=== PATIENT | male | born 1950 | race Two or more races ===

== ENCOUNTER 2016-10-06 12:25 | Emergency (ER) | payer MEDICARE, OTHER ==
[2016-10-06 13:12] VITALS: BP 130/72; PULSE 73; RESP 20; TEMP 98.6
[2016-10-06] MEDS ORDERED: KETOROLAC 60 MG/2 ML VIAL IM STA (13:46)
[2016-10-06] MEDS ORDERED: ORPHENADRINE 30 MG/ML 2 ML VIAL IM STA (13:46)
[2016-10-06] MEDS ORDERED: methylPREDNISolone SOD SUCCI 125 MG/2 ML VIAL IM ONE (13:47)
--- NOTE | 2016-10-06 14:00 | ED ---
Back Pain HPI - General Chief Complaint: Back Pain/Injury Stated Complaint: Back Pain Time Seen by Provider: 10/06/16 13:38 Source: patient, RN notes reviewed Limitations: no limitations - History of Present Illness Initial Comments: Patient is a 65-year-old male chief complaint of chronic lower back pain. Patient reports that he has been suffering from back pain for many years. He reports that he is scheduled to see a specialist Dr. Stout in 2 weeks. He reports he is supposed to have surgery but now is seeing a second opinion. Patient reports that he usually takes Antlers fives and 2 pills every 5 hours however does not help with his pain. Patient reports that the pain will shoot down the right leg. Patient reports that this is also chronic. He denies any saddle anesthesias or incontinence. He does report he has an occasional foot drop but denies any today. - Related Data Home Medications Medication Instructions Recorded Confirmed Aspirin 81 mg PO DAILY 03/11/14 05/25/16 Glimepiride [Amaryl] 4 mg PO BID 03/11/14 05/25/16 Tamsulosin [Flomax] 0.4 mg PO DAILY 03/11/14 05/25/16 Levocetirizine Dihydrochloride 5 mg PO DAILY 04/14/15 05/25/16 [Xyzal] sitaGLIPtin PHOS/metFORMIN HCL 1 tab PO BID 04/14/15 05/25/16 [Janumet 50-1,000 mg Tablet] Losartan [Cozaar] 50 mg PO DAILY 06/10/15 05/25/16 Omeprazole 20 mg PO BID 06/10/15 05/25/16 Cholecalciferol [Vitamin D3] 1,000 unit PO DAILY 10/22/15 05/25/16 Cyanocobalamin [Vitamin B-12 1,000 mg IM Q28D 10/22/15 05/25/16 Injection] HYDROcodone/APAP 5-325MG [Antlers 1 tab PO Q4HR PRN 10/22/15 05/25/16 5-325] Canagliflozin [Invokana] 300 mg PO DAILY 03/29/16 05/25/16 Megestrol Acetate 40 mg PO DAILY 03/29/16 05/25/16 levETIRAcetam [Keppra] 500 mg PO BID 03/29/16 05/25/16 Previous Rx's Medication Instructions Recorded tiZANidine [Zanaflex] 4 mg PO Q8HR PRN #0 10/24/15 Ibuprofen [Motrin] 600 mg PO Q6HR PRN #20 tab 11/07/15 Atenolol 25 mg PO DAILY #90 tablet 03/31/16 Atorvastatin [Lipitor] 40 mg PO HS #30 tablet 03/31/16 Nitroglycerin Sl Tabs [Nitrostat] 0.4 mg SUBLINGUAL Q5M PRN #25 tab 03/31/16 Prasugrel [Effient] 10 mg PO DAILY #1 tablet 03/31/16 Cyclobenzaprine [Flexeril] 10 mg PO TID #20 tab 05/25/16 Naproxen 500 mg PO Q12HR 14 Days 05/25/16 Orphenadrine [Norflex] 100 mg PO Q12H #20 tablet.er 10/06/16 Allergies Allergy/AdvReac Type Severity Reaction Status Date / Time No Known Allergies Allergy Verified 10/06/16 13:12 Review of Systems ROS Statement: Those systems with pertinent positive or pertinent negative responses have been documented in the HPI. ROS Other: All systems not noted in ROS Statement are negative. Past Medical History Past Medical History: Coronary Artery Disease (CAD), Chest Pain / Angina, Diabetes Mellitus, GERD/Reflux, Hyperlipidemia, Hypertension, Myocardial Infarction (NC) Additional Past Medical History / Comment(s): PROSTATE CANCER RADIATION/SEED IMPLANTS, STATES HE HAD HX OF RADIATION WHICH BURNED HIS COLON. , STATED "HAD BLOOD IN STOOL". Last Myocardial Infarction Date:: 1999 History of Any Multi-Drug Resistant Organisms: None Reported Past Surgical History: Heart Catheterization With Stent Additional Past Surgical History / Comment(s): HEART CATH WITH STENT 2003, COLONOSCOPY. Past Anesthesia/Blood Transfusion Reactions: No Reported Reaction Date of Last Stent Placement:: 2003 Past Psychological History: No Psychological Hx Reported Smoking Status: Former smoker Past Alcohol Use History: Occasional Additional Past Alcohol Use History / Comment(s): SMOKED FOR 8 YRS APPROX 1 PACK PER WEEK.QUIT 1984 Past Drug Use History: None Reported - Past Family History Mother Family Medical History: Cancer Brother(s) Family Medical History: Coronary Artery Disease (CAD), Diabetes Mellitus, Myocardial Infarction (NC) Father Family Medical History: Myocardial Infarction (NC) Additional Family Medical History / Comment(s): Father of NC at 99 years old General Exam - General Exam Comments Initial Comments: 65-year-old male. No acute distress. Limitations: no limitations General appearance: alert, in no apparent distress Head exam: Present: atraumatic, normocephalic, normal inspection Eye exam: Present: normal appearance, PERRL, EOMI. Absent: scleral icterus, conjunctival injection, periorbital swelling ENT exam: Present: normal exam, mucous membranes moist Neck exam: Present: normal inspection. Absent: tenderness, meningismus, lymphadenopathy Respiratory exam: Present: normal lung sounds bilaterally. Absent: respiratory distress, wheezes, rales, rhonchi, stridor Cardiovascular Exam: Present: regular rate, normal rhythm, normal heart sounds. Absent: systolic murmur, diastolic murmur, rubs, gallop, clicks GI/Abdominal exam: Present: soft, normal bowel sounds. Absent: distended, tenderness, guarding, rebound, rigid Extremities exam: Present: normal inspection, full ROM, normal capillary refill. Absent: tenderness, pedal edema, joint swelling, calf tenderness Back exam: Present: normal inspection, full ROM, tenderness (Patient reports lumbar spinal tenderness radiating down his right leg.), paraspinal tenderness ( Right paraspinal lumar tenderness) Neurological exam: Present: alert, oriented X3, CN II-XII intact, other (No evidence of foot drop.) Psychiatric exam: Present: normal affect, normal mood Skin exam: Present: warm, dry, intact, normal color. Absent: rash Course Vital Signs 10/06/16 13:10 Temperature 98.6 F Pulse Rate 73 Respiratory 20 Rate Blood Pressure 130/72 O2 Sat by Pulse 98 Oximetry Medical Decision Making - Medical Decision Making Patient is 65-year-old male with chronic lower back pain. Patient wants to forego any imaging studies at this time. He denies any trauma. The pain will occasionally radiate down his right leg. Patient warts that is not managed with his at home pain medication. Patient only given IM Norflex and Toradol. Patient will be discharged with a prescription for Norflex. I did discuss the need to take his at home pain medication. At this time not able to violate his pain contract. Patient also advised to follow-up with his neurologist and orthopod as is possible. Return parameters were discussed. Disposition Clinical Impression: Strain of lumbar region, Sciatica Disposition: HOME SELF-CARE Condition: Good Instructions: Acute Low Back Pain (ED) Additional Instructions: Patient advised to rest, apply heat and ice lower back. Take at home pain medication and new prescription muscle relaxers. Prescriptions: Orphenadrine [Norflex] 100 mg PO Q12H #20 tablet.er Referrals: Shannon Honeycutt MD [Primary Care Provider] - 1-2 days Time of Disposition: 16:24
== END 2016-10-06 14:26 | disposition home or self-care (01) ==
LOC: EC 12:25
DX: S39.012A Strain of muscle, fascia and tendon of lower back, initial encounter (principal); M54.30 Sciatica, unspecified side; E11.9 Type 2 diabetes mellitus without complications; Z79.84 Long term (current) use of oral hypoglycemic drugs; K21.9 Gastro-esophageal reflux disease without esophagitis; I10 Essential (primary) hypertension; Z85.46 Personal history of malignant neoplasm of prostate; Z87.891 Personal history of nicotine dependence; Z79.899 Other long term (current) drug therapy; X58.XXXA Exposure to other specified factors, initial encounter
CPT/HCPCS: 99283; 96372 ×2; J2360; J1885

== ENCOUNTER → 2016-10-11 | Outpatient (CLI) | payer MEDICARE, OTHER ==
[2016-10-11 16:36] LABS: Blood Urea Nitrogen 15 mg/dL (9-20); Non-African American GFR(MDRD) >60 (>60 ml/min/1.73 sqM)
--- NOTE | 2016-10-11 17:00 | BD ---
EXAMINATION TYPE: MG DEXA axial skeleton. DATE OF EXAM: 10/11/2016 3:43 PM COMPARISON: NONE CLINICAL HISTORY: 65-year-old male prostate CA Height: 5'4 Weight: 208 FRAX RISK QUESTIONS: Alcohol (3 or more units per day): no Family History (Parent hip fracture): no Glucocorticoids (More than 3mos): no (Ex: prednisone, prednisolone, methylprednisolone, dexamethasone, and hydrocortisone). History of Fracture in Adulthood: no Secondary Osteoporosis: 1. Type 1 Diabetes: no 2. Hyperthyroidism: no 3. Menopause before 45: NA 4. Malnutrition: no 5. Chronic liver disease: no Rheumatoid Arthritis: no Current Tobacco Use: no RISK FACTORS HISTORY OF: History of Wrist Fracture: rt When: 2016 Other Fractures since Age 48: When: 2016 Active: MEDICATIONS: Additional Medications: blood pressure, cholesterol , treatment for prostate cancer Additional History: prostate CA EXAM MEASUREMENTS: Bone mineral densitometry was performed using the [employer] System. Bone mineral density as measured about the Lumbar spine is: ----- L1-L4(G/cm2): 0.982 T Score Values are as follows: ----- L2: -1.4 ----- L3: -1.9 ----- L4: -1.1 ----- L1-L4: -1.6 Bone mineral density about the R hip (g/cm2): 1.084 Bone mineral density about the L hip (g/cm2): 0.989 T Score values are as follows: -----R Neck: 0.3 -----L Neck: -0.3 -----R Intertrochanter: -0.7 -----L Intertrochanter: -0.4 IMPRESSION: Osteopenia as indicated by T score values in the lumbar spine. There is slightly increased risk of fracture and the patient may be considered for treatment. NOTE: T-SCORE=SD OF THE YOUNG ADULT MEAN.
--- NOTE | 2016-10-11 21:13 | CT ---
EXAMINATION TYPE: CT abdomen pelvis w con DATE OF EXAM: 10/11/2016 5:52 PM COMPARISON: CT abdomen and pelvis April 02, 2015 HISTORY: F/U after prostate CA. CT DLP: 1679 mGycm, Automated Exposure Control for Dose Reduction was Utilized. CONTRAST: CT scan of the abdomen and pelvis is performed with oral and with IV Contrast, patient injected with 100 mL of Omnipaque 300. FINDINGS: LUNG BASES: Dense coronary artery calcification and/or stent in the RCA distribution is present. LIVER/GB: Small dependent density in gallbladder on axial image 22 is felt to reflect small gallstone s. PANCREAS: No significant abnormality is seen. SPLEEN: No significant abnormality is seen. ADRENALS: No significant abnormality is seen. KIDNEYS: No significant abnormality is seen. BOWEL: Oral contrast does not reach colonic level. There is no suspicious small or large bowel dilata tion. PROSTATE/SEMINAL VESICLES: Numerous brachytherapy seeds are redemonstrated in prostate gland. LYMPH NODES: No greater than 1cm abdominal or pelvic lymph nodes are appreciated. OSSEOUS STRUCTURES: Multilevel spurring in the thoracolumbar spine is present. Grade 1 anterolisthesi s L4 on L5 is seen. Small sclerotic focus left proximal femur on coronal image 63 is nonspecific but stable and presumed benign. OTHER: No significant additional abnormality is seen. IMPRESSION: No worrisome new mass or adenopathy is seen to suggest neoplastic recurrence.
== END | disposition home or self-care (01) ==
LOC: RADBDWWP 15:08
PROVIDERS: ATTEND Internal Medicine Hematology & Oncology
DX: C61 Malignant neoplasm of prostate (principal); M85.88 Other specified disorders of bone density and structure, other site
CPT/HCPCS: 82565; 84520; 77080; 74177; 36415; Q9967

== ENCOUNTER → 2016-11-12 | Outpatient (CLI) | payer MEDICARE, OTHER ==
[2016-11-12 13:00] LABS: Basophils % (A) 1 %; CH 30.1; CHCM 32.9; Eosinophils # (A) 0.2 k/uL (0-0.7); Eosinophils % (A) 2 %; HCT 42.1 % (39.0-53.0); HDW 2.29; HGB 13.9 gm/dL (13.0-17.5); Luc # (Auto) 0.22; Luc % (Auto) 3; Lymphocytes # (A) 1.6 k/uL (1.0-4.8); Lymphocytes % (A) 25 %; MCH 30.3 pg (25.0-35.0); MCV 91.8 fL (80.0-100.0); Mean Platelet Volume 7.2; Monocytes # (A) 0.5 k/uL (0-1.0); Monocytes % (A) 7 %; Neutrophils # (A) 4.2 k/uL (1.3-7.7); Neutrophils % (A) 62 %; RBC 4.58 m/uL (4.30-5.90); RDW 12.9 % (11.5-15.5); WBC 6.7 k/uL (3.8-10.6); WBC (Perox) 5.97
[2016-11-12 14:24] LABS: Prothrombin Time 10.4 sec (9.0-12.0)
[2016-11-12 14:40] LABS: Appearance,Urine Clear (Clear); Bacteria,Urine Rare /hpf; Bilirubin,Urine Negative (Negative); Glucose,Urine (UA) 4+ (Negative); Ketones,Urine Negative (Negative); Leukocyte Esterase,Urine Large (Negative); Mucus,Urine Rare /hpf; Nitrite,Urine Negative (Negative); Particle Count 2578; Protein,Urine Negative (Negative); RBC,Urine 10 /hpf (0-5); Specific Gravity,Urine 1.028 (1.001-1.035); Squamous Epithelial Cell,Urine 3 /hpf (0-4); UA Billing (MACRO vs. MICRO) MICRO; Urobilinogen,Urine <2.0 mg/dL (<2.0); WBC,Urine 10 /hpf (0-5)
[2016-11-12 14:44] LABS: Partial Thromboplastin Time 20.3 sec (22.0-30.0)
== END | disposition home or self-care (01) ==
LOC: LABPAT 12:32
PROVIDERS: ATTEND Orthopaedic Surgery Orthopaedic Surgery of the Spine
DX: Z01.810 Encounter for preprocedural cardiovascular examination (principal); Z01.818 Encounter for other preprocedural examination; M48.06 Spinal stenosis, lumbar region
CPT/HCPCS: 80053; 80177; 81001; 83036; 85025; 85610; 85730; 86850; 86900; 86901

== ENCOUNTER 2016-11-24 07:43 | Inpatient (IN) | payer MEDICARE, OTHER ==
[~2016-11-24 07:43] MED LIST: BACITRACIN 50,000 UNIT, POLYMYXIN B 500,000 UNIT in SODIUM CHLORIDE 0.9% IRRIGATIO 1,00... IRRIGATION ONE; DEXAMETHASONE SOD PHOSPHATE 10 MG/ML 1 ML VIAL IV ONE; MIDAZOLAM 2 MG/2 ML VIAL IV PRN; ONDANSETRON 4 MG/2 ML VIAL IVP ONE; ceFAZolin 2 GM in SODIUM CHLORIDE 0.9% 100 ML IVPB ONE
[2016-11-24 08:30] LABS: Glucose,Whole Blood 164 mg/dL (75-99)
[2016-11-24] MEDS: LACTATED RINGERS 1,000 ML IV SCH (08:31)
[2016-11-24] MEDS ORDERED: LIDOCAINE 1% 20 ML VIAL (10MG/ML) FOR IV START INTRADERMA ONE (08:31)
[2016-11-24] MEDS ORDERED: SUCCINYLCHOLINE CHLORIDE 100 MG/5 ML SYR IV ONE (09:52)
[2016-11-24] MEDS ORDERED: PROPOFOL 10 MG/ML 20 ML VIAL IV ONE (09:52)
[2016-11-24] MEDS ORDERED: fentaNYL (PF) 50 MCG/ML 2 ML AMP ONE (09:52)
[2016-11-24] MEDS ORDERED: LIDOCAINE 1% INJ 10MG/ML (20 ML MDV) ONE (09:52)
[2016-11-24] MEDS ORDERED: ePHEDrine 50 MG/ML 1 ML AMP ONE (09:52)
[2016-11-24] MEDS ORDERED: ROCURONIUM BROMIDE 10 MG/ML 10 ML VIAL IV ONE (09:52)
[2016-11-24] MEDS ORDERED: PHENYLEPHRINE-0.9% NACL SYG 1 MG/10 ML SYRINGE ONE (09:52)
[2016-11-24] MEDS ORDERED: MIDAZOLAM 2 MG/2 ML VIAL ONE (09:52)
[2016-11-24] MEDS ORDERED: LIDOCAINE 0.5% (PF) 5 MG/ML (50 ML SDV) SQ ONE (10:41)
[2016-11-24] MEDS ORDERED: THROMBIN (BOVINE) 5,000 UNIT VIAL TOPICAL ONE (10:42)
[2016-11-24] MEDS ORDERED: GELATIN SPONGE,ABSORB (SMALL) 1 EACH SPONGE TOPICAL ONE (10:42)
[2016-11-24] MEDS ORDERED: BUPIVACAINE (PF) 0.25% 30 ML VIAL SQ ONE (10:43)
[2016-11-24] MEDS ORDERED: LACTATED RINGERS 1,000 ML IV ONE ×2 (10:47→13:01)
[2016-11-24] MEDS: BUPIVACAINE LIPOSOME/PF 1.3% 20 ML, BUPIVACAIN-EPI 0.5%-1:200,000 25 ML, SODIUM CHLORID... MISCELLANE ONE ×6 (11:55→12:59)
[2016-11-24] MEDS ORDERED: HYDROmorphone 1 MG/ML 1 ML SYRINGE IVP PRN (13:15)
[2016-11-24] MEDS ORDERED: BENZOCAINE/MENTHOL LOZENG 1 EACH LOZENGE MUCOUS MEM PRN (13:15)
[2016-11-24] MEDS ORDERED: ONDANSETRON 4 MG/2 ML VIAL IVP PRN (13:15)
[2016-11-24] MEDS ORDERED: HYDROcodone/APAP 5-325MG 1 EACH TAB PO PRN (13:15)
[2016-11-24] MEDS ORDERED: NITROGLYCERIN SL TABS 0.4 MG TAB SUBLINGUAL PRN (13:18)
--- NOTE | 2016-11-24 13:25 | FL ---
Fluoroscopy HISTORY: Lumbar decompression 2.1 minutes fluoroscopy time supplied to the referring clinician. 5 intraoperative C-arm images docu ment the procedure. See dictated report from orthopedic surgery.
--- NOTE | 2016-11-24 13:25 | XR ---
Limited lumbar spine HISTORY: Decompression 2.1 minutes fluoroscopy time supplied to the referring clinician. 5 intraoperative C-arm images docum ent the procedure
--- NOTE | 2016-11-24 13:28 | P.OP ---
Date of Procedure: 11/24/16 Preoperative Diagnosis: Severe spinal stenosis L4 5, spondylolisthesis grade 2 L4 5, facet arthrosis L4 5, neurogenic claudication Postoperative Diagnosis: Same Procedure(s) Performed: Implants: Anesthesia: GETA Pathology: none sent Condition: stable Disposition: PACU Indications for Procedure: Operative Findings: Description of Procedure: DESCRIPTION OF PROCEDURE(S): BRIEF OPERATIVE NOTE Preoperative Diagnosis: Severe spinal stenosis L4 5, spondylolisthesis L4 5, facet arthrosis L4 5, neurogenic claudication Postoperative Diagnosis: Same Procedure: Minimally invasive Laminectomy and decompression with wide bilateral foraminotomies L4 5 Minimally invasive Posterior lateral decompression and fusion with facet fusion L4 5 Minimally invasive Transforaminal lumbar interbody fusion for a 360 fusion L4 5 Discectomy for decompression L4 5 Placement of interbody graft L4 5 Bone marrow aspiration through the pedicle to be used for supplementing the bone graft Local autogenous bone grafting Use of Cell Saver Use of bone graft extenders Surgeon: Dr. Stout Hot End Operator: Sheldon Bradley is present throughout the entire the case persistence during positioning, dissection, exposure, visualization, and all crucial elements of the case as well as closure. Anesthesia: General anesthesia per Dr. Caballero Estimated blood loss: Approximately 200 mL Complications: None apparent Components implanted: K2M minimally invasive [place] pedicle screw system with 4 screws measuring 6.5 x 45 mm, 2 rods and 4 Screws with one 11 mm [place] interbody cage, one large cancellus ostial amp bone sponge with 10 mL of 2 and cancellus bone chips to supplement the local autogenous bone graft and bone marrow aspirate Disposition: To recovery room in good stable condition. OPERATIVE INDICATIONS The patient has had long-standing issues in their lower back and lower extremities. His found have severe stenosis at L4 5 with a grade 2 dynamic spondylolisthesis. These findings correlated very well with his back and lower extremity symptoms which have become significantly worsened for him and was causing him severe debility. The patient has been through conservative treatment. He is not having any prolonged benefit despite aggressive conservative treatment. We discussed various treatment options including surgery, and the patient wishes to proceed with surgery We discussed the risk, patient's alternatives and benefits of surgery including but not limited to, risk of bleeding risk of infection, risk of need for further surgery, risk of decreased, loss of motion, muscle function, malunion nonunion, hardware failure , nerve damage, paralysis, heart attack, blindness and . OPERATIVE SUMMARY After discussing all the risks, patient alternatives and benefits at length, the patient elected to proceed with surgical intervention, signed informed consent, and presented for their procedure. The patient was seen and examined in the preoperative holding area and the surgical site was marked. The patient was given antibiotics and brought to the operating room. The patient was sedated and intubated by anesthesia in standard fashion. The patient was positioned on to the operating room table in a prone position on the appropriate frame which was well-padded and well molded. We were careful to pad any bony prominences and pressure points. We were careful to maintain the patient's cervical spine and good neutral alignment and position throughout. The patient was prepped and draped in a normal standard fashion. An appropriate timeout and keystone protocol performed. We were able to proceed with the surgery. The local wound area was infiltrated with local anesthetic. I was able utilize C-arm guidance to establish appropriate position over the pedicles bilaterally at the appropriate levels at L4 5. With the appropriate levels confirmed was able to make small stab incisions over the appropriate pedicle sites bilaterally at L4 5. Utilizing C-arm in his house able to establish a Jamshidi needle over the lateral aspect of the pedicle and advanced the trocar into the pedicle being careful not to breech superiorly inferiorly medially or laterally. Position was confirmed regularly with AP and lateral images on C-arm. At L4 on the right was just able to get a bone marrow aspirate with approximately 20 mL of bone marrow aspirate to used for the bone graft. I was able to establish the trocar into the pedicle appropriately into the posterior aspect of the vertebral body bilaterally at the appropriate levels at L4 and L5 bilaterally. This was done at each of the pedicle positions and each of the vertebrae. I was able place the guidewire into the trocar and into the vertebral body appropriately under C-arm guidance. Dissection was taken down over the wire to the appropriate starting position for the screw placed. The appropriate length screw was chosen, threaded over the guidewire and screwed appropriately into the pedicle and vertebral body under C-arm guidance in excellent alignment and position with good bony purchase. This is done at each of the screw sites at the appropriate levels at L4 and L5 bilaterally. With the screws intact I extended the incision to connect the screw hole sites on the most symptomatic side on the right. I dissected down to establish access over the pars and lamina to the base of the spinous process. I was able to expose the facet joint. The capsule the facet was taken down and showed some facet arthrosis at the joint. I was able to use a combination of curettes and [place] rongeurs and a high-speed drill to take down the facet joint and do a facetectomy. Partial laminectomy was also performed. I was able get excellent foraminal decompression and central decompression with undermining across midline to perform a laminectomy centrally and contralaterally. This allowed me to get excellent bilateral foraminal decompression and I was able get good central decompression as well as. The ligamentum flavum was taken down to further decompress centrally and at bilateral neural foramen. I was able to expose the disc space and visualize the traversing nerve root. No was made of some disc protrusion at the level causing further compression of the nerve root. I was able to establish a annulotomy at the appropriate level of L4 5 on the right protecting soft tissue and neural structures. Note was made of some disc desiccation at the disc. I performed a complete discectomy with accommodation of curettes and rasps and scrapers. I was able get good endplate preparation at the disc space. I sized for the appropriate size interbody spacer protecting the soft tissue and neural structures. The wound was copiously irrigated and suctioned dry. There is no evidence of any dural tear or leak. I was able to pack the disc space with local autogenous bone graft as well as a small amount of ostial amp cancellus sponge which was also placed into the interbody cage itself. Protecting the soft tissue structures and neural structures I was able place the interbody cage in good alignment and good position with good fit and fill at the interbody space. His issues was confirmed with C-arm guidance. On the contralateral side I also performed laminectomy and foraminotomy to get further decompression at the bilateral neural foramen and centrally. Good hemostasis maintained. There is no evidence of any dural tear or leak. The wound was irrigated and suctioned dry. With the hardware intact, intraoperative C-arm imaging was again taken which showed good alignment and position of the hardware at the appropriate levels at L4 5. We were then able to measure, contour and place the rods and appropriate hardware bilaterally. I was able to place capcrews, tighten them down, and shear them off appropriately. The sheared portion was counted and accounted for. With this intact I was able to place the local autogenous bone graft with additional bone graft enhancer as necessary into the posterior lateral gutters over the decorticated transverse processes and the facet joint on the right. The remainder of the cancellus bone graft and bone graft was placed over the facet joint on the contralateral side after taking down the facet joint capsule. With the bone graft intact, a stable construct, and good decompression at the appropriate levels, we were able to proceed with closure. Good hemostasis was maintained. There is no evidence of dural tear or leak. The fascia was closed for a watertight closure. he subcuticular tissue was closed with absorbable suture. The wound was cleaned and dried and dressed with the appropriate dressing. The drapes were broken down. The patient was gently rolled back onto their hospital bed being careful to maintain their cervical spine and good neutral alignment and position. They were woken up by anesthesia, extubated, and brought to the recovery room in good stable condition. The patient will be admitted to the hospital for appropriate postoperative care , medical management and monitoring. We will continue to follow them closely about the postoperative course.
[2016-11-24] MEDS: HYDROmorphone 1 MG/ML 1 ML SYRINGE IVP PRN ×6 (13:37→21:10)
[2016-11-24 13:55] LABS: Glucose,Whole Blood 162 mg/dL (75-99)
[2016-11-24] MEDS: SODIUM CHLORIDE 0.9% 1,000 ML IV SCH (17:08)
[2016-11-24] MEDS ORDERED: CYANOCOBALAMIN 1,000 MCG/ML 1 ML VIAL IM SCH (17:30)
[2016-11-24 17:34] VITALS: BMI 36.8
[2016-11-24] MEDS: ceFAZolin 2 GM in SODIUM CHLORIDE 0.9% 100 ML IVPB SCH (18:18)
[2016-11-24] MEDS: PANTOPRAZOLE 40 MG TABLET PO SCH (18:22)
[2016-11-24] MEDS: CYCLOBENZAPRINE 10 MG TAB PO SCH ×2 (18:22→20:34)
[2016-11-24] MEDS: HYDROcodone/APAP 7.5-325MG 1 EACH TAB PO PRN (20:03)
[2016-11-24] MEDS: GLIMEPIRIDE 4 MG TAB PO SCH (20:32)
[2016-11-24] MEDS: LINAGLIPTIN 5 MG TABLET PO SCH (20:32)
[2016-11-24] MEDS: ATORVASTATIN 40 MG TAB PO SCH (20:32)
[2016-11-24] MEDS: levETIRAcetam 500 MG TAB PO SCH (20:33)
[2016-11-24] MEDS: metFORMIN 500 MG TAB PO SCH (20:33)
[2016-11-24] MEDS: NITROFURANTOIN MONOHYD/M-CRYST 100 MG CAP PO SCH (20:33)
[2016-11-25] MEDS: HYDROmorphone 1 MG/ML 1 ML SYRINGE IVP PRN ×5 (00:48→20:35)
[2016-11-25] MEDS: ceFAZolin 2 GM in SODIUM CHLORIDE 0.9% 100 ML IVPB SCH (01:40)
[2016-11-25] MEDS: HYDROcodone/APAP 7.5-325MG 1 EACH TAB PO PRN ×2 (01:41→07:28)
[2016-11-25] MEDS: DIAZEPAM 5 MG TAB PO PRN ×2 (01:41→08:51)
[2016-11-25] MEDS: SODIUM CHLORIDE 0.9% 1,000 ML IV SCH ×2 (06:27→15:55)
[2016-11-25] MEDS: LACTATED RINGERS 1,000 ML IV SCH (07:16)
[2016-11-25] MEDS: metFORMIN 500 MG TAB PO SCH ×2 (07:28→20:36)
[2016-11-25] MEDS: NITROFURANTOIN MONOHYD/M-CRYST 100 MG CAP PO SCH ×2 (07:28→20:36)
[2016-11-25] MEDS: TAMSULOSIN 0.4 MG CAP.ER.24H PO SCH (07:29)
[2016-11-25] MEDS: LORATADINE 10 MG TAB PO SCH (07:29)
[2016-11-25] MEDS: ASPIRIN 81 MG CHEW PO SCH (07:29)
[2016-11-25] MEDS: ATENOLOL 25 MG TAB PO SCH (07:30)
[2016-11-25] MEDS: CYCLOBENZAPRINE 10 MG TAB PO SCH ×3 (07:30→21:36)
[2016-11-25] MEDS: PANTOPRAZOLE 40 MG TABLET PO SCH ×2 (07:30→17:15)
[2016-11-25] MEDS: MEGESTROL 40 MG TAB PO SCH (07:30)
[2016-11-25] MEDS: GLIMEPIRIDE 4 MG TAB PO SCH ×2 (07:30→20:37)
[2016-11-25] MEDS: levETIRAcetam 500 MG TAB PO SCH ×2 (07:30→20:37)
[2016-11-25] MEDS: LINAGLIPTIN 5 MG TABLET PO SCH ×2 (07:30→20:38)
[2016-11-25] MEDS: LOSARTAN 50 MG TAB PO SCH (07:30)
[2016-11-25] MEDS ORDERED: NON-FORMULARY DRUG (Canagliflozin [Invokana] 300 MG) PO SCH (09:00)
[2016-11-25 09:06] LABS: Basophils % (A) 0 %; CH 29.7; CHCM 31.8; Eosinophils % (A) 1 %; HCT 39.5 % (39.0-53.0); HDW 2.06; HGB 12.6 gm/dL (13.0-17.5); Luc # (Auto) 0.12; Luc % (Auto) 2; Lymphocytes # (A) 0.8 k/uL (1.0-4.8); Lymphocytes % (A) 10 %; MCH 29.9 pg (25.0-35.0); MCHC 31.9 g/dL (31.0-37.0); MCV 93.5 fL (80.0-100.0); Mean Platelet Volume 6.8; Monocytes # (A) 0.4 k/uL (0-1.0); Monocytes % (A) 6 %; Neutrophils # (A) 6.3 k/uL (1.3-7.7); Neutrophils % (A) 82 %; RBC 4.22 m/uL (4.30-5.90); WBC 7.7 k/uL (3.8-10.6)
--- NOTE | 2016-11-25 09:09 | P.PN ---
Progress Note - Text Postoperative day #1 Patient is seen and examined today at bedside. The patient has some pain around the surgical site as expected. Pain is being controlled with medication. He is sitting up in the chair and has had his Whaley removed about an hour ago. He has not yet voided on his own. He feels his legs are doing well but his back is having some pain as expected Physical Exam Afebrile with stable vital signs Abdomen is soft nontender. Chest has good excursion deep and space expiration The incision site is clean dry and intact. No erythema there is no purulence. Dressings are clean and dry. There is no active drainage. There is no evidence of dehiscence Extremities have not had neurologic change from prior to surgery. He has sustained dorsal flexion plantar flexion and EHL intact bilaterally Calves and thighs were soft nontender without evidence of DVT. Assessment/Plan Postoperative day #1 status post decompression and fusion with minimally invasive approach at L4 5 for his severe spinal stenosis and spondylolisthesis Patient is progressing as expected from the surgery. He feels his legs are doing well in his back pain is being controlled with medication. We'll see how he does with his voiding now that his Whaley was discontinued. We will continue to increase the patient's mobilization with therapy. We will continue pain control with oral or IV medications. We'll continue to follow patient closely. Hopefully he will be okay for discharge in the next 1- 2 days.
[2016-11-25 09:14] LABS: Anion Gap 13 mmol/L; Blood Urea Nitrogen 10 mg/dL (9-20); Calcium 8.8 mg/dL (8.4-10.2); Carbon Dioxide 19 mmol/L (22-30); Chloride 103 mmol/L (98-107); Glucose 173 mg/dL (74-99); Non-African American GFR(MDRD) >60 (>60 ml/min/1.73 sqM); Potassium 4.6 mmol/L (3.5-5.1); Sodium 135 mmol/L (137-145)
[2016-11-25] MEDS ORDERED: CHOLECALCIFEROL 1,000 UNIT TAB PO SCH (12:00)
[2016-11-25] MEDS: HYDROcodone/APAP 5-325MG 1 EACH TAB PO PRN (12:00)
--- NOTE | 2016-11-25 14:25 | P.CONS ---
History of Present Illness - Reason for Consult Consult date: 11/25/16 Medical management Requesting physician: Madeleine Stout - Chief Complaint Chronic low back pain - History of Present Illness This is a 66-year-old gentleman with a very complex past medical history noted below significant for chronic low back pain that was evaluated by spine surgery and was admitted to the hospital for elective L4/L5 laminectomy. He is postoperative day #1. Detailed operative report available in the electronic chart. Patient is doing fairly well today. He does not have any specific concerns or complaints. I was asked to see him for medical management. Review of Systems Review of system: 14 points review of systems were obtained and were negative except to what were mentioned in the HPI. Past Medical History Past Medical History: Coronary Artery Disease (CAD), Chest Pain / Angina, Diabetes Mellitus, GERD/Reflux, Hyperlipidemia, Hypertension, Myocardial Infarction ([place]) Additional Past Medical History / Comment(s): PROSTATE CANCER RADIATION/SEED IMPLANTS, STATES HE HAD HX OF RADIATION WHICH BURNED HIS COLON. , STATED "HAD BLOOD IN STOOL". Last Myocardial Infarction Date:: 1999 History of Any Multi-Drug Resistant Organisms: None Reported Past Surgical History: Heart Catheterization With Stent Additional Past Surgical History / Comment(s): HEART CATH WITH STENT 2003, COLONOSCOPY. Past Anesthesia/Blood Transfusion Reactions: No Reported Reaction Date of Last Stent Placement:: 2003 Past Psychological History: No Psychological Hx Reported Smoking Status: Former smoker Past Alcohol Use History: Occasional Additional Past Alcohol Use History / Comment(s): SMOKED FOR 8 YRS APPROX 1 PACK PER WEEK.QUIT 1984 Past Drug Use History: None Reported - Past Family History Mother Family Medical History: Cancer Brother(s) Family Medical History: Coronary Artery Disease (CAD), Diabetes Mellitus, Myocardial Infarction ([place]) Father Family Medical History: Myocardial Infarction ([place]) Additional Family Medical History / Comment(s): Father of [place] at 99 years old Medications and Allergies Home Medications Medication Instructions Recorded Confirmed Type Aspirin 81 mg PO DAILY 03/11/14 11/24/16 History Glimepiride [Amaryl] 4 mg PO BID 03/11/14 11/24/16 History Tamsulosin [Flomax] 0.4 mg PO DAILY 03/11/14 11/24/16 History Levocetirizine Dihydrochloride 5 mg PO DAILY 04/14/15 11/24/16 History [Xyzal] sitaGLIPtin PHOS/metFORMIN HCL 1 tab PO BID 04/14/15 11/24/16 History [Janumet 50-1,000 mg Tablet] Losartan [Cozaar] 50 mg PO QAM 06/10/15 11/24/16 History Omeprazole 20 mg PO BID 06/10/15 11/24/16 History Cholecalciferol [Vitamin D3] 1,000 unit PO DAILY 10/22/15 11/24/16 History Cyanocobalamin [Vitamin B-12 1,000 mg IM Q28D 10/22/15 11/24/16 History Injection] Canagliflozin [Invokana] 300 mg PO DAILY 03/29/16 11/24/16 History Megestrol Acetate 40 mg PO QAM 03/29/16 11/24/16 History levETIRAcetam [Keppra] 500 mg PO QAM 03/29/16 11/24/16 History Atenolol 25 mg PO QAM 11/18/16 11/24/16 History Clopidogrel [Plavix] 75 mg PO DAILY 11/18/16 11/24/16 History HYDROcodone/APAP 7.5-325MG [[place] 1 tab PO Q6H PRN 11/18/16 11/24/16 History 7.5-325] Nitrofurantoin Monohyd/M-Cryst 100 mg PO Q12HR 11/18/16 11/24/16 History [Macrobid] levETIRAcetam [Keppra] 1,000 mg PO HS 11/18/16 11/24/16 History Allergies Allergy/AdvReac Type Severity Reaction Status Date / Time No Known Allergies Allergy Verified 11/18/16 11:06 Physical Exam Vitals: Vital Signs Temp Pulse Pulse Pulse Resp BP Pulse Ox 11/25/16 08:13 99.3 F 92 16 129/66 91 L 11/25/16 08:00 82 16 11/24/16 22:46 98.1 F 82 16 150/72 91 L 11/24/16 18:25 80 144/75 95 11/24/16 17:55 78 139/74 93 L 11/24/16 17:25 77 142/76 94 L 11/24/16 17:10 80 143/72 91 L 11/24/16 16:55 78 153/79 93 L 11/24/16 16:40 98.2 F 74 18 147/70 97 11/24/16 16:25 76 16 152/76 96 11/24/16 16:00 72 18 138/83 97 11/24/16 15:30 73 18 129/76 96 11/24/16 15:15 77 16 137/72 94 L 11/24/16 15:00 74 16 129/69 94 L 11/24/16 14:45 75 16 129/67 95 11/24/16 14:30 79 16 137/70 96 Intake and Output 11/24/16 11/25/16 11/25/16 22:59 06:59 14:59 Intake Total 590 600 Output Total 300 Balance 590 600 -300 Intake: Intake, IV Titration 600 Amount Sodium Chloride 0.9% 1, 600 000 ml @ 75 mls/hr IV . [id number] [facility] Rx#:[id number] Oral 590 Output: Urine 300 Other: Voiding Method Indwelling Catheter Weight 94.347 kg 94.347 kg Patient Weight 11/26/16 06:59 Weight 94.347 kg General: The patient is awake and alert, in no distress Eye: there is normal conjunctiva bilaterally. Neck: The neck is supple, there is no JVD. Cardiovascular: Normal S1-S2, no S3-S4, no murmurs. Respiratory: Lungs clear to auscultation bilaterally Gastrointestinal: Abdomen is soft, nontender Musculoskeletal: There is no pedal edema. Neurological:. Speech is normal. Skin: Skin is warm and dry Results CBC & Chem 7: 11/25/16 08:25 11/25/16 08:25 Labs: Abnormal Lab Results - Last 24 Hours (Table) 11/25/16 11/25/16 Range/Units 08:25 08:25 RBC 4.22 L (4.30-5.90) m/uL Hgb 12.6 L (13.0-17.5) gm/dL Lymphocytes # 0.8 L (1.0-4.8) k/uL Sodium 135 L (137-145) mmol/L Carbon Dioxide 19 L (22-30) mmol/L Glucose 173 H (74-99) mg/dL Assessment and Plan Plan: 1. Postoperative day #1 status post L4-L5 laminectomy: Continue postoperative care. No complications reported. 2. Essential hypertension: Blood pressure well-controlled 3. Mixed hyperlipidemia 4. History of prostate cancer with previous radiation therapy 5. Underlying seizure disorder 6. Coronary artery disease with previous stent placement in 2003 Today, I reviewed her medication list and lab work results. Continue current regimen. Thank you very much for the consultation. I will continue to follow up on the patient closely.
[2016-11-25 20:12] LABS: Glucose,Whole Blood 184 mg/dL (75-99)
[2016-11-25] MEDS: ATORVASTATIN 40 MG TAB PO SCH (20:37)
[2016-11-26] MEDS: HYDROmorphone 1 MG/ML 1 ML SYRINGE IVP PRN (02:22)
[2016-11-26] MEDS: HYDROcodone/APAP 5-325MG 1 EACH TAB PO PRN (03:43)
[2016-11-26 07:15] LABS: Glucose,Whole Blood 129 mg/dL (75-99)
[2016-11-26 08:05] VITALS: BP 127/71; RESP 18; TEMP 97.3
[2016-11-26] MEDS: LINAGLIPTIN 5 MG TABLET PO SCH (08:19)
[2016-11-26] MEDS: ATENOLOL 25 MG TAB PO SCH (08:19)
[2016-11-26] MEDS: CYCLOBENZAPRINE 10 MG TAB PO SCH (08:19)
[2016-11-26] MEDS: GLIMEPIRIDE 4 MG TAB PO SCH (08:19)
[2016-11-26] MEDS: ASPIRIN 81 MG CHEW PO SCH (08:19)
[2016-11-26] MEDS: levETIRAcetam 500 MG TAB PO SCH (08:19)
[2016-11-26] MEDS: PANTOPRAZOLE 40 MG TABLET PO SCH (08:19)
[2016-11-26] MEDS: LORATADINE 10 MG TAB PO SCH (08:21)
[2016-11-26] MEDS: MEGESTROL 40 MG TAB PO SCH (08:21)
[2016-11-26] MEDS: metFORMIN 500 MG TAB PO SCH (08:21)
[2016-11-26] MEDS: LOSARTAN 50 MG TAB PO SCH (08:21)
[2016-11-26] MEDS: TAMSULOSIN 0.4 MG CAP.ER.24H PO SCH (08:22)
[2016-11-26] MEDS: NITROFURANTOIN MONOHYD/M-CRYST 100 MG CAP PO SCH (08:22)
[2016-11-26] MEDS ORDERED: CLOPIDOGREL 75 MG TAB PO SCH (09:00)
--- NOTE | 2016-11-26 09:02 | P.DS ---
Providers Date of admission: 11/24/16 13:19 Expected date of discharge: 11/26/16 Attending physician: Madeleine Stout Consults: 11/24/16 13:15 Consult Physician Routine Consulting Provider: Edd Maciel Consult Reason/Comments: Medical management Do you want consulting provider notified?: Already Contacted Primary care physician: Shannon Honeycutt - Discharge Diagnosis(es) (1) Arthrodesis status Current Visit: Yes Status: Acute (2) Lumbar stenosis Current Visit: Yes Status: Acute (3) Spondylolisthesis, lumbar region Current Visit: Yes Status: Acute (4) Lumbar facet arthropathy Current Visit: Yes Status: Acute (5) Neurogenic claudication Current Visit: Yes Status: Acute Hospital Course: This is a pleasant 66-year-old male who presented with L4-5 severe spinal canal stenosis, spondylolisthesis, facet arthrosis, and neurogenic claudication who failed outpatient conservative therapy. He was admitted for a minimally invasive posterior lateral decompression and fusion at L4-5 with transforaminal lumbar interbody fusion. The patient tolerated the procedure well and did well postoperatively. He has had significant improvement of his right lower extremity radiculopathy. He has some back pain at the surgical site states his pain is been well-controlled. He feels he is ready for discharge home and is looking for discharge. Condition on day of discharge stable. Patient was cleared preoperatively for surgery by Dr. Honeycutt and Dr. Richardson. Patient currently denies any nausea, vomiting, fever, or chills. Patient is eating and voiding freely without difficulty. Patient may shower Tegaderm dressing intact. Patient may remove Tegaderm dressing in 3 days and shower without a dressing at that time. Patient should keep Steri-Strips intact and allow them to fall off naturally. Patient should refrain from driving until at least after their first follow-up appointment in the office. Patient should avoid excessive bending, lifting, and twisting; no lifting greater than 10 pounds. Patient will be given a prescription for [place] 7.5 mg/325mg 1 tablet every 6 hours as needed for pain and Flexeril 10 mg/325 mg. Physical Exam on day of discharge: Patient is awake, alert, and oriented 3 Vital signs stable Good chest excursion with deep inspiration and expiration Abdomen soft nontender No signs or symptoms of DVT; no calf pain Extensor hallucis longus, plantarflexion, and dorsiflexion positive sustained bilateral lower extremities Incision is clean, dry, and intact; no erythema, purulence, or signs of infection Tegaderm dressing and non-stick Telfa intact Procedures: Minimally invasive posterior lateral decompression and fusion with transforaminal lumbar interbody fusion L4-5 Patient Condition at Discharge: Stable Plan - Discharge Summary New Discharge Prescriptions: Cyclobenzaprine [Flexeril] 10 mg PO TID PRN #90 tab PRN Reason: Muscle Spasm HYDROcodone/APAP 7.5-325MG [[place] 7.5-325] 1 each PO Q6HR PRN #90 tab PRN Reason: Pain Discharge Medication List Aspirin 81 mg PO DAILY 03/11/14 [History] Glimepiride [Amaryl] 4 mg PO BID 03/11/14 [History] Tamsulosin [Flomax] 0.4 mg PO DAILY 03/11/14 [History] Levocetirizine Dihydrochloride [Xyzal] 5 mg PO DAILY 04/14/15 [History] sitaGLIPtin PHOS/metFORMIN HCL [Janumet 50-1,000 mg Tablet] 1 tab PO BID [History] Losartan [Cozaar] 50 mg PO QAM 06/10/15 [History] Omeprazole 20 mg PO BID 06/10/15 [History] Cholecalciferol [Vitamin D3] 1,000 unit PO DAILY 10/22/15 [History] Cyanocobalamin [Vitamin B-12 Injection] 1,000 mg IM Q28D 10/22/15 [History] tiZANidine [Zanaflex] 4 mg PO Q8HR PRN #0 10/24/15 [Rx] Ibuprofen [Motrin] 600 mg PO Q6HR PRN #20 tab 11/07/15 [Rx] Canagliflozin [Invokana] 300 mg PO DAILY 03/29/16 [History] Megestrol Acetate 40 mg PO QAM 03/29/16 [History] levETIRAcetam [Keppra] 500 mg PO QAM 03/29/16 [History] Atorvastatin [Lipitor] 40 mg PO HS #30 tablet 03/31/16 [Rx] Nitroglycerin Sl Tabs [Nitrostat] 0.4 mg SUBLINGUAL Q5M PRN #25 tab 03/31/16 [Rx ] Cyclobenzaprine [Flexeril] 10 mg PO TID #20 tab 05/25/16 [Rx] Naproxen 500 mg PO Q12HR 14 Days 05/25/16 [Rx] Orphenadrine [Norflex] 100 mg PO Q12H #20 tablet.er 10/06/16 [Rx] Atenolol 25 mg PO QAM 11/18/16 [History] Clopidogrel [Plavix] 75 mg PO DAILY 11/18/16 [History] HYDROcodone/APAP 7.5-325MG [[place] 7.5-325] 1 tab PO Q6H PRN 11/18/16 [History] Nitrofurantoin Monohyd/M-Cryst [Macrobid] 100 mg PO Q12HR 11/18/16 [History] levETIRAcetam [Keppra] 1,000 mg PO HS 11/18/16 [History] Cyclobenzaprine [Flexeril] 10 mg PO TID PRN #90 tab 11/26/16 [Rx] HYDROcodone/APAP 7.5-325MG [[place] 7.5-325] 1 each PO Q6HR PRN #90 tab 11/26/16 [ Rx] Follow up Appointment(s)/Referral(s): Sheldon Sanchez, OLE[place]ARIO [PHYSICIAN AN/SQQ 89(V)15 SONAR SYSTEM JOURNEYMAN] - 2 Weeks (Patient may follow-up with Sheldon Sanchez PA-C or Dr. Khai Stout at [facility] in 2-3 weeks following discharge. ) Activity/Diet/Wound Care/Special Instructions: 1. Patient may shower Tegaderm dressing intact. 2. Patient may remove Tegaderm dressing in 3 days and shower without a dressing at that time. 3. Patient should keep Steri-Strips intact and allow them to fall off naturally. 4. Patient should refrain from driving until at least after their first follow- up appointment in the office. 5. Patient should avoid excessive bending, twisting, and lifting; no lifting greater than 10 pounds 6. Do not soak in tub Discharge Disposition: HOME SELF-CARE
[2016-11-26 09:15] VITALS: PULSE 82
== END 2016-11-26 10:15 | disposition home or self-care (01) | DRG 460 ==
LOC: OR 07:43 → EDSTATUS 09:45 → 5MS5E 13:19
PROVIDERS: ADMIT Orthopaedic Surgery Orthopaedic Surgery of the Spine; ATTEND Orthopaedic Surgery Orthopaedic Surgery of the Spine
PROC: 0SG00AJ Fusion of Lumbar Vertebral Joint with Interbody Fusion Device, Posterior Approach, Anterior Column, Open Approach (ICD-10-PCS; principal; 2016-11-24 11:55)
PROC: 07DS3ZZ Extraction of Vertebral Bone Marrow, Percutaneous Approach (ICD-10-PCS; principal; 2016-11-24 11:55)
PROC: 0ST20ZZ Resection of Lumbar Vertebral Disc, Open Approach (ICD-10-PCS; principal; 2016-11-24 11:55)
PROC: 0SG0071 Fusion of Lumbar Vertebral Joint with Autologous Tissue Substitute, Posterior Approach, Posterior Column, Open Approach (ICD-10-PCS; principal; 2016-11-24 11:55)
DX: M43.16 Spondylolisthesis, lumbar region (principal); I10 Essential (primary) hypertension; E11.9 Type 2 diabetes mellitus without complications; M48.06 Spinal stenosis, lumbar region; E78.5 Hyperlipidemia, unspecified; G89.29 Other chronic pain; I25.10 Atherosclerotic heart disease of native coronary artery without angina pectoris; M51.16 Intervertebral disc disorders with radiculopathy, lumbar region; I25.2 Old myocardial infarction; K21.9 Gastro-esophageal reflux disease without esophagitis; M46.96 Unspecified inflammatory spondylopathy, lumbar region; Z79.02 Long term (current) use of antithrombotics/antiplatelets; Z79.82 Long term (current) use of aspirin; Z79.899 Other long term (current) drug therapy; Z82.49 Family history of ischemic heart disease and other diseases of the circulatory system; Z85.46 Personal history of malignant neoplasm of prostate; Z87.891 Personal history of nicotine dependence; Z92.3 Personal history of irradiation
CPT/HCPCS: 72100; 80048; 85025; 86850; 86900; 86901

== ENCOUNTER 2016-11-28 02:56 | Inpatient (IN) | payer MEDICARE, OTHER ==
[2016-11-28 03:45] LABS: Basophils % (A) 0 %; CH 29.9; CHCM 32.7; Eosinophils # (A) 0.1 k/uL (0-0.7); Eosinophils % (A) 1 %; HCT 34.8 % (39.0-53.0); HDW 2.29; HGB 11.4 gm/dL (13.0-17.5); Luc # (Auto) 0.21; Luc % (Auto) 4; Lymphocytes # (A) 0.4 k/uL (1.0-4.8); Lymphocytes % (A) 8 %; MCH 30.2 pg (25.0-35.0); MCHC 32.9 g/dL (31.0-37.0); MCV 91.7 fL (80.0-100.0); Mean Platelet Volume 7.1; Monocytes # (A) 0.6 k/uL (0-1.0); Monocytes % (A) 11 %; Neutrophils # (A) 3.8 k/uL (1.3-7.7); Neutrophils % (A) 75 %; RBC 3.79 m/uL (4.30-5.90); RDW 12.9 % (11.5-15.5); WBC (Perox) 5.23
[2016-11-28 03:53] LABS: INR 1.1 (<1.1); Partial Thromboplastin Time 22.5 sec (22.0-30.0); Prothrombin Time 10.8 sec (9.0-12.0)
[2016-11-28 03:54] LABS: ALT 23 U/L (21-72); AST 16 U/L (17-59); Alkaline Phosphatase 57 U/L (38-126); Anion Gap 15 mmol/L; Blood Urea Nitrogen 23 mg/dL (9-20); Calcium 9.7 mg/dL (8.4-10.2); Carbon Dioxide 13 mmol/L (22-30); Chloride 108 mmol/L (98-107); Glucose 229 mg/dL (74-99); Non-African American GFR(MDRD) >60 (>60 ml/min/1.73 sqM); Potassium 4.6 mmol/L (3.5-5.1); Sodium 136 mmol/L (137-145); Total Bilirubin 0.4 mg/dL (0.2-1.3); Total Protein 6.7 g/dL (6.3-8.2)
[2016-11-28] MEDS ORDERED: SODIUM CHLORIDE 0.9% 1,000 ML IV ONE ×2 (03:57→06:00)
[2016-11-28 04:12] LABS: Appearance,Urine Cloudy (Clear); Bilirubin,Urine Negative (Negative); Glucose,Urine (UA) 4+ (Negative); Ketones,Urine 2+ (Negative); Leukocyte Esterase,Urine Trace (Negative); Mucus,Urine Rare /hpf; Nitrite,Urine Negative (Negative); PH, Urine 5.5 (5.0-8.0); Particle Count 2871; Protein,Urine Trace (Negative); RBC,Urine 69 /hpf (0-5); Specific Gravity,Urine 1.022 (1.001-1.035); Squamous Epithelial Cell,Urine 2 /hpf (0-4); UA Billing (MACRO vs. MICRO) MICRO; Urobilinogen,Urine <2.0 mg/dL (<2.0); WBC,Urine 12 /hpf (0-5)
--- NOTE | 2016-11-28 04:17 | ED ---
General Adult HPI - General Chief complaint: Fever Stated complaint: Weakness Time Seen by Provider: 11/28/16 03:34 Source: patient, family, EMS Mode of arrival: EMS Limitations: no limitations - History of Present Illness Initial comments: This patient is a 66-year-old man who comes by EMS to be evaluated for generalized weakness, inability to walk, and possible shortness of breath. The patient had a laminectomy performed here on Tuesday by Dr. Stout. He went home on Tuesday, and then per family he has not been walking since. He has been sleeping most of the time today they could not get him out of the chair even with a walker. He appeared to be breathing like he was tired. Per the patient he is not having any pain nor dyspnea. He states that if he gets up he has a little bit of pain at the surgical site, but when he is resting on the bed there is no pain. The patient denied having fevers at home though per the EMS report she had one during transport. The patient does report that he feels cold right now. Patient denies other symptoms of infection, he is not having cough, he does not feel dyspneic, he denies change in urination. He denies abdominal pain, nausea or vomiting, diarrhea. Onset/Timin -: days(s) Location: left, right, lower extremity Improves with: none Worsens with: none Associated Symptoms: confusion, shortness of breath - Related Data Home Medications Medication Instructions Recorded Confirmed Aspirin 81 mg PO DAILY 03/11/14 11/28/16 Glimepiride [Amaryl] 4 mg PO BID 03/11/14 11/28/16 Tamsulosin [Flomax] 0.4 mg PO DAILY 03/11/14 11/28/16 Levocetirizine Dihydrochloride 5 mg PO DAILY 04/14/15 11/28/16 [Xyzal] sitaGLIPtin PHOS/metFORMIN HCL 1 tab PO BID 04/14/15 11/28/16 [Janumet 50-1,000 mg Tablet] Losartan [Cozaar] 50 mg PO QAM 06/10/15 11/28/16 Omeprazole 20 mg PO BID 06/10/15 11/28/16 Cholecalciferol [Vitamin D3] 1,000 unit PO DAILY 10/22/15 11/28/16 Cyanocobalamin [Vitamin B-12 1,000 mcg IM Q28D 10/22/15 11/28/16 Injection] Canagliflozin [Invokana] 300 mg PO DAILY 03/29/16 11/28/16 Megestrol Acetate 40 mg PO QAM 03/29/16 11/28/16 levETIRAcetam [Keppra] 500 mg PO QAM 03/29/16 11/28/16 Atenolol 25 mg PO QAM 11/18/16 11/28/16 Clopidogrel [Plavix] 75 mg PO DAILY 11/18/16 11/28/16 HYDROcodone/APAP 7.5-325MG [[place] 1 tab PO Q6H PRN 11/18/16 11/28/16 7.5-325] levETIRAcetam [Keppra] 1,000 mg PO HS 11/18/16 11/28/16 Previous Rx's Medication Instructions Recorded Atorvastatin [Lipitor] 40 mg PO HS #30 tablet 03/31/16 Nitroglycerin Sl Tabs [Nitrostat] 0.4 mg SUBLINGUAL Q5M PRN #25 tab 03/31/16 Levofloxacin [Levaquin] 250 mg PO DAILY #5 tab 11/30/16 Allergies Allergy/AdvReac Type Severity Reaction Status Date / Time No Known Allergies Allergy Verified 11/28/16 07:35 Review of Systems ROS Statement: Those systems with pertinent positive or pertinent negative responses have been documented in the HPI. ROS Other: All systems not noted in ROS Statement are negative. Constitutional: Reports: as per HPI, fever, chills ENT: Denies: throat pain Respiratory: Reports: as per HPI. Denies: cough, dyspnea, wheezes Cardiovascular: Denies: chest pain, palpitations, orthopnea, edema, syncope Endocrine: Reports: fatigue Gastrointestinal: Reports: constipation. Denies: abdominal pain, nausea, vomiting, diarrhea Genitourinary: Denies: dysuria, hematuria Musculoskeletal: Reports: as per HPI. Denies: back pain Skin: Denies: rash Neurological: Reports: as per HPI, weakness (Generalized). Denies: headache, numbness, paresthesias Past Medical History Past Medical History: Coronary Artery Disease (CAD), Chest Pain / Angina, Diabetes Mellitus, GERD/Reflux, Hyperlipidemia, Hypertension, Myocardial Infarction ([place]) Additional Past Medical History / Comment(s): PROSTATE CANCER RADIATION/SEED IMPLANTS, STATES HE HAD HX OF RADIATION WHICH BURNED HIS COLON. , STATED "HAD BLOOD IN STOOL". Last Myocardial Infarction Date:: 1999 History of Any Multi-Drug Resistant Organisms: None Reported Past Surgical History: Heart Catheterization With Stent Additional Past Surgical History / Comment(s): HEART CATH WITH STENT 2003, COLONOSCOPY. Past Anesthesia/Blood Transfusion Reactions: No Reported Reaction Date of Last Stent Placement:: 2003 Past Psychological History: No Psychological Hx Reported Smoking Status: Former smoker Past Alcohol Use History: Occasional Additional Past Alcohol Use History / Comment(s): SMOKED FOR 8 YRS APPROX 1 PACK PER WEEK.QUIT 1984 Past Drug Use History: None Reported - Past Family History Mother Family Medical History: Cancer Brother(s) Family Medical History: Coronary Artery Disease (CAD), Diabetes Mellitus, Myocardial Infarction ([place]) Father Family Medical History: Myocardial Infarction ([place]) Additional Family Medical History / Comment(s): Father of [place] at 99 years old General Exam Limitations: no limitations General appearance: alert, other (Patient does appear to be mildly dehydrated.) Head exam: Present: atraumatic, normocephalic Eye exam: Present: normal appearance. Absent: scleral icterus, conjunctival injection ENT exam: Present: mucous membranes dry Neck exam: Present: normal inspection, full ROM. Absent: tenderness Respiratory exam: Present: normal lung sounds bilaterally. Absent: respiratory distress, wheezes, rales, rhonchi, stridor Cardiovascular Exam: Present: normal rhythm, tachycardia (Rate 104 bpm), normal heart sounds. Absent: systolic murmur, diastolic murmur, rubs, gallop GI/Abdominal exam: Present: soft, hypoactive bowel sounds. Absent: distended, tenderness, guarding, rebound, mass Extremities exam: Present: normal inspection, normal capillary refill. Absent: pedal edema, calf tenderness Back exam: Present: normal inspection, other (Patient's surgical site is covered with Steri-Strips but there is no erythema, warmth, or discharge.). Absent: CVA tenderness (R), CVA tenderness (L) Neurological exam: Present: alert, oriented X3, CN II-XII intact. Absent: motor sensory deficit Skin exam: Present: warm, dry, intact, normal color. 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 The patient does appear to be significantly dehydrated. There is also urinary tract infection and patient appears to meet sepsis criteria. - Lab Data Result diagrams: 11/30/16 07:58 11/30/16 07:58 Lab Results 11/28/16 11/28/16 11/28/16 Range/Units 03:10 03:10 03:10 WBC 5.0 (3.8-10.6) k/uL RBC 3.79 L (4.30-5.90) m/uL Hgb 11.4 L (13.0-17.5) gm/dL Hct 34.8 L (39.0-53.0) % MCV 91.7 (80.0-100.0) fL MCH 30.2 (25.0-35.0) pg MCHC 32.9 (31.0-37.0) g/dL RDW 12.9 (11.5-15.5) % Plt Count 247 (150-450) k/uL Neutrophils % 75 % Lymphocytes % 8 % Monocytes % 11 % Eosinophils % 1 % Basophils % 0 % Neutrophils # 3.8 (1.3-7.7) k/uL Lymphocytes # 0.4 L (1.0-4.8) k/uL Monocytes # 0.6 (0-1.0) k/uL Eosinophils # 0.1 (0-0.7) k/uL Basophils # 0.0 (0-0.2) k/uL PT (9.0-12.0) sec INR (<1.1) APTT (22.0-30.0) sec Sodium 136 L (137-145) mmol/L Potassium 4.6 (3.5-5.1) mmol/L Chloride 108 H (98-107) mmol/L Carbon Dioxide 13 L (22-30) mmol/L Anion Gap 15 mmol/L BUN 23 H (9-20) mg/dL Creatinine 0.90 (0.66-1.25) mg/dL Est GFR (MDRD) Af Amer >60 (>60 ml/min/1.73 sqM) Est GFR (MDRD) Non-Af >60 (>60 ml/min/1.73 sqM) Glucose 229 H (74-99) mg/dL POC Glucose (mg/dL) (75-99) mg/dL POC Glu Oil Well Pumper ID Plasma Lactic Acid Adam 2.3 H* (0.7-2.0) mmol/L Calcium 9.7 (8.4-10.2) mg/dL Total Bilirubin 0.4 (0.2-1.3) mg/dL AST 16 L (17-59) U/L ALT 23 (21-72) U/L Alkaline Phosphatase 57 (38-126) U/L Total Protein 6.7 (6.3-8.2) g/dL Albumin 3.3 L (3.5-5.0) g/dL Urine Color Urine Appearance (Clear) Urine pH (5.0-8.0) Ur Specific [place] (1.001-1.035) Urine Protein (Negative) Urine Glucose (UA) (Negative) Urine Ketones (Negative) Urine Blood (Negative) Urine Nitrite (Negative) Urine Bilirubin (Negative) Urine Urobilinogen (<2.0) mg/dL Ur Leukocyte Esterase (Negative) Urine RBC (0-5) /hpf Urine WBC (0-5) /hpf Ur Squamous Epith Cells (0-4) /hpf Urine Mucus (None) /hpf Urine Yeast (Budding) (None) /hpf Acetone, Qual (Negative) 11/28/16 11/28/16 11/28/16 Range/Units 03:10 03:10 03:54 WBC (3.8-10.6) k/uL RBC (4.30-5.90) m/uL Hgb (13.0-17.5) gm/dL Hct (39.0-53.0) % MCV (80.0-100.0) fL MCH (25.0-35.0) pg MCHC (31.0-37.0) g/dL RDW (11.5-15.5) % Plt Count (150-450) k/uL Neutrophils % % Lymphocytes % % Monocytes % % Eosinophils % % Basophils % % Neutrophils # (1.3-7.7) k/uL Lymphocytes # (1.0-4.8) k/uL Monocytes # (0-1.0) k/uL Eosinophils # (0-0.7) k/uL Basophils # (0-0.2) k/uL PT 10.8 (9.0-12.0) sec INR 1.1 (<1.1) APTT 22.5 (22.0-30.0) sec Sodium (137-145) mmol/L Potassium (3.5-5.1) mmol/L Chloride (98-107) mmol/L Carbon Dioxide (22-30) mmol/L Anion Gap mmol/L BUN (9-20) mg/dL Creatinine (0.66-1.25) mg/dL Est GFR (MDRD) Af Amer (>60 ml/min/1.73 sqM) Est GFR (MDRD) Non-Af (>60 ml/min/1.73 sqM) Glucose (74-99) mg/dL POC Glucose (mg/dL) (75-99) mg/dL POC Glu Oil Well Pumper ID Plasma Lactic Acid Adam (0.7-2.0) mmol/L Calcium (8.4-10.2) mg/dL Total Bilirubin (0.2-1.3) mg/dL AST (17-59) U/L ALT (21-72) U/L Alkaline Phosphatase (38-126) U/L Total Protein (6.3-8.2) g/dL Albumin (3.5-5.0) g/dL Urine Color Yellow Urine Appearance Cloudy (Clear) Urine pH 5.5 (5.0-8.0) Ur Specific [place] 1.022 (1.001-1.035) Urine Protein Trace H (Negative) Urine Glucose (UA) 4+ H (Negative) Urine Ketones 2+ H (Negative) Urine Blood Negative (Negative) Urine Nitrite Negative (Negative) Urine Bilirubin Negative (Negative) Urine Urobilinogen <2.0 (<2.0) mg/dL Ur Leukocyte Esterase Trace H (Negative) Urine RBC 69 H (0-5) /hpf Urine WBC 12 H (0-5) /hpf Ur Squamous Epith Cells 2 (0-4) /hpf Urine Mucus Rare H (None) /hpf Urine Yeast (Budding) Many H (None) /hpf Acetone, Qual Negative (Negative) 11/28/16 Range/Units 06:26 WBC (3.8-10.6) k/uL RBC (4.30-5.90) m/uL Hgb (13.0-17.5) gm/dL Hct (39.0-53.0) % MCV (80.0-100.0) fL MCH (25.0-35.0) pg MCHC (31.0-37.0) g/dL RDW (11.5-15.5) % Plt Count (150-450) k/uL Neutrophils % % Lymphocytes % % Monocytes % % Eosinophils % % Basophils % % Neutrophils # (1.3-7.7) k/uL Lymphocytes # (1.0-4.8) k/uL Monocytes # (0-1.0) k/uL Eosinophils # (0-0.7) k/uL Basophils # (0-0.2) k/uL PT (9.0-12.0) sec INR (<1.1) APTT (22.0-30.0) sec Sodium (137-145) mmol/L Potassium (3.5-5.1) mmol/L Chloride (98-107) mmol/L Carbon Dioxide (22-30) mmol/L Anion Gap mmol/L BUN (9-20) mg/dL Creatinine (0.66-1.25) mg/dL Est GFR (MDRD) Af Amer (>60 ml/min/1.73 sqM) Est GFR (MDRD) Non-Af (>60 ml/min/1.73 sqM) Glucose (74-99) mg/dL POC Glucose (mg/dL) 195 H (75-99) mg/dL POC Glu Oil Well Pumper ID Jass [place] Plasma Lactic Acid Adam (0.7-2.0) mmol/L Calcium (8.4-10.2) mg/dL Total Bilirubin (0.2-1.3) mg/dL AST (17-59) U/L ALT (21-72) U/L Alkaline Phosphatase (38-126) U/L Total Protein (6.3-8.2) g/dL Albumin (3.5-5.0) g/dL Urine Color Urine Appearance (Clear) Urine pH (5.0-8.0) Ur Specific [place] (1.001-1.035) Urine Protein (Negative) Urine Glucose (UA) (Negative) Urine Ketones (Negative) Urine Blood (Negative) Urine Nitrite (Negative) Urine Bilirubin (Negative) Urine Urobilinogen (<2.0) mg/dL Ur Leukocyte Esterase (Negative) Urine RBC (0-5) /hpf Urine WBC (0-5) /hpf Ur Squamous Epith Cells (0-4) /hpf Urine Mucus (None) /hpf Urine Yeast (Budding) (None) /hpf Acetone, Qual (Negative) Critical Care Time Critical Care Time: Yes (35 minutes) Disposition Clinical Impression: Urinary tract infection, Sepsis, Hyperglycemia, Anemia Disposition: ADMITTED IP TO THIS [facility] Condition: Good
--- NOTE | 2016-11-28 04:28 | XR ---
EXAM: XR Chest, 1 View CLINICAL HISTORY: Reason: Pain TECHNIQUE: Frontal view of the chest. COMPARISON: 07/08/16 FINDINGS: Lungs: Low lung volumes limit evaluation. No dense consolidation or effusion. Prominent central vasculature Pleural space: Unremarkable. No pneumothorax. Heart: Cardiomediastinal silhouette stable and accentuated by low lung volume. Mediastinum: See above. Bones/joints: Unremarkable. IMPRESSION: 1. Low lung volumes limit evaluation and accentuated lung markings. 2. No dense consolidation or effusion.
[2016-11-28] MEDS ORDERED: LEVOFLOXACIN 750MG-D5W PMX 750 MG in DEXTROSE/WATER 1 150ML.BAG IVPB STA (04:49)
[2016-11-28] MEDS ORDERED: INSULIN REGULAR 100 UNIT/ML VIAL SQ STA (06:00)
[2016-11-28 06:29] LABS: Glucose,Whole Blood 195 mg/dL (75-99)
[2016-11-28] MEDS ORDERED: CYCLOBENZAPRINE 10 MG TAB PO PRN (07:17)
[2016-11-28] MEDS ORDERED: NITROGLYCERIN SL TABS 0.4 MG TAB SUBLINGUAL PRN (07:17)
[2016-11-28] MEDS ORDERED: tiZANidine 4 MG TAB PO PRN (07:17)
[2016-11-28] MEDS ORDERED: CYCLOBENZAPRINE 10 MG TAB PO SCH (07:30)
[2016-11-28] MEDS ORDERED: LINAGLIPTIN 5 MG TABLET PO SCH (08:00)
[2016-11-28] MEDS ORDERED: metFORMIN 500 MG TAB PO SCH (08:00)
[2016-11-28] MEDS ORDERED: GLIMEPIRIDE 4 MG TAB PO SCH (09:00)
[2016-11-28] MEDS: ASPIRIN 81 MG CHEW PO SCH (09:13)
[2016-11-28] MEDS: TAMSULOSIN 0.4 MG CAP.ER.24H PO SCH (09:13)
[2016-11-28] MEDS: LORATADINE 10 MG TAB PO SCH (09:14)
[2016-11-28] MEDS: levETIRAcetam 500 MG TAB PO SCH ×2 (09:14→21:10)
[2016-11-28] MEDS: LOSARTAN 50 MG TAB PO SCH (09:14)
[2016-11-28] MEDS: ATENOLOL 25 MG TAB PO SCH (09:15)
[2016-11-28] MEDS: MEGESTROL 40 MG TAB PO SCH (09:15)
[2016-11-28] MEDS: PANTOPRAZOLE 40 MG TABLET PO SCH ×2 (09:15→17:43)
[2016-11-28] MEDS: CLOPIDOGREL 75 MG TAB PO SCH (09:16)
[2016-11-28] MEDS: FAMOTIDINE 20 MG/2 ML VIAL IV SCH ×2 (09:17→21:10)
[2016-11-28] MEDS: CHOLECALCIFEROL 1,000 UNIT TAB PO SCH (09:17)
[2016-11-28 10:51] VITALS: BMI 36.8
--- NOTE | 2016-11-28 11:07 | P.CNOR ---
History of Present Illness - [facility] Consult date: 11/28/16 Consult reason: other (s/p lumbar fusion L4/5 POD#4) History of present illness: Patient is a pleasant 66-year-old gentleman who is well known to our service. He underwent decompression and fusion with a minimally invasive approach on Tuesday, November 24 and he is now postoperative day #4. He had had severe stenosis at L4 5 with spondylolisthesis at that level and after failing conservative treatment he elected to proceed with decompression and fusion which was performed with a minimally invasive approach on Tuesday as per his operative note. Postoperatively he had an uneventful course and was able to be discharged on postoperative day #2. He was able to improve his mobilization. He was tolerating a diet and was afebrile. His wound had looked clear and he was not having any bowel or bladder issues. His pain had been controlled with oral medications. Since he has been home apparently he has not been eating well. He has not been taking any regular pain medications but did have one pain pill yesterday. He says that his back has been painful for him and has been unable to mobilize. He denies any fevers or chills. Apparently he did have a temperature of 101 yesterday per the EMS report. He has not had any nausea area and he denies any vomiting. He has loss of appetite. He says his abdomen does feel somewhat sore and distended. He is passing gas but he has not had a bowel movement. He denies chest pain or shortness of breath. Review of Systems He admits to some abdominal soreness. He is passing gas but has not had a bowel movement. He has not had any significant appetite. He has been very lethargic at home. He has only had one pain medication at home. He has been quite sleepy. Denies any fevers chills or night sweats. Denies any chest pain or shortness breath. Past Medical History Past Medical History: Coronary Artery Disease (CAD), Chest Pain / Angina, Diabetes Mellitus, GERD/Reflux, Hyperlipidemia, Hypertension, Myocardial Infarction ([place]) Additional Past Medical History / Comment(s): PROSTATE CANCER RADIATION/SEED IMPLANTS, STATES HE HAD HX OF RADIATION WHICH BURNED HIS COLON. , STATED "HAD BLOOD IN STOOL". Last Myocardial Infarction Date:: 1999 History of Any Multi-Drug Resistant Organisms: None Reported Past Surgical History: Heart Catheterization With Stent Additional Past Surgical History / Comment(s): HEART CATH WITH STENT 2003, COLONOSCOPY. Past Anesthesia/Blood Transfusion Reactions: No Reported Reaction Date of Last Stent Placement:: 2003 Past Psychological History: No Psychological Hx Reported Smoking Status: Former smoker Past Alcohol Use History: Occasional Additional Past Alcohol Use History / Comment(s): SMOKED FOR 8 YRS APPROX 1 PACK PER WEEK.QUIT 1984 Past Drug Use History: None Reported - Past Family History Mother Family Medical History: Cancer Brother(s) Family Medical History: Coronary Artery Disease (CAD), Diabetes Mellitus, Myocardial Infarction ([place]) Father Family Medical History: Myocardial Infarction ([place]) Additional Family Medical History / Comment(s): Father of [place] at 99 years old Medications and Allergies Home Medications Medication Instructions Recorded Confirmed Type Aspirin 81 mg PO DAILY 03/11/14 11/28/16 History Glimepiride [Amaryl] 4 mg PO BID 03/11/14 11/28/16 History Tamsulosin [Flomax] 0.4 mg PO DAILY 03/11/14 11/28/16 History Levocetirizine Dihydrochloride 5 mg PO DAILY 04/14/15 11/28/16 History [Xyzal] sitaGLIPtin PHOS/metFORMIN HCL 1 tab PO BID 04/14/15 11/28/16 History [Janumet 50-1,000 mg Tablet] Losartan [Cozaar] 50 mg PO QAM 06/10/15 11/28/16 History Omeprazole 20 mg PO BID 06/10/15 11/28/16 History Cholecalciferol [Vitamin D3] 1,000 unit PO DAILY 10/22/15 11/28/16 History Cyanocobalamin [Vitamin B-12 1,000 mcg IM Q28D 10/22/15 11/28/16 History Injection] Canagliflozin [Invokana] 300 mg PO DAILY 03/29/16 11/28/16 History Megestrol Acetate 40 mg PO QAM 03/29/16 11/28/16 History levETIRAcetam [Keppra] 500 mg PO QAM 03/29/16 11/28/16 History Atenolol 25 mg PO QAM 11/18/16 11/28/16 History Clopidogrel [Plavix] 75 mg PO DAILY 11/18/16 11/28/16 History HYDROcodone/APAP 7.5-325MG [[place] 1 tab PO Q6H PRN 11/18/16 11/28/16 History 7.5-325] Nitrofurantoin Monohyd/M-Cryst 100 mg PO Q12HR 11/18/16 11/28/16 History [Macrobid] levETIRAcetam [Keppra] 1,000 mg PO HS 11/18/16 11/28/16 History Allergies Allergy/AdvReac Type Severity Reaction Status Date / Time No Known Allergies Allergy Verified 11/28/16 07:35 Physical Examination Osteopathic Statement: *. No significant issues noted on an osteopathic structural exam other than those noted in the History and Physical/Consult. - C Spine: dermatomal strength & reflexes bilateral Shoulder strength: flexion: 3/5 (At his abdomen he has distention he has diffuse soreness over his abdomen. He has no point tenderness. He has no rebound rigidity or guarding.) - L Spine: dermatomal strength & reflexes bilateral Strength: hip flexion: 5/5 (On exam of his back the incision sites at L4 5 are clean dry and intact. There is no erythema there is no drainage. There is no significant swelling. There is no purulence. At his lower extremities he has sustained dorsiflexion plantarflexion and EHL intact. He has some globalized weakness due to fatigue and some breakaway strength due to pain but he is able to fire his lower extremities appropriately. He has sustained dorsal plantar flexion and EHL. His thighs and calf soft and nontender without any significant swelling.) Results - Labs Labs: Abnormal Lab Results - Last 24 Hours (Table) 11/28/16 11/28/16 11/28/16 Range/Units 03:10 03:10 03:10 RBC 3.79 L (4.30-5.90) m/uL Hgb 11.4 L (13.0-17.5) gm/dL Hct 34.8 L (39.0-53.0) % Lymphocytes # 0.4 L (1.0-4.8) k/uL Sodium 136 L (137-145) mmol/L Chloride 108 H (98-107) mmol/L Carbon Dioxide 13 L (22-30) mmol/L BUN 23 H (9-20) mg/dL Glucose 229 H (74-99) mg/dL POC Glucose (mg/dL) (75-99) mg/dL Plasma Lactic Acid Adam 2.3 H* (0.7-2.0) mmol/L AST 16 L (17-59) U/L Albumin 3.3 L (3.5-5.0) g/dL Urine Protein (Negative) Urine Glucose (UA) (Negative) Urine Ketones (Negative) Ur Leukocyte Esterase (Negative) Urine RBC (0-5) /hpf Urine WBC (0-5) /hpf Urine Mucus (None) /hpf Urine Yeast (Budding) (None) /hpf 11/28/16 11/28/16 Range/Units 03:54 06:26 RBC (4.30-5.90) m/uL Hgb (13.0-17.5) gm/dL Hct (39.0-53.0) % Lymphocytes # (1.0-4.8) k/uL Sodium (137-145) mmol/L Chloride (98-107) mmol/L Carbon Dioxide (22-30) mmol/L BUN (9-20) mg/dL Glucose (74-99) mg/dL POC Glucose (mg/dL) 195 H (75-99) mg/dL Plasma Lactic Acid Adam (0.7-2.0) mmol/L AST (17-59) U/L Albumin (3.5-5.0) g/dL Urine Protein Trace H (Negative) Urine Glucose (UA) 4+ H (Negative) Urine Ketones 2+ H (Negative) Ur Leukocyte Esterase Trace H (Negative) Urine RBC 69 H (0-5) /hpf Urine WBC 12 H (0-5) /hpf Urine Mucus Rare H (None) /hpf Urine Yeast (Budding) Many H (None) /hpf H & H 11/28/16 Range/Units 03:10 Hgb 11.4 L (13.0-17.5) gm/dL Hct 34.8 L (39.0-53.0) % Coagulation 11/28/16 Range/Units 03:10 INR 1.1 (<1.1) Result Diagrams: 11/28/16 03:10 11/28/16 03:10 Assessment and Plan Plan: Assessment Postoperative day #4 status post lumbar decompression and fusion L4 5 with a minimally invasive approach for his severe spinal stenosis L4 5 and spondylolisthesis Possible urinary tract infection Abdominal distention with elevated lactic acid Increased lethargy Plan The patient initially was making good progress postoperatively but since being at home the past 2 days he has had some decrease in his activity and increased lethargic. He does have abdominal distention with increased lactic acid area and I think that further workup for his abdomen is necessary and we have ordered a abdominal x-ray series that he may need a computed tomography scan as well based on those results. Medicine evaluation is pending. His lumbar spine wound appears to be intact and clean and dry. There is no evidence of active infection. We have ordered repeat follow-up x-rays of his lumbar spine to further evaluate the surgical site itself. His urinalysis is somewhat marginal and he did have a temperature today. His white count is normal but his lactic acid is elevated. He can continue his antibiotics but will require further workup to determine further etiology. Time with Patient: Greater than 30
--- NOTE | 2016-11-28 11:53 | XR ---
Lumbar spine HISTORY: Abdominal pain and distention, follow-up status post fusion 3 views of the lumbar spine. Patient is status post lumbar fusion at L4-5. Intervertebral spacing material is present. Bone minera lization is reduced. Lumbar vertebral bodies show preserved height. There is improvement in the [facility]. Multilevel spondylosis is present. Loss of disc height L5-S1. IMPRESSION: Osteopenia. Orthopedic follow-up.
--- NOTE | 2016-11-28 11:54 | XR ---
2 view abdomen HISTORY: Abdominal pain and distention 2 views of the abdomen on 3 images. Correlation to prior abdomen film 16 January 2013 Air-filled distended loops of large bowel are noted. Prostate seeds are in place. Patient is status p ost posterior fusion at the lower lumbar spine. No pneumoperitoneum. IMPRESSION: Findings could represent an ileus, difficult to exclude bowel obstruction, correlate.
--- NOTE | 2016-11-28 11:59 | CT ---
EXAMINATION TYPE: CT abdomen pelvis wo con DATE OF EXAM: 11/28/2016 COMPARISON: Prior CT abdomen pelvis 11 October 2016 and abdomen film same date HISTORY: Abdominal distention and pain CT DLP: 1326.5 mGycm Automated exposure control for dose reduction was used. TECHNIQUE: Helical acquisition of images from the lung bases through the pelvis. FINDINGS: Lack of intravenous contrast could compromise sensitivity. LUNG BASES: Minimal basilar atelectatic changes are present, no pleural or pericardial effusion. AORTA: No significant abnormality is appreciated. LIVER/GB: The liver is unremarkable. Dependent calculi are suspected within the gallbladder. PANCREAS: No significant abnormality is seen. SPLEEN: No significant abnormality is seen. ADRENALS: No significant abnormality is seen. KIDNEYS: No significant abnormality is seen. REPRODUCTIVE ORGANS: Prostate seeds are present. URINARY BLADDER: No significant abnormality is seen. BOWEL: Large bowel shows luminal fluid and is largely air-filled additionally. No evident obstructio n. Fluid-filled loops of small bowel also present. FREE AIR: No Free Air is visible. ASCITES: None visible. PELVIC ADENOPATHY: None visualized. RETROPERITONEAL ADENOPATHY: No Retroperitoneal Adenopathy visible. OSSEOUS STRUCTURES: Posterior fusion present at L4-5. IMPRESSION: CORRELATE FOR POSSIBLE ENTERITIS, ILEUS. CHOLELITHIASIS. NONCONTRAST EXAM. ADDITIONAL FINDINGS ABOVE.
[2016-11-28 12:36] LABS: Glucose,Whole Blood 143 mg/dL (75-99)
--- NOTE | 2016-11-28 13:02 | P.GSCN ---
History of Present Illness Consult date: 11/28/16 Reason for Consult: Abdominal pain History of present illness: This is a 66-year-old male who was admitted to the hospital with complaints of abdominal pain. Patient underwent back surgery last week. Patient has complaints of abdominal pain distention and bloating. CAT scan was performed which shows signs of a colonic ileus. Review of Systems - Constitutional Reports as per HPI Past Medical History Past Medical History: Coronary Artery Disease (CAD), Chest Pain / Angina, Diabetes Mellitus, GERD/Reflux, Hyperlipidemia, Hypertension, Myocardial Infarction ([place]) Additional Past Medical History / Comment(s): PROSTATE CANCER RADIATION/SEED IMPLANTS, STATES HE HAD HX OF RADIATION WHICH BURNED HIS COLON. , STATED "HAD BLOOD IN STOOL". Last Myocardial Infarction Date:: 1999 History of Any Multi-Drug Resistant Organisms: None Reported Past Surgical History: Heart Catheterization With Stent Additional Past Surgical History / Comment(s): HEART CATH WITH STENT 2003, COLONOSCOPY. Past Anesthesia/Blood Transfusion Reactions: No Reported Reaction Date of Last Stent Placement:: 2003 Past Psychological History: No Psychological Hx Reported Smoking Status: Former smoker Past Alcohol Use History: Occasional Additional Past Alcohol Use History / Comment(s): SMOKED FOR 8 YRS APPROX 1 PACK PER WEEK.QUIT 1984 Past Drug Use History: None Reported - Past Family History Mother Family Medical History: Cancer Brother(s) Family Medical History: Coronary Artery Disease (CAD), Diabetes Mellitus, Myocardial Infarction ([place]) Father Family Medical History: Myocardial Infarction ([place]) Additional Family Medical History / Comment(s): Father of [place] at 99 years old Medications and Allergies Home Medications Medication Instructions Recorded Confirmed Type Aspirin 81 mg PO DAILY 03/11/14 11/28/16 History Glimepiride [Amaryl] 4 mg PO BID 03/11/14 11/28/16 History Tamsulosin [Flomax] 0.4 mg PO DAILY 03/11/14 11/28/16 History Levocetirizine Dihydrochloride 5 mg PO DAILY 04/14/15 11/28/16 History [Xyzal] sitaGLIPtin PHOS/metFORMIN HCL 1 tab PO BID 04/14/15 11/28/16 History [Janumet 50-1,000 mg Tablet] Losartan [Cozaar] 50 mg PO QAM 06/10/15 11/28/16 History Omeprazole 20 mg PO BID 06/10/15 11/28/16 History Cholecalciferol [Vitamin D3] 1,000 unit PO DAILY 10/22/15 11/28/16 History Cyanocobalamin [Vitamin B-12 1,000 mcg IM Q28D 10/22/15 11/28/16 History Injection] Canagliflozin [Invokana] 300 mg PO DAILY 03/29/16 11/28/16 History Megestrol Acetate 40 mg PO QAM 03/29/16 11/28/16 History levETIRAcetam [Keppra] 500 mg PO QAM 03/29/16 11/28/16 History Atenolol 25 mg PO QAM 11/18/16 11/28/16 History Clopidogrel [Plavix] 75 mg PO DAILY 11/18/16 11/28/16 History HYDROcodone/APAP 7.5-325MG [[place] 1 tab PO Q6H PRN 11/18/16 11/28/16 History 7.5-325] Nitrofurantoin Monohyd/M-Cryst 100 mg PO Q12HR 11/18/16 11/28/16 History [Macrobid] levETIRAcetam [Keppra] 1,000 mg PO HS 11/18/16 11/28/16 History Allergies Allergy/AdvReac Type Severity Reaction Status Date / Time No Known Allergies Allergy Verified 11/28/16 07:35 Surgical - Exam Vital Signs Temp Pulse Resp BP Pulse Ox 97.1 F L 104 H 16 117/63 96 11/28/16 03:11 11/28/16 03:11 11/28/16 03:11 11/28/16 03:11 11/28/16 03:11 - General well developed, no distress - Eyes PERRL - ENT normal pinna, normal nares - Neck no masses - Respiratory normal expansion - Cardiovascular Rhythm: regular - Abdomen Mild lower quadrant tenderness. There is no rebound or guarding. Abdomen: soft Results - Labs 11/28/16 03:10 11/28/16 03:10 Abnormal Lab Results - Last 24 Hours (Table) 11/28/16 11/28/16 11/28/16 Range/Units 03:10 03:10 03:10 RBC 3.79 L (4.30-5.90) m/uL Hgb 11.4 L (13.0-17.5) gm/dL Hct 34.8 L (39.0-53.0) % Lymphocytes # 0.4 L (1.0-4.8) k/uL Sodium 136 L (137-145) mmol/L Chloride 108 H (98-107) mmol/L Carbon Dioxide 13 L (22-30) mmol/L BUN 23 H (9-20) mg/dL Glucose 229 H (74-99) mg/dL POC Glucose (mg/dL) (75-99) mg/dL Plasma Lactic Acid Adam 2.3 H* (0.7-2.0) mmol/L AST 16 L (17-59) U/L Albumin 3.3 L (3.5-5.0) g/dL Urine Protein (Negative) Urine Glucose (UA) (Negative) Urine Ketones (Negative) Ur Leukocyte Esterase (Negative) Urine RBC (0-5) /hpf Urine WBC (0-5) /hpf Urine Mucus (None) /hpf Urine Yeast (Budding) (None) /hpf 11/28/16 11/28/16 11/28/16 Range/Units 03:54 06:26 12:25 RBC (4.30-5.90) m/uL Hgb (13.0-17.5) gm/dL Hct (39.0-53.0) % Lymphocytes # (1.0-4.8) k/uL Sodium (137-145) mmol/L Chloride (98-107) mmol/L Carbon Dioxide (22-30) mmol/L BUN (9-20) mg/dL Glucose (74-99) mg/dL POC Glucose (mg/dL) 195 H 143 H (75-99) mg/dL Plasma Lactic Acid Adam (0.7-2.0) mmol/L AST (17-59) U/L Albumin (3.5-5.0) g/dL Urine Protein Trace H (Negative) Urine Glucose (UA) 4+ H (Negative) Urine Ketones 2+ H (Negative) Ur Leukocyte Esterase Trace H (Negative) Urine RBC 69 H (0-5) /hpf Urine WBC 12 H (0-5) /hpf Urine Mucus Rare H (None) /hpf Urine Yeast (Budding) Many H (None) /hpf Diabetes panel 11/28/16 Range/Units 03:10 Sodium 136 L (137-145) mmol/L Potassium 4.6 (3.5-5.1) mmol/L Chloride 108 H (98-107) mmol/L Carbon Dioxide 13 L (22-30) mmol/L BUN 23 H (9-20) mg/dL Creatinine 0.90 (0.66-1.25) mg/dL Glucose 229 H (74-99) mg/dL Calcium 9.7 (8.4-10.2) mg/dL AST 16 L (17-59) U/L ALT 23 (21-72) U/L Alkaline Phosphatase 57 (38-126) U/L Total Protein 6.7 (6.3-8.2) g/dL Albumin 3.3 L (3.5-5.0) g/dL Calcium panel 11/28/16 Range/Units 03:10 Calcium 9.7 (8.4-10.2) mg/dL Albumin 3.3 L (3.5-5.0) g/dL Pituitary panel 11/28/16 Range/Units 03:10 Sodium 136 L (137-145) mmol/L Potassium 4.6 (3.5-5.1) mmol/L Chloride 108 H (98-107) mmol/L Carbon Dioxide 13 L (22-30) mmol/L BUN 23 H (9-20) mg/dL Creatinine 0.90 (0.66-1.25) mg/dL Glucose 229 H (74-99) mg/dL Calcium 9.7 (8.4-10.2) mg/dL Adrenal panel 11/28/16 Range/Units 03:10 Sodium 136 L (137-145) mmol/L Potassium 4.6 (3.5-5.1) mmol/L Chloride 108 H (98-107) mmol/L Carbon Dioxide 13 L (22-30) mmol/L BUN 23 H (9-20) mg/dL Creatinine 0.90 (0.66-1.25) mg/dL Glucose 229 H (74-99) mg/dL Calcium 9.7 (8.4-10.2) mg/dL Total Bilirubin 0.4 (0.2-1.3) mg/dL AST 16 L (17-59) U/L ALT 23 (21-72) U/L Alkaline Phosphatase 57 (38-126) U/L Total Protein 6.7 (6.3-8.2) g/dL Albumin 3.3 L (3.5-5.0) g/dL Assessment and Plan Plan: Abdominal pain distention secondary to ileus. Patient also has evidence of cholelithiasis. There is no evidence of cholecystitis at this time. The patient will remain nothing by mouth until his bowel function improves.
--- NOTE | 2016-11-28 14:14 | P.HPIM ---
History of Present Illness H&P Date: 11/28/16 Chief Complaint: Altered mental status This is a 66-year-old gentleman who was discharged from the hospital 2 days ago after having a lumbar spine decompression. Patient went home and was noted by his family to be more sleepy throughout the day. He was not eating or drinking almost at all. He will concern about him and brought him back to the emergency room. Patient today is lethargic but easily arousable. He is a very poor historian. He is complaining of abdominal pain and discomfort. He said that he did not have a bowel movement in a few days. He reports very poor by mouth intake. His abdomen is generalized and he rated as 7 out of 10 in severity. He underwent computed tomography scan in the emergency room that was suspicious for a possible small bowel obstruction. He is currently nothing by mouth. He was seen and evaluated by surgery. His urine was positive for underlying infection versus mostly hematuria. He is currently on IV Levaquin. Family at bedside. Review of Systems Review of system: 14 points review of systems were obtained and were negative except to what were mentioned in the HPI. Past Medical History Past Medical History: Coronary Artery Disease (CAD), Chest Pain / Angina, Diabetes Mellitus, GERD/Reflux, Hyperlipidemia, Hypertension, Myocardial Infarction (DC) Additional Past Medical History / Comment(s): PROSTATE CANCER RADIATION/SEED IMPLANTS, STATES HE HAD HX OF RADIATION WHICH BURNED HIS COLON. , STATED "HAD BLOOD IN STOOL". Last Myocardial Infarction Date:: 1999 History of Any Multi-Drug Resistant Organisms: None Reported Past Surgical History: Heart Catheterization With Stent Additional Past Surgical History / Comment(s): HEART CATH WITH STENT 2003, COLONOSCOPY. Past Anesthesia/Blood Transfusion Reactions: No Reported Reaction Date of Last Stent Placement:: 2003 Past Psychological History: No Psychological Hx Reported Smoking Status: Former smoker Past Alcohol Use History: Occasional Additional Past Alcohol Use History / Comment(s): SMOKED FOR 8 YRS APPROX 1 PACK PER WEEK.QUIT 1984 Past Drug Use History: None Reported - Past Family History Mother Family Medical History: Cancer Brother(s) Family Medical History: Coronary Artery Disease (CAD), Diabetes Mellitus, Myocardial Infarction (DC) Father Family Medical History: Myocardial Infarction (DC) Additional Family Medical History / Comment(s): Father of DC at 99 years old Medications and Allergies Home Medications Medication Instructions Recorded Confirmed Type Aspirin 81 mg PO DAILY 03/11/14 11/28/16 History Glimepiride [Amaryl] 4 mg PO BID 03/11/14 11/28/16 History Tamsulosin [Flomax] 0.4 mg PO DAILY 03/11/14 11/28/16 History Levocetirizine Dihydrochloride 5 mg PO DAILY 04/14/15 11/28/16 History [Xyzal] sitaGLIPtin PHOS/metFORMIN HCL 1 tab PO BID 04/14/15 11/28/16 History [Janumet 50-1,000 mg Tablet] Losartan [Cozaar] 50 mg PO QAM 06/10/15 11/28/16 History Omeprazole 20 mg PO BID 06/10/15 11/28/16 History Cholecalciferol [Vitamin D3] 1,000 unit PO DAILY 10/22/15 11/28/16 History Cyanocobalamin [Vitamin B-12 1,000 mcg IM Q28D 10/22/15 11/28/16 History Injection] Canagliflozin [Invokana] 300 mg PO DAILY 03/29/16 11/28/16 History Megestrol Acetate 40 mg PO QAM 03/29/16 11/28/16 History levETIRAcetam [Keppra] 500 mg PO QAM 03/29/16 11/28/16 History Atenolol 25 mg PO QAM 11/18/16 11/28/16 History Clopidogrel [Plavix] 75 mg PO DAILY 11/18/16 11/28/16 History HYDROcodone/APAP 7.5-325MG [Donalds 1 tab PO Q6H PRN 11/18/16 11/28/16 History 7.5-325] Nitrofurantoin Monohyd/M-Cryst 100 mg PO Q12HR 11/18/16 11/28/16 History [Macrobid] levETIRAcetam [Keppra] 1,000 mg PO HS 11/18/16 11/28/16 History Allergies Allergy/AdvReac Type Severity Reaction Status Date / Time No Known Allergies Allergy Verified 11/28/16 07:35 Physical Exam Vitals: Vital Signs Temp Pulse Pulse Resp BP BP Pulse Ox 11/28/16 08:00 98.2 F 102 H 16 155/72 97 11/28/16 07:52 98.9 F 105 H 18 135/69 97 11/28/16 06:41 98.9 F 105 H 18 135/69 97 11/28/16 05:35 98.9 F 95 22 128/62 11/28/16 03:11 97.1 F L 104 H 16 117/63 96 Intake and Output 11/27/16 11/28/16 11/28/16 22:59 06:59 14:59 Intake Total 3100 Balance 3100 Intake: Amount of Fluid Infused ( 2100 ml) Intake, IV Titration 1000 Amount Sodium Chloride 0.9% 1, 1000 000 ml @ 999 mls/hr IV . Q1H1M ONE Rx#:[id number] Other: Weight 94.347 kg 94.347 kg Patient Weight 11/29/16 06:59 Weight 94.347 kg General: The patient is awake and alert, in no distress Eye: there is normal conjunctiva bilaterally. Neck: The neck is supple, there is no JVD. Cardiovascular: Normal S1-S2, no S3-S4, no murmurs. Respiratory: Lungs clear to auscultation bilaterally Gastrointestinal: Abdomen is soft, but slightly tender to palpation Musculoskeletal: There is no pedal edema. Neurological:. Speech is normal. Skin: Skin is warm and dry Results CBC & Chem 7: 11/28/16 03:10 11/28/16 03:10 Labs: Abnormal Lab Results - Last 24 Hours (Table) 11/28/16 11/28/16 11/28/16 Range/Units 03:10 03:10 03:10 RBC 3.79 L (4.30-5.90) m/uL Hgb 11.4 L (13.0-17.5) gm/dL Hct 34.8 L (39.0-53.0) % Lymphocytes # 0.4 L (1.0-4.8) k/uL Sodium 136 L (137-145) mmol/L Chloride 108 H (98-107) mmol/L Carbon Dioxide 13 L (22-30) mmol/L BUN 23 H (9-20) mg/dL Glucose 229 H (74-99) mg/dL POC Glucose (mg/dL) (75-99) mg/dL Plasma Lactic Acid Adam 2.3 H* (0.7-2.0) mmol/L AST 16 L (17-59) U/L Albumin 3.3 L (3.5-5.0) g/dL Urine Protein (Negative) Urine Glucose (UA) (Negative) Urine Ketones (Negative) Ur Leukocyte Esterase (Negative) Urine RBC (0-5) /hpf Urine WBC (0-5) /hpf Urine Mucus (None) /hpf Urine Yeast (Budding) (None) /hpf 11/28/16 11/28/16 11/28/16 Range/Units 03:54 06:26 12:25 RBC (4.30-5.90) m/uL Hgb (13.0-17.5) gm/dL Hct (39.0-53.0) % Lymphocytes # (1.0-4.8) k/uL Sodium (137-145) mmol/L Chloride (98-107) mmol/L Carbon Dioxide (22-30) mmol/L BUN (9-20) mg/dL Glucose (74-99) mg/dL POC Glucose (mg/dL) 195 H 143 H (75-99) mg/dL Plasma Lactic Acid Adam (0.7-2.0) mmol/L AST (17-59) U/L Albumin (3.5-5.0) g/dL Urine Protein Trace H (Negative) Urine Glucose (UA) 4+ H (Negative) Urine Ketones 2+ H (Negative) Ur Leukocyte Esterase Trace H (Negative) Urine RBC 69 H (0-5) /hpf Urine WBC 12 H (0-5) /hpf Urine Mucus Rare H (None) /hpf Urine Yeast (Budding) Many H (None) /hpf Thrombosis Risk Factor Assmnt - Choose All That Apply Any of the Below Risk Factors Present?: Yes Each Factor Represents 1 point: Obesity (BMI >25) Other Risk Factors: Yes Each Risk Factor Represents 2 Points: Age 61-74 years Thrombosis Risk Factor Assessment Total Risk Factor Score: 3 Thrombosis Risk Factor Assessment Level: Moderate Risk Assessment and Plan Plan: 1. Suspected small bowel obstruction/ileus: Currently nothing by mouth. General surgery following. We will continue IV fluid hydration. Repeat abdominal x-ray in the morning. 2. Underlying urinary tract infection, awaiting urine culture. Currently on IV Levaquin. I will consult infectious disease. 3. Recent lumbar spine decompression: Seen and evaluated by spine surgery. Surgical incision site appeared healing well with no evidence of infection. Continue pain control. 4. Type 2 diabetes mellitus: Hold oral agents. Continue sliding scale insulin. 5. Essential hypertension: Blood pressure well controlled 6. DVT prophylaxis with subcu heparin
[2016-11-28] MEDS: HYDROcodone/APAP 7.5-325MG 1 EACH TAB PO PRN (14:42)
[2016-11-28 17:17] LABS: Glucose,Whole Blood 114 mg/dL (75-99)
[2016-11-28] MEDS: METOCLOPRAMIDE 5 MG/ML 2 ML VIAL IVP SCH ×2 (17:43→23:18)
[2016-11-28 20:57] LABS: Glucose,Whole Blood 91 mg/dL (75-99)
[2016-11-28] MEDS: HEPARIN SODIUM,PORCINE 5,000 UNIT/ML 1 ML VIAL SQ SCH (21:10)
[2016-11-28] MEDS: ATORVASTATIN 40 MG TAB PO SCH (21:10)
[2016-11-29] MEDS: LEVOFLOXACIN 750MG-D5W PMX 750 MG in DEXTROSE/WATER 1 150ML.BAG IVPB SCH (05:26)
[2016-11-29] MEDS: METOCLOPRAMIDE 5 MG/ML 2 ML VIAL IVP SCH ×4 (05:26→23:06)
[2016-11-29 07:30] LABS: Glucose,Whole Blood 112 mg/dL (75-99)
[2016-11-29 07:39] LABS: Basophils % (A) 1 %; CH 29.2; CHCM 31.5; Eosinophils # (A) 0.1 k/uL (0-0.7); Eosinophils % (A) 2 %; HDW 2.25; HGB 11.3 gm/dL (13.0-17.5); Luc # (Auto) 0.18; Luc % (Auto) 4; Lymphocytes # (A) 0.6 k/uL (1.0-4.8); Lymphocytes % (A) 12 %; MCH 29.2 pg (25.0-35.0); MCHC 31.3 g/dL (31.0-37.0); MCV 93.3 fL (80.0-100.0); Mean Platelet Volume 7.4; Monocytes # (A) 0.5 k/uL (0-1.0); Monocytes % (A) 9 %; Neutrophils # (A) 3.7 k/uL (1.3-7.7); Neutrophils % (A) 73 %; RBC 3.86 m/uL (4.30-5.90); RDW 13.2 % (11.5-15.5); WBC (Perox) 5.28
[2016-11-29 07:44] LABS: Anion Gap 13 mmol/L; Blood Urea Nitrogen 14 mg/dL (9-20); Calcium 8.9 mg/dL (8.4-10.2); Carbon Dioxide 13 mmol/L (22-30); Chloride 110 mmol/L (98-107); Glucose 118 mg/dL (74-99); Non-African American GFR(MDRD) >60 (>60 ml/min/1.73 sqM); Potassium 3.6 mmol/L (3.5-5.1); Sodium 136 mmol/L (137-145)
[2016-11-29] MEDS: HEPARIN SODIUM,PORCINE 5,000 UNIT/ML 1 ML VIAL SQ SCH ×2 (08:25→20:50)
[2016-11-29] MEDS: PANTOPRAZOLE 40 MG TABLET PO SCH ×2 (08:25→17:14)
[2016-11-29] MEDS: CLOPIDOGREL 75 MG TAB PO SCH (08:25)
[2016-11-29] MEDS: FAMOTIDINE 20 MG/2 ML VIAL IV SCH (08:25)
[2016-11-29] MEDS: TAMSULOSIN 0.4 MG CAP.ER.24H PO SCH (08:25)
[2016-11-29] MEDS: CHOLECALCIFEROL 1,000 UNIT TAB PO SCH (08:26)
[2016-11-29] MEDS: levETIRAcetam 500 MG TAB PO SCH ×2 (08:26→20:50)
[2016-11-29] MEDS: LORATADINE 10 MG TAB PO SCH ×2 (08:26→09:32)
[2016-11-29] MEDS: ATENOLOL 25 MG TAB PO SCH (08:26)
[2016-11-29] MEDS: LOSARTAN 50 MG TAB PO SCH (08:26)
[2016-11-29] MEDS: MEGESTROL 40 MG TAB PO SCH (08:27)
[2016-11-29] MEDS: ASPIRIN 81 MG CHEW PO SCH (08:29)
[2016-11-29] MEDS: HYDROcodone/APAP 7.5-325MG 1 EACH TAB PO PRN (08:44)
--- NOTE | 2016-11-29 11:02 | P.PN ---
Progress Note - Text The patient feels better today. He has had a large amount of flatus and a bowel movement. On exam his vital signs are stable. His abdomen is soft. Resolving ileus. Patient will start on full liquid diet.
[2016-11-29] MEDS: NON-FORMULARY DRUG (Canagliflozin [Invokana] 300 MG) PO SCH (11:26)
[2016-11-29 12:04] LABS: Glucose,Whole Blood 105 mg/dL (75-99)
--- NOTE | 2016-11-29 12:24 | P.PN ---
Subjective Principal diagnosis: Increased lethargy, abdominal distention, status post lumbar fusion Orthopedic Spine Patient is a pleasant 66-year-old male who is seen and examined at the bedside following minimally invasive L4-5 posterior lateral decompression and fusion with transforaminal lumbar interbody fusion performed last 11/22/2016. Patient was readmitted yesterday after presenting to the emergency department with increased lethargy, some abdominal distention with elevated lactic acid, and generalized weakness. X-rays of the abdomen and CT the abdomen and pelvis were taken yesterday which did show evidence of possible ileus, cholelithiasis, and/or enteritis. Dr. Terrazas in general surgery was consulted for the patient. He made him nothing by mouth status. Patient has continued to pass gas without a bowel movement. Since being seen exam yesterday, patient has had significant improvement of his symptoms. Today he is awake, alert, and oriented 3 and sitting in a bed side chair comfortably with multiple family members present. Patient states he was seen and examined by Dr. Terrazas this morning. He is planning to be put on a liquid diet to see if he continues to improve. Patient and his family both stated they would like to discontinue his narcotic pain medication. They feel this medication has made him overly lethargic. Patient feels stronger today as compared to yesterday. He is not currently complaining of significant back pain. He states he is able to sit in a chair without difficulty. He was having significant difficulty with moving of the lumbar spine yesterday but states that has improved. Overall, he is quite happy with his progress as compared to yesterday. Currently does not complain of nausea, vomiting, fever, or chills. Patient states pain has been adequately controlled. Patient is eating and voiding freely without difficulty. Objective - Vital Signs Vital signs: Vital Signs Temp 98.9 F 11/29/16 07:00 Pulse 107 H 11/29/16 07:00 Resp 16 11/29/16 07:00 BP 127/69 11/29/16 07:00 Pulse Ox 96 11/29/16 08:16 Intake & Output 11/28/16 11/29/16 11/29/16 18:59 06:59 18:59 Intake Total 3100 100 Balance 3100 100 Weight 94.347 kg Intake: Amount of Fluid Infused ( 2100 ml) Intake, IV Titration 1000 Amount Sodium Chloride 0.9% 1, 1000 000 ml @ 999 mls/hr IV . Q1H1M ONE Rx#:[id number] Oral 100 Other: Voiding Method Urinal # Voids 1 1 - Exam Physical Exam Lumbar Fusion: Status post surgical day number 7 Patient is awake, alert, and oriented 3; patient is able to communicate today very clearly without significant difficulty Vital signs stable Good chest excursion with deep inspiration and expiration Abdomen soft nontender; no significant pain with palpation of the abdomen Dorsiflexion, plantarflexion, and extensor hallucis longus positive sustained bilaterally No signs or symptoms of DVT; no calf pain Incisions at the lumbar spine remain clean, dry, and intact; no erythema, purulence, or signs of infection Neurovascularly intact bilaterally lower extremities - Labs CBC & Chem 7: 11/29/16 07:14 11/29/16 07:14 Labs: Abnormal Lab Results - Last 24 Hours (Table) 11/28/16 11/28/16 11/29/16 Range/Units 12:25 17:11 07:14 RBC 3.86 L (4.30-5.90) m/uL Hgb 11.3 L (13.0-17.5) gm/dL Hct 36.0 L (39.0-53.0) % Lymphocytes # 0.6 L (1.0-4.8) k/uL Sodium (137-145) mmol/L Chloride (98-107) mmol/L Carbon Dioxide (22-30) mmol/L Creatinine (0.66-1.25) mg/dL Glucose (74-99) mg/dL POC Glucose (mg/dL) 143 H 114 H (75-99) mg/dL 11/29/16 11/29/16 11/29/16 Range/Units 07:14 07:20 11:54 RBC (4.30-5.90) m/uL Hgb (13.0-17.5) gm/dL Hct (39.0-53.0) % Lymphocytes # (1.0-4.8) k/uL Sodium 136 L (137-145) mmol/L Chloride 110 H (98-107) mmol/L Carbon Dioxide 13 L (22-30) mmol/L Creatinine 0.61 L (0.66-1.25) mg/dL Glucose 118 H (74-99) mg/dL POC Glucose (mg/dL) 112 H 105 H (75-99) mg/dL Microbiology - Last 24 Hours (Table) 11/28/16 03:10 Blood Culture - Preliminary Blood No Growth after 24 hours 11/28/16 03:54 Urine Culture - Preliminary Urine,Voided Assessment and Plan (1) Ileus, postoperative Status: Acute (2) Cholelithiasis Status: Acute (3) Lethargic Status: Acute (4) Generalized weakness Status: Acute (5) Urinary tract infection Status: Acute (6) Arthrodesis status Status: Acute Plan: Pertinent studies: CT the abdomen and pelvis: Correlate for possible ileus, cholelithiasis, and/or enteritis X-ray abdomen: Findings could represent an ileus but difficult to exclude bowel obstruction Assessment: Colonic ileus Cholelithiasis Posterior lateral decompression and fusion L4-5 Transforaminal lumbar interbody fusion L4-5 Lethargic Generalized weakness Possible urinary tract infection Plan: 1. Ambulate as tolerated 2. Continue pain control; will plan to discontinue Benson and start the patient on Tylenol as needed for pain relief 3. Dr. Terrazas in general surgery will continue to follow patient for further evaluation of his abdomen 4. Medical management can continue to manage patient for patient's other medical issues 5. We will continue to follow the patient closely; patient will be cleared for discharge from orthopedic spine standpoint once cleared by general surgery and medicine 6. Patient can follow-up with Sheldon Sanchez PA-C or Dr. Khai Stout at [facility] in 2-3 weeks following discharge Time with Patient: Less than 30
[2016-11-29] MEDS ORDERED: ACETAMINOPHEN TAB 325 MG TAB PO PRN (12:44)
--- NOTE | 2016-11-29 13:30 | CONS ---
DATE OF CONSULTATION: 11/28/2016 REASON FOR CONSULTATION: Possible urinary tract infection. HISTORY OF PRESENT ILLNESS: Patient is a 66-year-old male who recently did have a spinal decompression surgery done by Dr. Liu at this hospital on Tuesday. Patient went home. However, now I see the patient remains to be sleepy, lethargic, and is not doing anything. With concern for mental status, the patient was brought to the ER last evening for further evaluation. There is no clear history of any fever. The patient denies any headache. No nausea or vomiting has been noticed and has been complaining of some lower abdominal pain and did have constipation with no bowel movement for the last 5 days. No significant urinary symptoms. The patient's abdominal pain is mostly dull, aching, 5 to 6 out of 10 and no radiation. Patient has been evaluated by the ER physician. The patient did have abdomen and pelvis CT which did show evidence of enteritis, but no abnormality at the lung bases, cholelithiasis. Patient has very minimal positive UA with no significant urinary symptoms. The patient has been admitted to the hospital being evaluated by General Surgery as well as Orthopedic Surgery with no concern for any infection of lumbosacral spine area. The patient was started on Narcan. I was asked to see the patient for further recommendation regarding his antibiotic therapy. Patient denies significant chest pain, shortness of breath or cough or any worsening pain in through the lumbosacral spine area. REVIEW OF SYSTEMS: CONSTITUTIONAL: Positive for weakness and a fever. EYES: No complaint. ENT: No complaint. RESPIRATORY: No complaint. CARDIOVASCULAR: No complaint. GENITOURINARY: As per HPI. GASTROINTESTINAL: As per HPI. MUSCULOSKELETAL: No complaint. INTEGUMENTARY: No complaint. PSYCHOLOGICAL: No complaint. ENDOCRINAL: No complaint. NEUROLOGIC: As per HPI. PAST MEDICAL HISTORY: Coronary artery disease, diabetes mellitus, gastroesophageal reflux disease, hypertension, hyperlipidemia, AR, prostate cancer. PAST SURGICAL HISTORY: PTCA with stent placement, colonoscopy, and spinal decompression last week. SOCIAL HISTORY: Remote history of smoking; quit back in 1984, and lives with and no history of any drinking or drug use. FAMILY HISTORY: Mother with history of cancer and coronary artery disease. Father with history of AR, who of old age. ALLERGIES: No known drug allergies. Medications currently include the patient is on [place], aspirin, Tenormin, Lipitor, vitamin D3, Plavix, Pepcid, heparin, Keppra, levofloxacin, Claritin, Cozaar, Megace, Reglan, Nitrostat, Protonix and Flomax. On examination, blood pressure is 132/75 with a pulse of 99, temperature of 98.1. He is 95% on room air. General description is an elderly male lying in bed in no distress, no tachypnea or accessory muscle of respiration use. HEENT EXAMINATION: No pallor or scleral icterus. Oral mucous membrane dry. NECK: Trachea central. There is no thyromegaly. LUNGS: Unlabored breathing. Clear to auscultation anteriorly. No wheeze or crackle. HEART: S1, S2. Regular rate and rhythm. ABDOMEN: Soft, slightly distended, but no significant guarding, rigidity or tenderness was noted. EXTREMITIES: No edema of feet. SKIN: No rash or mass palpable. Examination of the lumbosacral spine area site of incision looks clean with no evidence of any cellulitis. NEUROLOGICAL: The patient is sleepy, lethargic but easily arousable and knows that he is in the hospital. Mood and affect is normal. LABS: Hemoglobin 11.4, white count 5.0, lactic acid on admission was 2.3 down to 1.2 with a BUN of 23, creatinine 0.90. Urine not significantly positive with trace leukocyte esterase, 12 WBC and many budding yeast. DIAGNOSTIC IMPRESSION AND PLAN: Patient admitted to hospital with mental status changes, being sleepy all the time, weakness, lethargy, in patient who did have slight lactic acidosis that could be more likely metabolic, more likely dehydration. Clinically suspicious for underlying infection remains to be very low with no elevated white count and no fever and mildly positive urinalysis, but no significant urinary symptoms. The patient did have significant constipation, but no significant tenderness was noticed with the CT finding of enteritis would not correspond with his symptomatology of constipation. PLAN: 1. Patient needs to be aggressively hydrated. 2. Treat underlying constipation per Surgery as well as the primary team; may benefit from an enema. 3. May continue short course of Levaquin while waiting for the culture to finalize and condition to stabilize. 4. Will follow up on clinical condition and cultures to further adjust the medication if needed. Thank you for this consultation. Will follow this patient along with you.
--- NOTE | 2016-11-29 14:23 | P.PN ---
Subjective Patient is significantly better today. He is more awake. He is having good appetite. Family at bedside. Objective - Vital Signs Vital signs: Vital Signs Temp 98.9 F 11/29/16 07:00 Pulse 107 H 11/29/16 07:00 Resp 16 11/29/16 07:00 BP 127/69 11/29/16 07:00 Pulse Ox 96 11/29/16 08:16 Intake & Output 11/28/16 11/29/16 11/29/16 18:59 06:59 18:59 Intake Total 3100 100 Balance 3100 100 Weight 94.347 kg Intake: Amount of Fluid Infused ( 2100 ml) Intake, IV Titration 1000 Amount Sodium Chloride 0.9% 1, 1000 000 ml @ 999 mls/hr IV . Q1H1M ONE Rx#:[id number] Oral 100 Other: Voiding Method Urinal # Voids 1 1 - Exam General: The patient is awake and alert, in no distress Eye: there is normal conjunctiva bilaterally. Neck: The neck is supple, there is no JVD. Cardiovascular: Normal S1-S2, no S3-S4, no murmurs. Respiratory: Lungs clear to auscultation bilaterally Gastrointestinal: Abdomen is soft, nontender Musculoskeletal: There is no pedal edema. Neurological:. Speech is normal. Skin: Skin is warm and dry - Labs CBC & Chem 7: 11/29/16 07:14 11/29/16 07:14 Labs: Abnormal Lab Results - Last 24 Hours (Table) 11/28/16 11/29/16 11/29/16 Range/Units 17:11 07:14 07:14 RBC 3.86 L (4.30-5.90) m/uL Hgb 11.3 L (13.0-17.5) gm/dL Hct 36.0 L (39.0-53.0) % Lymphocytes # 0.6 L (1.0-4.8) k/uL Sodium 136 L (137-145) mmol/L Chloride 110 H (98-107) mmol/L Carbon Dioxide 13 L (22-30) mmol/L Creatinine 0.61 L (0.66-1.25) mg/dL Glucose 118 H (74-99) mg/dL POC Glucose (mg/dL) 114 H (75-99) mg/dL 11/29/16 11/29/16 Range/Units 07:20 11:54 RBC (4.30-5.90) m/uL Hgb (13.0-17.5) gm/dL Hct (39.0-53.0) % Lymphocytes # (1.0-4.8) k/uL Sodium (137-145) mmol/L Chloride (98-107) mmol/L Carbon Dioxide (22-30) mmol/L Creatinine (0.66-1.25) mg/dL Glucose (74-99) mg/dL POC Glucose (mg/dL) 112 H 105 H (75-99) mg/dL Microbiology - Last 24 Hours (Table) 11/28/16 03:10 Blood Culture - Preliminary Blood No Growth after 24 hours 11/28/16 03:54 Urine Culture - Preliminary Urine,Voided Assessment and Plan Plan: 1. Suspected small bowel obstruction/ileus: Resolved spontaneously. General surgery following. We will continue IV fluid hydration. Patient is tolerating liquid diet with no difficulty.2. Underlying urinary tract infection, awaiting urine culture. Currently on IV Levaquin. I will consult infectious disease. 3. Recent lumbar spine decompression: Seen and evaluated by spine surgery. Surgical incision site appeared healing well with no evidence of infection. Continue pain control. 4. Type 2 diabetes mellitus: Hold oral agents. Continue sliding scale insulin. 5. Essential hypertension: Blood pressure well controlled 6. DVT prophylaxis with subcu heparin
[2016-11-29 17:05] LABS: Glucose,Whole Blood 135 mg/dL (75-99)
[2016-11-29 20:51] LABS: Glucose,Whole Blood 185 mg/dL (75-99)
[2016-11-29] MEDS: ATORVASTATIN 40 MG TAB PO SCH (20:51)
[2016-11-30] MEDS: METOCLOPRAMIDE 5 MG/ML 2 ML VIAL IVP SCH ×2 (05:07→12:51)
[2016-11-30] MEDS: LEVOFLOXACIN 750MG-D5W PMX 750 MG in DEXTROSE/WATER 1 150ML.BAG IVPB SCH (05:07)
[2016-11-30 07:27] LABS: Glucose,Whole Blood 96 mg/dL (75-99)
[2016-11-30 07:40] VITALS: BP 131/73; PULSE 98; RESP 19; TEMP 99.2
[2016-11-30] MEDS: ATENOLOL 25 MG TAB PO SCH (08:26)
[2016-11-30] MEDS: LORATADINE 10 MG TAB PO SCH (08:26)
[2016-11-30] MEDS: HEPARIN SODIUM,PORCINE 5,000 UNIT/ML 1 ML VIAL SQ SCH (08:26)
[2016-11-30] MEDS: MEGESTROL 40 MG TAB PO SCH (08:26)
[2016-11-30] MEDS: PANTOPRAZOLE 40 MG TABLET PO SCH (08:27)
[2016-11-30] MEDS: LOSARTAN 50 MG TAB PO SCH (08:27)
[2016-11-30] MEDS: ASPIRIN 81 MG CHEW PO SCH (08:27)
[2016-11-30] MEDS: levETIRAcetam 500 MG TAB PO SCH (08:27)
[2016-11-30] MEDS: TAMSULOSIN 0.4 MG CAP.ER.24H PO SCH (08:27)
[2016-11-30] MEDS: CHOLECALCIFEROL 1,000 UNIT TAB PO SCH (08:27)
[2016-11-30] MEDS: CLOPIDOGREL 75 MG TAB PO SCH (08:28)
--- NOTE | 2016-11-30 08:49 | P.PN ---
Subjective Principal diagnosis: Increased lethargy, abdominal distention, status post lumbar fusion Orthopedic Spine Patient is a pleasant 66-year-old male who is seen and examined at the bedside following minimally invasive L4-5 posterior lateral decompression and fusion with transforaminal lumbar interbody fusion performed last 11/22/2016. Patient was readmitted yesterday after presenting to the emergency department with increased lethargy, some abdominal distention with elevated lactic acid, and generalized weakness. X-rays of the abdomen and CT the abdomen and pelvis were taken yesterday which did show evidence of possible ileus, cholelithiasis, and/or enteritis. Dr. Terrazas in general surgery was consulted for the patient. He made him nothing by mouth status. Patient has continued to pass gas without a bowel movement. Since being seen exam yesterday, patient has continued to have significant improvement of his symptoms. Today he is awake, alert, and oriented 3 and sitting in a bed side chair comfortably with his family present. He was able to resume a liquid and soft diet after being seen and examined yesterday by Dr. Terrazas. Since yesterday, patient has had 2 bowel movements. He was also able to ambulate the hallways 3 different times yesterday. Patient's pain continues to be control with Tylenol. He is requesting prescription for Tylenol at discharge. She is a feels stronger today as compared yesterday. He is not currently complaining of significant back pain. He states he is able to sit in a chair without difficulty. He was having significant difficulty with moving of the lumbar spine yesterday but states that has improved. Overall, he is quite happy with his progress as compared to yesterday. Currently does not complain of nausea, vomiting, fever, or chills. Patient states pain has been adequately controlled. Patient is eating and voiding freely without difficulty. At this time with his significant improvement, he feels he is ready for discharge home. Objective - Vital Signs Vital signs: Vital Signs Temp 99.2 F 11/30/16 07:00 Pulse 98 11/30/16 07:00 Resp 19 11/30/16 07:00 BP 131/73 11/30/16 07:00 Pulse Ox 96 11/30/16 07:00 Intake & Output 11/29/16 11/30/16 11/30/16 18:59 06:59 18:59 Weight 94.347 kg Other: Voiding Method Urinal # Voids 1 1 # Bowel Movements 1 - Exam Physical Exam Lumbar Fusion: Status post surgical day number 8 Patient is awake, alert, and oriented 3; patient is able to communicate today very clearly without significant difficulty Vital signs stable Good chest excursion with deep inspiration and expiration Abdomen soft nontender; no significant pain with palpation of the abdomen Dorsiflexion, plantarflexion, and extensor hallucis longus positive sustained bilaterally No signs or symptoms of DVT; no calf pain Incisions at the lumbar spine remain clean, dry, and intact; no erythema, purulence, or signs of infection Neurovascularly intact bilaterally lower extremities - Labs CBC & Chem 7: 11/29/16 07:14 11/29/16 07:14 Labs: Abnormal Lab Results - Last 24 Hours (Table) 11/29/16 11/29/16 11/29/16 Range/Units 11:54 16:55 20:43 POC Glucose (mg/dL) 105 H 135 H 185 H (75-99) mg/dL Microbiology - Last 24 Hours (Table) 11/28/16 03:10 Blood Culture - Preliminary Blood No Growth after 48 hours Assessment and Plan (1) Ileus, postoperative Status: Acute (2) Cholelithiasis Status: Acute (3) Lethargic Status: Acute (4) Generalized weakness Status: Acute (5) Urinary tract infection Status: Acute (6) Arthrodesis status Status: Acute Plan: Pertinent studies: CT the abdomen and pelvis: Correlate for possible ileus, cholelithiasis, and/or enteritis X-ray abdomen: Findings could represent an ileus but difficult to exclude bowel obstruction Assessment: Colonic ileus Cholelithiasis Posterior lateral decompression and fusion L4-5 Transforaminal lumbar interbody fusion L4-5 Lethargic Generalized weakness Possible urinary tract infection Plan: 1. Ambulate as tolerated 2. Continue pain control with Tylenol 650 mg 1 tab every 6 hours as needed as needed for pain relief 3. Dr. Terrazas in general surgery will continue to follow patient for further evaluation of his abdomen 4. Medical management can continue to manage patient for patient's other medical issues 5. We will continue to follow the patient closely; patient will be cleared for discharge from orthopedic spine standpoint once cleared by general surgery and medicine 6. Patient can follow-up with Sheldon Sanchez PA-C or Dr. Khai Stout at [facility] in 2-3 weeks following discharge Time with Patient: Less than 30
[2016-11-30 09:10] LABS: Anion Gap 13 mmol/L; Blood Urea Nitrogen 12 mg/dL (9-20); Calcium 8.9 mg/dL (8.4-10.2); Carbon Dioxide 17 mmol/L (22-30); Chloride 107 mmol/L (98-107); Glucose 120 mg/dL (74-99); Non-African American GFR(MDRD) >60 (>60 ml/min/1.73 sqM); Potassium 3.6 mmol/L (3.5-5.1); Sodium 137 mmol/L (137-145)
[2016-11-30 09:30] LABS: Basophils % (A) 1 %; CH 29.7; CHCM 31.7; Eosinophils # (A) 0.2 k/uL (0-0.7); Eosinophils % (A) 3 %; HCT 37.5 % (39.0-53.0); HGB 11.7 gm/dL (13.0-17.5); Luc # (Auto) 0.12; Luc % (Auto) 2; Lymphocytes # (A) 0.8 k/uL (1.0-4.8); Lymphocytes % (A) 14 %; MCH 29.3 pg (25.0-35.0); MCHC 31.1 g/dL (31.0-37.0); MCV 94.1 fL (80.0-100.0); Mean Platelet Volume 7.2; Monocytes # (A) 0.5 k/uL (0-1.0); Monocytes % (A) 8 %; Neutrophils # (A) 4.4 k/uL (1.3-7.7); Neutrophils % (A) 73 %; RBC 3.99 m/uL (4.30-5.90); RDW 13.3 % (11.5-15.5); WBC (Perox) 5.98
--- NOTE | 2016-11-30 10:05 | PN ---
DATE OF SERVICE: 11/29/2016 Reason for followup is possible UTI. INTERVAL HISTORY: The patient is afebrile. He is more awake and alert today. He is breathing comfortably. Denies any significant chest pain or cough. No significant abdominal pain. Has been passing gas and no urinary symptoms. On examination, blood pressure 117/64 with a pulse of 86, temperature 97. He is 97% on room air. General description is an elderly male, lying in bed, in no distress. RESPIRATORY SYSTEM: Unlabored breathing, Clear to auscultation anteriorly. HEART: S1 and S2. Regular rate and rhythm. ABDOMEN: Soft, no tenderness. LABS: Hemoglobin 11.3 with white count of 5 with a BUN of 14, creatinine 0.61. Cultures so far pending. DIAGNOSTIC IMPRESSION AND PLAN: Patient admitted to the hospital with mental status changes, weakness, lethargy, more likely metabolic. Clinical suspicious low for an infection, especially urinary tract infection, awaiting for urine culture. If negative, antibiotic can be safely discontinued. Continue supportive care. Family present at beside. Their questions were answered. RACHELLE
--- NOTE | 2016-11-30 11:33 | P.DS ---
Providers Date of admission: 11/28/16 07:17 Expected date of discharge: 11/30/16 Attending physician: Edd Maciel Consults: 11/28/16 07:13 Consult Physician Routine Consulting Provider: Madeleine Stout Consult Reason/Comments: Your patient. Post-op check. Do you want consulting provider notified?: Yes 11/28/16 12:31 Consult Physician Stat Consulting Provider: Michael Terrazas Consult Reason/Comments: abdominal pain and distension;possible ileus, enteritis, cholelithiasis Do you want consulting provider notified?: Yes 11/28/16 14:10 Consult Physician Routine Consulting Provider: Mariana Haque Consult Reason/Comments: uti Do you want consulting provider notified?: Yes Primary care physician: Shannon Honeycutt [facility] Course: 1. Suspected small bowel obstruction/ileus: Resolved spontaneously. Seen and evaluated by general surgery. Patient was able to tolerate regular diet with no difficulty. 2. Underlying urinary tract infection, urine culture pending. Patient improved clinically with Levaquin. Blood culture negative. We'll discharge home short course of Levaquin. 3. Recent lumbar spine decompression: Seen and evaluated by spine surgery. Surgical incision site appeared healing well with no evidence of infection. Continue pain control. 4. Type 2 diabetes mellitus: Hold oral agents. Continue sliding scale insulin. 5. Essential hypertension: Blood pressure well controlled Patient Condition at Discharge: Poor Plan - Discharge Summary New Discharge Prescriptions: Levofloxacin [Levaquin] 250 mg PO DAILY #5 tab Discharge Medication List Aspirin 81 mg PO DAILY 03/11/14 [History] Glimepiride [Amaryl] 4 mg PO BID 03/11/14 [History] Tamsulosin [Flomax] 0.4 mg PO DAILY 03/11/14 [History] Levocetirizine Dihydrochloride [Xyzal] 5 mg PO DAILY 04/14/15 [History] sitaGLIPtin PHOS/metFORMIN HCL [Janumet 50-1,000 mg Tablet] 1 tab PO BID [History] Losartan [Cozaar] 50 mg PO QAM 06/10/15 [History] Omeprazole 20 mg PO BID 06/10/15 [History] Cholecalciferol [Vitamin D3] 1,000 unit PO DAILY 10/22/15 [History] Cyanocobalamin [Vitamin B-12 Injection] 1,000 mcg IM Q28D 10/22/15 [History] Canagliflozin [Invokana] 300 mg PO DAILY 03/29/16 [History] Megestrol Acetate 40 mg PO QAM 03/29/16 [History] levETIRAcetam [Keppra] 500 mg PO QAM 03/29/16 [History] Atorvastatin [Lipitor] 40 mg PO HS #30 tablet 03/31/16 [Rx] Nitroglycerin Sl Tabs [Nitrostat] 0.4 mg SUBLINGUAL Q5M PRN #25 tab 03/31/16 [Rx ] Atenolol 25 mg PO QAM 11/18/16 [History] Clopidogrel [Plavix] 75 mg PO DAILY 11/18/16 [History] HYDROcodone/APAP 7.5-325MG [[place] 7.5-325] 1 tab PO Q6H PRN 11/18/16 [History] levETIRAcetam [Keppra] 1,000 mg PO HS 11/18/16 [History] Levofloxacin [Levaquin] 250 mg PO DAILY #5 tab 11/30/16 [Rx] Follow up Appointment(s)/Referral(s): Shannon Honeycutt MD [Primary Care Provider] - 1-2 days Sheldon Sanchez PAC [PHYSICIAN THIRD HAND] - 2 Weeks (Patient may follow-up with Sheldon Sanchez PA-C or Dr. Khai Stout at [facility] in 2 weeks or as previously scheduled following discharge. ) [facility] Visiting Nurse, [NON-STAFF] - Activity/Diet/Wound Care/Special Instructions: 1. Patient may shower without dressing intact. 2. Patient should keep Steri-Strips intact and allow them to fall off naturally. 3. Patient should refrain from driving until at least after their first follow- up appointment in the office. 4. Patient should avoid excessive bending, twisting, and lifting; no lifting greater than 10 pounds 5. Do not soak in tub Discharge Disposition: HOME WITH HOME HEALTH SERVICES
[2016-11-30 11:48] LABS: Glucose,Whole Blood 126 mg/dL (75-99)
--- NOTE | 2016-11-30 13:36 | P.PN ---
Subjective Patient is evaluated on the medical floor. Patient is doing well. Denies chills, fevers, nausea, vomiting, or abdominal pain. Patient had 2 bowel movements this morning. Patient is tolerating diet. T-max the last 24 hours 99.2. No evidence of leukocytosis. Objective - Vital Signs Vital signs: Vital Signs Temp 99.2 F 11/30/16 07:00 Pulse 98 11/30/16 07:00 Resp 19 11/30/16 07:00 BP 131/73 11/30/16 07:00 Pulse Ox 96 11/30/16 07:00 Intake & Output 11/29/16 11/30/16 11/30/16 18:59 06:59 18:59 Weight 94.347 kg Other: Voiding Method Urinal Urinal # Voids 1 1 # Bowel Movements 1 - Exam GENERAL: Pt awake and alert, well-appearing, well-nourished, and in no acute distress. ABDOMEN: Soft, nontender, nondistended, normoactive bowel sounds. No guarding, no rebound. No masses or organomegaly appreciated. - Labs CBC & Chem 7: 11/30/16 07:58 11/30/16 07:58 Labs: Abnormal Lab Results - Last 24 Hours (Table) 11/29/16 11/29/16 11/30/16 Range/Units 16:55 20:43 07:58 RBC 3.99 L (4.30-5.90) m/uL Hgb 11.7 L (13.0-17.5) gm/dL Hct 37.5 L (39.0-53.0) % Lymphocytes # 0.8 L (1.0-4.8) k/uL Carbon Dioxide (22-30) mmol/L Creatinine (0.66-1.25) mg/dL Glucose (74-99) mg/dL POC Glucose (mg/dL) 135 H 185 H (75-99) mg/dL 11/30/16 11/30/16 Range/Units 07:58 11:38 RBC (4.30-5.90) m/uL Hgb (13.0-17.5) gm/dL Hct (39.0-53.0) % Lymphocytes # (1.0-4.8) k/uL Carbon Dioxide 17 L (22-30) mmol/L Creatinine 0.65 L (0.66-1.25) mg/dL Glucose 120 H (74-99) mg/dL POC Glucose (mg/dL) 126 H (75-99) mg/dL Microbiology - Last 24 Hours (Table) 11/28/16 03:54 Urine Culture - Final Urine,Voided Almaz glabrata 11/28/16 03:10 Blood Culture - Preliminary Blood No Growth after 48 hours Assessment and Plan Plan: Impression: 1. Ileus, present on admission, resolved. Plan: Advance diet to soft. From a surgical standpoint, patient is cleared for discharge. The above impression and plan have been discussed and directed by Dr. Terrazas. Martin JONES acting as scribe for Dr. Terrazas.
--- NOTE | 2016-11-30 16:47 | PN ---
DATE OF SERVICE: 11/30/2016 REASON FOR FOLLOW-UP: Possible UTI. INTERVAL HISTORY: The patient is afebrile. He is feeling better, breathing comfortably. Denies significant chest pain or shortness of breath or cough. No abdominal pain. Did have bowel movement. On examination, blood pressure 131/73 with a pulse of 98, temperature 99.2, he is 96% on room air. General description is an elderly male, lying in bed in no distress. RESPIRATORY SYSTEM: Unlabored breathing. Clear to auscultation anteriorly. HEART: S1, S2. Regular rate and rhythm. ABDOMEN: Soft, no tenderness. LABS: Hemoglobin is 11.7, white count 6.0 with a BUN of 12, creatinine 0.65. Urine showing Almaz glabrata. DIAGNOSTIC IMPRESSION AND PLAN: Patient admitted to the hospital with mental status changes which is more likely metabolic. Clinically doubt urinary tract infection. Patient did show Almaz glabrata. The patient did show overall improvement without getting treatment for the same. Recommend no treatment of any antifungal or any antibiotics. Continue supportive care.
[2016-12-23] MEDS ORDERED: CYANOCOBALAMIN 1,000 MCG/ML 1 ML VIAL IM SCH (12:00)
== END 2016-11-30 17:09 | disposition home health service (06) | DRG 389 ==
LOC: EC 02:56 → 4MS4W 07:17
PROVIDERS: ADMIT Internal Medicine; ATTEND Internal Medicine
DX: K56.7 Ileus, unspecified (principal); E87.2 Acidosis; N39.0 Urinary tract infection, site not specified; I10 Essential (primary) hypertension; E11.65 Type 2 diabetes mellitus with hyperglycemia; E78.5 Hyperlipidemia, unspecified; K80.20 Calculus of gallbladder without cholecystitis without obstruction; E86.0 Dehydration; I25.10 Atherosclerotic heart disease of native coronary artery without angina pectoris; R53.1 Weakness; R00.0 Tachycardia, unspecified; D64.9 Anemia, unspecified; R26.2 Difficulty in walking, not elsewhere classified; R50.9 Fever, unspecified; R06.02 Shortness of breath; R41.82 Altered mental status, unspecified; M48.06 Spinal stenosis, lumbar region; M43.16 Spondylolisthesis, lumbar region; K21.9 Gastro-esophageal reflux disease without esophagitis; I25.2 Old myocardial infarction; Z79.899 Other long term (current) drug therapy; Z79.82 Long term (current) use of aspirin; Z79.02 Long term (current) use of antithrombotics/antiplatelets; Z80.9 Family history of malignant neoplasm, unspecified; Z82.49 Family history of ischemic heart disease and other diseases of the circulatory system; Z83.3 Family history of diabetes mellitus; Z95.5 Presence of coronary angioplasty implant and graft; Z92.3 Personal history of irradiation; Z87.891 Personal history of nicotine dependence; Z98.1 Arthrodesis status; Z79.84 Long term (current) use of oral hypoglycemic drugs; Z79.891 Long term (current) use of opiate analgesic; Z85.46 Personal history of malignant neoplasm of prostate; Z71.3 Dietary counseling and surveillance; Z98.890 Other specified postprocedural states
CPT/HCPCS: 36415; 71010; 72100; 74020; 74176; 80048; 80053; 81001; 82009; 83605; 85025; 85610; 85730; 87040; 87086; 93005; 94760; 96361; 96365; 99285

== ENCOUNTER 2016-12-21 18:33 | Emergency (ER) | payer MEDICARE, OTHER ==
[2016-12-21 18:55] LABS: Amorphous Sediment,Urine Rare /hpf; Appearance,Urine Clear (Clear); Bacteria,Urine Rare /hpf; Bilirubin,Urine Negative (Negative); Glucose,Urine (UA) 4+ (Negative); Ketones,Urine Negative (Negative); Leukocyte Esterase,Urine Small (Negative); Mucus,Urine Rare /hpf; Nitrite,Urine Negative (Negative); Particle Count 606; Protein,Urine Negative (Negative); RBC,Urine 3 /hpf (0-5); Specific Gravity,Urine 1.001 (1.001-1.035); Squamous Epithelial Cell,Urine 1 /hpf (0-4); UA Billing (MACRO vs. MICRO) MICRO; Urobilinogen,Urine <2.0 mg/dL (<2.0); WBC,Urine 3 /hpf (0-5)
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
[2016-12-21] MEDS ORDERED: SODIUM CHLORIDE 0.9% 1,000 ML IV SCH (19:30)
[2016-12-21 19:47] LABS: Basophils # (A) 0.1 k/uL (0-0.2); Basophils % (A) 1 %; CH 29.7; CHCM 32.7; Eosinophils # (A) 0.2 k/uL (0-0.7); Eosinophils % (A) 3 %; HDW 2.45; HGB 13.6 gm/dL (13.0-17.5); Luc # (Auto) 0.15; Luc % (Auto) 3; Lymphocytes # (A) 1.2 k/uL (1.0-4.8); Lymphocytes % (A) 21 %; MCH 29.5 pg (25.0-35.0); MCHC 32.4 g/dL (31.0-37.0); MCV 91.1 fL (80.0-100.0); Mean Platelet Volume 6.6; Monocytes # (A) 0.4 k/uL (0-1.0); Monocytes % (A) 7 %; Neutrophils # (A) 3.8 k/uL (1.3-7.7); Neutrophils % (A) 65 %; RBC 4.61 m/uL (4.30-5.90); RDW 13.5 % (11.5-15.5); WBC 5.7 k/uL (3.8-10.6); WBC (Perox) 5.61
[2016-12-21 19:56] LABS: ALT 29 U/L (21-72); AST 22 U/L (17-59); Alkaline Phosphatase 90 U/L (38-126); Anion Gap 15 mmol/L; Blood Urea Nitrogen 13 mg/dL (9-20); Calcium 9.8 mg/dL (8.4-10.2); Carbon Dioxide 17 mmol/L (22-30); Chloride 107 mmol/L (98-107); Glucose 104 mg/dL (74-99); Non-African American GFR(MDRD) >60 (>60 ml/min/1.73 sqM); Potassium 4.5 mmol/L (3.5-5.1); Sodium 139 mmol/L (137-145); Total Bilirubin 0.6 mg/dL (0.2-1.3); Total Protein 8.5 g/dL (6.3-8.2)
[2016-12-21 21:17] VITALS: BP 141/81; PULSE 86; RESP 20; TEMP 97.9
== END 2016-12-21 21:17 | disposition home or self-care (01) ==
LOC: EC 18:33
DX: R31.9 Hematuria, unspecified (principal); E11.9 Type 2 diabetes mellitus without complications; K21.9 Gastro-esophageal reflux disease without esophagitis; E78.5 Hyperlipidemia, unspecified; I10 Essential (primary) hypertension; I25.2 Old myocardial infarction; I25.10 Atherosclerotic heart disease of native coronary artery without angina pectoris; Z85.46 Personal history of malignant neoplasm of prostate; Z87.891 Personal history of nicotine dependence; Z79.01 Long term (current) use of anticoagulants; Z79.82 Long term (current) use of aspirin; Z79.84 Long term (current) use of oral hypoglycemic drugs; Z79.899 Other long term (current) drug therapy
CPT/HCPCS: 99284; 96360; 96361 ×2; 36415; 80053; 85025; 81001; 87086; G0103; 87077; 87186

== ENCOUNTER → 2017-03-22 | Outpatient (CLI) | payer MEDICARE, OTHER ==
[2017-03-22 10:20] LABS: ALT 29 U/L (21-72); AST 15 U/L (17-59); Alkaline Phosphatase 89 U/L (38-126); Anion Gap 11 mmol/L; Blood Urea Nitrogen 15 mg/dL (9-20); Calcium 9.4 mg/dL (8.4-10.2); Carbon Dioxide 20 mmol/L (22-30); Chloride 108 mmol/L (98-107); Cholesterol 109 mg/dL (<200); Glucose 165 mg/dL (74-99); HDL Cholesterol 36 mg/dL (40-60); Non-African American GFR(MDRD) >60 (>60 ml/min/1.73 sqM); Potassium 5.1 mmol/L (3.5-5.1); Sodium 139 mmol/L (137-145); Total Bilirubin 0.4 mg/dL (0.2-1.3); Total Protein 8.3 g/dL (6.3-8.2)
== END | disposition home or self-care (01) ==
LOC: LABWHC1 09:03
PROVIDERS: ATTEND Internal Medicine Interventional Cardiology
DX: E78.2 Mixed hyperlipidemia (principal)
CPT/HCPCS: 36415; 80053; 80061

== ENCOUNTER 2017-06-04 18:35 | Emergency (ER) | payer MEDICARE, OTHER ==
[2017-06-04 18:43] VITALS: BP 135/61; PULSE 74; RESP 18; TEMP 98.2
--- NOTE | 2017-06-04 19:17 | ED ---
Back Pain HPI - General Chief Complaint: Back Pain/Injury Stated Complaint: back pain Time Seen by Provider: 06/04/17 18:52 Source: patient, RN notes reviewed Limitations: no limitations - History of Present Illness Initial Comments: This is a 66-year-old male with history of chronic back pain who presents to the emergency department with chief complaint of fall. Patient states that yesterday while walking outside on the sidewalk he slipped and fell directly onto his back. He states that he had back surgery in November with a removed discs L4 and L5 and put in rods and screws. Patient states that since surgery he has been with oral pain and has normal range of motion. He states that he does take [place] and naproxen daily for pain management. He states that since his fall yesterday his low back has been hurting him more than usual. He states that it hurts most when he walks. He characterizes the pain is sharp with occasional radiation down the left posterior thigh. Currently rates his pain as 10/10. He states he took a [place] at 2:30PM and an naproxen 500 mg at 4 PM this evening. Denies any other injury or trauma. Patient states he did not hit his head or lose consciousness. Denies saddle paresthesias or loss of bladder or bowel function. Denies fever, chills, chest pain, shortness of breath, abdominal pain, nausea or vomiting, constipation or diarrhea, dysuria or hematuria, numbness or tingling, headache or vision changes. - Related Data Home Medications Medication Instructions Recorded Confirmed Glimepiride [Amaryl] 4 mg PO BID 03/11/14 06/04/17 Tamsulosin [Flomax] 0.4 mg PO QAM 03/11/14 06/04/17 Levocetirizine Dihydrochloride 5 mg PO DAILY 04/14/15 06/04/17 [Xyzal] sitaGLIPtin PHOS/metFORMIN HCL 1 tab PO BID 04/14/15 06/04/17 [Janumet 50-1,000 mg Tablet] Losartan [Cozaar] 50 mg PO QAM 06/10/15 06/04/17 Omeprazole 20 mg PO BID 06/10/15 06/04/17 Cholecalciferol [Vitamin D3] 1,000 unit PO DAILY 10/22/15 06/04/17 Cyanocobalamin [Vitamin B-12 1,000 mcg IM Q28D 10/22/15 06/04/17 Injection] Canagliflozin [Invokana] 300 mg PO DAILY 03/29/16 06/04/17 Megestrol Acetate 40 mg PO DAILY 03/29/16 06/04/17 levETIRAcetam [Keppra] 500 mg PO QAM 03/29/16 06/04/17 Atenolol 25 mg PO QAM 11/18/16 06/04/17 Clopidogrel [Plavix] 75 mg PO DAILY 11/18/16 06/04/17 HYDROcodone/APAP 7.5-325MG [[place] 1 tab PO Q6H PRN 11/18/16 06/04/17 7.5-325] levETIRAcetam [Keppra] 1,000 mg PO HS 11/18/16 06/04/17 Aspirin EC [Ecotrin Low Dose] 81 mg PO DAILY 12/21/16 06/04/17 Previous Rx's Medication Instructions Recorded Atorvastatin [Lipitor] 40 mg PO HS #30 tablet 03/31/16 Nitroglycerin Sl Tabs [Nitrostat] 0.4 mg SUBLINGUAL Q5M PRN #25 tab 03/31/16 Allergies Allergy/AdvReac Type Severity Reaction Status Date / Time No Known Allergies Allergy Verified 06/04/17 18:43 Review of Systems ROS Statement: Those systems with pertinent positive or pertinent negative responses have been documented in the HPI. ROS Other: All systems not noted in ROS Statement are negative. Past Medical History Past Medical History: Coronary Artery Disease (CAD), Chest Pain / Angina, Diabetes Mellitus, GERD/Reflux, Hyperlipidemia, Hypertension, Myocardial Infarction ([place]) Additional Past Medical History / Comment(s): PROSTATE CANCER RADIATION/SEED IMPLANTS, STATES HE HAD HX OF RADIATION WHICH BURNED HIS COLON. , STATED "HAD BLOOD IN STOOL". Last Myocardial Infarction Date:: 1999 History of Any Multi-Drug Resistant Organisms: None Reported Past Surgical History: Heart Catheterization With Stent Additional Past Surgical History / Comment(s): HEART CATH WITH STENT 2003, COLONOSCOPY. Past Anesthesia/Blood Transfusion Reactions: No Reported Reaction Date of Last Stent Placement:: 2003 Past Psychological History: No Psychological Hx Reported Smoking Status: Former smoker Past Alcohol Use History: Occasional Past Drug Use History: None Reported - Past Family History Mother Family Medical History: Cancer Brother(s) Family Medical History: Coronary Artery Disease (CAD), Diabetes Mellitus, Myocardial Infarction ([place]) Father Family Medical History: Myocardial Infarction ([place]) Additional Family Medical History / Comment(s): Father of [place] at 99 years old General Exam - General Exam Comments Initial Comments: General: Awake and alert, well-developed; in no apparent distress. HEENT: Head atraumatic, normocephalic. Pupils are equal, round and reactive to light. Extraocular movements intact. Oropharynx moist without erythema or exudate. Neck: Supple. Normal ROM. Cardiovascular: Regular rate and rhythm. No murmurs, rubs or gallops. Chest symmetrical. Respiratory: Lungs clear to auscultation bilaterally. No wheezes, rales or rhonchi. Normal respiratory effort with no use of accessory muscles. Back: Normal active ROM with rotation and flexion of lumbar spine. There is no bony point tenderness of the vertebra. There is tenderness on palpation of the bilateral SI joints. Sensation is intact. Pedal pulses are 2+ equal and palpable bilaterally. Musculoskeletal: Normal ROM, no tenderness bilateral upper and lower extremities. Ambulating normally. Skin: [place], warm and dry without rashes or lesions. Neurological: Alert and oriented x3. CN II-XII grossly intact. Speech is fluent and answers are appropriate. No focal neuro deficits. Psychiatric: Normal mood and affect. No overt signs of depression or anxiety noted. Limitations: no limitations Course Vital Signs 06/04/17 18:41 Temperature 98.2 F Pulse Rate 74 Respiratory 18 Rate Blood Pressure 135/61 O2 Sat by Pulse 98 Oximetry Medical Decision Making - Medical Decision Making This is a 66-year-old male who presents to the emergency department with chief complaint of acute on chronic back pain. Patient had lumbar back surgery in November. He reports a fall directly onto his back yesterday. He has had increasing pain since then. Lumbar x-ray revealed no acute abnormalities, with all hardware intact. This case was discussed with attending physician, Dr. Santos who recommended administering 2 mg IM Dilaudid. Patient is in agreement and voices understanding. He is in no acute distress at this time. He will be discharged home and recommended to follow up with primary care provider in 1-2 days. All questions were answered. - Radiology Data Radiology results: report reviewed Lumbar spine x-ray findings: The bilateral L4 and L5 orthopedic hardware are intact. There is no evidence of skeletal fracture or malalignment. Soft tissues are unremarkable. Impression: No acute process. Disposition Clinical Impression: Acute exacerbation of chronic low back pain Disposition: HOME SELF-CARE Condition: Good Instructions: Chronic Back Pain (ED) Additional Instructions: Please follow up with primary care provider within 1-2 days. Return to emergency department if symptoms should worsen or any concerns arise. Referrals: Shannon Honeycutt MD [Primary Care Provider] - 1-2 days Time of Disposition: 20:01
--- NOTE | 2017-06-04 19:42 | XR ---
PROCEDURE: XR lumbar spine 3V DATE AND TIME: 06/04/2017 7:22 PM REFERRING PHYSICIAN: May Golden CLINICAL INDICATION: PHH, pain s/p fall TECHNIQUE: AP and 2 lateral views. COMPARISON: 11/28/2016 FINDINGS: The bilateral L4 and L5 orthopedic hardware are intact. There is no evidence of skeletal fracture or malalignment. The soft tissues are unremarkable. IMPRESSION: NO ACUTE PROCESS.
[2017-06-04] MEDS ORDERED: HYDROmorphone 2 MG/ML 1 ML SYRINGE IM STA (19:53)
== END 2017-06-04 20:20 | disposition home or self-care (01) ==
LOC: EC 18:35
DX: M54.5 Low back pain (principal); G89.29 Other chronic pain; I25.10 Atherosclerotic heart disease of native coronary artery without angina pectoris; E11.9 Type 2 diabetes mellitus without complications; K21.9 Gastro-esophageal reflux disease without esophagitis; E78.5 Hyperlipidemia, unspecified; I25.2 Old myocardial infarction; I10 Essential (primary) hypertension; Z85.46 Personal history of malignant neoplasm of prostate; Z87.891 Personal history of nicotine dependence; Z98.890 Other specified postprocedural states; Z79.84 Long term (current) use of oral hypoglycemic drugs; Z79.82 Long term (current) use of aspirin; Z79.02 Long term (current) use of antithrombotics/antiplatelets; Z79.899 Other long term (current) drug therapy
CPT/HCPCS: 72100; 99283; 96372; J1170

== ENCOUNTER → 2017-09-05 | Outpatient (CLI) | payer MEDICARE, OTHER ==
--- NOTE | 2017-09-07 13:27 | MR ---
EXAMINATION TYPE: MR pelvis wo/w con DATE OF EXAM: 09/05/2017 COMPARISON: CT abdomen and pelvis November 28, 2016 HISTORY: Pelvic pain history of Prostate CA CONTRAST: Standard multiplanar, multisequence MRI departmental protocol utilizing 10 mL intravenous Gadavist ga dolinium contrast. Imaging is performed of the pelvis. FINDINGS: Punctate areas of low intensity correspond to brachytherapy seeds in the prostate gland whi ch is not enlarged. No suspicious adjacent pelvic adenopathy is seen. Visualized bowel shows no suspicious dilatation. There is no concerning pelvic fluid collection. Visu alized bladder is felt within normal limits. Muscle bulk in bilateral thighs is symmetric and felt within normal limits. No groin adenopathy is se en. No groin hernia is evident. There is partial visualization of artifact from surgical change in the lower lumbar spine. Bone marro w signal intensity in the pelvis is preserved. No suspicious edema or enhancement is identified. IMPRESSION: No significant finding is seen to account for patient's symptoms.
== END | disposition home or self-care (01) ==
LOC: RADMRIMAIN 09:57
PROVIDERS: ATTEND Internal Medicine Hematology & Oncology
DX: R10.2 Pelvic and perineal pain (principal); C61 Malignant neoplasm of prostate
CPT/HCPCS: 72197; A9581

== ENCOUNTER 2017-09-29 16:54 | Emergency (ER) | payer MEDICARE, OTHER ==
[2017-09-29 17:03] VITALS: BP 119/65; PULSE 84; RESP 18; TEMP 97.7
[2017-09-29] MEDS ORDERED: ORPHENADRINE 30 MG/ML 2 ML VIAL IM STA (17:12)
[2017-09-29] MEDS ORDERED: KETOROLAC 30 MG/ML 1 ML VIAL IM STA (17:12)
--- NOTE | 2017-09-29 17:17 | ED ---
Back Pain HPI - General Chief Complaint: Back Pain/Injury Stated Complaint: back pain Time Seen by Provider: 09/29/17 17:05 Source: patient, RN notes reviewed Limitations: no limitations - History of Present Illness Initial Comments: This is a 66-year-old male who presents to the emergency department with chief complaint of acute on chronic back pain. Patient states that he always has a flareup of his back pain when the weather changes and it is cold and raining. Patient states that he has had a flareup of his back pain for the past week but that he did not want to come into the hospital. He states that today the back pain is worse than it has been. He states that he usually receives shots in the emergency department that always help relieve the pain. Patient denies any new or recent falls or injuries. He denies saddle paresthesias, numbness and tingling or loss of bladder or bowel function. He does state that he has radiation of pain down bilateral legs but that this is normal for him. Denies fever, chills, chest pain, shortness of breath, abdominal pain, nausea or vomiting, constipation or diarrhea, dysuria or hematuria, headache or vision changes. - Related Data Home Medications Medication Instructions Recorded Confirmed Glimepiride [Amaryl] 4 mg PO BID 03/11/14 06/04/17 Tamsulosin [Flomax] 0.4 mg PO QAM 03/11/14 06/04/17 Levocetirizine Dihydrochloride 5 mg PO DAILY 04/14/15 06/04/17 [Xyzal] sitaGLIPtin PHOS/metFORMIN HCL 1 tab PO BID 04/14/15 06/04/17 [Janumet 50-1,000 mg Tablet] Losartan [Cozaar] 50 mg PO QAM 06/10/15 06/04/17 Omeprazole 20 mg PO BID 06/10/15 06/04/17 Cholecalciferol [Vitamin D3] 1,000 unit PO DAILY 10/22/15 06/04/17 Cyanocobalamin [Vitamin B-12 1,000 mcg IM Q28D 10/22/15 06/04/17 Injection] Canagliflozin [Invokana] 300 mg PO DAILY 03/29/16 06/04/17 Megestrol Acetate 40 mg PO DAILY 03/29/16 06/04/17 levETIRAcetam [Keppra] 500 mg PO QAM 03/29/16 06/04/17 Atenolol 25 mg PO QAM 11/18/16 06/04/17 Clopidogrel [Plavix] 75 mg PO DAILY 11/18/16 06/04/17 HYDROcodone/APAP 7.5-325MG [[place] 1 tab PO Q6H PRN 11/18/16 06/04/17 7.5-325] levETIRAcetam [Keppra] 1,000 mg PO HS 11/18/16 06/04/17 Aspirin EC [Ecotrin Low Dose] 81 mg PO DAILY 12/21/16 06/04/17 Previous Rx's Medication Instructions Recorded Atorvastatin [Lipitor] 40 mg PO HS #30 tablet 03/31/16 Nitroglycerin Sl Tabs [Nitrostat] 0.4 mg SUBLINGUAL Q5M PRN #25 tab 03/31/16 Allergies Allergy/AdvReac Type Severity Reaction Status Date / Time No Known Allergies Allergy Verified 09/29/17 17:03 Review of Systems ROS Statement: Those systems with pertinent positive or pertinent negative responses have been documented in the HPI. ROS Other: All systems not noted in ROS Statement are negative. Past Medical History Past Medical History: Coronary Artery Disease (CAD), Chest Pain / Angina, Diabetes Mellitus, GERD/Reflux, Hyperlipidemia, Hypertension, Myocardial Infarction ([place]) Additional Past Medical History / Comment(s): PROSTATE CANCER RADIATION/SEED IMPLANTS, STATES HE HAD HX OF RADIATION WHICH BURNED HIS COLON. , STATED "HAD BLOOD IN STOOL". Last Myocardial Infarction Date:: 1999 History of Any Multi-Drug Resistant Organisms: None Reported Past Surgical History: Heart Catheterization With Stent Additional Past Surgical History / Comment(s): HEART CATH WITH STENT 2003, COLONOSCOPY. Past Anesthesia/Blood Transfusion Reactions: No Reported Reaction Date of Last Stent Placement:: 2003 Past Psychological History: No Psychological Hx Reported Smoking Status: Former smoker Past Alcohol Use History: Occasional Past Drug Use History: None Reported - Past Family History Mother Family Medical History: Cancer Brother(s) Family Medical History: Coronary Artery Disease (CAD), Diabetes Mellitus, Myocardial Infarction ([place]) Father Family Medical History: Myocardial Infarction ([place]) Additional Family Medical History / Comment(s): Father of [place] at 99 years old General Exam - General Exam Comments Initial Comments: General: Awake and alert, well-developed; in no apparent distress. HEENT: Head atraumatic, normocephalic. Pupils are equal, round and reactive to light. Extraocular movements intact. Oropharynx moist without erythema or exudate. Neck: Supple. Normal ROM. No tenderness. Cardiovascular: Regular rate and rhythm. No murmurs, rubs or gallops. Chest symmetrical. Respiratory: Lungs clear to auscultation bilaterally. No wheezes, rales or rhonchi. Normal respiratory effort with no use of accessory muscles. Musculoskeletal: Normal range of motion of the spine. There is tenderness on palpation of bilateral lumbar paraspinal muscles and SI joints. Previous surgical scars are noted on either side of the lumbar spine. Sensation is intact. Pedal and posterior tibial pulses are 2+ equal and palpable bilaterally. Skin: [place], warm and dry without rashes or lesions. Neurological: Alert and oriented x3. CN II-XII grossly intact. Speech is fluent and answers are appropriate. No focal neuro deficits. Psychiatric: Normal mood and affect. No overt signs of depression or anxiety noted. Limitations: no limitations Course Vital Signs 09/29/17 17:01 Temperature 97.7 F Pulse Rate 84 Respiratory 18 Rate Blood Pressure 119/65 O2 Sat by Pulse 97 Oximetry Medical Decision Making - Medical Decision Making This is a 66-year-old male who presented to the emergency department with chief complaint of acute on chronic back pain. Patient denied any recent falls or injuries. Denies saddle paresthesias, loss of bladder or bowel function or numbness and tingling. He was given IM injections of both Toradol and Norflex. Vital signs are stable and he is in no acute distress. He will be discharged home. Patient is in agreement with plan and voices understanding. All questions were answered. Disposition Clinical Impression: Acute exacerbation of chronic low back pain Disposition: HOME SELF-CARE Condition: Good Instructions: Chronic Back Pain (ED) Additional Instructions: Please follow up with primary care provider within 1-2 days. Return to emergency department if symptoms should worsen or any concerns arise. Referrals: Shannon Honeycutt MD [Primary Care Provider] - 1-2 days Time of Disposition: 17:21
== END 2017-09-29 17:31 | disposition home or self-care (01) ==
LOC: EC 16:54
DX: G89.29 Other chronic pain (principal); M54.5 Low back pain; I25.119 Atherosclerotic heart disease of native coronary artery with unspecified angina pectoris; E11.9 Type 2 diabetes mellitus without complications; K21.9 Gastro-esophageal reflux disease without esophagitis; E78.5 Hyperlipidemia, unspecified; I10 Essential (primary) hypertension; I25.2 Old myocardial infarction; Z87.891 Personal history of nicotine dependence; Z85.46 Personal history of malignant neoplasm of prostate; Z79.01 Long term (current) use of anticoagulants; Z79.82 Long term (current) use of aspirin; Z79.84 Long term (current) use of oral hypoglycemic drugs; Z79.899 Other long term (current) drug therapy
CPT/HCPCS: 96372; 99283

== ENCOUNTER 2017-10-10 12:18 | Emergency (ER) | payer MEDICARE, OTHER ==
[2017-10-10 12:29] VITALS: BP 125/73; PULSE 72; RESP 16; TEMP 98.3
--- NOTE | 2017-10-10 13:04 | XR ---
EXAMINATION TYPE: XR knee complete LT DATE OF EXAM: 10/10/2017 COMPARISON: NONE HISTORY: Pain TECHNIQUE: Four views are submitted. FINDINGS: Diffuse osteopenia noted. Arthropathy of the patellofemoral joint and medial compartment the knee heike nt noted. Osseous structures are intact. No acute fracture seen. IMPRESSION: 1. No acute fracture or dislocation.
[2017-10-10] MEDS ORDERED: NAPROXEN 250 MG TAB PO STA (13:24)
[2017-10-10] MEDS ORDERED: HYDROcodone/APAP 7.5-325MG 1 EACH TAB PO ONE (13:24)
--- NOTE | 2017-10-10 13:29 | ED ---
General Adult HPI - General Chief complaint: Extremity Injury, Lower Stated complaint: leg injury/pain Time Seen by Provider: 10/10/17 12:41 Source: patient, RN notes reviewed, old records reviewed Mode of arrival: wheelchair Limitations: no limitations - History of Present Illness Initial comments: Patient 66-year-old male presents to the emergency room today with a chief complaint of an injury to the left knee that occurred earlier this morning. He states his dog was running around the house and he put his leg up to try to stop him and the dog collided into the knee. He hasn't pain over the medial aspect. He states is worse with certain movements. He denies any other complains associated symptoms. States he has not taken any of his pain medication today. Patient denies any recent fever, chills, shortness of breath, chest pain, abdominal pain, nausea or vomiting, numbness or tingling, headaches or visual changes, or any other complaints. - Related Data Home Medications Medication Instructions Recorded Confirmed Glimepiride [Amaryl] 4 mg PO BID 03/11/14 10/10/17 Tamsulosin [Flomax] 0.4 mg PO QAM 03/11/14 10/10/17 Levocetirizine Dihydrochloride 5 mg PO DAILY 04/14/15 10/10/17 [Xyzal] sitaGLIPtin PHOS/metFORMIN HCL 1 tab PO BID 04/14/15 10/10/17 [Janumet 50-1,000 mg Tablet] Losartan [Cozaar] 50 mg PO QAM 06/10/15 10/10/17 Omeprazole 20 mg PO BID 06/10/15 10/10/17 Cholecalciferol [Vitamin D3] 1,000 unit PO DAILY 10/22/15 10/10/17 Canagliflozin [Invokana] 300 mg PO DAILY 03/29/16 10/10/17 Megestrol Acetate 40 mg PO DAILY 03/29/16 10/10/17 levETIRAcetam [Keppra] 500 mg PO QAM 03/29/16 10/10/17 Atenolol 25 mg PO QAM 11/18/16 10/10/17 Clopidogrel [Plavix] 75 mg PO DAILY 11/18/16 10/10/17 HYDROcodone/APAP 7.5-325MG [[place] 1 tab PO Q6H PRN 11/18/16 10/10/17 7.5-325] levETIRAcetam [Keppra] 1,000 mg PO HS 11/18/16 10/10/17 Aspirin EC [Ecotrin Low Dose] 81 mg PO DAILY 12/21/16 10/10/17 Previous Rx's Medication Instructions Recorded Atorvastatin [Lipitor] 40 mg PO HS #30 tablet 03/31/16 Allergies Allergy/AdvReac Type Severity Reaction Status Date / Time No Known Allergies Allergy Verified 10/10/17 12:32 Review of Systems ROS Statement: Those systems with pertinent positive or pertinent negative responses have been documented in the HPI. ROS Other: All systems not noted in ROS Statement are negative. Past Medical History Past Medical History: Coronary Artery Disease (CAD), Chest Pain / Angina, Diabetes Mellitus, GERD/Reflux, Hyperlipidemia, Hypertension, Myocardial Infarction ([place]) Additional Past Medical History / Comment(s): PROSTATE CANCER RADIATION/SEED IMPLANTS, STATES HE HAD HX OF RADIATION WHICH BURNED HIS COLON. , STATED "HAD BLOOD IN STOOL". Last Myocardial Infarction Date:: 1999 History of Any Multi-Drug Resistant Organisms: None Reported Past Surgical History: Heart Catheterization With Stent Additional Past Surgical History / Comment(s): HEART CATH WITH STENT 2003, COLONOSCOPY. Past Anesthesia/Blood Transfusion Reactions: No Reported Reaction Date of Last Stent Placement:: 2003 Past Psychological History: No Psychological Hx Reported Smoking Status: Former smoker Past Alcohol Use History: Occasional Past Drug Use History: None Reported - Past Family History Mother Family Medical History: Cancer Brother(s) Family Medical History: Coronary Artery Disease (CAD), Diabetes Mellitus, Myocardial Infarction ([place]) Father Family Medical History: Myocardial Infarction ([place]) Additional Family Medical History / Comment(s): Father of [place] at 99 years old General Exam - General Exam Comments Initial Comments: General: The patient is awake and alert, in no distress, and does not appear acutely ill. Neck: The neck is supple, there is no tenderness or JVD. Cardiovascular: There is a regular rate and rhythm. No murmur, rub or gallop is appreciated. Respiratory: Lungs are clear to auscultation, respirations are non-labored, breath sounds are equal. No wheezes, stridor, rales, or rhonchi. Musculoskeletal: She has normal appearance of the left renal obvious swelling or deformity. Shows good range of motion. Does have tenderness of the medial aspect. Sensations intact pulses equal bilaterally 2+. Strength 5/5 Neurological: A&O x 3. CN II-XII intact, There are no obvious motor or sensory deficits. Coordination appears grossly intact. Speech is normal. Skin: Skin is warm and dry and no rashes or lesions are noted. Psychiatric: Normal mood and affect. Limitations: no limitations Course Vital Signs 10/10/17 12:27 Temperature 98.3 F Pulse Rate 72 Respiratory 16 Rate Blood Pressure 125/73 O2 Sat by Pulse 98 Oximetry Medical Decision Making - Medical Decision Making X-rays reviewed are negative for any acute fracture dislocation. Results were discussed with the patient. He is advised follow-up with orthopedics if symptoms persist. He states he does have an appointment next Tuesday. Patient requesting pain medication in the emergency room. He states he takes [place] 7.5 at home along with naproxen. States is not taking this today. Disposition Clinical Impression: Knee injury Disposition: HOME SELF-CARE Condition: Good Instructions: Knee Sprain (ED) Additional Instructions: Please follow-up with orthopedics with your appointment. Please return to emergency room if the symptoms increase or worsen or for any other concerns. Referrals: Shannon Honeycutt MD [Primary Care Provider] - 1-2 days Madeleine Stout DO [Doctor of Osteopathic Medicine] - 1-2 days Time of Disposition: 13:27
== END 2017-10-10 14:05 | disposition home or self-care (01) ==
LOC: EC 12:18
DX: S89.92XA Unspecified injury of left lower leg, initial encounter (principal); I25.119 Atherosclerotic heart disease of native coronary artery with unspecified angina pectoris; E11.9 Type 2 diabetes mellitus without complications; K21.9 Gastro-esophageal reflux disease without esophagitis; E78.5 Hyperlipidemia, unspecified; I10 Essential (primary) hypertension; I25.2 Old myocardial infarction; Z85.46 Personal history of malignant neoplasm of prostate; Z87.891 Personal history of nicotine dependence; Z79.82 Long term (current) use of aspirin; Z79.01 Long term (current) use of anticoagulants; Z79.899 Other long term (current) drug therapy; Z79.84 Long term (current) use of oral hypoglycemic drugs; W54.1XXA Struck by dog, initial encounter; Y92.009 Unspecified place in unspecified non-institutional (private) residence as the place of occurrence of the external cause
CPT/HCPCS: 99284

== ENCOUNTER → 2018-06-01 | Outpatient (CLI) | payer MEDICARE, OTHER ==
[2018-06-01 17:23] LABS: Albumin 4.2 g/dL (3.80-4.90); Albumin/Globulin Ratio 1.5 (1.20-2.10); Anion Gap 8.9 mmol/L (4.00-12.00); Calcium 9.2 mg/dL (8.7-10.3); Carbon Dioxide 23.1 mmol/L (21.6-31.8); Globulin 2.8 g/dL (2.1-3.7); LDL Cholesterol,Calculated 44.6 mg/dL (0.0-131.0); Potassium 4.7 mmol/L (3.5-5.5); Total Bilirubin 0.3 mg/dL (0.2-1.2); VLDL Calculation 32.4 mg/dL (5.00-40.00)
== END | disposition home or self-care (01) ==
LOC: LABWHC1 10:05
PROVIDERS: ATTEND Internal Medicine Interventional Cardiology
DX: E78.2 Mixed hyperlipidemia (principal)
CPT/HCPCS: 36415; 80053; 80061

== ENCOUNTER 2018-07-06 11:11 | Emergency (ER) | payer MEDICARE, OTHER ==
[2018-07-06 11:18] VITALS: RESP 18
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
--- NOTE | 2018-07-06 12:11 | CT ---
EXAMINATION TYPE: CT brain wo con DATE OF EXAM: 07/06/2018 COMPARISON: 10/22/2015 HISTORY: Head injury from fall, On plavix CT DLP: 1070.[address] of the brain was performed. The ventricles, basal cisterns and sulci overlying the cerebral convexities demonstrate mild enlargem ent. There is no evidence for intracranial hemorrhage or sulcal effacement. There is decreased attenuation about the periventricular white matter and deep white matter of both c erebral hemispheres, compatible with chronic small vessel ischemia. Differential diagnosis does inclu de demyelination. No mass effects are seen.No midline shift. Osseous calvarium is intact. If symptoms persist consider MRI. IMPRESSION: 1. Age related atrophic and chronic small vessel ischemic change without acute intracranial process s een at this time.
[2018-07-06 12:37] VITALS: BP 115/63; PULSE 68; TEMP 97.8
== END 2018-07-06 12:36 | disposition home or self-care (01) ==
LOC: EC 11:11
DX: S09.90XA Unspecified injury of head, initial encounter (principal); I25.10 Atherosclerotic heart disease of native coronary artery without angina pectoris; E11.9 Type 2 diabetes mellitus without complications; K21.9 Gastro-esophageal reflux disease without esophagitis; I10 Essential (primary) hypertension; I25.2 Old myocardial infarction; Z85.46 Personal history of malignant neoplasm of prostate; Z95.5 Presence of coronary angioplasty implant and graft; Z87.891 Personal history of nicotine dependence; Z79.84 Long term (current) use of oral hypoglycemic drugs; Z79.02 Long term (current) use of antithrombotics/antiplatelets; Z79.82 Long term (current) use of aspirin; Z79.890 Hormone replacement therapy; Z79.899 Other long term (current) drug therapy; W07.XXXA Fall from chair, initial encounter; Y92.009 Unspecified place in unspecified non-institutional (private) residence as the place of occurrence of the external cause
CPT/HCPCS: 70450; 99283

== ENCOUNTER 2018-09-28 20:15 | Emergency (ER) | payer MEDICARE, OTHER ==
[2018-09-28 20:33] VITALS: TEMP 98.4
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
[2018-09-28] MEDS ORDERED: KETOROLAC 30 MG/ML 1 ML VIAL IM STA (21:40)
[2018-09-28] MEDS ORDERED: predniSONE 20 MG TAB PO STA (21:40)
[2018-09-28 21:50] VITALS: BP 140/70; PULSE 71; RESP 16
== END 2018-09-28 21:55 | disposition home or self-care (01) ==
LOC: EC 20:15
DX: J02.8 Acute pharyngitis due to other specified organisms (principal); B97.89 Other viral agents as the cause of diseases classified elsewhere; I25.10 Atherosclerotic heart disease of native coronary artery without angina pectoris; E11.9 Type 2 diabetes mellitus without complications; K21.9 Gastro-esophageal reflux disease without esophagitis; E78.5 Hyperlipidemia, unspecified; I10 Essential (primary) hypertension; I25.2 Old myocardial infarction; Z85.46 Personal history of malignant neoplasm of prostate; Z87.891 Personal history of nicotine dependence; Z95.5 Presence of coronary angioplasty implant and graft; Z98.890 Other specified postprocedural states; Z79.02 Long term (current) use of antithrombotics/antiplatelets; Z79.82 Long term (current) use of aspirin; Z79.84 Long term (current) use of oral hypoglycemic drugs; Z79.899 Other long term (current) drug therapy
CPT/HCPCS: 99284; 96372; J1885; J7512

== ENCOUNTER 2019-01-29 18:26 | Emergency (ER) | payer MEDICARE, OTHER ==
[2019-01-29 18:53] VITALS: RESP 18
[2019-01-29] MEDS ORDERED: BUPIVACAINE (PF) 0.25% 30 ML VIAL SQ STA (20:02)
[2019-01-29] MEDS ORDERED: ACET/COD 300 MG/30 MG STARTER PACK 6 TAB BTL PO STA (20:47)
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
[2019-01-29 20:56] VITALS: BP 118/63; PULSE 77; TEMP 98
== END 2019-01-29 20:56 | disposition home or self-care (01) ==
LOC: EC 18:26
DX: T85.848A Pain due to other internal prosthetic devices, implants and grafts, initial encounter (principal); I25.119 Atherosclerotic heart disease of native coronary artery with unspecified angina pectoris; E11.9 Type 2 diabetes mellitus without complications; K21.9 Gastro-esophageal reflux disease without esophagitis; E78.5 Hyperlipidemia, unspecified; I10 Essential (primary) hypertension; I25.2 Old myocardial infarction; Z85.46 Personal history of malignant neoplasm of prostate; Z87.891 Personal history of nicotine dependence; Z79.82 Long term (current) use of aspirin; Z79.01 Long term (current) use of anticoagulants; Z79.84 Long term (current) use of oral hypoglycemic drugs; Z79.899 Other long term (current) drug therapy; Z95.5 Presence of coronary angioplasty implant and graft
CPT/HCPCS: 64400; 99282

== ENCOUNTER 2019-03-27 23:14 | Emergency (ER) | payer MEDICARE, OTHER ==
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
[2019-03-28 00:42] LABS: Basophils # (A) 0.1 k/uL (0-0.2); Basophils % (A) 1 %; Eosinophils # (A) 0.2 k/uL (0-0.7); Eosinophils % (A) 3 %; HCT 39.2 % (39.0-53.0); HGB 12.8 gm/dL (13.0-17.5); Lymphocytes # (A) 1.9 k/uL (1.0-4.8); Lymphocytes % (A) 23 %; MCHC 32.7 g/dL (31.0-37.0); MCV 91.7 fL (80.0-100.0); Mean Platelet Volume 7.6; Monocytes # (A) 0.5 k/uL (0-1.0); Monocytes % (A) 7 %; Neutrophils # (A) 5.2 k/uL (1.3-7.7); Neutrophils % (A) 65 %; Platelet Count 270 k/uL (150-450); RBC 4.27 m/uL (4.30-5.90); RDW 14.3 % (11.5-15.5)
[2019-03-28 00:50] LABS: Partial Thromboplastin Time 22.6 sec (22.0-30.0); Prothrombin Time 10.7 sec (9.0-12.0)
[2019-03-28 00:52] LABS: ALT 24 U/L (21-72); AST 20 U/L (17-59); African American GFR (CKD) >90 (>60 ml/min/1.73 sqM); Albumin 4.1 g/dL (3.5-5.0); Alkaline Phosphatase 103 U/L (38-126); Anion Gap 15 mmol/L; Blood Urea Nitrogen 18 mg/dL (9-20); Carbon Dioxide 18 mmol/L (22-30); Chloride 98 mmol/L (98-107); Sodium 131 mmol/L (137-145); Total Bilirubin 0.3 mg/dL (0.2-1.3); Total Protein 7.7 g/dL (6.3-8.2)
[2019-03-28 01:01] LABS: Glucose 513 mg/dL (74-99)
--- NOTE | 2019-03-28 01:33 | CT ---
EXAMINATION TYPE: CT brain dann luo DATE OF EXAM: 03/28/2019 COMPARISON: CT brain 07/06/2018 HISTORY: Fall off of lawnmower when running into a tree branch, pain. Right Upper Rib pain. Previous on synapse, DLP: Headache. Neck pain CT DLP: 1663.2 mGycm Automated exposure control for dose reduction was used. TECHNIQUE: CT scan of the head and cervical spine are performed without contrast. FINDINGS: There is mild cerebral cortical atrophy. There is no mass effect nor midline shift. There is no evidence of intracranial hemorrhage. Calvarium is intact. There is straightening of the cervical spine and mild kyphotic curvature. There is mild spur formatio n at C5-6 C6-7. Facet joints are intact. The skull base is intact. There is no evidence of cervical s pine fracture. IMPRESSION: Cerebral atrophy. No acute intracranial abnormality. No change. Mild spondylotic changes in the cervical spine. No fracture. Mild kyphotic curvature could relate to spasm or old ligamentous injury.
--- NOTE | 2019-03-28 01:39 | CT ---
EXAMINATION TYPE: CT ChestAbdPelvis w con DATE OF EXAM: 03/28/2019 COMPARISON: CT abdomen pelvis 11/28/2016 HISTORY: Fall off of lawnmower when running into a tree branch, pain. Right Upper Rib pain. Previous on synapse, DLP: CT DLP: 1324.8 mGycm Automated exposure control for dose reduction was used. CONTRAST: CT scan of the chest, abdomen and pelvis is performed without Oral Contrast and with IV Contrast, pat ient injected with 100 mL of Isovue 300. FINDINGS: The lungs are clear of infiltrate. There is no pleural effusion or pneumothorax. Thoracic aorta appea rs intact without sign of aneurysm or dissection. There is no mediastinal adenopathy. There are no hi lar masses. Heart size is normal. There is no pericardial effusion. Liver spleen pancreas stomach appear normal. Bile ducts are not dilated. There are possible small gal lstones. There is no adrenal mass. Kidneys show satisfactory contrast opacification. There is no hydronephrosi s. There are few diverticula in the sigmoid colon. Bladder distends smoothly. There is metal implants in the prostate gland. There is no inguinal hernia. There is no free fluid in the pelvis. There is no mesenteric edema. There is no evidence of a bowel obstruction. There is no ascites or darlin e air. Appendix appears normal. There is posterior fusion surgery at L4-5. Thoracic and lumbar verteb ra show no sign of compression fracture. The bony pelvis appears intact. Sacroiliac joints are intact . There is no lumbar paraspinal mass. I see no displaced rib fracture. Shoulder joints appear intact. IMPRESSION: No evidence of acute traumatic injury of the chest abdomen pelvis. No rib fracture seen. There are possible small gallstones.
--- NOTE | 2019-03-28 01:42 | CT ---
EXAMINATION TYPE: CT thor lumbar spine w con DATE OF EXAM: 03/28/2019 COMPARISON: HISTORY: Fall off of lawnmower when running into a tree branch, pain. Right Upper Rib pain. Previous on synapse, DLP: CT DLP: mGycm Automated exposure control for dose reduction was used. CONTRAST: Performed with IV Contrast, patient injected with 100 mL of Isovue 300. FINDINGS: Thoracic and lumbar vertebra have fairly normal spacing and alignment. There is previous posterior fu eulogio surgery at L4-5. There is disc prosthesis at L4-5. There is metal artifact. There is no thoracic paraspinal mass. There is no lumbar paraspinal mass. The sacroiliac joints appear intact. There is n o evidence of a fracture. I see no focal bony destructive process. Posterior elements appear intact. There is minor spurring of the endplates anteriorly in the lower thoracic spine. IMPRESSION: MILD DEGENERATIVE HYPERTROPHIC CHANGES. NO FRACTURE SEEN. NO EVIDENCE OF ACUTE TRAUMATIC INJURY.
[2019-03-28] MEDS ORDERED: LIDOCAINE 5% PATCH TOPICAL STA (01:46)
[2019-03-28] MEDS ORDERED: MORPHINE SULFATE 4 MG/ML SYRINGE IVP STA (01:46)
[2019-03-28] MEDS ORDERED: INSULIN REGULAR 100 UNIT/ML VIAL SQ ONE (01:47)
[2019-03-28 02:12] VITALS: BP 122/59; PULSE 68; RESP 17; TEMP 98.9
[2019-03-28 02:40] LABS: Glucose,Whole Blood 457 mg/dL (75-99)
== END 2019-03-28 03:04 | disposition home or self-care (01) ==
LOC: EC 23:14
DX: M54.9 Dorsalgia, unspecified (principal); E11.65 Type 2 diabetes mellitus with hyperglycemia; R07.81 Pleurodynia; S20.211A Contusion of right front wall of thorax, initial encounter; E11.22 Type 2 diabetes mellitus with diabetic chronic kidney disease; I12.9 Hypertensive chronic kidney disease with stage 1 through stage 4 chronic kidney disease, or unspecified chronic kidney disease; N18.9 Chronic kidney disease, unspecified; I25.119 Atherosclerotic heart disease of native coronary artery with unspecified angina pectoris; K21.9 Gastro-esophageal reflux disease without esophagitis; I25.2 Old myocardial infarction; Z98.890 Other specified postprocedural states; Z87.891 Personal history of nicotine dependence; Z79.82 Long term (current) use of aspirin; Z79.84 Long term (current) use of oral hypoglycemic drugs; Z79.899 Other long term (current) drug therapy; Z79.02 Long term (current) use of antithrombotics/antiplatelets; Z85.46 Personal history of malignant neoplasm of prostate; Z92.3 Personal history of irradiation; Z95.5 Presence of coronary angioplasty implant and graft; W22.8XXA Striking against or struck by other objects, initial encounter; V84.5XXA Driver of special agricultural vehicle injured in nontraffic accident, initial encounter; Y93.I9 Activity, other involving external motion
CPT/HCPCS: 36415; 80053; 84484; 85025; 85610; 85730; 72129; 72125; 72132; 70450; 71260; 74177; 99284; 96374; J2270; Q9967

== ENCOUNTER → 2020-04-23 | Outpatient (CLI) | payer MEDICARE, OTHER ==
[2020-04-23 16:19] LABS: African American GFR (CKD) 63.6 (60.0-200.0); Albumin 4.5 g/dL (3.80-4.90); Albumin/Globulin Ratio 1.61 (1.60-3.17); Anion Gap 11.7 mmol/L (4.00-12.00); BUN/Creat Ratio 12.31 Ratio (12.00-20.00); Calcium 10.1 mg/dL (8.7-10.3); Carbon Dioxide 22.3 mmol/L (21.6-31.8); Chol/HDL Ratio 3.96; Globulin 2.8 g/dL (1.6-3.3); LDL Cholesterol,Calculated 45.6 mg/dL (0.0-131.0); Non-African American GFR(CKD) 54.9 (60.0-200.0); Potassium 4.8 mmol/L (3.5-5.5); Total Bilirubin 0.3 mg/dL (0.3-1.2); Total Protein 7.3 g/dL (6.2-8.2); VLDL Calculation 34.4 mg/dL (5.00-40.00)
== END | disposition home or self-care (01) ==
LOC: LABWHC1 09:09
PROVIDERS: ATTEND Internal Medicine Interventional Cardiology
DX: E78.2 Mixed hyperlipidemia (principal)
CPT/HCPCS: 36415; 80053; 80061

== ENCOUNTER 2020-12-25 22:51 | Emergency (ER) | payer MEDICARE, OTHER ==
[2020-12-25] MEDS ORDERED: HYDROmorphone 1 MG/ML 1 ML SYRINGE IM STA (23:04)
[2020-12-25] MEDS ORDERED: KETOROLAC 15 MG/ML 1 ML VIAL IM STA (23:04)
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
[2020-12-25 23:07] VITALS: BP 139/84; PULSE 73; RESP 18; TEMP 98.6
== END 2020-12-25 23:28 | disposition home or self-care (01) ==
LOC: EC 22:51
DX: M54.2 Cervicalgia (principal); E11.9 Type 2 diabetes mellitus without complications; I10 Essential (primary) hypertension; I25.10 Atherosclerotic heart disease of native coronary artery without angina pectoris; I25.2 Old myocardial infarction; E78.5 Hyperlipidemia, unspecified; K21.9 Gastro-esophageal reflux disease without esophagitis; Z79.84 Long term (current) use of oral hypoglycemic drugs; Z79.82 Long term (current) use of aspirin; Z79.52 Long term (current) use of systemic steroids; Z79.899 Other long term (current) drug therapy; Z85.46 Personal history of malignant neoplasm of prostate; Z82.49 Family history of ischemic heart disease and other diseases of the circulatory system; Z83.3 Family history of diabetes mellitus; Z95.5 Presence of coronary angioplasty implant and graft
CPT/HCPCS: 96372 ×3; 99283 ×2; J1170; J1885

== ENCOUNTER 2021-01-21 18:45 | Emergency (ER) | payer MEDICARE, OTHER ==
[2021-01-21 18:49] VITALS: BP 146/76; PULSE 73; RESP 17; TEMP 98.9
[2021-01-21] MEDS ORDERED: KETOROLAC 15 MG/ML 1 ML VIAL IM STA (19:15)
[2021-01-21] MEDS ORDERED: HYDROmorphone 1 MG/ML 1 ML SYRINGE IM STA (19:15)
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
== END 2021-01-21 19:48 | disposition home or self-care (01) ==
LOC: EC 18:45
DX: M54.2 Cervicalgia (principal); E11.9 Type 2 diabetes mellitus without complications; I10 Essential (primary) hypertension; E78.5 Hyperlipidemia, unspecified; I25.10 Atherosclerotic heart disease of native coronary artery without angina pectoris; I25.2 Old myocardial infarction; K21.9 Gastro-esophageal reflux disease without esophagitis; Z85.46 Personal history of malignant neoplasm of prostate; Z79.02 Long term (current) use of antithrombotics/antiplatelets; Z79.52 Long term (current) use of systemic steroids; Z79.82 Long term (current) use of aspirin; Z79.84 Long term (current) use of oral hypoglycemic drugs
CPT/HCPCS: 96372; 99283

== ENCOUNTER 2021-03-26 13:58 | Emergency (ER) | payer MEDICARE, OTHER ==
[2021-03-26 14:14] VITALS: BP 130/71; PULSE 81; RESP 18; TEMP 98.7
[2021-03-26] MEDS ORDERED: MORPHINE SULFATE 2 MG/ML SYRINGE IM STA (14:31)
--- NOTE | 2021-03-26 15:12 | XR ---
EXAMINATION TYPE: XR elbow complete RT DATE OF EXAM: 03/26/2021 CLINICAL HISTORY: pain TECHNIQUE: Frontal, lateral and oblique images of the right elbow are obtained. COMPARISON: None. FINDINGS: Fracture of the radial head with minimal displacement. Pathologic anterior and posterior fa t pads. No additional fractures identified at this time. The overlying soft tissue appears unremarkab le. IMPRESSION: Radial head fracture.
--- NOTE | 2021-03-26 15:34 | XR ---
EXAMINATION TYPE: XR ribs RT w pa chest xray DATE OF EXAM: 03/26/2021 COMPARISON: NONE HISTORY: Pain TECHNIQUE: Single view of the chest 4 views of the ribs are submitted. FINDINGS: The lungs are clear. No Evidence for pneumothorax. No evidence for focal contusion. Medi astinal structures are midline. Evaluation of the ribs fails to demonstrate evidence for displaced r ib fracture or secondary sign of rib fracture. IMPRESSION: Negative study
[2021-03-26] MEDS ORDERED: traMADol 50 MG STARTER PACK 3 TAB BTL PO STA (16:02)
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
== END 2021-03-26 16:16 | disposition home or self-care (01) ==
LOC: EC 13:58
DX: S20.211A Contusion of right front wall of thorax, initial encounter (principal); S52.121A Displaced fracture of head of right radius, initial encounter for closed fracture; I10 Essential (primary) hypertension; I25.2 Old myocardial infarction; I25.10 Atherosclerotic heart disease of native coronary artery without angina pectoris; E11.9 Type 2 diabetes mellitus without complications; K21.9 Gastro-esophageal reflux disease without esophagitis; E78.5 Hyperlipidemia, unspecified; Z79.84 Long term (current) use of oral hypoglycemic drugs; Z79.82 Long term (current) use of aspirin; Z79.02 Long term (current) use of antithrombotics/antiplatelets; Z85.46 Personal history of malignant neoplasm of prostate; Z87.891 Personal history of nicotine dependence; W01.0XXA Fall on same level from slipping, tripping and stumbling without subsequent striking against object, initial encounter
CPT/HCPCS: 99283; 96372; 29105; 71101; 73080; J2270

== ENCOUNTER → 2021-04-27 | Outpatient (CLI) | payer MEDICARE, OTHER ==
[2021-04-27 10:01] VITALS: BP 117/67; PULSE 78; RESP 18; TEMP 96.8
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
== END ==
LOC: PNWHC3 09:34
DX: M96.1 Postlaminectomy syndrome, not elsewhere classified (principal); M47.816 Spondylosis without myelopathy or radiculopathy, lumbar region; M79.18 Myalgia, other site; G89.4 Chronic pain syndrome; I25.10 Atherosclerotic heart disease of native coronary artery without angina pectoris; E11.9 Type 2 diabetes mellitus without complications; K21.9 Gastro-esophageal reflux disease without esophagitis; E78.5 Hyperlipidemia, unspecified; I10 Essential (primary) hypertension; I25.2 Old myocardial infarction; Z87.891 Personal history of nicotine dependence
CPT/HCPCS: 99211

== ENCOUNTER 2022-02-02 20:33 | Inpatient (IN) | payer MEDICARE, OTHER ==
--- NOTE | 2022-02-02 20:53 | ED ---
Chest Pain HPI - General Chief Complaint: Chest Pain Stated Complaint: Chest Pain Time Seen by Provider: 02/02/22 20:39 Source: patient, EMS Mode of arrival: EMS Limitations: no limitations - History of Present Illness Initial Comments: 's patient is a 71-year-old man who presents with complaint that around 7:30 tonight he started having substernal chest pain radiating to his back. He is not able to characterize it well. EMS was called and he states that around 8:00 they gave him aspirin. He had just taken nitroglycerin at home. Between those 2 the symptoms have resolved. He did notice that the pain seemed a little worse with taking deep breath. He did not have any associated symptoms. MD Complaint: chest pain Onset/Timin -: minutes(s) Onset: during rest Pain Location: substernal Pain Radiation: back Severity: moderate Quality: aching Consistency: now resolved Improves With: nitroglycerin Worsens With: nothing Treatments Prior to Arrival: aspirin, nitroglycerin - Related Data Home Medications Medication Instructions Recorded Confirmed Glimepiride [Amaryl] 4 mg PO BID-W/MEALS 03/11/14 02/02/22 Tamsulosin [Flomax] 0.4 mg PO Q3D 03/11/14 02/02/22 Levocetirizine Dihydrochloride 5 mg PO DAILY 04/14/15 02/02/22 [Xyzal] sitaGLIPtin PHOS/metFORMIN HCL 1 tab PO BID-W/MEALS 04/14/15 02/02/22 [Janumet 50-1,000 mg Tablet] Losartan [Cozaar] 50 mg PO DAILY 06/10/15 02/02/22 Megestrol Acetate 20 mg PO BID 03/29/16 02/02/22 atenoloL 25 mg PO DAILY 11/18/16 02/02/22 Canagliflozin [Invokana] 300 mg PO DAILY 02/02/22 02/02/22 Cholecalciferol [Vitamin D3 (125 125 mcg PO DAILY 02/02/22 02/02/22 Mcg = 5000 Iu)] Esomeprazole Magnesium [NexIUM] 40 mg PO DAILY PRN 02/02/22 02/02/22 HYDROcodone/APAP 7.5-325MG [[place] 1 tab PO TID PRN 02/02/22 02/02/22 7.5-325] Naproxen [Naprosyn] 500 mg PO BID PRN 02/02/22 02/02/22 Nitroglycerin Sl Tabs [Nitrostat] 0.4 mg SUBLINGUAL Q5M PRN 02/02/22 02/02/22 Omeprazole 40 mg PO DAILY 02/02/22 02/02/22 Zolpidem Tartrate [Ambien] 5 mg PO HS 02/02/22 02/02/22 Previous Rx's Medication Instructions Recorded Atorvastatin [Lipitor] 40 mg PO HS #30 tablet 03/31/16 Allergies Allergy/AdvReac Type Severity Reaction Status Date / Time No Known Allergies Allergy Verified 02/02/22 22:49 Review of Systems ROS Statement: Those systems with pertinent positive or pertinent negative responses have been documented in the HPI. ROS Other: All systems not noted in ROS Statement are negative. Constitutional: Denies: fever, chills Respiratory: Denies: cough, dyspnea Cardiovascular: Reports: chest pain. Denies: palpitations, edema, syncope Gastrointestinal: Denies: abdominal pain, nausea, vomiting Genitourinary: Denies: dysuria Musculoskeletal: Denies: back pain Skin: Denies: rash Neurological: Denies: headache, weakness, numbness EKG Findings - EKG Results: EKG: interpreted by ERMD, sinus rhythm, normal axis EKG shows: tachycardia (rate 101) - Blocks, [place], Hypertrophy, ST Abn: Repolarization changes or abnormalities: nonspecific abnormality, ST segment, and/or T wave Past Medical History Past Medical History: Coronary Artery Disease (CAD), Cancer, Chest Pain / Angina, Diabetes Mellitus, GERD/Reflux, Hyperlipidemia, Hypertension, Myocardial Infarction ([place]) Additional Past Medical History / Comment(s): PROSTATE CANCER RADIATION/SEED IMPLANTS, STATES HE HAD HX OF RADIATION WHICH BURNED HIS COLON. , STATED "HAD BLOOD IN STOOL". Last Myocardial Infarction Date:: 2018 History of Any Multi-Drug Resistant Organisms: None Reported Past Surgical History: Heart Catheterization With Stent, Orthopedic Surgery Additional Past Surgical History / Comment(s): HEART CATH WITH STENT multiple times he believes he has 4 stents with last one in 2018, COLONOSCOPY, back surgery Past Anesthesia/Blood Transfusion Reactions: No Reported Reaction Date of Last Stent Placement:: 2017 Additional Past Alcohol Use History / Comment(s): SMOKED FOR 8 YRS APPROX 1 PACK PER WEEK.QUIT 1984 - Past Family History Mother Family Medical History: Cancer Brother(s) Family Medical History: Coronary Artery Disease (CAD), Diabetes Mellitus, Myocardial Infarction ([place]) Father Family Medical History: Myocardial Infarction ([place]) Additional Family Medical History / Comment(s): Father of [place] at 99 years old General Exam Limitations: no limitations General appearance: alert, in no apparent distress Head exam: Present: atraumatic, normocephalic Eye exam: Present: normal appearance. Absent: scleral icterus, conjunctival injection Neck exam: Present: normal inspection Respiratory exam: Present: normal lung sounds bilaterally. Absent: respiratory distress, wheezes, rales, rhonchi, stridor Cardiovascular Exam: Present: regular rate, normal rhythm, normal heart sounds. Absent: systolic murmur, diastolic murmur, rubs, gallop GI/Abdominal exam: Present: soft. Absent: distended, tenderness, guarding, rebound, rigid, mass Extremities exam: Present: normal inspection, normal capillary refill. Absent: pedal edema, calf tenderness Back exam: Present: normal inspection. Absent: CVA tenderness (R), CVA tenderness (L) Neurological exam: Present: alert Skin exam: Present: warm, dry, intact, normal color. Absent: rash Course Vital Signs 02/02/22 20:37 Temperature 98.3 F Pulse Rate 103 H Respiratory 18 Rate Blood Pressure 143/92 O2 Sat by Pulse 99 Oximetry Critical Care Time Critical Care Time: Yes (30 minutes) Disposition Clinical Impression: Pulmonary emboli, Chest pain, NSTEMI (non-ST elevated myocardial infarction) Disposition: ADMITTED IP TO THIS HOSP Condition: Serious Is patient prescribed a controlled substance at d/c from ED?: No Referrals: Shannon Honeycutt MD [Primary Care Provider] - 1-2 days
[2022-02-02] MEDS ORDERED: NITROGLYCERIN SL TABS 0.4 MG TAB SUBLINGUAL STA (21:21)
[2022-02-02 21:32] LABS: Basophils # (A) 0.1 k/uL (0-0.2); Basophils % (A) 1 %; Eosinophils # (A) 0.1 k/uL (0-0.7); Eosinophils % (A) 2 %; HCT 42.6 % (39.0-53.0); HGB 13.8 gm/dL (13.0-17.5); Lymphocytes # (A) 1.9 k/uL (1.0-4.8); Lymphocytes % (A) 23 %; MCH 30.5 pg (25.0-35.0); MCHC 32.3 g/dL (31.0-37.0); MCV 94.5 fL (80.0-100.0); Mean Platelet Volume 8.7; Monocytes # (A) 0.6 k/uL (0-1.0); Monocytes % (A) 7 %; Neutrophils # (A) 5.3 k/uL (1.3-7.7); Neutrophils % (A) 65 %; Platelet Count 239 k/uL (150-450); RBC 4.51 m/uL (4.30-5.90); RDW 12.3 % (11.5-15.5); WBC 8.2 k/uL (3.8-10.6)
--- NOTE | 2022-02-02 21:47 | XR ---
EXAMINATION TYPE: XR chest 2V DATE OF EXAM: 02/02/2022 COMPARISON: 03/26/2021 HISTORY: Chest pain TECHNIQUE: FINDINGS: Heart and mediastinum are normal. Lungs are clear. Diaphragm is normal. Bony thorax is normal. IMPRESSION: No active cardiopulmonary disease. No adverse change. Inspiration slightly improved.
[2022-02-02 21:48] LABS: ALT 23 U/L (4-49); AST 20 U/L (17-59); African American GFR (CKD) >90 (>60 ml/min/1.73 sqM); Albumin 4.4 g/dL (3.5-5.0); Alkaline Phosphatase 94 U/L (38-126); Amylase 72 U/L (30-110); Anion Gap 11 mmol/L; Blood Urea Nitrogen 19 mg/dL (9-20); Calcium 9.6 mg/dL (8.4-10.2); Carbon Dioxide 21 mmol/L (22-30); Chloride 103 mmol/L (98-107); Glucose 281 mg/dL (74-99); Lipase 181 U/L (23-300); Magnesium 1.9 mg/dL (1.6-2.3); Non-African American GFR(CKD) 83 (>60 ml/min/1.73 sqM); Potassium 4.4 mmol/L (3.5-5.1); Sodium 135 mmol/L (137-145); Total Bilirubin 0.3 mg/dL (0.2-1.3); Total Protein 7.9 g/dL (6.3-8.2)
[2022-02-02 22:06] LABS: Partial Thromboplastin Time 22.3 sec (22.0-30.0); Prothrombin Time 10.6 sec (9.0-12.0)
[2022-02-02] MEDS ORDERED: INSULIN REGULAR 100 UNIT/ML VIAL (IV) SQ STA (22:11)
[2022-02-02] MEDS ORDERED: HEPARIN SODIUM 1,000 UN/ML (10ML VL) IV ONE ×2 (22:12→23:22)
[2022-02-02] MEDS ORDERED: HEPARIN SODIUM 1,000 UN/ML (10ML VL) IV PRN (22:12)
[2022-02-02] MEDS ORDERED: MORPHINE SULFATE 4 MG/ML SYRINGE IV STA (22:16)
[2022-02-02] MEDS ORDERED: NITROGLYCERIN OINT 1 INCH/GM PACKET TOPICAL STA (22:16)
[2022-02-02] MEDS: HEPARIN SOD,PORK IN 0.45% NACL 25,000 UNIT in 0.45% NACL 1 250ML.BAG IV SCH (22:59)
[2022-02-02] MEDS ORDERED: NITROGLYCERIN SL TABS 0.4 MG TAB SUBLINGUAL PRN (23:00)
--- NOTE | 2022-02-02 23:58 | CT ---
EXAMINATION TYPE: CT chest angio for PE DATE OF EXAM: 02/02/2022 COMPARISON: 06/28/2014 HISTORY: poss pe. chest pain CT DLP: 606.9 mGycm Automated exposure control for dose reduction was used. CONTRAST: Performed with IV Contrast, patient injected with 100 mL of Isovue 370. Images obtained from the thoracic inlet to the diaphragm with IV contrast. There are Three-D postproc essed images. The lungs are clear of consolidation. No pleural effusion. No pneumothorax. Heart size is normal. No pericardial effusion. There is no mediastinal adenopathy. Thoracic aorta is atheromatous. There are multiple filling defects in the upper and lower lobe pulmonary arteries bilaterally. This a ppears more in the right lower lobe and left lower lobe pulmonary artery. There is a large clot in th e anterior left upper lobe pulmonary artery. There is no mediastinal adenopathy. There are no hilar masses. The thoracic aorta is intact. No aneur ysm. The upper abdominal soft tissues are intact. The thoracic spine is intact. No compression fractu re. Sternum appears normal. IMPRESSION: Multiple bilateral upper and lower lobe pulmonary emboli. Normal heart size. No evidence of right hea rt strain. This exam was discussed with emergency room attending staff at 11:20 PM.
[2022-02-03] MEDS: HEPARIN SOD,PORK IN 0.45% NACL 25,000 UNIT in 0.45% NACL 1 250ML.BAG IV SCH ×3 (00:02→18:04)
[2022-02-03 01:05] LABS: Glucose,Whole Blood 230 mg/dL (70-110)
[2022-02-03] MEDS ORDERED: PANTOPRAZOLE 40 MG TABLET PO PRN (02:40)
[2022-02-03] MEDS ORDERED: NAPROXEN 250 MG TAB PO PRN (02:40)
[2022-02-03] MEDS ORDERED: HYDROcodone/APAP 7.5-325MG 1 EACH TAB PO PRN (02:40)
[2022-02-03] MEDS: ZOLPIDEM 5 MG TAB PO SCH ×2 (03:33→20:06)
[2022-02-03 03:44] LABS: Basophils # (A) 0.1 k/uL (0-0.2); Basophils % (A) 1 %; Eosinophils # (A) 0.1 k/uL (0-0.7); Eosinophils % (A) 1 %; HCT 41.3 % (39.0-53.0); HGB 12.9 gm/dL (13.0-17.5); Lymphocytes # (A) 1.8 k/uL (1.0-4.8); Lymphocytes % (A) 22 %; MCH 29.7 pg (25.0-35.0); MCHC 31.3 g/dL (31.0-37.0); MCV 94.8 fL (80.0-100.0); Monocytes # (A) 0.5 k/uL (0-1.0); Monocytes % (A) 6 %; Neutrophils # (A) 5.6 k/uL (1.3-7.7); Neutrophils % (A) 68 %; Platelet Count 247 k/uL (150-450); RBC 4.36 m/uL (4.30-5.90); RDW 12.4 % (11.5-15.5); WBC 8.2 k/uL (3.8-10.6)
[2022-02-03 04:09] LABS: INR 1.1 (<1.2); Prothrombin Time 11.4 sec (9.0-12.0)
[2022-02-03] MEDS: metFORMIN 500 MG TAB PO SCH ×3 (05:14→17:53)
[2022-02-03 05:17] LABS: Partial Thromboplastin Time 106.6 sec (22.0-30.0)
[2022-02-03 06:05] LABS: Glucose,Whole Blood 185 mg/dL (70-110)
[2022-02-03] MEDS: LINAGLIPTIN 5 MG TABLET PO SCH ×3 (06:16→17:52)
[2022-02-03] MEDS: GLIMEPIRIDE 4 MG TAB PO SCH ×3 (06:16→17:52)
[2022-02-03] MEDS: LORATADINE 10 MG TAB PO SCH (08:41)
[2022-02-03] MEDS: PANTOPRAZOLE 40 MG TABLET PO SCH (08:41)
[2022-02-03] MEDS: LOSARTAN 50 MG TAB PO SCH (08:42)
[2022-02-03] MEDS: CHOLECALCIFEROL 125 MCG (5000 IU) TABLET PO SCH (08:43)
[2022-02-03] MEDS: ASPIRIN 81 MG PO SCH (08:43)
[2022-02-03] MEDS: MEGESTROL 40 MG TAB PO SCH ×2 (08:45→20:06)
[2022-02-03] MEDS: NON FORMULARY DRUG (Canagliflozin [Invokana] 300 MG Tablet) PO SCH (08:49)
[2022-02-03] MEDS: atenoloL 25 MG TAB PO SCH (08:50)
[2022-02-03] MEDS ORDERED: ASPIRIN 325 MG TAB PO SCH (09:00)
[2022-02-03] MEDS ORDERED: TAMSULOSIN 0.4 MG CAP.ER.24H PO SCH ×2 (09:00→21:00)
--- NOTE | 2022-02-03 09:10 | CA ---
Transthoracic Echo Report Name: Trace Hilliard Age: 71 Gender: M : 1950 Exam Date: 02/03/2022 07:53 Exam Location: [facility] Ht (in): 62 Wt (lb): 195 Ordering Physician: Navya Neil Attending/Referring Phys: [employer] Winsome Dave RDCS Procedure CPT: Indications: Pulmonary embolism, evaluate R heart strain Cardiac Hx: Cath, 4 stents, htn, hyperlipidemia Technical Quality: Technically difficult study Contrast 1: Lumason Total Dose (mL): 1 Contrast 2: Total Dose (mL): MEASUREMENTS (Male / Female) Normal Values 2D ECHO LV Diastolic Diameter PLAX 2.6 cm 4.2 - 5.9 / 3.9 - 5.3 cm LV Systolic Diameter PLAX 1.6 cm IVS Diastolic Thickness 0.8 cm 0.6 - 1.0 / 0.6 - 0.9 cm LVPW Diastolic Thickness 0.9 cm 0.6 - 1.0 / 0.6 - 0.9 cm LV Relative Wall Thickness 0.6 RV Internal Dim ED PLAX 3.7 cm M-MODE Aortic Root Diameter MM 3.5 cm LA Systolic Diameter MM 2.7 cm LA Ao Ratio MM 0.8 AV Cusp Separation MM 1.5 cm DOPPLER AV Peak Velocity 78.3 cm/s AV Peak Gradient 2.5 mmHg MV Area PHT 6.1 cm??? MR Peak Velocity 81.8 cm/s MR Peak Gradient 2.7 mmHg Mitral E Point Velocity 26.5 cm/s Mitral A Point Velocity 57.1 cm/s Mitral E to A Ratio 0.5 MV Deceleration Time 123.9 ms TR Peak Velocity 215.2 cm/s TR Peak Gradient 18.5 mmHg Right Ventricular Systolic Press 22.2 mmHg FINDINGS Left Ventricle Left ventricular ejection fraction is estimated at 55-60 %. Left ventricular cavity size normal. Left ventricular wall thickness normal. Right Ventricle Moderate right ventricular dilatation. Rv strain with TAPSE 12.8 mm. Right Atrium Right atrium not well visualized. Left Atrium Left atrium not well visualized. Mitral Valve Mitral valve not well visualized. Trace mitral regurgitation. Aortic Valve Structurally normal aortic valve without significant sclerosis or stenosis. There is no aortic regurgitation. Tricuspid Valve Structurally normal tricuspid valve without significant stenosis. Pulmonary artery systolic pressure is normal. Mild tricuspid regurgitation. Pulmonic Valve Structurally normal pulmonic valve without significant stenosis. There is no pulmonic regurgitation. Pericardium Normal pericardium without effusion. Aorta Normal aortic root dimension. CONCLUSIONS Dilated right ventricle with RV strain Preserved LV systolic function Previewed by: Dr. Troy Terry MD (Electronically Signed) Final Date: 03 February 2022 09:09
--- NOTE | 2022-02-03 09:43 | US ---
EXAMINATION TYPE: US venous doppler duplex LE DATE OF EXAM: 02/03/2022 9:21 AM COMPARISON: NONE CLINICAL HISTORY: rule out DVT, Pt with PE and elevated D dimer. PE, patient on blood thinners SIDE PERFORMED: Bilateral TECHNIQUE: The lower extremity deep venous system is examined utilizing real time linear array sonog arlsan with graded compression, doppler sonography and color-flow sonography. VESSELS IMAGED: Common Femoral Vein Deep Femoral Vein Greater Saphenous Vein * Femoral Vein Popliteal Vein Small Saphenous Vein * Proximal Calf Veins (* superficial vessels) Right Leg: Positive for DVT femoral vein Left Leg: Appears negative for DVT IMPRESSION: 1. Deep venous thrombosis within the right proximal mid and distal femoral vein. 2. Left lower extremity ultrasound negative for deep venous thrombosis.
--- NOTE | 2022-02-03 10:17 | P.CRDCN ---
History of Present Illness History of present illness: HISTORY OF PRESENTING ILLNESS This is a pleasant 71-year-old male past medical history significant for prostate cancer with previous radiation, diabetes, hypertension, coronary artery disease status post PCI of the mid LAD in 2004, mid RCA in 2016, dyslipidemia, former smoker. He follows with Dr. Aguilar. We've been asked to see in consultation for chest pain. Patient presents emergency department with worsening epigastric pain that radiated to his back. He describes it as a pressure. He denies any shortness of breath, diaphoresis, lightheadedness, dizziness, palpitations, nausea, vomiting. He also states that over a few months patient has been having generalized weakness, he was able to ambulate into his daily activities but he states he has not been very active. He denies any prolonged travel. He states that he does have active prostate cancer. He denies any history of blood clots in the past. On admission patient's d-dimer was elevated CTA revealed multiple bilateral upper and lower lobe pulmonary emboli. No evidence of heart strain reported on CT. Patient denies any shortness of breath, BP is stable, on room air. DIAGNOSTICS * EKG reveals sinus tachycardia, heart rate 102, nonspecific T-wave abnormalities, no acute ischemia noted. * Echocardiogram revealed EF 5560 %, moderate right ventricular dilatation, RV strain with TAPSE 12.8 mmHg, trace mitral regurgitation, mild tricuspid regurgitation, RVSP of 22 mmHg * Telemetry tracings indicate sinus mechanism * Chest xray no active cardiopulmonary disease. * Laboratory reviewed, hemoglobin 12.9, d-dimer 3.78, sodium 135, potassium 4.4, BUN 19, syncope and 0.9, troponin 0.11, 0.77, 0.69 * Most recent cardiac catheterization in 2016 revealed 90% stenosis in the mid RCA, LAD with patent stent, no evidence of restenosis, left circumflex free of any atherosclerotic occlusive disease. Patient underwent PCI to the mid RCA * Current home cardiac medications include atorvastatin 40 mg nightly, losartan 50 mg daily, atenolol 25 mg daily REVIEW OF SYSTEMS At the time of my exam: CONSTITUTIONAL: Denies fever or chills. CARDIOVASCULAR: + chest pain, Denies shortness of breath, orthopnea, PND or palpitations. RESPIRATORY: Denies cough. GASTROINTESTINAL: Denies abdominal pain, diarrhea, constipation, nausea or vomiting. MUSCULOSKELETAL: Denies myalgias. NEUROLOGIC: Denies numbness, tingling, headacbe or weakness. ENDOCRINE: Denies fatigue, weight change, polydipsia or polyurina. GENITOURINARY: Denies burning, hematuria or urgency with micturation. HEMATOLOGIC: + history of anemia Denies bleeding. PHYSICAL EXAMINATION Blood pressure 107/73, heart rate 102, afebrile, oxygen saturations 95% room air CONSTITUTIONAL: No apparent distress. HEENT: Head is normocephalic. Pupils are equal, round. Sclerae anicteric. Mucous membranes of the mouth are moist. No JVD. No carotid bruit. CHEST EXAMINATION: Lungs are clear to auscultation. No chest wall tenderness is noted on palpation or with deep breathing. HEART EXAMINATION: Regular rate and rhythm. S1, S2 heard. No murmurs, gallops or rub. ABDOMEN: Soft, nontender. Positive bowel sounds. EXTREMITIES: 2+ peripheral pulses, no lower extremity edema and no calf tenderness. NEUROLOGIC EXAMINATION: Patient is awake, alert and oriented x3. ASSESSMENT Bilateral Pulmonary Emboli nonmassive vs submassive, could be related to active prostate cancer Elevated troponin, secondary to above Right femoral DVT Type 2 diabetes Hypertension Coronary artery disease status post PCI abnormality 2004 and PCI to mid RCA in 2016 Dyslipidemia Former smoker PLAN Echocardiogram reviewed by Dr. Carpio at bedside Venous dopplers of bilateral lower extremities revealed Right femoral DVT Patient is currently stable Continue IV heparin Continue home cardiac medications with aspirin, statin, atenolol, losartan NPO after midnight if intervention is indicated Will continue to monitor patient and make recommendations based on patient's clinical course Nurse practitioner note has been reviewed by physician. Signing provider agrees with the documented findings, assessment, and plan of care. Past Medical History Past Medical History: Coronary Artery Disease (CAD), Cancer, Chest Pain / Angina, Diabetes Mellitus, GERD/Reflux, Hyperlipidemia, Hypertension, Myocardial Infarction ([place]) Additional Past Medical History / Comment(s): PROSTATE CANCER RADIATION/SEED IMPLANTS, STATES HE HAD HX OF RADIATION WHICH BURNED HIS COLON. , STATED "HAD BLOOD IN STOOL". Last Myocardial Infarction Date:: 2018 History of Any Multi-Drug Resistant Organisms: None Reported Past Surgical History: Heart Catheterization With Stent, Orthopedic Surgery Additional Past Surgical History / Comment(s): HEART CATH WITH STENT multiple times he believes he has 4 stents with last one in 2018, COLONOSCOPY, back surgery Past Anesthesia/Blood Transfusion Reactions: No Reported Reaction Date of Last Stent Placement:: 2017 Past Psychological History: No Psychological Hx Reported Smoking Status: Former smoker Past Alcohol Use History: None Reported Additional Past Alcohol Use History / Comment(s): SMOKED FOR 8 YRS APPROX 1 PACK PER WEEK.QUIT 1984 Past Drug Use History: Marijuana - Past Family History Mother Family Medical History: Cancer Brother(s) Family Medical History: Coronary Artery Disease (CAD), Diabetes Mellitus, Myocardial Infarction ([place]) Father Family Medical History: Myocardial Infarction ([place]) Additional Family Medical History / Comment(s): Father of [place] at 99 years old Medications and Allergies Home Medications Medication Instructions Recorded Confirmed Type Glimepiride [Amaryl] 4 mg PO BID-W/MEALS 03/11/14 02/02/22 History Tamsulosin [Flomax] 0.4 mg PO Q3D 03/11/14 02/02/22 History Levocetirizine Dihydrochloride 5 mg PO DAILY 04/14/15 02/02/22 History [Xyzal] sitaGLIPtin PHOS/metFORMIN HCL 1 tab PO BID-W/MEALS 04/14/15 02/02/22 History [Janumet 50-1,000 mg Tablet] Losartan [Cozaar] 50 mg PO DAILY 06/10/15 02/02/22 History Megestrol Acetate 20 mg PO BID 03/29/16 02/02/22 History Atorvastatin [Lipitor] 40 mg PO HS #30 tablet 03/31/16 02/02/22 Rx atenoloL 25 mg PO DAILY 11/18/16 02/02/22 History Canagliflozin [Invokana] 300 mg PO DAILY 02/02/22 02/02/22 History Cholecalciferol [Vitamin D3 (125 125 mcg PO DAILY 02/02/22 02/02/22 History Mcg = 5000 Iu)] Esomeprazole Magnesium [NexIUM] 40 mg PO DAILY PRN 02/02/22 02/02/22 History HYDROcodone/APAP 7.5-325MG [[place] 1 tab PO TID PRN 02/02/22 02/02/22 History 7.5-325] Naproxen [Naprosyn] 500 mg PO BID PRN 02/02/22 02/02/22 History Nitroglycerin Sl Tabs [Nitrostat] 0.4 mg SUBLINGUAL Q5M PRN 02/02/22 02/02/22 History Omeprazole 40 mg PO DAILY 02/02/22 02/02/22 History Zolpidem Tartrate [Ambien] 5 mg PO HS 02/02/22 02/02/22 History Allergies Allergy/AdvReac Type Severity Reaction Status Date / Time No Known Allergies Allergy Verified 02/02/22 22:49 Physical Exam Vitals: Vital Signs Temp Pulse Pulse Resp BP BP Pulse Ox 02/03/22 03:34 98 F 107 H 18 120/74 95 02/03/22 01:46 120 H 18 02/03/22 00:48 98 F 120 H 18 104/76 96 02/03/22 00:31 115 H 16 101/77 02/02/22 20:37 98.3 F 103 H 18 143/92 99 Intake and Output 02/02/22 02/03/22 02/03/22 22:59 06:59 14:59 Intake Total 81.443 Output Total 350 Balance -268.557 Intake: Intake, IV Titration 81.443 Amount Heparin Sod,Pork in 0.45% 81.443 NaCl 25,000 unit In 0.45 % NaCl 1 250ml.bag @ 18 UNITS/KG/HR 15.513 mls/hr IV .Q16H7M [facility] Rx#: [id number] Output: Urine 350 Other: Voiding Method Urinal # Voids 1 Weight 86.183 kg 88.5 kg Results 02/03/22 03:30 02/02/22 21:19 Cardiac Enzymes 02/02/22 02/02/22 02/03/22 Range/Units 21:19 21:19 00:51 AST 20 (17-59) U/L Troponin I 0.114 H* 0.774 H* (0.000-0.034) ng/mL 02/03/22 Range/Units 03:30 AST (17-59) U/L Troponin I 0.697 H* (0.000-0.034) ng/mL Coagulation 02/02/22 02/03/22 Range/Units 21:19 03:30 PT 10.6 11.4 (9.0-12.0) sec APTT 22.3 106.6 H* (22.0-30.0) sec CBC 02/02/22 02/03/22 Range/Units 21:19 03:30 WBC 8.2 8.2 (3.8-10.6) k/uL RBC 4.51 4.36 (4.30-5.90) m/uL Hgb 13.8 12.9 L (13.0-17.5) gm/dL Hct 42.6 41.3 (39.0-53.0) % Plt Count 239 247 (150-450) k/uL Comprehensive Metabolic Panel 02/02/22 Range/Units 21:19 Sodium 135 L (137-145) mmol/L Potassium 4.4 (3.5-5.1) mmol/L Chloride 103 (98-107) mmol/L Carbon Dioxide 21 L (22-30) mmol/L BUN 19 (9-20) mg/dL Creatinine 0.91 (0.66-1.25) mg/dL Glucose 281 H (74-99) mg/dL Calcium 9.6 (8.4-10.2) mg/dL AST 20 (17-59) U/L ALT 23 (4-49) U/L Alkaline Phosphatase 94 (38-126) U/L Total Protein 7.9 (6.3-8.2) g/dL Albumin 4.4 (3.5-5.0) g/dL Current Medications Generic Name Dose Route Start Last Admin Trade Name Freq PRN Reason Stop Dose Admin Hydrocodone Bitart/Acetaminophen 1 each 02/03/22 02:40 Hydrocodone/Apap 7.5-325mg 1 Each Tab PO TID PRN Pain Aspirin 325 mg 02/03/22 09:00 Aspirin 325 Mg Tab PO DAILY [facility] Atenolol 25 mg 02/03/22 09:00 Atenolol 25 Mg Tab PO DAILY [facility] Atorvastatin Calcium 40 mg 02/03/22 21:00 Atorvastatin 40 Mg Tab PO HS [facility] Cholecalciferol 125 mcg 02/03/22 09:00 Cholecalciferol 125 Mcg (5000 Iu) Tablet PO DAILY [facility] Glimepiride 4 mg 02/03/22 07:30 02/03/22 06:16 Glimepiride 4 Mg Tab PO Not Given BID-W/MEALS [facility] Heparin Sodium (Porcine) 0 unit 02/02/22 22:12 Heparin Sodium 1,000 Un/Ml (10ml Vl) IV PER PROTOCOL PRN Low PTT Protocol Heparin Sodium/Sodium Chloride 250 mls @ 9.997 mls/hr 02/02/22 22:15 02/02/22 22:59 25,000 unit/ Sodium Chloride IV 11.6 units/kg/hr .Q24H SHANIA 9.997 mls/hr Administration Protocol 11.6 UNITS/KG/HR Heparin Sodium/Sodium Chloride 250 mls @ 15.513 mls/hr 02/02/22 23:30 02/03/22 06:24 25,000 unit/ Sodium Chloride IV 15 units/kg/hr .Q16H7M SHANIA 12.927 mls/hr Titration Protocol 18 UNITS/KG/HR Linagliptin 5 mg 02/03/22 07:30 02/03/22 06:16 Linagliptin 5 Mg Tablet PO Not Given BID-W/MEALS [facility] Loratadine 10 mg 02/03/22 09:00 Loratadine 10 Mg Tab PO DAILY [facility] Losartan Potassium 50 mg 02/03/22 09:00 Losartan 50 Mg Tab PO DAILY [facility] Megestrol Acetate 20 mg 02/03/22 09:00 Megestrol 40 Mg Tab PO BID [facility] Metformin HCl 1,000 mg 02/03/22 07:30 02/03/22 05:14 Metformin 500 Mg Tab PO Not Given BID-W/MEALS [facility] Naproxen 500 mg 02/03/22 02:40 Naproxen 250 Mg Tab PO BID PRN Pain Nitroglycerin 0.4 mg 02/02/22 23:00 Nitroglycerin Sl Tabs 0.4 Mg Tab SUBLINGUAL Q5M PRN Chest Pain Non-Formulary Medication 300 mg 02/03/22 09:00 Canagliflozin [Invokana] PO DAILY [facility] Pantoprazole Sodium 40 mg 02/03/22 02:40 Pantoprazole 40 Mg Tablet PO DAILY PRN GI Upset Pantoprazole Sodium 40 mg 02/03/22 09:00 Pantoprazole 40 Mg Tablet PO DAILY [facility] Tamsulosin HCl 0.4 mg 02/03/22 09:00 Tamsulosin 0.4 Mg Cap.Er.24h PO Q3D [facility] Zolpidem Tartrate 5 mg 02/03/22 02:42 02/03/22 03:33 Zolpidem 5 Mg Tab PO 5 mg HS [facility] Administration Intake and Output 02/02/22 02/03/22 02/03/22 22:59 06:59 14:59 Intake Total 81.443 Output Total 350 Balance -268.557 Intake: Intake, IV Titration 81.443 Amount Heparin Sod,Pork in 0.45% 81.443 NaCl 25,000 unit In 0.45 % NaCl 1 250ml.bag @ 18 UNITS/KG/HR 15.513 mls/hr IV .Q16H7M [facility] Rx#: [id number] Output: Urine 350 Other: Voiding Method Urinal # Voids 1 Weight 86.183 kg 88.5 kg 02/03/22 03:30 02/02/22 21:19
[2022-02-03 10:58] VITALS: BMI 35.6
[2022-02-03 11:43] LABS: Glucose,Whole Blood 287 mg/dL (70-110)
[2022-02-03 14:04] LABS: Chol/HDL Ratio 3.92 Ratio; LDL Cholesterol,Calculated 54.7 mg/dL (0.0-131.0)
--- NOTE | 2022-02-03 14:45 | P.CNPUL ---
History of Present Illness Consult date: 02/03/22 Requesting physician: Stanley Larkin Reason for consult: dyspnea, chest pain, pulmonary embolism, abnormal CXR/CT Chief complaint: Shortness of breath and chest pain. History of present illness: Pulmonary consult dated 02/03/2022. 71-year-old male who was evaluated in the emergency room, on February 02. He came into the emergency room with complaints of sudden onset of chest pain, and shortness of breath. It occurred about 7:00 at nighttime. The pain was sharp, radiating to his back. He also noted that he was short of breath. No fever or chills. No cough. He never had anything like this before. There is no trauma. The patient apparently was evaluated there, had a CT angiogram, and was discovered to have bilateral pulmonary emboli. He's currently on room air, and receiving IV heparin. I was consulted for the pulmonary embolism. White count 8.2, he will 12.9, hematocrit 41.3, and platelet count 202,000. PTT is 47.5. Sodium 135, potassium 4.4, chloride 103, CO2 21, anion gap 11, BUN 19, creatinine 0.91. Troponins were 0.114 and 0.697. N-terminal proBNP was 2060. Chest x-ray was normal. CT angiogram showed multiple bilateral upper and lower lobe pulmonary emboli. There is no evidence of right heart strain. The heart size was normal. Doppler lower extremity showed a DVT in the right femoral vein. Initial EKG showed sinus tachycardia. Review of Systems REVIEW OF SYSTEMS: CONSTITUTIONAL: Decreased appetite and weight loss. NEUROLOGIC: [ Negative.] HEENT: [ Negative.] CARDIAC: Sharp chest pain. PULMONARY: Shortness of breath. GI: [Negative.] : [Negative.] RHEUMATOLOGIC: [ Negative.] IMMUNOLOGIC: [ Negative.] ENDOCRINE: [Negative. ] DERMATOLOGIC: [Negative.] Past Medical History Past Medical History: Coronary Artery Disease (CAD), Cancer, Chest Pain / Angina, Diabetes Mellitus, GERD/Reflux, Hyperlipidemia, Hypertension, Myocardial Infarction ([place]) Additional Past Medical History / Comment(s): PROSTATE CANCER RADIATION/SEED IMPLANTS, STATES HE HAD HX OF RADIATION WHICH BURNED HIS COLON. , STATED "HAD BLOOD IN STOOL". Last Myocardial Infarction Date:: 2017 History of Any Multi-Drug Resistant Organisms: None Reported Past Surgical History: Heart Catheterization With Stent, Orthopedic Surgery Additional Past Surgical History / Comment(s): HEART CATH WITH STENT multiple times he believes he has 4 stents with last one in 2018, COLONOSCOPY, back surgery Past Anesthesia/Blood Transfusion Reactions: No Reported Reaction Date of Last Stent Placement:: 2017 Past Psychological History: No Psychological Hx Reported Smoking Status: Former smoker Past Alcohol Use History: None Reported Additional Past Alcohol Use History / Comment(s): SMOKED FOR 8 YRS APPROX 1 PACK PER WEEK.QUIT 1984 Past Drug Use History: Marijuana - Past Family History Mother Family Medical History: Cancer Brother(s) Family Medical History: Coronary Artery Disease (CAD), Diabetes Mellitus, Myocardial Infarction ([place]) Father Family Medical History: Myocardial Infarction ([place]) Additional Family Medical History / Comment(s): Father of [place] at 99 years old Medications and Allergies Home Medications Medication Instructions Recorded Confirmed Type Glimepiride [Amaryl] 4 mg PO BID-W/MEALS 03/11/14 02/02/22 History Tamsulosin [Flomax] 0.4 mg PO Q3D 03/11/14 02/02/22 History Levocetirizine Dihydrochloride 5 mg PO DAILY 04/14/15 02/02/22 History [Xyzal] sitaGLIPtin PHOS/metFORMIN HCL 1 tab PO BID-W/MEALS 04/14/15 02/02/22 History [Janumet 50-1,000 mg Tablet] Losartan [Cozaar] 50 mg PO DAILY 06/10/15 02/02/22 History Megestrol Acetate 20 mg PO BID 03/29/16 02/02/22 History Atorvastatin [Lipitor] 40 mg PO HS #30 tablet 03/31/16 02/02/22 Rx atenoloL 25 mg PO DAILY 11/18/16 02/02/22 History Canagliflozin [Invokana] 300 mg PO DAILY 02/02/22 02/02/22 History Cholecalciferol [Vitamin D3 (125 125 mcg PO DAILY 02/02/22 02/02/22 History Mcg = 5000 Iu)] Esomeprazole Magnesium [NexIUM] 40 mg PO DAILY PRN 02/02/22 02/02/22 History HYDROcodone/APAP 7.5-325MG [[place] 1 tab PO TID PRN 02/02/22 02/02/22 History 7.5-325] Naproxen [Naprosyn] 500 mg PO BID PRN 02/02/22 02/02/22 History Nitroglycerin Sl Tabs [Nitrostat] 0.4 mg SUBLINGUAL Q5M PRN 02/02/22 02/02/22 H istory Omeprazole 40 mg PO DAILY 02/02/22 02/02/22 History Zolpidem Tartrate [Ambien] 5 mg PO HS 02/02/22 02/02/22 History Allergies Allergy/AdvReac Type Severity Reaction Status Date / Time No Known Allergies Allergy Verified 02/02/22 22:49 Physical Exam Osteopathic Statement: *. No significant issues noted on an osteopathic structural exam other than those noted in the History and Physical/Consult. Vitals: Vital Signs Temp Pulse Pulse Resp BP BP Pulse Ox 02/03/22 12:00 97.7 F 89 16 97/62 95 02/03/22 08:00 98.0 F 102 H 18 107/73 94 L 02/03/22 03:34 98 F 107 H 18 120/74 95 02/03/22 01:46 120 H 18 02/03/22 00:48 98 F 120 H 18 104/76 96 02/03/22 00:31 115 H 16 101/77 02/02/22 20:37 98.3 F 103 H 18 143/92 99 Intake and Output 02/02/22 02/03/22 02/03/22 22:59 06:59 14:59 Intake Total 81.443 768.723 Output Total 350 Balance -268.557 768.723 Intake: Intake, IV Titration 81.443 228.723 Amount Heparin Sod,Pork in 0.45% 139.958 NaCl 25,000 unit In 0.45 % NaCl 1 250ml.bag @ 11.6 UNITS/KG/HR 9.997 mls/hr IV .Q24H SHANIA Rx#: [id number] Heparin Sod,Pork in 0.45% 81.443 88.765 NaCl 25,000 unit In 0.45 % NaCl 1 250ml.bag @ 18 UNITS/KG/HR 15.513 mls/hr IV .Q16H7M SHANIA Rx#: [id number] Oral 540 Output: Urine 350 Other: Voiding Method Urinal Urinal # Voids 1 Weight 86.183 kg 88.5 kg 88.5 kg No acute distress, oriented 3. Room air saturation 95%. HEENT examination is grossly unremarkable. Neck supple. Full range of motion. No adenopathy thyromegaly or neck vein distention. Cardiovascular examination reveals regular rhythm rate. S1-S2 normal. No S3 or S4. No discernible murmur noted. Heart rate 89 bpm. Lungs reveal mostly clear breath sounds. Minimal scattered rhonchi. No wheezes or crackles. Room air saturation 95%. Abdomen soft bowel sounds are heard. No masses or tenderness. Extremities are intact. No cyanosis clubbing or edema. Skin is without rash or lesion. Neurologic examination is brief but nonfocal. Results - Laboratory Findings CBC and BMP: 02/03/22 03:30 02/02/22 21:19 PT/INR, D-dimer PT 11.4 sec (9.0-12.0) 02/03/22 03:30 INR 1.1 (<1.2) 02/03/22 03:30 D-Dimer 3.78 mg/L FEU (<0.60) H 02/02/22 21:19 Abnormal lab findings: Abnormal Labs 02/02/22 02/02/22 02/02/22 21:19 21:19 21:19 Hgb APTT D-Dimer 3.78 H Sodium 135 L Carbon Dioxide 21 L Glucose 281 H POC Glucose (mg/dL) Troponin I 0.114 H* HDL Cholesterol 02/03/22 02/03/22 02/03/22 00:51 01:03 03:30 Hgb APTT 106.6 H* D-Dimer Sodium Carbon Dioxide Glucose POC Glucose (mg/dL) 230 H Troponin I 0.774 H* HDL Cholesterol 02/03/22 02/03/22 02/03/22 03:30 03:30 03:30 Hgb 12.9 L APTT D-Dimer Sodium Carbon Dioxide Glucose POC Glucose (mg/dL) Troponin I 0.697 H* HDL Cholesterol 28.30 L 02/03/22 02/03/22 02/03/22 05:57 11:42 11:55 Hgb APTT 47.5 H D-Dimer Sodium Carbon Dioxide Glucose POC Glucose (mg/dL) 185 H 287 H Troponin I HDL Cholesterol - Diagnostic Findings Chest x-ray: image reviewed CT scan - chest: image reviewed U/S of Legs: image reviewed Assessment and Plan Assessment: Shortness of breath/chest pain, secondary to bilateral and multiple pulmonary emboli, arising from a DVT, in the right lower extremity. The PE appears to be unprovoked. History of CAD, status post stent placement. History of myocardial infarction. History of angina pectoris. Diabetes mellitus. History of prostate cancer. Hyperlipidemia. Gastroesophageal reflux disease. Plan: Plan dated 02/03/2022. The patient's is currently on IV heparin. The patient is not requiring any supplemental oxygen. There is no right heart strain on the CT angiogram. The patient should be treated for 6 months. Even though the patient is not particularly active at home, there is no clearcut risk factor in this patient. The patient tells me that his prostate cancer is in remission. The patient converted to a factor X a inhibitor. Cardiology has seen the patient. He is not requiring any supplemental oxygen. Hemodynamically, the patient is stable. Time with Patient: Greater than 30
[2022-02-03 16:55] LABS: Glucose,Whole Blood 322 mg/dL (70-110)
--- NOTE | 2022-02-03 18:03 | P.HPIM ---
History of Present Illness H&P Date: 02/03/22 Trace Hilliard, is a 71-year-old male who presented to [facility] emergency room with a chief complaint of chest pain and shortness of breath He was evaluated in the emergency room vital examination on presentation revealed a temperature of 98.3 pulse 103 respiration 18 blood pressure 143/92 pulse ox 99% on room air Laboratory data revealed white blood count 8.2 hemoglobin 13.8 platelet count 239 d-dimer 3.78 troponin level 0.114 Testing in the emergency room revealed CT angiogram of the chest revealed evidence of multiple bilateral upper and lower lobe pulmonary emboli without evidence of right heart strain. Patient was started on IV heparin. Patient was admitted to medical floor for further evaluation and treatment. Cardiology consultation and pulmonary consultation were requested. Past medical history is significant for history of hypertension, history of hyperlipidemia, history of kon-cmewvvb-lzahcisel diabetes mellitus, and prostate cancer Past Medical History Past Medical History: Coronary Artery Disease (CAD), Cancer, Chest Pain / Angina, Diabetes Mellitus, GERD/Reflux, Hyperlipidemia, Hypertension, Myocardial Infarction ([place]) Additional Past Medical History / Comment(s): PROSTATE CANCER RADIATION/SEED IMPLANTS, STATES HE HAD HX OF RADIATION WHICH BURNED HIS COLON. , STATED "HAD BLOOD IN STOOL". Last Myocardial Infarction Date:: 2017 History of Any Multi-Drug Resistant Organisms: None Reported Past Surgical History: Heart Catheterization With Stent, Orthopedic Surgery Additional Past Surgical History / Comment(s): HEART CATH WITH STENT multiple times he believes he has 4 stents with last one in 2018, COLONOSCOPY, back surgery Past Anesthesia/Blood Transfusion Reactions: No Reported Reaction Date of Last Stent Placement:: 2017 Past Psychological History: No Psychological Hx Reported Smoking Status: Former smoker Past Alcohol Use History: None Reported Additional Past Alcohol Use History / Comment(s): SMOKED FOR 8 YRS APPROX 1 PACK PER WEEK.QUIT 1984 Past Drug Use History: Marijuana - Past Family History Mother Family Medical History: Cancer Brother(s) Family Medical History: Coronary Artery Disease (CAD), Diabetes Mellitus, Myocardial Infarction ([place]) Father Family Medical History: Myocardial Infarction ([place]) Additional Family Medical History / Comment(s): Father of [place] at 99 years old Medications and Allergies Home Medications Medication Instructions Recorded Confirmed Type Glimepiride [Amaryl] 4 mg PO BID-W/MEALS 03/11/14 02/02/22 History Tamsulosin [Flomax] 0.4 mg PO Q3D 03/11/14 02/02/22 History Levocetirizine Dihydrochloride 5 mg PO DAILY 04/14/15 02/02/22 History [Xyzal] sitaGLIPtin PHOS/metFORMIN HCL 1 tab PO BID-W/MEALS 04/14/15 02/02/22 History [Janumet 50-1,000 mg Tablet] Losartan [Cozaar] 50 mg PO DAILY 06/10/15 02/02/22 History Megestrol Acetate 20 mg PO BID 03/29/16 02/02/22 History Atorvastatin [Lipitor] 40 mg PO HS #30 tablet 03/31/16 02/02/22 Rx atenoloL 25 mg PO DAILY 11/18/16 02/02/22 History Canagliflozin [Invokana] 300 mg PO DAILY 02/02/22 02/02/22 History Cholecalciferol [Vitamin D3 (125 125 mcg PO DAILY 02/02/22 02/02/22 History Mcg = 5000 Iu)] Esomeprazole Magnesium [NexIUM] 40 mg PO DAILY PRN 02/02/22 02/02/22 History HYDROcodone/APAP 7.5-325MG [[place] 1 tab PO TID PRN 02/02/22 02/02/22 History 7.5-325] Naproxen [Naprosyn] 500 mg PO BID PRN 02/02/22 02/02/22 History Nitroglycerin Sl Tabs [Nitrostat] 0.4 mg SUBLINGUAL Q5M PRN 02/02/22 02/02/22 History Omeprazole 40 mg PO DAILY 02/02/22 02/02/22 History Zolpidem Tartrate [Ambien] 5 mg PO HS 02/02/22 02/02/22 History Allergies Allergy/AdvReac Type Severity Reaction Status Date / Time No Known Allergies Allergy Verified 02/02/22 22:49 Physical Exam Vitals: Vital Signs Temp Pulse Pulse Resp BP BP Pulse Ox 02/03/22 12:00 97.7 F 89 16 97/62 95 02/03/22 08:00 98.0 F 102 H 18 107/73 94 L 02/03/22 03:34 98 F 107 H 18 120/74 95 02/03/22 01:46 120 H 18 02/03/22 00:48 98 F 120 H 18 104/76 96 02/03/22 00:31 115 H 16 101/77 02/02/22 20:37 98.3 F 103 H 18 143/92 99 Intake and Output 02/02/22 02/03/22 02/03/22 22:59 06:59 14:59 Intake Total 81.443 0 Output Total 350 Balance -268.557 0 Intake: Intake, IV Titration 81.443 Amount Heparin Sod,Pork in 0.45% 81.443 NaCl 25,000 unit In 0.45 % NaCl 1 250ml.bag @ 18 UNITS/KG/HR 15.513 mls/hr IV .Q16H7M SHANIA Rx#: [id number] Oral 0 Output: Urine 350 Other: Voiding Method Urinal Urinal # Voids 1 Weight 86.183 kg 88.5 kg 88.5 kg In general patient is alert and oriented x 3 in no distress HEENT head normocephalic and atraumatic Neck is supple no JVD no goiter no lymphadenopathy no carotid bruit Chest examination is clear to auscultation no crackles no wheezing Cardiac exam reveals regular heart sounds S1 and S2 no gallops no murmurs Abdomen is soft nontender no organomegaly with normal bowel sounds Extremity exam reveals no edema no cyanosis or clubbing Neurological examination reveals no gross focal deficits Results CBC & Chem 7: 02/03/22 03:30 02/02/22 21:19 Labs: Abnormal Lab Results - Last 24 Hours (Table) 02/02/22 02/02/22 02/02/22 Range/Units 21:19 21:19 21:19 Hgb (13.0-17.5) gm/dL APTT (22.0-30.0) sec D-Dimer 3.78 H (<0.60) mg/L FEU Sodium 135 L (137-145) mmol/L Carbon Dioxide 21 L (22-30) mmol/L Glucose 281 H (74-99) mg/dL POC Glucose (mg/dL) (70-110) mg/dL Troponin I 0.114 H* (0.000-0.034) ng/mL 02/03/22 02/03/22 02/03/22 Range/Units 00:51 01:03 03:30 Hgb (13.0-17.5) gm/dL APTT 106.6 H* (22.0-30.0) sec D-Dimer (<0.60) mg/L FEU Sodium (137-145) mmol/L Carbon Dioxide (22-30) mmol/L Glucose (74-99) mg/dL POC Glucose (mg/dL) 230 H (70-110) mg/dL Troponin I 0.774 H* (0.000-0.034) ng/mL 02/03/22 02/03/22 02/03/22 Range/Units 03:30 03:30 05:57 Hgb 12.9 L (13.0-17.5) gm/dL APTT (22.0-30.0) sec D-Dimer (<0.60) mg/L FEU Sodium (137-145) mmol/L Carbon Dioxide (22-30) mmol/L Glucose (74-99) mg/dL POC Glucose (mg/dL) 185 H (70-110) mg/dL Troponin I 0.697 H* (0.000-0.034) ng/mL 02/03/22 02/03/22 Range/Units 11:42 11:55 Hgb (13.0-17.5) gm/dL APTT 47.5 H (22.0-30.0) sec D-Dimer (<0.60) mg/L FEU Sodium (137-145) mmol/L Carbon Dioxide (22-30) mmol/L Glucose (74-99) mg/dL POC Glucose (mg/dL) 287 H (70-110) mg/dL Troponin I (0.000-0.034) ng/mL Thrombosis Risk Factor Assmnt - Choose All That Apply Any of the Below Risk Factors Present?: Yes Each Factor Represents 1 point: Medical pt on bed rest Other Risk Factors: Yes Each Risk Factor Represents 2 Points: Age 61-74 years Each Risk Factor Represents 3 Points: History of DVT/PE Thrombosis Risk Factor Assessment Total Risk Factor Score: 6 Thrombosis Risk Factor Assessment Level: High Risk Assessment and Plan Plan: Bilateral pulmonary embolism Elevated troponin level Right femoral DVT Underlying history of prostate cancer Underlying history of hypertension Underlying history of hyperlipidemia Underlying history of coronary artery disease with previous history of angioplasty Underlying history of diabetes mellitus type 2 At this time patient is admitted to telemetry floor he was started on IV heparin Home medications reviewed and reordered Cardiology consultation was requested
[2022-02-03] MEDS: INSULIN ASPART (NovoLOG) 100 UNIT/ML VIAL SQ SCH (18:09)
[2022-02-03 20:01] LABS: Glucose,Whole Blood 331 mg/dL (70-110)
[2022-02-03] MEDS ORDERED: ATORVASTATIN 40 MG TAB PO SCH (21:00)
[2022-02-04 06:04] LABS: Glucose,Whole Blood 233 mg/dL (70-110)
[2022-02-04] MEDS: GLIMEPIRIDE 4 MG TAB PO SCH (06:59)
[2022-02-04] MEDS: INSULIN ASPART (NovoLOG) 100 UNIT/ML VIAL SQ SCH ×2 (06:59→12:20)
[2022-02-04] MEDS: LINAGLIPTIN 5 MG TABLET PO SCH (07:00)
[2022-02-04] MEDS: metFORMIN 500 MG TAB PO SCH ×2 (07:02→09:53)
[2022-02-04] MEDS ORDERED: APIXABAN 5 MG TAB PO SCH (09:30)
[2022-02-04] MEDS: LORATADINE 10 MG TAB PO SCH (09:54)
[2022-02-04] MEDS: CHOLECALCIFEROL 125 MCG (5000 IU) TABLET PO SCH (09:54)
[2022-02-04] MEDS: atenoloL 25 MG TAB PO SCH (09:54)
[2022-02-04] MEDS: LOSARTAN 50 MG TAB PO SCH (09:54)
[2022-02-04] MEDS: NON FORMULARY DRUG (Canagliflozin [Invokana] 300 MG Tablet) PO SCH (09:55)
[2022-02-04] MEDS: PANTOPRAZOLE 40 MG TABLET PO SCH (09:56)
[2022-02-04] MEDS: MEGESTROL 40 MG TAB PO SCH (09:56)
[2022-02-04] MEDS: ASPIRIN 81 MG PO SCH (10:12)
[2022-02-04] MEDS: HEPARIN SOD,PORK IN 0.45% NACL 25,000 UNIT in 0.45% NACL 1 250ML.BAG IV SCH (10:12)
[2022-02-04 10:26] LABS: Basophils # (A) 0.1 k/uL (0-0.2); Basophils % (A) 1 %; Eosinophils # (A) 0.1 k/uL (0-0.7); Eosinophils % (A) 1 %; HCT 40.8 % (39.0-53.0); HGB 13.1 gm/dL (13.0-17.5); Lymphocytes # (A) 1.3 k/uL (1.0-4.8); Lymphocytes % (A) 16 %; MCH 31.6 pg (25.0-35.0); MCHC 32.1 g/dL (31.0-37.0); MCV 98.5 fL (80.0-100.0); Mean Platelet Volume 8.3; Monocytes # (A) 0.4 k/uL (0-1.0); Monocytes % (A) 4 %; Neutrophils % (A) 75 %; Platelet Count 250 k/uL (150-450); RBC 4.15 m/uL (4.30-5.90); RDW 12.7 % (11.5-15.5)
[2022-02-04 10:47] LABS: Albumin 3.9 g/dL (3.5-5.0); Calcium 9.4 mg/dL (8.4-10.2); Potassium 4.6 mmol/L (3.5-5.1); Total Bilirubin 0.4 mg/dL (0.2-1.3); Total Protein 7.3 g/dL (6.3-8.2)
[2022-02-04 11:53] VITALS: BP 101/67; PULSE 78; RESP 20; TEMP 97.5
[2022-02-04 11:59] LABS: Glucose,Whole Blood 272 mg/dL (70-110)
--- NOTE | 2022-02-04 14:05 | P.PN ---
Subjective This is a pleasant 71-year-old male past medical history significant for prostate cancer with previous radiation (patient states it is active), diabetes, hypertension, coronary artery disease status post PCI of the mid LAD in 2004, mid RCA in 2016, dyslipidemia, former smoker. He follows with Dr. Aguilar. We've been asked to see in consultation for chest pain. Patient presents emergency department with worsening epigastric pain that radiated to his back. He describes it as a pressure. He denies any shortness of breath, diaphoresis, lightheadedness, dizziness, palpitations, nausea, vomiting. He also states that over a few months patient has been having generalized weakness, he was able to ambulate into his daily activities but he states he has not been very active. He denies any prolonged travel. He states that he does have active prostate cancer. He denies any history of blood clots in the past. On admission patient's d-dimer was elevated CTA revealed multiple bilateral upper and lower lobe pulmonary emboli. No evidence of heart strain reported on CT. Patient denies any shortness of breath, BP is stable, on room air. Echocardiogram revealed EF 5560 %, moderate right ventricular dilatation, RV strain with TAPSE 12.8 mmHg, trace mitral regurgitation, mild tricuspid regurgitation, RVSP of 22 mmHg Venous dopplers of bilateral lower extremities revealed Right femoral DVT 02/04/2022 Patient seen and examined at bedside, no acute distress. He denies any chest pain or shortness of breath. He is asymptomatic. He is not requiring any oxygen. His blood pressures are stable. He continues to be on IV heparin. PHYSICAL EXAMINATION Vitals reviewed CONSTITUTIONAL: No apparent distress. HEENT: Head is normocephalic. Pupils are equal, round. Sclerae anicteric. Mucous membranes of the mouth are moist. No JVD. No carotid bruit. CHEST EXAMINATION: Lungs are clear to auscultation. No chest wall tenderness is noted on palpation or with deep breathing. HEART EXAMINATION: Regular rate and rhythm. S1, S2 heard. No murmurs, gallops or rub. ABDOMEN: Soft, nontender. Positive bowel sounds. EXTREMITIES: 2+ peripheral pulses, no lower extremity edema and no calf tenderness. NEUROLOGIC EXAMINATION: Patient is awake, alert and oriented x3. ASSESSMENT Bilateral Pulmonary Emboli nonmassive, could be related to active prostate cancer Elevated troponin, secondary to above Right femoral DVT Type 2 diabetes Hypertension Coronary artery disease status post PCI abnormality 2004 and PCI to mid RCA in 2016 Dyslipidemia Former smoker PLAN Echocardiogram reviewed by Dr. Carpio at bedside Venous dopplers of bilateral lower extremities revealed Right femoral DVT Patient is currently stable, not requiring oxygen, he has no symptoms of shortness of breath or chest pain. BP is stable. Transition to Eliquis 10 mg twice a day. From cardiology perspective, patient stable to be discharged home. Follow-up outpatient with Dr. Aguilar Nurse practitioner note has been reviewed by physician. Signing provider agrees with the documented findings, assessment, and plan of care. Objective - Vital Signs Vital signs: Vital Signs Temp 97.5 F L 02/04/22 11:50 Pulse 78 02/04/22 11:50 Resp 20 02/04/22 11:50 BP 101/67 02/04/22 11:50 Pulse Ox 97 02/04/22 11:50 FiO2 Intake & Output 02/03/22 02/04/22 02/04/22 18:59 06:59 18:59 Intake Total 1012.296 Balance 1012.296 Weight 88.5 kg 88.5 kg Intake: Intake, IV Titration 354.296 Amount Heparin Sod,Pork in 0.45% 203.481 NaCl 25,000 unit In 0.45 % NaCl 1 250ml.bag @ 11.6 UNITS/KG/HR 9.997 mls/hr IV .Q24H SHANIA Rx#: [id number] Heparin Sod,Pork in 0.45% 150.815 NaCl 25,000 unit In 0.45 % NaCl 1 250ml.bag @ 18 UNITS/KG/HR 15.513 mls/hr IV .Q16H7M SHANIA Rx#: [id number] Oral 658 Other: Voiding Method Urinal Urinal Urinal # Voids 1 - Labs CBC & Chem 7: 02/04/22 09:45 02/04/22 09:45 Labs: Abnormal Lab Results - Last 24 Hours (Table) 02/03/22 02/03/22 02/03/22 Range/Units 03:30 16:52 19:52 RBC (4.30-5.90) m/uL BUN (9-20) mg/dL Glucose (74-99) mg/dL POC Glucose (mg/dL) 322 H 331 H (70-110) mg/dL HDL Cholesterol 28.30 L (40.00-60.00) mg/dL 02/04/22 02/04/22 02/04/22 Range/Units 06:03 09:45 09:45 RBC 4.15 L (4.30-5.90) m/uL BUN 24 H (9-20) mg/dL Glucose 240 H (74-99) mg/dL POC Glucose (mg/dL) 233 H (70-110) mg/dL HDL Cholesterol (40.00-60.00) mg/dL 02/04/22 Range/Units 11:57 RBC (4.30-5.90) m/uL BUN (9-20) mg/dL Glucose (74-99) mg/dL POC Glucose (mg/dL) 272 H (70-110) mg/dL HDL Cholesterol (40.00-60.00) mg/dL
--- NOTE | 2022-02-05 05:54 | PN ---
PROGRESS NOTE PULMONARY/CRITICAL CARE PROGRESS NOTE: This is a 71-year-old gentleman who I saw yesterday in consultation. He was admitted with a diagnosis of shortness of breath and chest pain and was found on CT angiogram to have bilateral pulmonary emboli. The patient was stable when I saw him yesterday, on room air. He was converted to a factor Xa inhibitor. The patient will likely be discharged either today or tomorrow. Clinically, he is doing much better. His vital signs are stable. He is not receiving any IV fluids. I believe he was started on Eliquis. In addition, a Doppler of the right lower extremity apparently revealed a right DVT. He has an unprovoked pulmonary embolism and therefore needs 6 months of therapy. He will see me in the office in followup. His apparently sees my partner. PHYSICAL EXAMINATION: VITAL SIGNS: Current vital signs include a heart rate of 80, respiratory rate of 16, blood pressure of 140/79, temperature which is normal, and a respiratory rate which is 18. GENERAL: He appears in no acute distress. No respiratory distress. No conversational dyspnea. HEENT: Examination is grossly unremarkable. NECK: Supple. Full range of motion. No adenopathy. Neck veins are flat. CARDIOVASCULAR: Examination reveals regular rhythm and rate. He is not tachycardic. S1, S2 normal. No murmur. LUNGS: Mostly clear. Minimal scattered rhonchi as noted yesterday. No wheezes or crackles. Saturations are in the mid 90's. ABDOMEN: Soft. Bowel sounds are noted. No masses or tenderness. EXTREMITIES: Intact. No cyanosis, clubbing, or edema. SKIN: Without rash. NEUROLOGIC: Examination is brief but nonfocal. LABORATORY DATA: Reviewed. ASSESSMENT: 1. Shortness of breath with chest pain, secondary to bilateral and multiple pulmonary emboli arising from a deep venous thrombosis in the right lower extremity. 2. History of coronary artery disease, status post stent placement. 3. History of myocardial infarction. 4. Angina pectoris. 5. Diabetes mellitus. 6. Prostate cancer, treated. 7. Hyperlipidemia. 8. Gastroesophageal reflux disease. PLAN: The patient should be treated for 6 months with Eliquis. He has an unprovoked pulmonary embolism. He will see me in the office in followup. I told him in 8 to 10 to 12 weeks, the patient will have a repeat CT angiogram. No additional recommendations are made. We will continue to follow. The patient is being considered for possible discharge. MMODL / IJN: [id number] /
== END 2022-02-04 14:33 | disposition home or self-care (01) | DRG 299 ==
LOC: EC 20:33 → 3SCARD 23:00
PROVIDERS: ADMIT Internal Medicine; ATTEND Internal Medicine
DX: I82.411 Acute embolism and thrombosis of right femoral vein (principal); I26.99 Other pulmonary embolism without acute cor pulmonale; R77.8 Other specified abnormalities of plasma proteins; E11.9 Type 2 diabetes mellitus without complications; E78.5 Hyperlipidemia, unspecified; I11.9 Hypertensive heart disease without heart failure; I25.119 Atherosclerotic heart disease of native coronary artery with unspecified angina pectoris; I08.1 Rheumatic disorders of both mitral and tricuspid valves; K21.9 Gastro-esophageal reflux disease without esophagitis; I25.2 Old myocardial infarction; Z79.84 Long term (current) use of oral hypoglycemic drugs; Z79.899 Other long term (current) drug therapy; Z95.5 Presence of coronary angioplasty implant and graft; Z92.3 Personal history of irradiation; Z87.891 Personal history of nicotine dependence; Z80.9 Family history of malignant neoplasm, unspecified; Z82.49 Family history of ischemic heart disease and other diseases of the circulatory system; Z83.3 Family history of diabetes mellitus; Z85.46 Personal history of malignant neoplasm of prostate
CPT/HCPCS: 36415; 71046; 71275; 80053; 80061; 82150; 83690; 83735; 83880; 84484; 85025; 85379; 85610; 85730; 93005; 93306; 93970; 96365; 96366; 99291

== ENCOUNTER → 2022-05-25 | Outpatient (CLI) | payer MEDICARE, OTHER ==
[2022-05-25 12:31] LABS: African American GFR (CKD) >90 (>60 ml/min/1.73 sqM); Blood Urea Nitrogen 18 mg/dL (9-20); Non-African American GFR(CKD) 88 (>60 ml/min/1.73 sqM)
--- NOTE | 2022-05-25 13:01 | CT ---
EXAMINATION TYPE: CT angio chest CT DLP: 572 mGycm, Automated exposure control for dose reduction was used. DATE OF EXAM: 05/25/2022 12:50 PM COMPARISON: CTA chest 02/02/2022. CLINICAL INDICATION:Male, 71 years old with history of R91.8 ABNORMAL LUNG FIELD; h/o PE, f/u TECHNIQUE/CONTRAST: CTA scan of the thorax is performed with IV Contrast, patient injected with 100 mL of Isovue 370, pul monary embolism protocol. MIP images are created and reviewed. FINDINGS: Pulmonary Artery: Interval improvement in previously demonstrated bilateral pulmonary emboli with non occlusive filling defect demonstrated within the right main pulmonary artery (series 5, image 60) and right lower lobe segmental pulmonary arteries (series 5, image 70). The pulmonary artery is dilated measuring 3.7 cm in diameter. No right heart strain. Lungs/Pleura: No evidence of focal consolidation, pleural effusion or pneumothorax. Airway: Large airways are patent. Heart: Heart is within normal limits for size.. No pericardial effusion. Moderate coronary arterial c alcifications. Vasculature: No evidence of aortic aneurysm. Atherosclerotic calcification of the aorta. Mediastinum: No gross evidence of adenopathy. Musculoskeletal: No acute osseous abnormalities Soft Tissues: Unremarkable. Lower neck: No significant findings. Upper Abdomen: Cholelithiasis without surrounding inflammatory changes.. IMPRESSION: 1. Significant improvement in previously demonstrated bilateral pulmonary emboli with residual nonocc lusive emboli within the right main pulmonary and right lower lobe segmental pulmonary arteries. 2. Dilated pulmonary artery which can be seen in the setting of pulmonary arterial hypertension. 3. Cholelithiasis.
== END | disposition home or self-care (01) ==
LOC: RADCTMAIN 11:46
PROVIDERS: ATTEND Internal Medicine Critical Care Medicine
DX: I26.93 Single subsegmental thrombotic pulmonary embolism without acute cor pulmonale (principal); K80.20 Calculus of gallbladder without cholecystitis without obstruction; I27.0 Primary pulmonary hypertension; R91.8 Other nonspecific abnormal finding of lung field
CPT/HCPCS: 82565; 84520; 71275; 36415; Q9967

== ENCOUNTER 2022-06-10 00:07 | Emergency (ER) | payer MEDICARE, OTHER ==
[2022-06-10 00:31] VITALS: RESP 20; TEMP 98.2
[2022-06-10] MEDS ORDERED: HYDROmorphone 1 MG/ML 1 ML SYRINGE IM STA (01:39)
[2022-06-10] MEDS ORDERED: DEXAMETHASONE SOD PHOSPHATE 10 MG/ML 1 ML VIAL IM STA (01:39)
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
[2022-06-10 02:27] VITALS: BP 132/70; PULSE 77
== END 2022-06-10 02:27 | disposition home or self-care (01) ==
LOC: EC 00:07
DX: K04.7 Periapical abscess without sinus (principal); K02.9 Dental caries, unspecified; I25.10 Atherosclerotic heart disease of native coronary artery without angina pectoris; E11.9 Type 2 diabetes mellitus without complications; K21.9 Gastro-esophageal reflux disease without esophagitis; I10 Essential (primary) hypertension; I25.2 Old myocardial infarction; F12.90 Cannabis use, unspecified, uncomplicated; Z87.891 Personal history of nicotine dependence; Z79.84 Long term (current) use of oral hypoglycemic drugs; Z79.899 Other long term (current) drug therapy
CPT/HCPCS: 96372 ×2; 99283; J1100; J1170

== ENCOUNTER 2022-06-15 21:01 | Emergency (ER) | payer MEDICARE, OTHER ==
[2022-06-15 21:07] VITALS: BP 89/57; PULSE 84; RESP 18; TEMP 97.9
[2022-06-15] MEDS ORDERED: FAMOTIDINE 20 MG/2 ML VIAL IV STA (21:27)
[2022-06-15] MEDS ORDERED: SODIUM CHLORIDE 0.9% 1,000 ML IV STA (21:27)
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
[2022-06-15 22:09] LABS: Basophils % (A) 0 %; Eosinophils # (A) 0.1 k/uL (0-0.7); Eosinophils % (A) 1 %; HCT 42.8 % (39.0-53.0); HGB 14.5 gm/dL (13.0-17.5); Lymphocytes # (A) 0.7 k/uL (1.0-4.8); Lymphocytes % (A) 6 %; MCH 30.9 pg (25.0-35.0); MCHC 33.9 g/dL (31.0-37.0); Mean Platelet Volume 8.7; Monocytes # (A) 0.4 k/uL (0-1.0); Monocytes % (A) 4 %; Neutrophils # (A) 9.7 k/uL (1.3-7.7); Neutrophils % (A) 88 %; Platelet Count 300 k/uL (150-450); RDW 13.1 % (11.5-15.5)
[2022-06-15 22:22] LABS: Albumin 3.7 g/dL (3.5-5.0); Potassium 4.9 mmol/L (3.5-5.1); Total Bilirubin 0.9 mg/dL (0.2-1.3); Total Protein 7.3 g/dL (6.3-8.2)
[2022-06-15] MEDS ORDERED: SODIUM CHLORIDE 0.9% 500 ML 500 ML IV STA (22:35)
[2022-06-15] MEDS ORDERED: Acetaminophen-Codeine 300-30mg TAB PO STA (23:07)
== END 2022-06-15 23:51 | disposition home or self-care (01) ==
LOC: EC 21:01
DX: E86.0 Dehydration (principal); K04.7 Periapical abscess without sinus; I10 Essential (primary) hypertension; E11.9 Type 2 diabetes mellitus without complications; F12.90 Cannabis use, unspecified, uncomplicated; E78.5 Hyperlipidemia, unspecified; K21.9 Gastro-esophageal reflux disease without esophagitis; Z79.84 Long term (current) use of oral hypoglycemic drugs; Z79.899 Other long term (current) drug therapy; Z87.891 Personal history of nicotine dependence
CPT/HCPCS: 36415; 80053; 85025; 96361; 96374; 99283

== ENCOUNTER 2022-06-17 23:02 | Observation (INO) | payer MEDICARE, OTHER ==
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
[2022-06-18] MEDS ORDERED: ONDANSETRON 4 MG/2 ML VIAL IVP STA (01:01)
[2022-06-18] MEDS ORDERED: SODIUM CHLORIDE 0.9% 500 ML 500 ML IV STA (01:01)
[2022-06-18] MEDS ORDERED: AMPICILLIN-SULBACTAM 3 GM in SODIUM CHLORIDE 0.9% 100 ML IVPB STA (01:01)
[2022-06-18] MEDS ORDERED: MORPHINE SULFATE 4 MG/ML SYRINGE IV STA (01:01)
[2022-06-18] MEDS ORDERED: SODIUM CHLORIDE 0.9% 1,000 ML IV STA ×2 (01:01)
[2022-06-18] MEDS ORDERED: DEXAMETHASONE SOD PHOSPHATE 10 MG/ML 1 ML VIAL IVP STA (01:29)
[2022-06-18] MEDS ORDERED: ONDANSETRON 4 MG/2 ML VIAL IVP PRN (01:30)
[2022-06-18] MEDS ORDERED: NALOXONE 0.4 MG/ML 1 ML VIAL IV PRN (01:30)
[2022-06-18] MEDS: SODIUM CHLORIDE 0.9% 1,000 ML IV SCH ×3 (01:35→17:53)
[2022-06-18 02:04] LABS: Basophils % (A) 0 %; Eosinophils # (A) 0.1 k/uL (0-0.7); Eosinophils % (A) 1 %; HGB 13.9 gm/dL (13.0-17.5); Lymphocytes # (A) 0.8 k/uL (1.0-4.8); Lymphocytes % (A) 6 %; MCH 30.5 pg (25.0-35.0); MCV 92.5 fL (80.0-100.0); Mean Platelet Volume 8.8; Monocytes # (A) 0.8 k/uL (0-1.0); Monocytes % (A) 6 %; Neutrophils % (A) 86 %; Platelet Count 343 k/uL (150-450); RBC 4.54 m/uL (4.30-5.90); RDW 13.4 % (11.5-15.5); WBC 12.8 k/uL (3.8-10.6)
[2022-06-18 02:15] LABS: Partial Thromboplastin Time 25.8 sec (22.0-30.0); Prothrombin Time 10.9 sec (9.0-12.0)
[2022-06-18 02:18] LABS: AST 16 U/L (17-59); African American GFR (CKD) >90 (>60 ml/min/1.73 sqM); Albumin 3.6 g/dL (3.5-5.0); Alkaline Phosphatase 66 U/L (38-126); Anion Gap 16 mmol/L; Blood Urea Nitrogen 26 mg/dL (9-20); Calcium 9.1 mg/dL (8.4-10.2); Carbon Dioxide 12 mmol/L (22-30); Chloride 105 mmol/L (98-107); Glucose 159 mg/dL (74-99); Magnesium 2.3 mg/dL (1.6-2.3); Non-African American GFR(CKD) 82 (>60 ml/min/1.73 sqM); Potassium 5.5 mmol/L (3.5-5.1); Sodium 133 mmol/L (137-145); Total Protein 7.6 g/dL (6.3-8.2)
[2022-06-18 02:33] LABS: ALT 15 U/L (4-49)
--- NOTE | 2022-06-18 03:19 | CT ---
EXAMINATION TYPE: CT soft tissue neck w con DATE OF EXAM: 06/18/2022 COMPARISON: None HISTORY: rt sided dental pain, abscess CT DLP: 251.2 mGycm Automated exposure control for dose reduction was used. CONTRAST: Performed with IV Contrast, patient injected with 100 mL of Isovue 300. Images obtained from the great vessels to the frontal sinuses with the IV contrast. There is fairly normal aeration of the paranasal sinuses. Nasal bone is intact. No evidence of retro- orbital mass. The maxilla is intact. No evidence of orbital blowout fracture. There is normal branching pattern of the great vessels on the aortic arch. There is arterial flow in the subclavian arteries. There is arterial flow in the common internal and external carotid arteries bilaterally. There is minimal plaque formation. There is contrast opacification of the jugular veins. Epiglottis is normal. The tongue is intact. No retropharyngeal fluid. Tonsils and adenoids appear nor mal. The parotid and submandibular salivary glands are fairly symmetric. No mass seen. The mandibular ring is intact. No focal bone destruction. Temporomandibular joints are intact. There is normal aeration of the mastoid sinuses. There are multiple missing teeth. No focal bone destructio n. There is some soft tissue swelling anterior to the right mandible. IMPRESSION: Soft tissue swelling anterior to the right mandible is nonspecific. This could be a phlegmon. No foca l bone destruction. No fracture. No definite fluid collection seen to suggest an abscess.
[2022-06-18] MEDS ORDERED: DEXTROSE 50% SYRINGE 50 ML IVP PRN ×2 (08:56)
[2022-06-18] MEDS: DAPAGLIFLOZIN PROPANEDIOL 10 MG TABLET PO SCH (10:29)
[2022-06-18] MEDS: MONTELUKAST 10 MG TAB PO SCH (10:36)
[2022-06-18] MEDS: CHOLECALCIFEROL 125 MCG (5000 IU) TABLET PO SCH (10:36)
[2022-06-18] MEDS: atenoloL 25 MG TAB PO SCH (10:37)
[2022-06-18] MEDS: LEVOTHYROXINE 75 MCG TAB PO SCH (10:37)
[2022-06-18] MEDS: TAMSULOSIN 0.4 MG CAP.ER.24H PO SCH (10:37)
[2022-06-18] MEDS: PANTOPRAZOLE 40 MG TABLET PO SCH (10:37)
[2022-06-18] MEDS: MEGESTROL 40 MG TAB PO SCH ×2 (10:37→19:57)
--- NOTE | 2022-06-18 10:39 | CT ---
EXAMINATION TYPE: MG 3D screening mammo w/cad DATE OF EXAM: 06/17/2022 COMPARISON: None HISTORY: Dental pain CT DLP: 251.2 mGycm Automated exposure control for dose reduction was used. Contrast: None Technique: Axial images 2 mm thick sections. Reconstructed images in the coronal and sagittal planes. Images were obtained from the soft tissue neck study performed same day. FINDINGS: Maxilla and mandible appear intact. Temporomandibular junctions are normal. No acute fractures are ev ident. No suspicious lytic areas are evident. Note is made of the cavitary area within the superior m edial right side more anterior molar, example image series 2024 image 18. IMPRESSION: 1. NO DISCRETE MANDIBLE ARE MAXILLARY ABNORMALITY IDENTIFIED. 2. DENTAL EVALUATION WITH ATTENTION TO AN ANTERIOR RIGHT MEDIAL MALLEOLAR.
--- NOTE | 2022-06-18 10:42 | P.HPIM ---
History of Present Illness H&P Date: 06/18/22 Chief Complaint: Dental pain This is a 71-year-old male patient of Dr. Honeycutt who presented with complaints of ongoing dental pain that has been occurring over the past few weeks. Patient reports he's had poor dental health for quite some time but unable to see a dentist at this time. CT of neck completed showing soft tissue swelling anterior to the right mandible is nonspecific no focal bone destruction no fracture no definitive fluid collection to suggest abscess. Patient does have a past medical history of coronary artery disease with multiple stent placement last and 2017, GERD, hyperlipidemia, hypertension, myocardial infarction, prostate cancer. Current vital signs temp 97.7, her 87, respiratory rate 18, blood pressure 120/70, oxygen saturation 98% on room air. At this time patient will be admitted patient started on IV Unasyn. Blood culture ordered. Repeat labs ordered. Dr. Winters consulted for dental assessment. Patient denies chest pain. Patient denies nausea vomiting or diarrhea. Patient denies any urinary burning or frequency Review of Systems Please refer to HPI otherwise unremarkable Past Medical History Past Medical History: Coronary Artery Disease (CAD), Cancer, Chest Pain / Angina, Diabetes Mellitus, GERD/Reflux, Hyperlipidemia, Hypertension, Myocardial Infarction ([place]) Additional Past Medical History / Comment(s): PROSTATE CANCER RADIATION/SEED IMPLANTS, STATES HE HAD HX OF RADIATION WHICH BURNED HIS COLON. , STATED "HAD BLOOD IN STOOL". Last Myocardial Infarction Date:: 2017 History of Any Multi-Drug Resistant Organisms: None Reported Past Surgical History: Heart Catheterization With Stent, Orthopedic Surgery Additional Past Surgical History / Comment(s): HEART CATH WITH STENT multiple times he believes he has 4 stents with last one in 2018, COLONOSCOPY, back surgery Past Anesthesia/Blood Transfusion Reactions: No Reported Reaction Date of Last Stent Placement:: 2017 Past Psychological History: No Psychological Hx Reported Smoking Status: Former smoker Past Alcohol Use History: None Reported Past Drug Use History: Marijuana - Past Family History Mother Family Medical History: Cancer Brother(s) Family Medical History: Coronary Artery Disease (CAD), Diabetes Mellitus, Myocardial Infarction ([place]) Father Family Medical History: Myocardial Infarction ([place]) Additional Family Medical History / Comment(s): Father of [place] at 99 years old Medications and Allergies Home Medications Medication Instructions Recorded Confirmed Type Glimepiride [Amaryl] 4 mg PO BID-W/MEALS 03/11/14 06/18/22 History Tamsulosin [Flomax] 0.4 mg PO DAILY 03/11/14 06/18/22 History Levocetirizine Dihydrochloride 5 mg PO DAILY 04/14/15 06/18/22 History [Xyzal] sitaGLIPtin PHOS/metFORMIN HCL 1 tab PO BID-W/MEALS 04/14/15 06/18/22 History [Janumet 50-1,000 mg Tablet] Losartan [Cozaar] 50 mg PO DAILY 06/10/15 06/18/22 History Megestrol Acetate 20 mg PO BID 03/29/16 06/18/22 History Atorvastatin [Lipitor] 40 mg PO HS #30 tablet 03/31/16 06/18/22 Rx atenoloL 25 mg PO DAILY 11/18/16 06/18/22 History Canagliflozin [Invokana] 300 mg PO DAILY 02/02/22 06/18/22 History Cholecalciferol [Vitamin D3 (125 125 mcg PO DAILY 02/02/22 06/18/22 History Mcg = 5000 Iu)] HYDROcodone/APAP 7.5-325MG [Primrose 1 tab PO TID PRN 02/02/22 06/18/22 History 7.5-325] Naproxen [Naprosyn] 500 mg PO BID PRN 02/02/22 06/18/22 History Nitroglycerin Sl Tabs [Nitrostat] 0.4 mg SL Q5M PRN 02/02/22 06/18/22 History Omeprazole 40 mg PO DAILY 02/02/22 06/18/22 History Zolpidem Tartrate [Ambien] 5 mg PO HS 02/02/22 06/18/22 History Apixaban [Eliquis] 5 mg PO BID 06/18/22 06/18/22 History Azithromycin [Zithromax Z Pack] See Taper PO DAILY 06/18/22 06/18/22 History Levothyroxine Sodium [Synthroid] 75 mcg PO DAILY 06/18/22 06/18/22 History Montelukast [Singulair] 10 mg PO DAILY 06/18/22 06/18/22 History Semaglutide [Ozempic] 0.5 mg SQ TH 06/18/22 06/18/22 History Allergies Allergy/AdvReac Type Severity Reaction Status Date / Time No Known Allergies Allergy Verified 06/18/22 07:13 Physical Exam Vitals: Vital Signs Temp Pulse Pulse Resp BP BP Pulse Ox 06/18/22 08:28 89 18 112/67 97 06/18/22 07:30 97.7 F 87 18 120/70 98 06/18/22 07:00 98.0 F 96 20 146/74 98 06/18/22 06:29 97.8 F 76 16 144/76 99 06/18/22 05:00 82 16 114/77 98 06/18/22 04:00 16 06/18/22 03:13 16 06/18/22 02:24 77 16 115/76 98 06/18/22 01:15 98.6 F 98 16 120/70 99 06/17/22 23:37 98.2 F 95 20 90/56 97 Intake and Output 06/17/22 06/18/22 06/18/22 22:59 06:59 14:59 Other: # Voids 1 Weight 81.647 kg Results CBC & Chem 7: 06/18/22 01:18 06/18/22 01:18 Labs: Abnormal Lab Results - Last 24 Hours (Table) 06/18/22 06/18/22 Range/Units 01:18 01:18 WBC 12.8 H (3.8-10.6) k/uL Neutrophils # 11.0 H (1.3-7.7) k/uL Lymphocytes # 0.8 L (1.0-4.8) k/uL Sodium 133 L (137-145) mmol/L Potassium 5.5 H (3.5-5.1) mmol/L Carbon Dioxide 12 L (22-30) mmol/L BUN 26 H (9-20) mg/dL Glucose 159 H (74-99) mg/dL AST 16 L (17-59) U/L C-Reactive Protein 21.0 H (<1.0) mg/dL Assessment and Plan Assessment: 1. Dental pain. No signs of abscess on computed tomography scan. 2. Diabetes mellitus type 2 sliding scale coverage added 3. History of pulmonary embolism and DVT. Patient is maintained on eliquis 4. History of prostate cancer 5. History of hyperlipidemia 6. History of coronary artery disease with previous angioplasty DVT prophylaxis eliquis GI prophylaxis Protonix Dr. Winters consulted for dental assessment Blood culture ordered Continue IV Unasyn Repeat labs ordered Time with Patient: Greater than 30 (Greater than 60% of the total time spent in counseling and coordination of care)
[2022-06-18] MEDS: AMPICILLIN-SULBACTAM 3 GM in SODIUM CHLORIDE 0.9% 100 ML IVPB SCH ×2 (12:15→17:51)
[2022-06-18 12:35] LABS: Glucose,Whole Blood 167 mg/dL (70-110)
[2022-06-18] MEDS: INSULIN ASPART (NovoLOG) 100 UNIT/ML VIAL SQ SCH ×3 (12:59→20:52)
[2022-06-18 17:28] LABS: Glucose,Whole Blood 149 mg/dL (70-110)
--- NOTE | 2022-06-18 17:35 | P.GSCN ---
History of Present Illness Consult date: 06/18/22 Reason for Consult: Dental pain. Requesting physician: Stanley Larkin History of present illness: 71-year-old male presented to the emergency room with dental pain been going on for several months. Patient has had his upper teeth removed recently but unable to get back into his dentist until July 06. Reports he has pain of his lower right and desires extraction of all his remaining teeth. Patient has been on Unasyn since yesterday and reports that his pain and swelling has improved. Review of Systems C the medical H&P Dental review of systems per HPI Past Medical History Past Medical History: Coronary Artery Disease (CAD), Cancer, Chest Pain / Angina, Diabetes Mellitus, GERD/Reflux, Hyperlipidemia, Hypertension, Myocardial Infarction ([place]) Additional Past Medical History / Comment(s): PROSTATE CANCER RADIATION/SEED IMPLANTS, STATES HE HAD HX OF RADIATION WHICH BURNED HIS COLON. , STATED "HAD BLOOD IN STOOL". Last Myocardial Infarction Date:: 2017 History of Any Multi-Drug Resistant Organisms: None Reported Past Surgical History: Heart Catheterization With Stent, Orthopedic Surgery Additional Past Surgical History / Comment(s): HEART CATH WITH STENT multiple times he believes he has 4 stents with last one in 2018, COLONOSCOPY, back surgery Past Anesthesia/Blood Transfusion Reactions: No Reported Reaction Date of Last Stent Placement:: 2017 Past Psychological History: No Psychological Hx Reported Smoking Status: Former smoker Past Alcohol Use History: None Reported Past Drug Use History: Marijuana - Past Family History Mother Family Medical History: Cancer Brother(s) Family Medical History: Coronary Artery Disease (CAD), Diabetes Mellitus, Myocardial Infarction ([place]) Father Family Medical History: Myocardial Infarction ([place]) Additional Family Medical History / Comment(s): Father of [place] at 99 years old Medications and Allergies Home Medications and Allergies Comment(s): Patient has a history of Eliquis at home. Patient reports going off this medication for days and weeks at a time. Advised patient this was not a good idea and should only hold medication upon consultation with his physician Home Medications Medication Instructions Recorded Confirmed Type Glimepiride [Amaryl] 4 mg PO BID-W/MEALS 03/11/14 06/18/22 History Tamsulosin [Flomax] 0.4 mg PO DAILY 03/11/14 06/18/22 History Levocetirizine Dihydrochloride 5 mg PO DAILY 04/14/15 06/18/22 History [Xyzal] sitaGLIPtin PHOS/metFORMIN HCL 1 tab PO BID-W/MEALS 04/14/15 06/18/22 History [Janumet 50-1,000 mg Tablet] Losartan [Cozaar] 50 mg PO DAILY 06/10/15 06/18/22 History Megestrol Acetate 20 mg PO BID 03/29/16 06/18/22 History Atorvastatin [Lipitor] 40 mg PO HS #30 tablet 03/31/16 06/18/22 Rx atenoloL 25 mg PO DAILY 11/18/16 06/18/22 History Canagliflozin [Invokana] 300 mg PO DAILY 02/02/22 06/18/22 History Cholecalciferol [Vitamin D3 (125 125 mcg PO DAILY 02/02/22 06/18/22 History Mcg = 5000 Iu)] HYDROcodone/APAP 7.5-325MG [[place] 1 tab PO TID PRN 02/02/22 06/18/22 History 7.5-325] Naproxen [Naprosyn] 500 mg PO BID PRN 02/02/22 06/18/22 History Nitroglycerin Sl Tabs [Nitrostat] 0.4 mg SL Q5M PRN 02/02/22 06/18/22 History Omeprazole 40 mg PO DAILY 02/02/22 06/18/22 History Zolpidem Tartrate [Ambien] 5 mg PO HS 02/02/22 06/18/22 History Apixaban [Eliquis] 5 mg PO BID 06/18/22 06/18/22 History Azithromycin [Zithromax Z Pack] See Taper PO DAILY 06/18/22 06/18/22 History Levothyroxine Sodium [Synthroid] 75 mcg PO DAILY 06/18/22 06/18/22 History Montelukast [Singulair] 10 mg PO DAILY 06/18/22 06/18/22 History Semaglutide [Ozempic] 0.5 mg SQ TH 06/18/22 06/18/22 History Allergies Allergy/AdvReac Type Severity Reaction Status Date / Time No Known Allergies Allergy Verified 06/18/22 07:13 Surgical - Exam Vital Signs Temp Pulse Resp BP Pulse Ox 98.2 F 95 20 90/56 97 06/17/22 23:37 06/17/22 23:37 06/17/22 23:37 06/17/22 23:37 06/17/22 23:37 Patient sitting up in bed with his at his bedside reports dental pain on the lower right for many months. Patient is able to open his mouth completely no floor of mouth elevation slight bleeding from the gingiva of tooth #30 with deep decay of tooth #30. Tenderness to palpation of tooth #30. Minimal soft tissue swelling around the vestibule of tooth #30. Patient has poor cross structure of his remaining teeth. And some evidence of periodontal disease. Extraorally slight swelling is noted over the right mandible in the area of tooth #30. No airway embarrassment. No trouble swallowing noted. Results - Labs 06/18/22 01:18 06/18/22 01:18 Abnormal Lab Results - Last 24 Hours (Table) 06/18/22 06/18/22 06/18/22 Range/Units 01:18 01:18 01:18 WBC 12.8 H (3.8-10.6) k/uL Neutrophils # 11.0 H (1.3-7.7) k/uL Lymphocytes # 0.8 L (1.0-4.8) k/uL Sodium 133 L (137-145) mmol/L Potassium 5.5 H (3.5-5.1) mmol/L Carbon Dioxide 12 L (22-30) mmol/L BUN 26 H (9-20) mg/dL Glucose 159 H (74-99) mg/dL POC Glucose (mg/dL) (70-110) mg/dL Hemoglobin A1c 7.8 H (0.0-6.0) % AST 16 L (17-59) U/L C-Reactive Protein 21.0 H (<1.0) mg/dL 06/18/22 06/18/22 Range/Units 12:34 17:25 WBC (3.8-10.6) k/uL Neutrophils # (1.3-7.7) k/uL Lymphocytes # (1.0-4.8) k/uL Sodium (137-145) mmol/L Potassium (3.5-5.1) mmol/L Carbon Dioxide (22-30) mmol/L BUN (9-20) mg/dL Glucose (74-99) mg/dL POC Glucose (mg/dL) 167 H 149 H (70-110) mg/dL Hemoglobin A1c (0.0-6.0) % AST (17-59) U/L C-Reactive Protein (<1.0) mg/dL Diabetes panel 06/18/22 06/18/22 Range/Units 01:18 01:18 Sodium 133 L (137-145) mmol/L Potassium 5.5 H (3.5-5.1) mmol/L Chloride 105 (98-107) mmol/L Carbon Dioxide 12 L (22-30) mmol/L BUN 26 H (9-20) mg/dL Creatinine 0.92 (0.66-1.25) mg/dL Glucose 159 H (74-99) mg/dL Hemoglobin A1c 7.8 H (0.0-6.0) % Calcium 9.1 (8.4-10.2) mg/dL AST 16 L (17-59) U/L ALT 15 (4-49) U/L Alkaline Phosphatase 66 (38-126) U/L Total Protein 7.6 (6.3-8.2) g/dL Albumin 3.6 (3.5-5.0) g/dL Calcium panel 06/18/22 Range/Units 01:18 Calcium 9.1 (8.4-10.2) mg/dL Phosphorus 3.0 (2.5-4.5) mg/dL Albumin 3.6 (3.5-5.0) g/dL Pituitary panel 06/18/22 Range/Units 01:18 Sodium 133 L (137-145) mmol/L Potassium 5.5 H (3.5-5.1) mmol/L Chloride 105 (98-107) mmol/L Carbon Dioxide 12 L (22-30) mmol/L BUN 26 H (9-20) mg/dL Creatinine 0.92 (0.66-1.25) mg/dL Glucose 159 H (74-99) mg/dL Calcium 9.1 (8.4-10.2) mg/dL Adrenal panel 06/18/22 Range/Units 01:18 Sodium 133 L (137-145) mmol/L Potassium 5.5 H (3.5-5.1) mmol/L Chloride 105 (98-107) mmol/L Carbon Dioxide 12 L (22-30) mmol/L BUN 26 H (9-20) mg/dL Creatinine 0.92 (0.66-1.25) mg/dL Glucose 159 H (74-99) mg/dL Calcium 9.1 (8.4-10.2) mg/dL Total Bilirubin 1.0 (0.2-1.3) mg/dL AST 16 L (17-59) U/L ALT 15 (4-49) U/L Alkaline Phosphatase 66 (38-126) U/L Total Protein 7.6 (6.3-8.2) g/dL Albumin 3.6 (3.5-5.0) g/dL Assessment and Plan Assessment: Dental decay of tooth #30 with significant pain. Patient is tolerating the IV antibiotics which seem to be helping. Plan: Patient and consulted about outpatient extraction of tooth #30 patient desires extraction of all his remaining teeth and this may be more difficult to schedule. Offered patient and appointment as an outpatient on Tuesday afternoon reminded the patient to ask Dr. Larkin about his Eliquis and 2 arrive at the office and by mouth and bring his for a ride home.
[2022-06-18] MEDS: HYDROcodone/APAP 7.5-325MG 1 EACH TAB PO PRN (18:37)
[2022-06-18] MEDS: APIXABAN 5 MG TAB PO SCH (19:56)
[2022-06-18] MEDS: ATORVASTATIN 40 MG TAB PO SCH (19:57)
[2022-06-18] MEDS: ZOLPIDEM 5 MG TAB PO SCH (19:57)
[2022-06-18 20:49] LABS: Glucose,Whole Blood 241 mg/dL (70-110)
[2022-06-19] MEDS: AMPICILLIN-SULBACTAM 3 GM in SODIUM CHLORIDE 0.9% 100 ML IVPB SCH ×6 (05:31→23:45)
[2022-06-19] MEDS: PANTOPRAZOLE 40 MG TABLET PO SCH (05:32)
[2022-06-19] MEDS: LEVOTHYROXINE 75 MCG TAB PO SCH (05:32)
[2022-06-19 06:23] LABS: Glucose,Whole Blood 175 mg/dL (70-110)
[2022-06-19] MEDS: INSULIN ASPART (NovoLOG) 100 UNIT/ML VIAL SQ SCH ×4 (06:34→21:45)
[2022-06-19] MEDS: MONTELUKAST 10 MG TAB PO SCH (08:22)
[2022-06-19] MEDS: TAMSULOSIN 0.4 MG CAP.ER.24H PO SCH (08:23)
[2022-06-19] MEDS: HYDROcodone/APAP 7.5-325MG 1 EACH TAB PO PRN ×2 (08:23→20:21)
[2022-06-19] MEDS: MEGESTROL 40 MG TAB PO SCH ×2 (08:23→20:21)
[2022-06-19] MEDS: CHOLECALCIFEROL 125 MCG (5000 IU) TABLET PO SCH (08:23)
[2022-06-19] MEDS: atenoloL 25 MG TAB PO SCH (08:23)
[2022-06-19] MEDS: DAPAGLIFLOZIN PROPANEDIOL 10 MG TABLET PO SCH (08:26)
[2022-06-19] MEDS: APIXABAN 5 MG TAB PO SCH ×2 (08:27→20:21)
[2022-06-19 12:00] LABS: Basophils # (A) 0.01 X 10*3/uL (0.00-0.10); Basophils % (A) 0.1 %; Eosinophils # (A) 0.02 X 10*3/uL (0.04-0.35); Eosinophils % (A) 0.2 %; HCT 35.6 % (39.6-50.0); HGB 11.9 g/dL (13.0-17.0); Immature Grans, Automated 1.1 %; Lymphocytes # (A) 1.39 X 10*3/uL (0.90-5.00); Lymphocytes % (A) 11.1 %; MCH 30.2 pg (27.0-32.0); MCHC 33.4 g/dL (32.0-37.0); MCV 90.4 fL (80.0-97.0); Mean Platelet Volume 9.6 fL (9.5-12.2); Monocytes # (A) 1.28 X 10*3/uL (0.20-1.00); Monocytes % (A) 10.3 %; NRBC Per 100 WBC 0 /100 WBCS (0.0-0.0); Neutrophils # (A) 9.63 X 10*3/uL (1.80-7.70); Neutrophils % (A) 77.2 %; Platelet Count 344 X 10*3/uL (140-440); RBC 3.94 X 10*6/uL (4.40-5.60); RDW 14.6 % (11.5-14.5); WBC 12.47 X 10*3/uL (4.50-10.00)
[2022-06-19 12:16] LABS: African American GFR (CKD) 100.2 (60.0-200.0); Albumin 2.9 g/dL (3.8-4.9); Albumin/Globulin Ratio 0.97 (1.60-3.17); Anion Gap 13.3 mmol/L (10.00-18.00); BUN/Creat Ratio 21.88 Ratio (12.00-20.00); Blood Urea Nitrogen 18.6 mg/dL (9.0-27.0); Calcium 8.4 mg/dL (8.7-10.3); Carbon Dioxide 15.5 mmol/L (20.0-27.5); Magnesium 1.9 mg/dL (1.5-2.4); Non-African American GFR(CKD) 86.4 (60.0-200.0); Phosphorus 1.9 mg/dL (2.4-5.1); Potassium 4.3 mmol/L (3.5-5.5); Total Bilirubin 0.4 mg/dL (0.30-1.20); Total Protein 5.9 g/dL (6.2-8.2)
[2022-06-19] MEDS: SODIUM CHLORIDE 0.9% 1,000 ML IV SCH ×4 (12:24→20:24)
[2022-06-19 12:34] LABS: Glucose,Whole Blood 125 mg/dL (70-110)
--- NOTE | 2022-06-19 12:44 | P.PN ---
Subjective Progress Note Date: 06/19/22 This is a 71-year-old male patient of Dr. Honeycutt who presented with complaints of ongoing dental pain that has been occurring over the past few weeks. Patient reports he's had poor dental health for quite some time but unable to see a dentist at this time. CT of neck completed showing soft tissue swelling anterior to the right mandible is nonspecific no focal bone destruction no fracture no definitive fluid collection to suggest abscess. Patient does have a past medical history of coronary artery disease with multiple stent placement last and 2017, GERD, hyperlipidemia, hypertension, myocardial infarction, prostate cancer. Current vital signs temp 97.7, her 87, respiratory rate 18, blood pressure 120/70, oxygen saturation 98% on room air. At this time patient will be admitted patient started on IV Unasyn. Blood culture ordered. Repeat labs ordered. Dr. Winters consulted for dental assessment. Patient denies chest pain. Patient denies nausea vomiting or diarrhea. Patient denies any urinary burning or frequency Objective - Vital Signs Vital signs: Vital Signs Temp 97.8 F 06/19/22 07:00 Pulse 86 06/19/22 07:00 Resp 18 06/19/22 08:00 BP 145/72 06/19/22 07:00 Pulse Ox 98 06/19/22 07:00 FiO2 Intake & Output 06/18/22 06/19/22 06/19/22 18:59 06:59 18:59 Weight 81.647 kg Other: Voiding Method Toilet Toilet # Voids 1 2 - Exam In general patient is alert and oriented x 3 in no distress HEENT there is pain and swelling in the right mandibular with severe tenderness Neck is supple no JVD no goiter no lymphadenopathy no carotid bruit Chest examination is clear to auscultation no crackles no wheezing Cardiac exam reveals regular heart sounds S1 and S2 no gallops no murmurs Abdomen is soft nontender no organomegaly with normal bowel sounds Extremity exam reveals no edema no cyanosis or clubbing Neurological examination reveals no gross focal deficits - Labs CBC & Chem 7: 06/19/22 08:07 06/19/22 08:07 Labs: Abnormal Lab Results - Last 24 Hours (Table) 06/18/22 06/18/22 06/18/22 Range/Units 01:18 17:25 20:47 WBC (4.50-10.00) X 10*3/uL RBC (4.40-5.60) X 10*6/uL Hgb (13.0-17.0) g/dL Hct (39.6-50.0) % RDW (11.5-14.5) % Immature Gran # (0.00-0.04) X 10*3/uL Neutrophils # (1.80-7.70) X 10*3/uL Monocytes # (0.20-1.00) X 10*3/uL Eosinophils # (0.04-0.35) X 10*3/uL Carbon Dioxide (20.0-27.5) mmol/L BUN/Creatinine Ratio (12.00-20.00) Ratio Glucose (70-110) mg/dL POC Glucose (mg/dL) 149 H 241 H (70-110) mg/dL Hemoglobin A1c 7.8 H (0.0-6.0) % Calcium (8.7-10.3) mg/dL Phosphorus (2.4-5.1) mg/dL AST (14-35) U/L Alkaline Phosphatase (41-126) U/L Total Protein (6.2-8.2) g/dL Albumin (3.8-4.9) g/dL Albumin/Globulin Ratio (1.60-3.17) g/dL 06/19/22 06/19/22 06/19/22 Range/Units 06:21 08:07 08:07 WBC 12.47 H (4.50-10.00) X 10*3/uL RBC 3.94 L (4.40-5.60) X 10*6/uL Hgb 11.9 L (13.0-17.0) g/dL Hct 35.6 L (39.6-50.0) % RDW 14.6 H (11.5-14.5) % Immature Gran # 0.14 H (0.00-0.04) X 10*3/uL Neutrophils # 9.63 H (1.80-7.70) X 10*3/uL Monocytes # 1.28 H (0.20-1.00) X 10*3/uL Eosinophils # 0.02 L (0.04-0.35) X 10*3/uL Carbon Dioxide 15.5 L (20.0-27.5) mmol/L BUN/Creatinine Ratio 21.88 H (12.00-20.00) Ratio Glucose 115 H (70-110) mg/dL POC Glucose (mg/dL) 175 H (70-110) mg/dL Hemoglobin A1c (0.0-6.0) % Calcium 8.4 L (8.7-10.3) mg/dL Phosphorus 1.9 L (2.4-5.1) mg/dL AST 9 L (14-35) U/L Alkaline Phosphatase 40 L (41-126) U/L Total Protein 5.9 L (6.2-8.2) g/dL Albumin 2.9 L (3.8-4.9) g/dL Albumin/Globulin Ratio 0.97 L (1.60-3.17) g/dL 06/19/22 Range/Units 12:32 WBC (4.50-10.00) X 10*3/uL RBC (4.40-5.60) X 10*6/uL Hgb (13.0-17.0) g/dL Hct (39.6-50.0) % RDW (11.5-14.5) % Immature Gran # (0.00-0.04) X 10*3/uL Neutrophils # (1.80-7.70) X 10*3/uL Monocytes # (0.20-1.00) X 10*3/uL Eosinophils # (0.04-0.35) X 10*3/uL Carbon Dioxide (20.0-27.5) mmol/L BUN/Creatinine Ratio (12.00-20.00) Ratio Glucose (70-110) mg/dL POC Glucose (mg/dL) 125 H (70-110) mg/dL Hemoglobin A1c (0.0-6.0) % Calcium (8.7-10.3) mg/dL Phosphorus (2.4-5.1) mg/dL AST (14-35) U/L Alkaline Phosphatase (41-126) U/L Total Protein (6.2-8.2) g/dL Albumin (3.8-4.9) g/dL Albumin/Globulin Ratio (1.60-3.17) g/dL Microbiology - Last 24 Hours (Table) 06/18/22 00:00 Blood Culture - Preliminary Blood No Growth after 24 hours Assessment and Plan Assessment: 1. Dental pain. No signs of abscess on computed tomography scan. 2. Diabetes mellitus type 2 sliding scale coverage added 3. History of pulmonary embolism and DVT. Patient is maintained on eliquis 4. History of prostate cancer 5. History of hyperlipidemia 6. History of coronary artery disease with previous angioplasty DVT prophylaxis eliquis GI prophylaxis Protonix Dr. Winters consulted for dental assessment Blood culture ordered Continue IV Unasyn Repeat labs ordered At this time patient is still having severe pain IV Dilaudid was admitted continue IV Unasyn possible discharge to home tomorrow Follow-up with dentist on Tuesday for tooth extraction
[2022-06-19] MEDS: HYDROmorphone 0.5 MG/0.5 ML SYRINGE IVP PRN ×2 (13:29→17:56)
[2022-06-19 17:34] LABS: Glucose,Whole Blood 164 mg/dL (70-110)
[2022-06-19] MEDS: ZOLPIDEM 5 MG TAB PO SCH (20:22)
[2022-06-19] MEDS: ATORVASTATIN 40 MG TAB PO SCH (20:22)
[2022-06-19 21:05] LABS: Glucose,Whole Blood 150 mg/dL (70-110)
[2022-06-20] MEDS: HYDROmorphone 0.5 MG/0.5 ML SYRINGE IVP PRN (01:52)
[2022-06-20] MEDS: INSULIN ASPART (NovoLOG) 100 UNIT/ML VIAL SQ SCH (06:38)
[2022-06-20] MEDS: SODIUM CHLORIDE 0.9% 1,000 ML IV SCH (06:38)
[2022-06-20 06:39] LABS: Glucose,Whole Blood 113 mg/dL (70-110)
[2022-06-20] MEDS: AMPICILLIN-SULBACTAM 3 GM in SODIUM CHLORIDE 0.9% 100 ML IVPB SCH (06:39)
[2022-06-20] MEDS: HYDROcodone/APAP 7.5-325MG 1 EACH TAB PO PRN (06:44)
[2022-06-20] MEDS: LEVOTHYROXINE 75 MCG TAB PO SCH (06:44)
[2022-06-20] MEDS: PANTOPRAZOLE 40 MG TABLET PO SCH (06:44)
[2022-06-20 08:12] VITALS: BP 115/69; PULSE 82; RESP 16; TEMP 98.1
[2022-06-20] MEDS: APIXABAN 5 MG TAB PO SCH (08:18)
[2022-06-20] MEDS: CHOLECALCIFEROL 125 MCG (5000 IU) TABLET PO SCH (08:23)
[2022-06-20] MEDS: TAMSULOSIN 0.4 MG CAP.ER.24H PO SCH (08:23)
[2022-06-20] MEDS: MONTELUKAST 10 MG TAB PO SCH (08:23)
[2022-06-20] MEDS: MEGESTROL 40 MG TAB PO SCH (08:23)
[2022-06-20] MEDS: atenoloL 25 MG TAB PO SCH (08:23)
[2022-06-20] MEDS: DAPAGLIFLOZIN PROPANEDIOL 10 MG TABLET PO SCH (08:25)
[2022-06-20 13:29] LABS: Basophils # (A) 0.02 X 10*3/uL (0.00-0.10); Basophils % (A) 0.2 %; Eosinophils # (A) 0.08 X 10*3/uL (0.04-0.35); Eosinophils % (A) 0.8 %; HCT 36.9 % (39.6-50.0); HGB 11.4 g/dL (13.0-17.0); Immature Grans, Automated 1.1 %; Lymphocytes # (A) 1.12 X 10*3/uL (0.90-5.00); Lymphocytes % (A) 11.2 %; MCH 28.9 pg (27.0-32.0); MCHC 30.9 g/dL (32.0-37.0); MCV 93.7 fL (80.0-97.0); Mean Platelet Volume 9.9 fL (9.5-12.2); Monocytes # (A) 0.97 X 10*3/uL (0.20-1.00); Monocytes % (A) 9.7 %; NRBC Per 100 WBC 0 /100 WBCS (0.0-0.0); Platelet Count 342 X 10*3/uL (140-440); RBC 3.94 X 10*6/uL (4.40-5.60); RDW 14.6 % (11.5-14.5)
[2022-06-20 13:45] LABS: African American GFR (CKD) 110.6 (60.0-200.0); Albumin 2.8 g/dL (3.8-4.9); Albumin/Globulin Ratio 1.01 (1.60-3.17); Anion Gap 15.4 mmol/L (10.00-18.00); BUN/Creat Ratio 14.28 Ratio (12.00-20.00); Blood Urea Nitrogen 9.6 mg/dL (9.0-27.0); Calcium 8.4 mg/dL (8.7-10.3); Carbon Dioxide 15.1 mmol/L (20.0-27.5); Globulin 2.8 g/dL (1.6-3.3); Non-African American GFR(CKD) 95.4 (60.0-200.0); Potassium 4.2 mmol/L (3.5-5.5); Total Bilirubin 0.4 mg/dL (0.30-1.20); Total Protein 5.6 g/dL (6.2-8.2)
== END 2022-06-20 12:20 | disposition home or self-care (01) ==
LOC: EC 23:02 → 6NMEDSUR 06-18 01:30
PROVIDERS: ADMIT Internal Medicine; ATTEND Internal Medicine
DX: K02.9 Dental caries, unspecified (principal); K04.7 Periapical abscess without sinus; E11.9 Type 2 diabetes mellitus without complications; I25.10 Atherosclerotic heart disease of native coronary artery without angina pectoris; K21.9 Gastro-esophageal reflux disease without esophagitis; I10 Essential (primary) hypertension; E78.5 Hyperlipidemia, unspecified; I25.2 Old myocardial infarction; Z85.46 Personal history of malignant neoplasm of prostate; Z86.711 Personal history of pulmonary embolism; Z86.718 Personal history of other venous thrombosis and embolism; Z87.891 Personal history of nicotine dependence; Z92.3 Personal history of irradiation; Z95.5 Presence of coronary angioplasty implant and graft; Z79.84 Long term (current) use of oral hypoglycemic drugs; Z79.899 Other long term (current) drug therapy; Z79.52 Long term (current) use of systemic steroids; Z79.890 Hormone replacement therapy; Z79.01 Long term (current) use of anticoagulants; Z83.3 Family history of diabetes mellitus; Z82.49 Family history of ischemic heart disease and other diseases of the circulatory system
CPT/HCPCS: 96361 ×2; 96365; 96366 ×3; 96372 ×2; 96375 ×2; 96376 ×2; 99285; 80053 ×3; 83605; 83735 ×2; 84100 ×2; 84484; 85025 ×3; 85610; 85730; 86140; 87040; 83036; 70491; G0378 ×3; J2270; J1100; J2405; S0179 ×3; J0295 ×3; J1170 ×2; Q9967; 70486

== ENCOUNTER → 2022-10-05 | Outpatient (CLI) | payer MEDICARE, OTHER ==
[2022-10-05 12:16] LABS: African American GFR (CKD) >90 (>60 ml/min/1.73 sqM); Blood Urea Nitrogen 24 mg/dL (9-20); Non-African American GFR(CKD) 83 (>60 ml/min/1.73 sqM)
--- NOTE | 2022-10-05 12:42 | CT ---
EXAMINATION TYPE: CT abdomen pelvis w con CT DLP: 1265.9 mGycm, Automated exposure control for dose reduction was used. DATE OF EXAM: 10/05/2022 12:34 PM COMPARISON: CT chest abdomen pelvis 03/28/2019 CLINICAL INDICATION:Male, 71 years old with history of C61 prostate cancer; f/u prostate ca TECHNIQUE: Standard CT of the abdomen and pelvis following the administration of 100 cc of Isovue 3 00 IV contrast material and oral contrast. Coronal and sagittal reformats were performed. FINDINGS: LOWER CHEST: Visualized lungs are clear. Punctate calcified granuloma within the left lower lobe. Cor onary artery calcifications. ABDOMEN LIVER: Unremarkable GALLBLADDER AND BILE DUCTS: Cholelithiasis without surrounding inflammatory changes. No biliary duct dilatation. PANCREAS: Fatty infiltration of the pancreatic head and uncinate process. SPLEEN: Unremarkable. ADRENAL GLANDS: Unremarkable. KIDNEYS AND URETERS: No evidence of hydronephrosis or renal calculus. The kidneys enhance symmetrical ly without suspicious focal lesion. PELVIS BLADDER: Incompletely distended but grossly unremarkable. REPRODUCTIVE: Brachytherapy seeds are demonstrated within the prostate region. ABDOMEN & PELVIS STOMACH AND BOWEL: Stomach and duodenum are unremarkable no focal wall thickening. No evidence of bow el obstruction. Few diverticula of the sigmoid colon without surrounding inflammatory changes to sugg est acute diverticulitis. Enteric contrast reaches the ascending colon. PERITONEUM: No evidence of pneumoperitoneum or free fluid. VASCULATURE: Mild atherosclerotic calcifications are present throughout the abdominal aorta and its b ranches. No evidence of aortic aneurysm. MUSCULOSKELETAL: No acute osseous abnormalities. No blastic or lytic lesions identified. Postsurgical changes from posterior fusion surgery at L4-L5 redemonstrated. LYMPH NODES: No gross evidence for lymphadenopathy. SOFT TISSUE/ABDOMINAL WALL: Unremarkable IMPRESSION: 1. Posttreatment changes of the prostate gland. No evidence metastatic disease within the visualized abdomen pelvis. 2. Cholelithiasis.
== END | disposition home or self-care (01) ==
LOC: RADCTMAIN 10:24
PROVIDERS: ATTEND Internal Medicine Hematology & Oncology
DX: C61 Malignant neoplasm of prostate (principal); K80.20 Calculus of gallbladder without cholecystitis without obstruction; E11.9 Type 2 diabetes mellitus without complications; I10 Essential (primary) hypertension; R56.9 Unspecified convulsions
CPT/HCPCS: 82565; 84520; 74177; 36415; Q9967

== ENCOUNTER 2022-10-16 10:42 | Emergency (ER) | payer MEDICARE, OTHER ==
--- NOTE | 2022-10-16 11:06 | ED ---
General Adult HPI - General Stated complaint: Altered Mental Status Time Seen by Provider: 10/16/22 10:47 Source: patient, family, RN notes reviewed Limitations: no limitations - History of Present Illness Initial comments: Patient is a pleasant 71-year-old male presenting to the emergency department for change in mental status. Incident occurred around 4:30 in the morning. Patient was sleeping and stated that he was drinking beer with his brother. Patient did pretend to drink beer while drinking his water bottle at the bedside and did spill some. Patient does admit to increased stress recently. Patient's brother is and his birthday was yesterday. provides majority of history as patient does not recall the incident well incident lasted over an hour. Patient did get out of bed and sat on the floor. Patient did hurt his right knee while doing this. Patient has been fine since that time and remains fine at this time. - Related Data Home Medications Medication Instructions Recorded Confirmed Glimepiride [Amaryl] 4 mg PO BID-W/MEALS 03/11/14 10/14/22 Tamsulosin [Flomax] 0.4 mg PO BID 03/11/14 10/14/22 Levocetirizine Dihydrochloride 5 mg PO HS 04/14/15 10/14/22 [Xyzal] sitaGLIPtin PHOS/metFORMIN HCL 1 tab PO BID-W/MEALS 04/14/15 10/14/22 [Janumet 50-1,000 mg Tablet] Losartan [Cozaar] 50 mg PO DAILY 06/10/15 10/14/22 Megestrol Acetate 20 mg PO BID 03/29/16 10/14/22 Canagliflozin [Invokana] 300 mg PO DAILY 02/02/22 10/14/22 Cholecalciferol [Vitamin D3 (125 125 mcg PO DAILY 02/02/22 10/14/22 Mcg = 5000 Iu)] HYDROcodone/APAP 7.5-325MG [[place] 1 tab PO TID PRN 02/02/22 10/14/22 7.5-325] Naproxen [Naprosyn] 500 mg PO TID 02/02/22 10/14/22 Nitroglycerin Sl Tabs [Nitrostat] 0.4 mg SL Q5M PRN 02/02/22 10/14/22 Zolpidem Tartrate [Ambien] 5 mg PO HS 02/02/22 10/14/22 Levothyroxine Sodium [Synthroid] 75 mcg PO DAILY 06/18/22 10/14/22 Ferrous Gluconate 324 mg PO DAILY 10/05/22 10/14/22 atenoloL [Tenormin] 25 mg PO DAILY 10/05/22 10/14/22 tiZANidine [Zanaflex] 4 mg PO TID 10/05/22 10/14/22 Previous Rx's Medication Instructions Recorded Atorvastatin [Lipitor] 40 mg PO HS #30 tablet 03/31/16 Apixaban [Eliquis] 5 mg PO BID #0 06/20/22 Allergies Allergy/AdvReac Type Severity Reaction Status Date / Time No Known Allergies Allergy Verified 10/16/22 11:09 Review of Systems ROS Statement: Those systems with pertinent positive or pertinent negative responses have been documented in the HPI. ROS Other: All systems not noted in ROS Statement are negative. Constitutional: Denies: fever Eyes: Denies: eye pain ENT: Denies: ear pain Respiratory: Denies: cough Cardiovascular: Denies: chest pain Endocrine: Denies: fatigue Gastrointestinal: Denies: abdominal pain Genitourinary: Denies: urgency Neurological: Denies: headache, weakness, numbness, paresthesias Past Medical History Past Medical History: Coronary Artery Disease (CAD), Cancer, Chest Pain / Angina, Diabetes Mellitus, GERD/Reflux, Hyperlipidemia, Hypertension, Myocardial Infarction ([place]) Additional Past Medical History / Comment(s): PROSTATE CANCER RADIATION/SEED IMPLANTS, STATES HE HAD HX OF RADIATION WHICH BURNED HIS COLON. Last Myocardial Infarction Date:: 2017 History of Any Multi-Drug Resistant Organisms: None Reported Past Surgical History: Heart Catheterization With Stent, Orthopedic Surgery Additional Past Surgical History / Comment(s): HEART CATH WITH STENT multiple times he believes he has 4 stents with last one in 2018, COLONOSCOPY, back surgery Past Anesthesia/Blood Transfusion Reactions: No Reported Reaction Date of Last Stent Placement:: 2017 Smoking Status: Former smoker - Past Family History Brother(s) Family Medical History: Coronary Artery Disease (CAD), Diabetes Mellitus, Myocardial Infarction ([place]) Father Family Medical History: Myocardial Infarction ([place]) Additional Family Medical History / Comment(s): Father of [place] at 99 years old Mother Family Medical History: Cancer Additional Family Medical History / Comment(s): Mother of breast cancer at 68 years old General Exam Limitations: no limitations General appearance: alert, in no apparent distress Head exam: Present: atraumatic Eye exam: Present: normal appearance, PERRL, EOMI ENT exam: Present: normal oropharynx Neck exam: Present: normal inspection. Absent: tenderness Respiratory exam: Present: normal lung sounds bilaterally Cardiovascular Exam: Present: regular rate, normal rhythm GI/Abdominal exam: Present: soft. Absent: tenderness Extremities exam: Present: tenderness (Mild tenderness right medial knee.). Absent: calf tenderness Neurological exam: Present: alert, oriented X3, CN II-XII intact. Absent: motor sensory deficit Expanded Neurological exam: Present: protecting the airway Speech: Present: fluid speech Sensory exam: Upper Extremity Light Touch: Normal, Lower Extremity Light Touch: Normal Motor strength exam: RUE: 5, LUE: 5, RLE: 5, LLE: 5 Eye Response: (4) open spontaneously Motor Response: (6) obeys commands Verbal Response: (5) oriented Psychiatric exam: Present: normal affect, normal mood Skin exam: Present: normal color Course Vital Signs 10/16/22 10/16/22 10/16/22 10:53 12:08 13:36 Temperature 98.6 F Pulse Rate 70 67 77 Respiratory 16 18 18 Rate Blood Pressure 131/68 120/66 120/66 O2 Sat by Pulse 98 99 97 Oximetry - Reevaluation(s) Reevaluation #1: 10/16/22 13:59 Patient does request a [place] that he does take it home normally. EKG Findings - EKG Results: EKG: interpreted by ERMD, sinus rhythm, normal axis, normal QRS, normal ST/T Medical Decision Making - Medical Decision Making Was pt. sent in by a medical professional or institution (, PA, EXTERMINATOR, urgent care, hospital, or prison...) When possible be specific @ -No Did you speak to anyone other than the patient for history (EMS, parent, family, police, friend...)? What history was obtained from this source @ - is present and provides majority of history is patient does not really recall it Did you review nursing and triage notes (agree or disagree)? Why? @ -I reviewed and agree with nursing and triage notes Were old charts reviewed (outside hosp., previous admission, EMS record, old EKG, old radiological studies, urgent care reports/EKG's, prison records)? Report findings @ -No old charts were reviewed Differential Diagnosis (chest pain, altered mental status, abdominal pain women, abdominal pain men, vaginal bleeding, weakness, fever, dyspnea, syncope, headache, dizziness, GI bleed, back pain, seizure, CVA, palpatations, mental health)? @ -Differential Altered Mental Status: Hypoglycemia, DKA, hypercapnia, ETOH, overdose, CO poisoning, trauma, myxedema coma, HTN encephalopathy, infection, encephalitis, psychosis, intercranial hemorrhage, hepatic encephalopathy, meningitis, CVA, this is not meant to be an all-inclusive list EKG interpreted by me (3pts min.). @ -As above X-rays interpreted by me (1pt min.). @ -X-ray right knee reveals no acute process. Two-view chest x-ray shows no acute process. CT interpreted by me (1pt min.). @ -Report reviewed U/S interpreted by me (1pt. min.). @ -None done What testing was considered but not performed or refused? (CT, X-rays, U/S, labs)? Why? @ -None What meds were considered but not given or refused? Why? @ -None Did you discuss the management of the patient with other professionals (professionals i.e. , PA, EXTERMINATOR, lab, RT, psych nurse, social services aide, billet header, teacher, real estate loan officer, manager case)? Give summary @ - Was smoking cessation discussed for >3mins.? @ -No Was critical care preformed (if so, how long)? @ -No Were there social determinants of health that impacted care today? How? (Homelessness, low income, unemployed, alcoholism, drug addiction, transportation, low edu. Level, literacy, decrease access to med. care, halfway, rehab)? @ -No Was there de-escalation of care discussed even if they declined (Discuss DNR or withdrawal of care, Hospice)? DNR status @ -No What co-morbidities impacted this encounter? (DM, HTN, Smoking, COPD, CAD, Cancer, CVA, ARF, Chemo, Hep., AIDS, mental health diagnosis, sleep apnea, morbid obesity)? @ -None Was patient admitted / discharged? Hospital course, mention meds given and route, prescriptions, significant lab abnormalities, going to OR and other pertinent info. @ - Patient reevaluated and resting comfortably in bed. Patient remained symptom-free. Patient and family are requesting discharge home. Patient and family are updated and results and need for follow-up if symptoms return or worsen. Undiagnosed new problem with uncertain prognosis? @ -No Drug Therapy requiring intensive monitoring for toxicity (Heparin, Nitro, Insulin, Cardizem)? @ -No Were any procedures done? @ -No Diagnosis/symptom? @ -Altered mental status Acute, or Chronic, or Acute on Chronic? @ -Acute Uncomplicated (without systemic symptoms) or Complicated (systemic symptoms)? @ -default Side effects of treatment? @ -No Exacerbation, Progression, or Severe Exacerbation? @ -No Poses a threat to life or bodily function? How? (Chest pain, [place], [place], pneumonia, PE, COPD, DKA, ARF, appy, cholecystitis, CVA, Diverticulitis, Homicidal, Suicidal, threat to staff... and all critical care pts) @ -No - Lab Data Result diagrams: 10/16/22 11:15 10/16/22 11:15 Lab Results 10/16/22 10/16/22 10/16/22 Range/Units 11:15 11:15 11:15 WBC 10.4 (3.8-10.6) k/uL RBC 4.11 L (4.30-5.90) m/uL Hgb 12.6 L (13.0-17.5) gm/dL Hct 36.8 L (39.0-53.0) % MCV 89.6 (80.0-100.0) fL MCH 30.6 (25.0-35.0) pg MCHC 34.1 (31.0-37.0) g/dL RDW 13.2 (11.5-15.5) % Plt Count 279 (150-450) k/uL MPV 7.4 Neutrophils % 78 % Lymphocytes % 15 % Monocytes % 4 % Eosinophils % 2 % Basophils % 0 % Neutrophils # 8.1 H (1.3-7.7) k/uL Lymphocytes # 1.6 (1.0-4.8) k/uL Monocytes # 0.4 (0-1.0) k/uL Eosinophils # 0.2 (0-0.7) k/uL Basophils # 0.0 (0-0.2) k/uL PT 11.2 (9.0-12.0) sec INR 1.1 (<1.2) APTT 25.6 (22.0-30.0) sec Sodium 132 L (137-145) mmol/L Potassium 5.0 (3.5-5.1) mmol/L Chloride 104 (98-107) mmol/L Carbon Dioxide 18 L (22-30) mmol/L Anion Gap 10 mmol/L BUN 32 H (9-20) mg/dL Creatinine 1.16 (0.66-1.25) mg/dL Est GFR (CKD-EPI)AfAm 72 (>60 ml/min/1.73 sqM) Est GFR (CKD-EPI)NonAf 63 (>60 ml/min/1.73 sqM) Glucose 63 L (74-99) mg/dL POC Glucose (mg/dL) (70-110) mg/dL POC Glu [employer] ID Calcium 8.7 (8.4-10.2) mg/dL Total Bilirubin 0.6 (0.2-1.3) mg/dL AST 17 (17-59) U/L ALT 15 (4-49) U/L Alkaline Phosphatase 42 (38-126) U/L Total Protein 7.5 (6.3-8.2) g/dL Albumin 3.9 (3.5-5.0) g/dL Serum Alcohol <10 mg/dL 10/16/22 Range/Units 13:26 WBC (3.8-10.6) k/uL RBC (4.30-5.90) m/uL Hgb (13.0-17.5) gm/dL Hct (39.0-53.0) % MCV (80.0-100.0) fL MCH (25.0-35.0) pg MCHC (31.0-37.0) g/dL RDW (11.5-15.5) % Plt Count (150-450) k/uL MPV Neutrophils % % Lymphocytes % % Monocytes % % Eosinophils % % Basophils % % Neutrophils # (1.3-7.7) k/uL Lymphocytes # (1.0-4.8) k/uL Monocytes # (0-1.0) k/uL Eosinophils # (0-0.7) k/uL Basophils # (0-0.2) k/uL PT (9.0-12.0) sec INR (<1.2) APTT (22.0-30.0) sec Sodium (137-145) mmol/L Potassium (3.5-5.1) mmol/L Chloride (98-107) mmol/L Carbon Dioxide (22-30) mmol/L Anion Gap mmol/L BUN (9-20) mg/dL Creatinine (0.66-1.25) mg/dL Est GFR (CKD-EPI)AfAm (>60 ml/min/1.73 sqM) Est GFR (CKD-EPI)NonAf (>60 ml/min/1.73 sqM) Glucose (74-99) mg/dL POC Glucose (mg/dL) 74 (70-110) mg/dL POC Glu [employer] ID Cheri Givens Calcium (8.4-10.2) mg/dL Total Bilirubin (0.2-1.3) mg/dL AST (17-59) U/L ALT (4-49) U/L Alkaline Phosphatase (38-126) U/L Total Protein (6.3-8.2) g/dL Albumin (3.5-5.0) g/dL Serum Alcohol mg/dL Disposition Clinical Impression: Altered mental status Disposition: HOME SELF-CARE Condition: Stable Instructions (If sedation given, give patient instructions): Altered Mental Status (ED) Additional Instructions: Please do follow-up to primary care physician in the next day or 2 for recheck. Return for increased confusion, weakness, fevers, worsening or change in symptoms or any other concerns. Is patient prescribed a controlled substance at d/c from ED?: No Referrals: Shannon Honeycutt MD [Primary Care Provider] - 1-2 days Time of Disposition: 13:59
[2022-10-16 11:09] VITALS: TEMP 98.6
[2022-10-16 11:22] LABS: Basophils % (A) 0 %; Eosinophils # (A) 0.2 k/uL (0-0.7); Eosinophils % (A) 2 %; HCT 36.8 % (39.0-53.0); HGB 12.6 gm/dL (13.0-17.5); Lymphocytes # (A) 1.6 k/uL (1.0-4.8); Lymphocytes % (A) 15 %; MCH 30.6 pg (25.0-35.0); MCHC 34.1 g/dL (31.0-37.0); MCV 89.6 fL (80.0-100.0); Mean Platelet Volume 7.4; Monocytes # (A) 0.4 k/uL (0-1.0); Monocytes % (A) 4 %; Neutrophils # (A) 8.1 k/uL (1.3-7.7); Neutrophils % (A) 78 %; Platelet Count 279 k/uL (150-450); RBC 4.11 m/uL (4.30-5.90); RDW 13.2 % (11.5-15.5); WBC 10.4 k/uL (3.8-10.6)
[2022-10-16 11:51] LABS: ALT 15 U/L (4-49); African American GFR (CKD) 72 (>60 ml/min/1.73 sqM); Albumin 3.9 g/dL (3.5-5.0); Alcohol <10 mg/dL; Anion Gap 10 mmol/L; Blood Urea Nitrogen 32 mg/dL (9-20); Calcium 8.7 mg/dL (8.4-10.2); Carbon Dioxide 18 mmol/L (22-30); Chloride 104 mmol/L (98-107); Glucose 63 mg/dL (74-99); Non-African American GFR(CKD) 63 (>60 ml/min/1.73 sqM); Sodium 132 mmol/L (137-145); Total Bilirubin 0.6 mg/dL (0.2-1.3); Total Protein 7.5 g/dL (6.3-8.2)
[2022-10-16 11:56] LABS: INR 1.1 (<1.2); Partial Thromboplastin Time 25.6 sec (22.0-30.0); Prothrombin Time 11.2 sec (9.0-12.0)
[2022-10-16 12:01] LABS: AST 17 U/L (17-59); Alkaline Phosphatase 42 U/L (38-126)
--- NOTE | 2022-10-16 12:01 | CT ---
EXAMINATION TYPE: CT brain wo con CT DLP: 1118.4 mGycm, Automated exposure control for dose reduction was used. DATE OF EXAM: 10/16/2022 11:48 AM COMPARISON: Prior CT Brain from 03/28/2019 . CLINICAL INDICATION:Male, 71 years old with history of Altered mental status, AMS TECHNIQUE: Brain: Multiple axial CT images of the brain were obtained without IV contrast. Coronal and sagittal reformats reviewed. FINDINGS: Brain: Extra-axial spaces: No abnormal extra-axial fluid collections. Ventricular system: Within normal limits Cerebral parenchyma: Cerebral atrophy. No acute intraparenchymal hemorrhage or mass effect. The weiner -white junction is well differentiated. Scattered hypoattenuating areas are seen within the white mat ter. Cerebellum: Unremarkable. Mass effect: No evidence of midline shift. Intracranial vasculature: Atherosclerotic calcifications of the intracranial vessels. Soft tissues: Normal. Calvarium/osseous structures: No depressed skull fracture. Paranasal sinuses and mastoid air cells: Clear Visualized orbits: Bilateral aphakia IMPRESSION: 1. No acute intracranial process. 2. Nonspecific white matter changes, likely secondary to chronic small vessel ischemic disease.
--- NOTE | 2022-10-16 12:16 | XR ---
EXAMINATION TYPE: XR chest 2V DATE OF EXAM: 10/16/2022 12:01 PM COMPARISON: Chest radiographs from 02/02/2022 TECHNIQUE: XR chest 2V Frontal and lateral views of the chest. CLINICAL INDICATION:Male, 71 years old with history of altered mental status; FINDINGS: Lungs/Pleura: There is no evidence of pleural effusion, focal consolidation, or pneumothorax. Pulmonary vascularity: Unremarkable. Heart/mediastinum: Cardiomediastinal silhouette is unremarkable. Musculoskeletal: No acute osseous pathology. IMPRESSION: No acute cardiopulmonary disease/process.
--- NOTE | 2022-10-16 12:17 | XR ---
EXAMINATION TYPE: XR knee complete RT DATE OF EXAM: 10/16/2022 12:01 PM INDICATION: Patient age:Male; 71 years old; Reason for study: fall; [facility]. COMPARISON: None. TECHNIQUE: The Right knee(s) was examined in 3 projections. Frontal, lateral and oblique. FINDINGS: No evidence of any acute osseous pathology, soft tissue swelling, or joint effusion is n oted. Mild tricompartmental joint space narrowing. Vascular sclerosis. IMPRESSION: 1. No acute osseous pathology. 2. Mild tricompartmental osteoarthritic changes.
[2022-10-16 12:57] VITALS: BP 120/66; RESP 18
[2022-10-16 13:37] VITALS: PULSE 77
[2022-10-16 13:47] LABS: Glucose,Whole Blood 74 mg/dL (70-110)
[2022-10-16] MEDS ORDERED: HYDROcodone/APAP 5-325MG 1 EACH TAB PO STA (13:53)
== END 2022-10-16 14:11 | disposition home or self-care (01) ==
LOC: EC 10:42
DX: R41.82 Altered mental status, unspecified (principal); I25.10 Atherosclerotic heart disease of native coronary artery without angina pectoris; E11.9 Type 2 diabetes mellitus without complications; I10 Essential (primary) hypertension; I25.2 Old myocardial infarction; Z87.891 Personal history of nicotine dependence; Z79.84 Long term (current) use of oral hypoglycemic drugs; Z79.899 Other long term (current) drug therapy
CPT/HCPCS: 36415; 93005; 80053; 85025; 85610; 85730; 73562; 71046; 70450; 99285; G0480; 80320

== ENCOUNTER 2023-12-08 13:50 | Emergency (ER) | payer MEDICARE, OTHER ==
--- NOTE | 2023-12-08 14:23 | ED ---
Back Pain [facility] - General Chief Complaint: Back Pain/Injury Stated Complaint: back pain Time Seen by Provider: 12/08/23 14:02 Source: patient, family, RN notes reviewed Mode of arrival: ambulatory Limitations: no limitations - History of Present Illness Initial Comments: This is a 73-year-old male who presents to the emergency department for back pain. Reports left lower back pain over the last couple of days that started to radiate down the left leg. Reports a history of chronic back pain and back surgery. Denies any injuries. Denies any loss of bowel/bladder control or saddle anesthesia. States that he takes [place] and naproxen at home, however this has not been effectively managing his pain. MD Complaint: back pain - Related Data Home Medications Medication Instructions Recorded Confirmed Glimepiride [Amaryl] 4 mg PO BID-W/MEALS 03/11/14 10/14/22 Tamsulosin [Flomax] 0.4 mg PO BID 03/11/14 10/14/22 Levocetirizine Dihydrochloride 5 mg PO HS 04/14/15 10/14/22 [Xyzal] sitaGLIPtin PHOS/metFORMIN HCL 1 tab PO BID-W/MEALS 04/14/15 10/14/22 [Janumet 50-1,000 mg Tablet] Losartan [Cozaar] 50 mg PO DAILY 06/10/15 10/14/22 Megestrol Acetate 20 mg PO BID 03/29/16 10/14/22 Canagliflozin [Invokana] 300 mg PO DAILY 02/02/22 10/14/22 Cholecalciferol [Vitamin D3 (125 125 mcg PO DAILY 02/02/22 10/14/22 Mcg = 5000 Iu)] HYDROcodone/APAP 7.5-325MG [[place] 1 tab PO TID PRN 02/02/22 10/14/22 7.5-325] Naproxen [Naprosyn] 500 mg PO TID 02/02/22 10/14/22 Nitroglycerin Sl Tabs [Nitrostat] 0.4 mg SL Q5M PRN 02/02/22 10/14/22 Zolpidem Tartrate [Ambien] 5 mg PO HS 02/02/22 10/14/22 Levothyroxine Sodium [Synthroid] 75 mcg PO DAILY 06/18/22 10/14/22 Ferrous Gluconate 324 mg PO DAILY 10/05/22 10/14/22 atenoloL [Tenormin] 25 mg PO DAILY 10/05/22 10/14/22 tiZANidine [Zanaflex] 4 mg PO TID 10/05/22 10/14/22 Previous Rx's Medication Instructions Recorded Atorvastatin [Lipitor] 40 mg PO HS #30 tablet 03/31/16 Apixaban [Eliquis] 5 mg PO BID #0 06/20/22 Lidocaine 5% Patch [Lidoderm 5% 1 patch TOPICAL DAILY PRN #30 patch 12/08/23 Patch] methocarbamoL [Robaxin-750] 1,500 mg PO TID PRN #30 tab 12/08/23 predniSONE 50 mg PO DAILY 5 Days #5 tab 12/08/23 Allergies Allergy/AdvReac Type Severity Reaction Status Date / Time No Known Allergies Allergy Verified 10/16/22 11:09 Review of Systems ROS Statement: Those systems with pertinent positive or pertinent negative responses have been documented in the HPI. ROS Other: All systems not noted in ROS Statement are negative. Past Medical History Past Medical History: Coronary Artery Disease (CAD), Cancer, Chest Pain / Angina, Diabetes Mellitus, GERD/Reflux, Hyperlipidemia, Hypertension, Myocardial Infarction ([place]) Additional Past Medical History / Comment(s): PROSTATE CANCER RADIATION/SEED IMPLANTS, STATES HE HAD HX OF RADIATION WHICH BURNED HIS COLON. Last Myocardial Infarction Date:: 2017 History of Any Multi-Drug Resistant Organisms: None Reported Past Surgical History: Heart Catheterization With Stent, Orthopedic Surgery Additional Past Surgical History / Comment(s): HEART CATH WITH STENT multiple times he believes he has 4 stents with last one in 2018, COLONOSCOPY, back surgery Past Anesthesia/Blood Transfusion Reactions: No Reported Reaction Date of Last Stent Placement:: 2017 Past Psychological History: No Psychological Hx Reported Smoking Status: Former smoker - Past Family History Brother(s) Family Medical History: Coronary Artery Disease (CAD), Diabetes Mellitus, Myocardial Infarction ([place]) Father Family Medical History: Myocardial Infarction ([place]) Additional Family Medical History / Comment(s): Father of [place] at 99 years old Mother Family Medical History: Cancer Additional Family Medical History / Comment(s): Mother of breast cancer at 68 years old General Exam Limitations: no limitations General appearance: alert, in no apparent distress Head exam: Present: atraumatic, normocephalic, normal inspection Respiratory exam: Present: normal lung sounds bilaterally. Absent: respiratory distress, wheezes, rales, rhonchi, stridor Cardiovascular Exam: Present: regular rate, normal rhythm, normal heart sounds. Absent: systolic murmur, diastolic murmur, rubs, gallop, clicks GI/Abdominal exam: Present: soft, normal bowel sounds. Absent: distended, tenderness, guarding, rebound, rigid Back exam: Present: tenderness (Left lower back) Neurological exam: Present: alert, oriented X3, CN II-XII intact Psychiatric exam: Present: normal affect, normal mood Skin exam: Present: warm, dry, intact, normal color. Absent: rash Course Vital Signs 12/08/23 12/08/23 13:56 16:48 Temperature 98 F 97.5 F L Pulse Rate 69 66 Respiratory 16 18 Rate Blood Pressure 96/54 127/65 O2 Sat by Pulse 99 100 Oximetry Medical Decision Making - Medical Decision Making This is a 73 year old male who presents to the emergency department for back pain. Was pt. sent in by a medical professional or institution? @ -No Did you speak to anyone other than the patient for history? @ -No Did you review nursing and triage notes? @ -Yes, and I agree, it is accurate with regards to the patient's symptoms. Were old charts reviewed? @ -No Differential Diagnosis? @ -Differential Back Pain: Strain, zoster, cauda equina syndrome, epidural abscess, vertebral osteomyelitis, discitis, fracture, subluxation, disc herniation, DJD, spinal stenosis, dissection, AAA, pancreatitis, peptic ulcer disease, pyelonephritis, kidney stone, this is not meant to be an all-inclusive list. EKG interpreted by me (3pts min.)? @ -Not obtained X-rays interpreted by me (1pt min.)? @ -X-ray of the lumbar spine obtained. My interpretation identifies no acute fractures. CT interpreted by me (1pt min.)? @ -Not obtained U/S interpreted by me (1pt. min.)? @ -Not obtained What testing was considered but not performed? (CT, X-rays, U/S, labs)? Why? @ -None What meds were considered but not given? Why? @ -None Did you discuss the management of the patient with other professionals? @ -No Did you reconcile home meds? @ -No Was smoking cessation discussed for >3mins.? @ -No Was critical care preformed (if so, how long)? @ -No Were there social determinants of health that impacted care today? How? (Homelessness, low income, unemployed, alcoholism, drug addiction, transportation, low edu. Level, literacy, decrease access to med. care, group home, rehab)? @ -No Was there de-escalation of care discussed even if they declined? (Discuss DNR or withdrawal of care, Hospice)? @ -No What co-morbidities impacted this encounter? (DM, HTN, Smoking, COPD, CAD, Cancer, CVA, Hep., AIDS, mental health diagnosis, sleep apnea, morbid obesity)? @ -Osteoarthritis Was patient admitted / discharged? @ -Discharged. X-ray of the lumbar spine obtained revealing no acute process. The description of his symptoms in the left lower lumbar spine with radiation d own the left leg is suggestive of sciatica or lumbar radiculopathy. Symptoms well-controlled in the emergency department. Prescription for prednisone, Robaxin, and lidocaine patches provided with dosing instructions reviewed. Advised follow-up with his primary care provider for reevaluation. Undiagnosed new problem with uncertain prognosis? @ -None Drug Therapy requiring intensive monitoring for toxicity (Heparin, Nitro, Insulin, Cardizem)? @ -None Were any procedures done? @ -None Diagnosis/symptom? @ -Lumbar radiculopathy, sciatica Acute, or Chronic, or Acute on Chronic? @ -Acute Uncomplicated (without systemic symptoms) or Complicated (systemic symptoms)? @ -Uncomplicated Side effects of treatment? @ -None Exacerbation, Progression, or Severe Exacerbation] @ -Not applicable Poses a threat to life or bodily function? @ -No Return precautions reviewed in depth, the patient is instructed to return to the emergency department with any new, worsening, or concerning symptoms. Patient verbalized understanding. This case was discussed in detail with the attending ED physician, Dr. Campos. Presentation, findings, and treatment plan discussed in detail as well. - Radiology Data Radiology results: report reviewed, image reviewed Disposition Clinical Impression: Sciatica, Lumbar radiculopathy Disposition: HOME SELF-CARE Instructions (If sedation given, give patient instructions): Sciatica (ED), Lumbar Radiculopathy (ED) Additional Instructions: Return to the emergency department with any new, worsening, or concerning symptoms. Take the prednisone daily for 5 days. You can take the Robaxin as 1 to 2 tablets up to 3-4 times daily. Be aware that this may make you drowsy. Apply the lidocaine patches daily. Follow up with your primary care provider in 1-2 days. Prescriptions: Lidocaine 5% Patch [Lidoderm 5% Patch] 1 patch TOPICAL DAILY PRN #30 patch PRN Reason: Pain predniSONE 50 mg PO DAILY 5 Days #5 tab methocarbamoL [Robaxin-750] 1,500 mg PO TID PRN #30 tab PRN Reason: Pain Is patient prescribed a controlled substance at d/c from ED?: No Referrals: Shannon Honeycutt MD [Primary Care Provider] - 1-2 days Time of Disposition: 16:05
[2023-12-08] MEDS: ORPHENADRINE 30 MG/ML 2 ML VIAL IVP STA (14:34)
[2023-12-08] MEDS: KETOROLAC 15 MG/ML 1 ML VIAL IVP STA (14:35)
[2023-12-08] MEDS: DEXAMETHASONE SOD PHOSPHATE 10 MG/ML 1 ML VIAL IVP STA (14:35)
[2023-12-08] MEDS: LIDOCAINE 4% PATCH TOPICAL ONE (14:35)
[2023-12-08] MEDS: MORPHINE SULFATE 2 MG/ML SYRINGE IVP STA (15:57)
--- NOTE | 2023-12-08 16:03 | XR ---
EXAMINATION TYPE: XR lumbar spine 2 or 3V DATE OF EXAM: 12/08/2023 2:57 PM CLINICAL INDICATION:Male, 73 years old with history of Pain; PHH COMPARISON: None TECHNIQUE: XR lumbar spine 2 or 3V - Frontal, lateral and coned in L5-S1 lateral views of the spine. FINDINGS: Postsurgical changes L4-L5 with hardware in place. Discectomy at L4-L5. Hardware appears in tact. No evidence of any acute osseous pathology. No evidence of loss of vertebral body height is se en. There is normal alignment of the lumbar vertebral bodies. Scattered disc space narrowing. Multile oliverio marginal osteophyte formation throughout the visualized spine. There is facet joint arthropathy t hroughout the spine. Scattered at least mild neural foraminal stenosis. IMPRESSION: 1. Postsurgical changes with hardware intact, No acute fracture. 2. Mild multilevel disc degeneration.
[2023-12-08 16:50] VITALS: BP 127/65; PULSE 66; RESP 18; TEMP 97.5
== END 2023-12-08 16:29 | disposition home or self-care (01) ==
LOC: EC 13:50
DX: M54.16 Radiculopathy, lumbar region (principal); M54.42 Lumbago with sciatica, left side; M19.90 Unspecified osteoarthritis, unspecified site; Z87.891 Personal history of nicotine dependence
CPT/HCPCS: 72100; 99284; 96374; 96375 ×3; J1100; J2360; J2270; J1885

== ENCOUNTER → 2024-01-06 | Outpatient (CLI) | payer MEDICARE, OTHER ==
[2024-01-06 12:31] LABS: African American GFR (CKD) 80 (>60 ml/min/1.73 sqM); Blood Urea Nitrogen 24 mg/dL (9-20); Non-African American GFR(CKD) 70 (>60 ml/min/1.73 sqM)
--- NOTE | 2024-01-06 20:42 | CT ---
EXAMINATION TYPE: CT abdomen pelvis w con CT DLP: 1680 mGycm, Automated exposure control for dose reduction was used. DATE OF EXAM: 01/06/2024 1:18 PM COMPARISON: 10/05/2022 CLINICAL INDICATION:Male, 73 years old with history of C61 PROSTATE CA; prostate CA TECHNIQUE: Axial CT abdomen pelvis w con;Sagittal and coronal reformats were created on a separate w orkstation. Contrast used:100 mL of Isovue 300 with IV Contrast, (none if empty) Oral contrast used: with Oral Contrast (none if empty) FINDINGS: LOWER CHEST: Unremarkable ABDOMEN LIVER: Unremarkable GALLBLADDER AND BILE DUCTS: Layering increased densities within the lumen consistent with gallstones are present. PANCREAS: Unremarkable. SPLEEN: Unremarkable. ADRENAL GLANDS: Unremarkable. KIDNEYS AND URETERS: No evidence of hydronephrosis or renal calculus. The ureters are unremarkable. PELVIS BLADDER: Unremarkable REPRODUCTIVE: Brachytherapy beads within the prostate surgical bed with prostatectomy changes. No enl arging mass or lymphadenopathy identified. ABDOMEN & PELVIS STOMACH AND BOWEL: No evidence of bowel obstruction. PERITONEUM/RETROPERITONEUM: No evidence of pneumoperitoneum or free fluid. VASCULATURE: No evidence of aortic aneurysm. MUSCULOSKELETAL: No acute osseous abnormalities, postsurgical changes spine with hardware intact. No suspicious osseous lesions. Remote appearing left posterior rib fracture. LYMPH NODES: No gross evidence for lymphadenopathy. SOFT TISSUE/ABDOMINAL WALL: Unremarkable IMPRESSION: 1. Brachytherapy beads in the prostate bed suspected prostatectomy. No lymphadenopathy identified. 2. No evidence for acute abdominal process. 3. Cholelithiasis.
== END | disposition home or self-care (01) ==
LOC: RADCTMAIN 11:19
PROVIDERS: ATTEND Internal Medicine Hematology & Oncology
DX: C61 Malignant neoplasm of prostate (principal); K80.20 Calculus of gallbladder without cholecystitis without obstruction; I10 Essential (primary) hypertension; D51.9 Vitamin B12 deficiency anemia, unspecified; R56.9 Unspecified convulsions; E11.9 Type 2 diabetes mellitus without complications; Z71.3 Dietary counseling and surveillance; Z85.46 Personal history of malignant neoplasm of prostate
CPT/HCPCS: 82565; 84520; 74177; 36415; Q9967

== ENCOUNTER 2024-03-14 13:12 | Emergency (ER) | payer MEDICARE, OTHER ==
[2024-03-14] MEDS: HYDROcodone/APAP 10-325MG 1 EACH TAB PO ONE (14:23)
--- NOTE | 2024-03-14 14:56 | CT ---
EXAMINATION TYPE: CT brain cspine wo con CT DLP: 1401.9 mGycm, Automated exposure control for dose reduction was used. DATE OF EXAM: 03/14/2024 2:39 PM COMPARISON: 10/16/2022 CLINICAL INDICATION: Male, 73 years old with history of pain; neck pain after fall TECHNIQUE: Brain: Multiple axial CT images of the brain were obtained without IV contrast. Cspine: Axial CT images from the skull base to the inferior aspect of T2 we obtained without intraven ous contrast. Coronal and sagittal reformatted images were also reviewed. . FINDINGS: Brain: Extra-axial spaces: No abnormal extra-axial fluid collections. Ventricular system: Dilatation in proportion to cerebral atrophy. Cerebral parenchyma: Cerebral atrophy. No acute intraparenchymal hemorrhage or mass effect. The weiner -white junction is well differentiated. Scattered hypoattenuating areas are seen within the white mat ter. Cerebellum: Unremarkable. Mass effect: No evidence of midline shift. Intracranial vasculature: unremarkable Soft tissues: Normal. Calvarium/osseous structures: No depressed skull fracture. Paranasal sinuses and mastoid air cells: Clear. Visualized orbits: Bilateral aphakia Cervical spine: Fracture: None. Osseous structures: Multilevel degenerative disc disease changes with endplate spurring and disc oste ophyte complex's. Vertebral alignment: Within normal limits. Spinal canal/Neural Foramina: No evidence of significant spinal canal narrowing. No evidence for sign ificant neural foraminal stenosis. Neck soft tissues: Prevertebral soft tissues are within normal limits. Other: The airway is patent. The lung apices are clear. IMPRESSION: 1. No acute intracranial process. 2. Nonspecific white matter changes, likely secondary to chronic small vessel ischemic disease. 3. No evidence of cervical spine fracture. 4. Mild multilevel degenerative disc disease.
--- NOTE | 2024-03-14 15:17 | XR ---
EXAMINATION TYPE: XR ribs LT w pa chest xray (5 views), XR lumbar spine 3V DATE OF EXAM: 03/14/2024 Comparison: 10/16/2022 Clinical History: 73-year-old male left rib and low back pain after fall Findings: Chest: Heart normal size. Aorta within normal limits. Mild interstitial prominence. Strandy atelectasis or s carring at the left base. No consolidation or pleural effusion. Left RIBS: Multiple irregularity along the anterior rib end of the left 10th rib seen on the oblique view. Corre late for any focal tenderness here. Otherwise, no displaced rib fracture identified. Lumbar spine: 5 lumbar type vertebral bodies. L4-L5 posterior and interbody lumbar fusion. Fixed grade 1 anterolist hesis L4-L5. Vertebral body heights are preserved. Mild degenerative disc disease lower thoracic spin e and thoracolumbar junction. Impression: 1. Chest: Chronic appearing changes, possible bronchitis or chronic asthma. No definite acute process . 2. Left RIBS: Some cortical irregularity along the anterior left 10th rib on one view. Correlate for any point tenderness to exclude a subtle nondisplaced rib fracture here. 3. Lumbar spine: L4-L5 posterior and interbody lumbar fusion with fixed grade 1 anterolisthesis. Mild degenerative disc disease lower thoracic spine. No vertebral compression collapse.
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
[2024-03-14] MEDS: HYDROcodone/APAP 7.5-325MG 1 EACH TAB PO ONE (15:43)
[2024-03-14] MEDS: HYDROmorphone 1 MG/ML 1 ML SYRINGE IM STA (15:44)
[2024-03-14 15:49] VITALS: BP 169/76; PULSE 60; RESP 18; TEMP 97.6
== END 2024-03-14 15:52 | disposition home or self-care (01) ==
LOC: EC 13:12
CPT/HCPCS: 70450; 72100; 72125; 96372; 99284

== ENCOUNTER 2024-06-02 13:15 | Emergency (ER) | payer MEDICARE, OTHER ==
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
[2024-06-02] MEDS: methylPREDNISolone SOD SUCCI 125 MG/2 ML VIAL IM ONE (15:19)
[2024-06-02] MEDS: KETOROLAC 15 MG/ML 1 ML VIAL IM STA (15:19)
[2024-06-02] MEDS: LIDOCAINE 4% PATCH TOPICAL ONE (15:20)
[2024-06-02] MEDS: MORPHINE SULFATE 4 MG/ML SYRINGE IM STA (15:20)
[2024-06-02 16:11] VITALS: BP 171/89; PULSE 71; RESP 18; TEMP 98.9
== END 2024-06-02 16:11 | disposition home or self-care (01) ==
LOC: EC 13:15
DX: M54.40 Lumbago with sciatica, unspecified side (principal); E11.9 Type 2 diabetes mellitus without complications; I10 Essential (primary) hypertension; E78.5 Hyperlipidemia, unspecified; Z86.79 Personal history of other diseases of the circulatory system; Z87.891 Personal history of nicotine dependence; Z79.1 Long term (current) use of non-steroidal anti-inflammatories (NSAID); Z79.01 Long term (current) use of anticoagulants; Z79.84 Long term (current) use of oral hypoglycemic drugs
CPT/HCPCS: 99284; 96372 ×3; 72131; J2270; J1885; J2919

== ENCOUNTER 2024-06-28 22:52 | Inpatient (IN) | payer MEDICARE, OTHER ==
--- NOTE | 2024-06-28 22:58 | ED ---
Chest Pain HPI - General Stated Complaint: STEMI Time Seen by Provider: 06/28/24 22:54 - History of Present Illness Initial Comments: This patient is a 73-year-old man with history of previous [place] who presents with epigastric pain radiating to the back. Patient family called EMS who brought him here and he states that with the medication he was given his symptoms have all resolved and he feels well. MD Complaint: chest pain -: hour(s) Onset: during rest Pain Location: epigastric Pain Radiation: back Severity: moderate Quality: aching Consistency: now resolved Improves With: nitroglycerin Worsens With: nothing Anginal Symptoms: vomiting Treatments Prior to Arrival: aspirin, nitroglycerin, oxygen - Related Data Home Medications Medication Instructions Recorded Confirmed Levocetirizine Dihydrochloride 5 mg PO DAILY 04/14/15 06/29/24 [Xyzal] Megestrol Acetate 20 mg PO BID 03/29/16 06/29/24 HYDROcodone/APAP 7.5-325MG [[place] 1 tab PO TID PRN 02/02/22 06/29/24 7.5-325] Zolpidem Tartrate [Ambien] 5 mg PO HS 02/02/22 06/29/24 Losartan [Cozaar] 25 mg PO DAILY 06/29/24 06/29/24 Omeprazole 40 mg PO DAILY 06/29/24 06/29/24 metFORMIN HCL [Glucophage] 1,000 mg PO BID 06/29/24 06/29/24 Previous Rx's Medication Instructions Recorded Lidocaine 5% Patch [Lidoderm 5% 1 patch TOPICAL DAILY PRN #30 patch 12/08/23 Patch] Cyclobenzaprine [Flexeril] 5 mg PO TID 5 Days #15 tablet 06/02/24 Aspirin 81 mg PO DAILY #30 tab 06/30/24 Atorvastatin [Lipitor] 80 mg PO HS #30 tab 06/30/24 Clopidogrel [Plavix] 75 mg PO DAILY #30 tab 06/30/24 Dapagliflozin Propanediol [Farxiga] 10 mg PO DAILY #30 tab 06/30/24 Metoprolol Succinate (ER) [Toprol 25 mg PO DAILY #30 tab 06/30/24 XL] Ranolazine [Ranexa] 500 mg PO Q12HR #60 tab 06/30/24 Spironolactone [Aldactone] 12.5 mg PO DAILY #30 tab 06/30/24 Tamsulosin [Flomax] 0.4 mg PO HS #30 cap 06/30/24 Allergies Allergy/AdvReac Type Severity Reaction Status Date / Time No Known Allergies Allergy Verified 06/29/24 10:28 Review of Systems ROS Statement: Those systems with pertinent positive or pertinent negative responses have been documented in the HPI. ROS Other: All systems not noted in ROS Statement are negative. Constitutional: Denies: fever, chills, weakness Respiratory: Denies: cough, dyspnea Cardiovascular: Reports: chest pain. Denies: palpitations, orthopnea, edema, syncope Gastrointestinal: Reports: nausea, vomiting. Denies: abdominal pain, diarrhea, constipation, hematemesis, melena, hematochezia Genitourinary: Denies: dysuria, hematuria Musculoskeletal: Reports: back pain Skin: Denies: rash Neurological: Denies: headache, weakness EKG Findings - EKG Results: EKG: WNL, sinus rhythm, normal axis, normal QRS, normal ST/T - Dysrhythmias: Sinus rhythms and dysrhythmias: sinus rhythm (64 bpm) Past Medical History Past Medical History: Coronary Artery Disease (CAD), Cancer, Chest Pain / Angina, Diabetes Mellitus, GERD/Reflux, Hyperlipidemia, Hypertension, Myocardial Infarction ([place]) Additional Past Medical History / Comment(s): PROSTATE CANCER RADIATION/SEED IMPLANTS, STATES HE HAD HX OF RADIATION WHICH BURNED HIS COLON. Last Myocardial Infarction Date:: 2017 History of Any Multi-Drug Resistant Organisms: None Reported Past Surgical History: Heart Catheterization With Stent, Orthopedic Surgery Additional Past Surgical History / Comment(s): HEART CATH WITH STENT multiple times he believes he has 4 stents with last one in 2018, COLONOSCOPY, back surgery Past Anesthesia/Blood Transfusion Reactions: No Reported Reaction Date of Last Stent Placement:: 2017 Past Psychological History: No Psychological Hx Reported Smoking Status: Former smoker Past Alcohol Use History: None Reported Past Drug Use History: None Reported - Past Family History Brother(s) Family Medical History: Coronary Artery Disease (CAD), Diabetes Mellitus, Myocardial Infarction ([place]) Father Family Medical History: Myocardial Infarction ([place]) Additional Family Medical History / Comment(s): Father of [place] at 99 years old Mother Family Medical History: Cancer Additional Family Medical History / Comment(s): Mother of breast cancer at 68 years old General Exam General appearance: alert, in no apparent distress Head exam: Present: atraumatic, normocephalic Eye exam: Present: normal appearance. Absent: scleral icterus, conjunctival injection ENT exam: Present: normal oropharynx Neck exam: Present: normal inspection Respiratory exam: Present: normal lung sounds bilaterally. Absent: respiratory distress, wheezes, rales, rhonchi, stridor, accessory muscle use Cardiovascular Exam: Present: regular rate, normal rhythm, normal heart sounds. Absent: systolic murmur, diastolic murmur, rubs, gallop GI/Abdominal exam: Present: soft. Absent: distended, tenderness, guarding, rebound, rigid, mass, pulsatile mass Extremities exam: Present: normal inspection, normal capillary refill. Absent: pedal edema, calf tenderness Back exam: Present: normal inspection. Absent: CVA tenderness (R), CVA tenderness (L) Neurological exam: Present: alert Skin exam: Present: warm, dry, intact, normal color. Absent: rash Course Vital Signs 06/28/24 06/29/24 06/29/24 22:54 00:00 01:00 Temperature 97.6 F Pulse Rate 65 61 70 Pulse Rate [ [employer] ] Respiratory 18 18 18 Rate Blood Pressure 153/73 147/66 140/77 Blood Pressure [Left Arm Sitting] Blood Pressure [Left Arm] O2 Sat by Pulse 99 98 98 Oximetry 06/29/24 06/29/24 06/29/24 04:00 06:00 08:00 Temperature Pulse Rate 76 76 79 Pulse Rate [ [employer] ] Respiratory 18 18 22 Rate Blood Pressure 135/78 114/71 112/74 Blood Pressure [Left Arm Sitting] Blood Pressure [Left Arm] O2 Sat by Pulse 98 98 100 Oximetry 06/29/24 06/29/24 06/29/24 14:17 14:29 14:44 Temperature Pulse Rate Pulse Rate [ 58 L 57 L 56 L [employer] ] Respiratory 16 16 16 Rate Blood Pressure Blood Pressure 95/55 90/55 90/53 [Left Arm Sitting] Blood Pressure [Left Arm] O2 Sat by Pulse 100 100 100 Oximetry 06/29/24 06/29/24 06/29/24 14:59 15:13 15:22 Temperature Pulse Rate Pulse Rate [ 55 L 56 L 59 L [employer] ] Respiratory 16 14 16 Rate Blood Pressure Blood Pressure 91/53 [Left Arm Sitting] Blood Pressure 99/51 83/49 [Left Arm] O2 Sat by Pulse 100 100 100 Oximetry 06/29/24 06/29/24 06/29/24 15:38 15:58 16:28 Temperature Pulse Rate Pulse Rate [ 54 L 87 55 L [employer] ] Respiratory 16 14 14 Rate Blood Pressure Blood Pressure [Left Arm Sitting] Blood Pressure 90/55 82/45 81/47 [Left Arm] O2 Sat by Pulse 99 Oximetry [facility] The patient had chest x-ray that I interpreted as negative for acute infiltrate, pneumothorax, congestive heart failure Was pt. sent in by a medical professional or institution (, PA, LEHR OPERATOR, urgent care, hospital, or [facility]...) When possible be specific @ -[No] Did you speak to anyone other than the patient for history (EMS, parent, family, police, friend...)? What history was obtained from this source @ -[No] Did you review nursing and triage notes (agree or disagree)? Why? @ -[I reviewed and agree with nursing and triage notes] Were old charts reviewed (outside hosp., previous admission, EMS record, old EKG, old radiological studies, urgent care reports/EKG's, [facility] records)? Report findings @ -[No old charts were reviewed] Differential Diagnosis (chest pain, altered mental status, abdominal pain women, abdominal pain men, vaginal bleeding, weakness, fever, dyspnea, syncope, headache, dizziness, GI bleed, back pain, seizure, CVA, palpatations, mental health, musculoskeletal)? @ -[Differential Chest Pain: Stable Angina, Unstable Angina, STEMI, NSTEMI Aortic Dissection, Pneumothorax, Musculoskeletal, Esophageal Spasm GERD, Cholecystitis, Pancreatitis, Zoster, this is not meant to be an all-inclusive list. EKG interpreted by me (3pts min.). @ -[I interpreted as above] X-rays interpreted by me (1pt min.). @ -I interpreted as above CT interpreted by me (1pt min.). @ -[None done] U/S interpreted by me (1pt. min.). @ -[None done] What testing was considered but not performed or refused? (CT, X-rays, U/S, labs)? Why? @ -[None] What meds were considered but not given or refused? Why? @ -[None] Did you discuss the management of the patient with other professionals (professionals i.e. , PA, LEHR OPERATOR, lab, RT, psych nurse, vp digital marketing social media and crm, paperhanger pipe, teacher, president and chief executive officer, case work aide)? Give summary @ -[Case discussed with admitting physician and treatment recommendations incorporated Was smoking cessation discussed for >3mins.? @ -[No] Was critical care preformed (if so, how long)? @ -[ Were there social determinants of health that impacted care today? How? (Homelessness, low income, unemployed, alcoholism, drug addiction, transportation, low edu. Level, literacy, decrease access to med. care, snf, rehab)? @ -[No] Was there de-escalation of care discussed even if they declined (Discuss DNR or withdrawal of care, Hospice)? DNR status @ -[No] What co-morbidities impacted this encounter? (DM, HTN, Smoking, COPD, CAD, Cancer, CVA, ARF, Chemo, Hep., AIDS, mental health diagnosis, sleep apnea, morbid obesity)? @ -[Previous coronary artery disease, diabetes, hypertension Was patient admitted / discharged? Hospital course, mention meds given and route, prescriptions, significant lab abnormalities, going to OR and other pertinent info. @ -[Patient is 73-year-old man here after episode of chest pain. His symptoms had resolved. The patient did want to go home but blood sugar is elevated and I discussed that there is risk of missed cardiac event given his symptoms and only 1 troponin obtained. In light of this they do agree to stay and the subsequent troponin is positive. Patient will see cardiology service Undiagnosed new problem with uncertain prognosis? @ -[No] Drug Therapy requiring intensive monitoring for toxicity (Heparin, Nitro, Insulin, Cardizem)? @ -[No] Were any procedures done? @ -[No] Diagnosis/symptom? @ -[Acute hyperglycemia Acute NSTEMI Acute, or Chronic, or Acute on Chronic? @ -[Acute Uncomplicated (without systemic symptoms) or Complicated (systemic symptoms)? @ -[Uncomplicated Side effects of treatment? @ -[No] Exacerbation, Progression, or Severe Exacerbation? @ -[No] Poses a threat to life or bodily function? How? (Chest pain, [place], [place], pneumonia, PE, COPD, DKA, ARF, appy, cholecystitis, CVA, Diverticulitis, Homicidal, Suicidal, threat to staff... and all critical care pts) @ -[Yes All treatments are based on ideal body weight as in ED triage Disposition Clinical Impression: Chest pain, NSTEMI (non-ST elevated myocardial infarction), Hyperglycemia Disposition: ADMITTED IP TO THIS HOSP Condition: Fair Is patient prescribed a controlled substance at d/c from ED?: No
[2024-06-28 23:27] LABS: ALT 24 U/L (4-49); AST 16 U/L (17-59); African American GFR (CKD) 58 (>60 ml/min/1.73 sqM); Albumin 4.2 g/dL (3.5-5.0); Alkaline Phosphatase 100 U/L (38-126); Amylase 62 U/L (30-110); Anion Gap 9 mmol/L; Blood Urea Nitrogen 21 mg/dL (9-20); Calcium 9.1 mg/dL (8.4-10.2); Carbon Dioxide 19 mmol/L (22-30); Chloride 101 mmol/L (98-107); Lipase 108 U/L (23-300); Magnesium 1.7 mg/dL (1.6-2.3); Non-African American GFR(CKD) 51 (>60 ml/min/1.73 sqM); Potassium 4.5 mmol/L (3.5-5.1); Sodium 129 mmol/L (137-145); Total Bilirubin 0.3 mg/dL (0.2-1.3); Total Protein 7.4 g/dL (6.3-8.2)
[2024-06-28 23:39] LABS: INR 0.9 (<1.2); Partial Thromboplastin Time 21.3 sec (22.0-30.0); Prothrombin Time 10.5 sec (10.0-12.5)
[2024-06-28 23:42] LABS: Glucose 502 mg/dL (74-99)
[2024-06-29 00:13] LABS: Basophils % (A) 1 %; Eosinophils # (A) 0.2 k/uL (0-0.7); Eosinophils % (A) 2 %; HCT 35.7 % (39.0-53.0); HGB 11.6 gm/dL (13.0-17.5); Lymphocytes # (A) 2.2 k/uL (1.0-4.8); Lymphocytes % (A) 34 %; MCH 30.5 pg (25.0-35.0); MCHC 32.5 g/dL (31.0-37.0); MCV 93.7 fL (80.0-100.0); Mean Platelet Volume 8.4; Monocytes # (A) 0.5 k/uL (0-1.0); Monocytes % (A) 7 %; Neutrophils # (A) 3.4 k/uL (1.3-7.7); Neutrophils % (A) 52 %; Platelet Count 276 k/uL (150-450); RBC 3.81 m/uL (4.30-5.90); RDW 12.8 % (11.5-15.5); WBC 6.5 k/uL (3.8-10.6)
[2024-06-29] MEDS: SODIUM CHLORIDE 0.9% 500 ML 500 ML IV STA (00:24)
[2024-06-29] MEDS: INSULIN REGULAR 100 UNIT/ML VIAL (IV) SQ STA (00:24)
--- NOTE | 2024-06-29 00:26 | XR ---
EXAM: XR Chest, 1 View CLINICAL HISTORY: ITS.REASON XR Reason: chest pain TECHNIQUE: Frontal view of the chest. COMPARISON: X-ray chest: 10/31/23 FINDINGS: Patient's body habitus limits the study. Lungs: Underexpanded lungs. Bilateral perihilar prominent interstitial markings. No consolidation. Pleural space: No pleural effusion.. No pneumothorax. Heart: No cardiomegaly. Mediastinum: Atherosclerotic aortic tortuosity. Normal mediastinal contour. Bones/joints: No acute fracture. IMPRESSION: Low lung volumes. Bilateral bronchial wall and perihilar increased interstitial thickening. No consolidation, pulmonary vascular congestion or pleural effusion. .
[2024-06-29] MEDS: SODIUM CHLORIDE 0.9% 1,000 ML IV STA (00:29)
[2024-06-29] MEDS: MORPHINE SULFATE 4 MG/ML SYRINGE IV STA (00:59)
[2024-06-29] MEDS ORDERED: NITROGLYCERIN SL TABS 0.4 MG TAB SUBLINGUAL PRN ×2 (02:17→11:26)
[2024-06-29] MEDS: SODIUM CHLORIDE 0.9% 1,000 ML IV SCH ×3 (03:07→19:52)
[2024-06-29 03:10] LABS: Glucose,Whole Blood 488 mg/dL (70-110)
--- NOTE | 2024-06-29 03:36 | CT ---
EXAM: CT Angiography Chest With Intravenous Contrast CLINICAL HISTORY: ITS.REASON CT Reason: chest pain, possible PE TECHNIQUE: Axial computed tomographic angiography images of the chest with intravenous contrast. CTDI is 47.6 mGy and DLP is 734 mGy-cm. This CT exam was performed using one or more of the following dose reduction techniques: automated exposure control, adjustment of the mA and/or kV according to patient size, and/or use of iterative reconstruction technique. MIP reconstructed images were created and reviewed. COMPARISON: CTA chest: 05/25/2022 FINDINGS: Pulmonary arteries: No pulmonary embolism. An enlarged main pulmonary artery: 37 mm in diameter. Aorta: No acute findings. No thoracic aortic aneurysm. Calcified/noncalcified atherosclerosis. Heart: Mild cardiomegaly. Significant multivessel coronary arterial calcified atherosclerosis. No significant pericardial effusion. No evidence of RV dysfunction. Lungs: Central airways are patent. Bronchial wall thickening. Mild centrilobular emphysema. No mass. No consolidation. Posteriorly subpleural mild atelectatic changes. Pleural space: Elevated diaphragm right more than the left. No significant effusion. No pneumothorax. Bilateral pleural thickening. Bones/joints: No acute fracture. No dislocation. Soft tissues: Unremarkable. Lymph nodes: Small mediastinal and right hilar lymph nodes. No lymphadenopathy by CT size criteria. Other findings: . Cholelithiasis. Fatty infiltration of the liver and pancreas. A distended stomach filled with ingested food debris, fluid and gas. IMPRESSION: No evidence of pulmonary embolism, aortic aneurysm or dissection. Enlarged main pulmonary artery, reflective of sequela secondary pulmonary arterial hypertension. Advise clinical correlation. Significant multivessel coronary arterial calcified atherosclerosis. Calcified/noncalcified aortic atherosclerosis. Mild centrilobular emphysema. No consolidation. No mass. Cholelithiasis. A distended stomach. Diffuse fatty hepatic and pancreatic infiltrations .
[2024-06-29] MEDS: LEVOTHYROXINE 75 MCG TAB PO SCH (06:17)
[2024-06-29] MEDS ORDERED: metFORMIN 500 MG TAB PO SCH (07:30)
[2024-06-29] MEDS ORDERED: HEPARIN SODIUM 1,000 UN/ML (10ML VL) IV PRN (08:02)
[2024-06-29] MEDS ORDERED: DEXTROSE 50% SYRINGE 50 ML IVP PRN ×2 (08:24)
--- NOTE | 2024-06-29 08:26 | P.HPIM ---
History of Present Illness This is a pleasant 73 years old male with past medical history of multiple medical problems including diabetes mellitus, type II and oral medication, remote history of coronary artery disease s/p stent, he used to follow-up with Dr. Aguilar but not recently. Currently he is not on aspirin at home. Also he has history of pulmonary embolism, he was on Eliquis blood thinner but that was stopped couple years ago by his doctor. Presents because of chest pain which started last night about 9-10/10 in severity, in the lower chest radiating to the back felt like dull with no obvious precipitated or relieving factors other than pain medication which helped bring in his chest pain down to 1-2/10 currently No overt dyspnea or coughing. He has history of stent about 10 years ago and used to follow-up with Dr. Aguilar but not recently He denies any GI/ symptoms, no headache dizziness weakness He denies smoking alcohol or illicit drugs Patient afebrile, blood pressure is stable Hemoglobin 11.6, rest of CBC is unremarkable Creatinine mildly elevated at 1.3 with sodium slightly low and 129 Rest of BMP and LFT were unremarkable Troponin went up from 0.012 up to 0.629 Hemoglobin A1c was before controlled at 5, Hemoglobin A1c level is requested Acetone is negative D-dimer is elevated 0.8 CTA was negative for PE but showing pulmonary hypertension Chest x-ray showing no acute process EKG showing sinus rhythm with mild ST segment elevation in the inferior lead less than 1 mm, second EKG showing T wave inversion in the inferior leads Patient was given aspirin and heparin drip, He was admitted with cup setter lockstitch evaluation Review of Systems Review of systems CONSTITUTIONAL: No fever, no malaise, no fatigue. HEENT: No recent visual problems or hearing problems. Denied any sore throat. CARDIOVASCULAR: No orthopnea, PND, no palpitations, no syncope. PULMONARY: No shortness of breath, no cough, no hemoptysis. GASTROINTESTINAL: No diarrhea, no nausea, no vomiting, no abdominal pain. Normo active bowel sounds. NEUROLOGICAL: No headaches, no weakness, no numbness. HEMATOLOGICAL: Denies any bleeding or petechiae. GENITOURINARY: Denies any burning micturition, frequency, or urgency. MUSCULOSKELETAL/RHEUMATOLOGICAL: Denies any joint pain, swelling, or any muscle pain. ENDOCRINE: Denies any polyuria or polydipsia. Past Medical History Past Medical History: Coronary Artery Disease (CAD), Cancer, Chest Pain / Angina, Diabetes Mellitus, GERD/Reflux, Hyperlipidemia, Hypertension, Myocardial Infarction ([place]) Additional Past Medical History / Comment(s): PROSTATE CANCER RADIATION/SEED IMPLANTS, STATES HE HAD HX OF RADIATION WHICH BURNED HIS COLON. Last Myocardial Infarction Date:: 2017 History of Any Multi-Drug Resistant Organisms: None Reported Past Surgical History: Heart Catheterization With Stent, Orthopedic Surgery Additional Past Surgical History / Comment(s): HEART CATH WITH STENT multiple times he believes he has 4 stents with last one in 2018, COLONOSCOPY, back surgery Past Anesthesia/Blood Transfusion Reactions: No Reported Reaction Date of Last Stent Placement:: 2017 Past Psychological History: No Psychological Hx Reported Smoking Status: Former smoker Past Alcohol Use History: None Reported Past Drug Use History: None Reported - Past Family History Brother(s) Family Medical History: Coronary Artery Disease (CAD), Diabetes Mellitus, Myocardial Infarction ([place]) Father Family Medical History: Myocardial Infarction ([place]) Additional Family Medical History / Comment(s): Father of [place] at 99 years old Mother Family Medical History: Cancer Additional Family Medical History / Comment(s): Mother of breast cancer at 68 years old Medications and Allergies Home Medications Medication Instructions Recorded Confirmed Type Glimepiride [Amaryl] 4 mg PO BID-W/MEALS 03/11/14 10/14/22 History Tamsulosin [Flomax] 0.4 mg PO BID 03/11/14 10/14/22 History Levocetirizine Dihydrochloride 5 mg PO HS 04/14/15 10/14/22 History [Xyzal] sitaGLIPtin PHOS/metFORMIN HCL 1 tab PO BID-W/MEALS 04/14/15 10/14/22 History [Janumet 50-1,000 mg Tablet] Losartan [Cozaar] 50 mg PO DAILY 06/10/15 10/14/22 History Megestrol Acetate 20 mg PO BID 03/29/16 10/14/22 History Atorvastatin [Lipitor] 40 mg PO HS #30 tablet 03/31/16 10/14/22 Rx Canagliflozin [Invokana] 300 mg PO DAILY 02/02/22 10/14/22 History Cholecalciferol [Vitamin D3 (125 125 mcg PO DAILY 02/02/22 10/14/22 History Mcg = 5000 Iu)] HYDROcodone/APAP 7.5-325MG [[place] 1 tab PO TID PRN 02/02/22 10/14/22 History 7.5-325] Naproxen [Naprosyn] 500 mg PO TID 02/02/22 10/14/22 History Nitroglycerin Sl Tabs [Nitrostat] 0.4 mg SL Q5M PRN 02/02/22 10/14/22 History Zolpidem Tartrate [Ambien] 5 mg PO HS 02/02/22 10/14/22 History Levothyroxine Sodium [Synthroid] 75 mcg PO DAILY 06/18/22 10/14/22 History Apixaban [Eliquis] 5 mg PO BID #0 06/20/22 10/14/22 Rx Ferrous Gluconate 324 mg PO DAILY 10/05/22 10/14/22 History atenoloL [Tenormin] 25 mg PO DAILY 10/05/22 10/14/22 History tiZANidine [Zanaflex] 4 mg PO TID 10/05/22 10/14/22 History Lidocaine 5% Patch [Lidoderm 5% 1 patch TOPICAL DAILY PRN #30 patch 12/08/23 Rx Patch] methocarbamoL [Robaxin-750] 1,500 mg PO TID PRN #30 tab 12/08/23 Rx predniSONE 50 mg PO DAILY 5 Days #5 tab 12/08/23 Rx Cyclobenzaprine [Flexeril] 5 mg PO TID 5 Days #15 tablet 06/02/24 Rx Lidocaine 5% Patch [Lidoderm 5% 1 patch TOPICAL DAILY PRN 14 Days 06/02/24 Rx Patch] #14 patch Allergies Allergy/AdvReac Type Severity Reaction Status Date / Time No Known Allergies Allergy Verified 06/28/24 22:57 Physical Exam Vitals: Vital Signs Temp Pulse Resp BP Pulse Ox 06/29/24 06:00 76 18 114/71 98 06/29/24 04:00 76 18 135/78 98 06/29/24 01:00 70 18 140/77 98 06/29/24 00:00 61 18 147/66 98 06/28/24 22:54 97.6 F 65 18 153/73 99 Intake and Output 06/28/24 06/29/24 06/29/24 22:59 06:59 14:59 Other: Weight 77.111 kg GENERAL: The patient is alert and oriented x3, not in any acute distress. Well developed, well nourished. HEENT: Pupils are round and equally reacting to light. EOMI. No scleral icterus. No conjunctival pallor. Normocephalic, atraumatic. No pharyngeal erythema. No thyromegaly. CARDIOVASCULAR: S1 and S2 present. No murmurs, rubs, or gallops. PULMONARY: Chest is clear to auscultation, no wheezing , no crackles. ABDOMEN: Soft, nontender, nondistended, normoactive bowel sounds. No palpable organomegaly. MUSCULOSKELETAL: No joint swelling or deformity. EXTREMITIES: No cyanosis, clubbing, or pedal edema. NEUROLOGICAL: Gross neurological examination did not reveal any focal deficits. SKIN: No rashes. no petechiae. Results CBC & Chem 7: 06/28/24 22:58 06/28/24 22:58 Labs: Abnormal Lab Results - Last 24 Hours (Table) 06/28/24 06/28/24 06/28/24 Range/Units 22:58 22:58 22:58 RBC 3.81 L (4.30-5.90) m/uL Hgb 11.6 L (13.0-17.5) gm/dL Hct 35.7 L (39.0-53.0) % APTT 21.3 L (22.0-30.0) sec D-Dimer 0.84 H (<0.60) mg/L FEU Sodium 129 L (137-145) mmol/L Carbon Dioxide 19 L (22-30) mmol/L BUN 21 H (9-20) mg/dL Creatinine 1.36 H (0.66-1.25) mg/dL Glucose 502 H* (74-99) mg/dL POC Glucose (mg/dL) (70-110) mg/dL AST 16 L (17-59) U/L Troponin I (0.000-0.034) ng/mL 06/29/24 06/29/24 Range/Units 03:09 04:49 RBC (4.30-5.90) m/uL Hgb (13.0-17.5) gm/dL Hct (39.0-53.0) % APTT (22.0-30.0) sec D-Dimer (<0.60) mg/L FEU Sodium (137-145) mmol/L Carbon Dioxide (22-30) mmol/L BUN (9-20) mg/dL Creatinine (0.66-1.25) mg/dL Glucose (74-99) mg/dL POC Glucose (mg/dL) 488 H (70-110) mg/dL AST (17-59) U/L Troponin I 0.627 H* (0.000-0.034) ng/mL Assessment and Plan Assessment: Non-STEMI Diabetes mellitus with hyperglycemia Mild acute kidney injury and hypovolemic hyponatremia History of PE not on anticoagulation History of coronary artery disease more than 10 years ago s/p stent Obesity with BMI 31.1 Hyperlipidemia Plan: Continue with normal saline Hold metformin Continue with aspirin Started patient on high intensity heparin drip Resume Amaryl and check hemoglobin A1c Cardiology team consult Labs and medication were reviewed.. Continue same treatment. Continue with symptomatic treatment. Resume home medication. Monitor labs and vitals. DVT and GI prophylaxis. Further recommendations as per clinical course of the patient DVT prophylaxis: heparin GI Prophylaxis: Pepcid PT/OT: Pending Prognosis is guarded
[2024-06-29] MEDS: HEPARIN SODIUM 1,000 UN/ML (10ML VL) IV ONE (08:44)
[2024-06-29] MEDS: HEPARIN SOD,PORK IN 0.45% NACL 25,000 UNIT in 0.45% NACL 1 250ML.BAG IV SCH (08:46)
[2024-06-29] MEDS: GLIMEPIRIDE 4 MG TAB PO SCH (08:51)
[2024-06-29] MEDS: atenoloL 25 MG TAB PO SCH (08:52)
[2024-06-29] MEDS: TAMSULOSIN 0.4 MG CAP.ER.24H PO SCH (08:52)
[2024-06-29] MEDS: LOSARTAN 50 MG TAB PO SCH (08:54)
[2024-06-29] MEDS: LINAGLIPTIN 5 MG TABLET PO SCH (08:54)
[2024-06-29] MEDS: DAPAGLIFLOZIN PROPANEDIOL 10 MG TABLET PO SCH (08:54)
[2024-06-29] MEDS ORDERED: APIXABAN 5 MG TAB PO SCH (09:00)
[2024-06-29] MEDS ORDERED: HYDROcodone/APAP 7.5-325MG 1 EACH TAB PO PRN (10:31)
[2024-06-29] MEDS ORDERED: LIDOCAINE 4% PATCH TOPICAL PRN (10:31)
[2024-06-29] MEDS ORDERED: ALPRAZolam 0.5 MG TAB PO PRN (11:26)
[2024-06-29] MEDS ORDERED: ALPRAZolam 0.25 MG TAB PO PRN (11:26)
[2024-06-29 12:31] LABS: Glucose,Whole Blood 301 mg/dL (70-110)
[2024-06-29] MEDS: ASPIRIN 325 MG TAB PO STA (12:37)
[2024-06-29] MEDS: INSULIN ASPART (NovoLOG) 100 UNIT/ML VIAL SQ SCH (12:38)
[2024-06-29] MEDS: ATORVASTATIN 80 MG TAB PO STA (12:38)
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
[2024-06-29] MEDS: LIDOCAINE 1% INJ 10MG/ML (20 ML MDV) SQ ONE (13:54)
[2024-06-29] MEDS: MIDAZOLAM 2 MG/2 ML VIAL IVP ONE (13:58)
[2024-06-29] MEDS: VERAPAMIL SYRINGE (5 MG/10 ML) INTRAARTER ONE (13:58)
[2024-06-29] MEDS: fentaNYL (PF) 50 MCG/ML 2 ML AMP IVP ONE (13:58)
[2024-06-29] MEDS: SODIUM CHLORIDE 0.9% 1,000 ML IV ONE (14:00)
[2024-06-29] MEDS: IOPAMIDOL-370 100ML BTL INJ ONE (14:09)
[2024-06-29] MEDS ORDERED: RX INFO: IV CONTRAST WAS GIVEN 1 EACH MISC MISCELLANE PRN (14:14)
--- NOTE | 2024-06-29 14:30 | P.CARDCATH ---
Date of Procedure: 06/29/24 Description of Procedure: DIAGNOSTIC CORONARY ANGIOGRAPHY and LEFT HEART CATH REPORT PROCEDURES PERFORMED: Left heart catheterization Selective coronary angiography Moderate conscious sedation 15 mins [Ultrasound assisted] Right radial access INDICATION: NSTEMI 73-year-old with past medical history of CAD status post PCI to LAD and RCA presented to hospital because of increased worsening substernal chest pressure along with shortness of breath. On admission he had evidence of elevated troponin enzyme. He is EKG showed sinus rhythm with [address] elevations in inferior lead. This is somewhat new when compared to older EKG CONSENT: I have explained the procedural steps of above-mentioned procedures in layman's terms to the patient. I discussed the risks (including but not limited to stroke, emergent vascular or cardiac surgery or ), benefits and alternative therapies for the above-mentioned procedure. I discussed the risks of sedation/analgesia and blood product administration (if indicated). The patient has indicated understanding and acceptance of these risks. Conscious Sedation: Patient's ECG, heart rate, blood pressure, pulse oximetry were monitored throughout the duration of procedure under my direct supervision. 1 mg Versed and 50 mcg Fentanyl were used for induction of moderate conscious sedation. Total duration of moderate concious sedation 15 minutes. PROCEDURE: After explaining the risks, benefits and alternatives of the above mentioned procedures in detail to the patient, informed consent was obtained. Patient was taken to the catheterization lab, prepped and draped in usual sterile fashion using universal precuations. Ultrasound was used to identify the radial artery. 1% lidocaine was infiltrated over the right radial artery. A 6-Monegasque sheath was placed and secured in the right radial artery using modified Seldinger technique. The sheath was flushed and 5 mg verapamil was administered intra-arterially. J tipped wire was advanced under fluoroscopic guidance. Once the wire tip reached aortic root 3000 units of IV heparin was given. Patient was on IV heparin drip which was turned off 10 minutes prior to the procedure. Over the wire JR4 diagnostic catheter was advanced. The wire in place the catheter was manipulated to cross the aortic valve and entered into LV under fluoroscopy guidance. The wire was removed and the catheter was flushed. LV pressures were obtained and pullback was performed under fluoroscopy. Catheter was manipulated to selectively engage the right coronary ostium. Right coronary angiography was performed in different angiographic projections. The JR4 diagnostic catheter was exchanged for a JL 3.5 diagnostic catheter over the J-wire. The wire was removed, catheter was flushed and manipulated under fluoroscopy to selectively engaged the left coronary ostium. Left coronary angioplasty was performed in different angiographic projections. Catheter was removed over the wire. Radial sheath was flushed. The right radial sheath was removed and a TR band was placed with excellent patent hemostasis was achieved. The patient tolerated the procedure well. Patient was transported back to the post catheterization holding area in stable condition. Angiographic images were reviewed in detail. HEMODYNAMICS: Aortic Pressure: 88/56 mmHg. LV pressure: 90/10 mmHg. LVEDP 16 mmHg. There was no significant gradient across the aortic valve. SELECTIVE CORONARY ARTERIOGRAPHY: LEFT MAIN: The left main is short and large caliber vessel. It bifurcates into the LAD and circumflex. Left main appears angiographically normal. LEFT ANTERIOR DESCENDING CORONARY ARTERY: LAD is a moderate caliber vessel which wraps around to the apex. Proximal LAD has mild luminal irregularities. Mid LAD has a prior stent which has 50% diffuse in-stent stenosis. Distal edge of the stent has 60 to 70% calcific stenosis of LAD. Distal LAD is small caliber and appears to have moderate diffuse calcific disease. LEFT CIRCUMFLEX CORONARY ARTERY: It is nondominant vessel. Proximal LCx has mild disease. In mid segment it bifurcates into a Medium OM1 branch and a small AV groove branch. Medium OM1 branch has moderate diffuse calcific disease. RIGHT CORONARY ARTERY: Dominant vessel. There is a prior stent in proximal RCA which has 100% in-stent stenosis. There are faint [id number] collaterals filling PDA retrogradely. IMPRESSION: Diffuse coronary calcification 100% in-stent stenosis of proximal RCA stent 50% in-stent stenosis of mid LAD stent. 70% mid LAD stenosis distal to prior stent. Moderate diffuse calcific disease in LCx Midly elevated left sided filling pressures PLAN: Start aspirin 81 mg, Plavix 75 mg, Lipitor 80 mg Start metoprolol succinate 25 mg daily, losartan 25 mg daily, Farxiga 10 mg daily, Aldactone 12.5 mg daily. Start Ranexa 500 mg twice daily Obtain echocardiograms and optimize GDMT as tolerated further IV fluids 125 cc/hr NS for 4 hrs. Performing Physician Stephen Ayoub MD, FACC, RPVI Thank you for allowing [facility] to participate in this patient's care. Feel free to reach out in case of any followup questions.
[2024-06-29 15:58] LABS: NT-Pro-B-Type Natriuretic Pept 186 pg/mL
[2024-06-29 17:53] LABS: Glucose,Whole Blood 228 mg/dL (70-110)
[2024-06-29] MEDS: CLOPIDOGREL 75 MG TAB PO SCH (19:13)
[2024-06-29] MEDS: RANOLAZINE 500 MG TAB.ER.12H PO SCH (19:14)
[2024-06-29] MEDS: SODIUM CHLORIDE 0.9% 1,000 ML in EMPTY BAG 1 BAG IV SCH (19:41)
[2024-06-29] MEDS: SPIRONOLACTONE 25 MG TAB PO SCH (19:41)
[2024-06-29 20:08] LABS: Glucose,Whole Blood 256 mg/dL (70-110)
[2024-06-29] MEDS: ZOLPIDEM 5 MG TAB PO SCH (20:23)
[2024-06-29] MEDS: ATORVASTATIN 80 MG TAB PO SCH (20:23)
[2024-06-29] MEDS ORDERED: ATORVASTATIN 40 MG TAB PO SCH (21:00)
[2024-06-30 04:30] VITALS: RESP 18; TEMP 98.2
[2024-06-30 06:19] LABS: Glucose,Whole Blood 224 mg/dL (70-110)
[2024-06-30] MEDS ORDERED: HEPARIN SODIUM,PORCINE (1 ML) 2,500 UNIT in SODIUM CHLORIDE 0.9% 250 ML IRRIGATION PRN (07:00)
[2024-06-30] MEDS ORDERED: HEPARIN SODIUM,PORCINE 10,000 UNIT in SODIUM CHLORIDE 0.9% 1,000 ML IRRIGATION PRN (07:00)
[2024-06-30] MEDS ORDERED: ASPIRIN 325 MG TAB PO SCH (09:00)
[2024-06-30] MEDS: LOSARTAN 25 MG TAB PO SCH (10:23)
[2024-06-30] MEDS: METOPROLOL SUCCINATE (ER) 25 MG TAB.ER.24H PO SCH (10:23)
[2024-06-30] MEDS: ASPIRIN 81 MG PO SCH (10:24)
[2024-06-30 10:51] LABS: Basophils % (A) 0 %; Eosinophils # (A) 0.1 k/uL (0-0.7); Eosinophils % (A) 1 %; HCT 31.3 % (39.0-53.0); HGB 10.3 gm/dL (13.0-17.5); Lymphocytes # (A) 1.8 k/uL (1.0-4.8); Lymphocytes % (A) 21 %; MCH 30.1 pg (25.0-35.0); MCHC 32.8 g/dL (31.0-37.0); MCV 91.8 fL (80.0-100.0); Mean Platelet Volume 8.2; Monocytes # (A) 0.6 k/uL (0-1.0); Monocytes % (A) 6 %; Neutrophils # (A) 6.2 k/uL (1.3-7.7); Neutrophils % (A) 70 %; Platelet Count 280 k/uL (150-450); RBC 3.41 m/uL (4.30-5.90); RDW 13.2 % (11.5-15.5); WBC 8.9 k/uL (3.8-10.6)
[2024-06-30 11:02] LABS: African American GFR (CKD) 61 (>60 ml/min/1.73 sqM); Anion Gap 8 mmol/L; Blood Urea Nitrogen 26 mg/dL (9-20); Calcium 9.1 mg/dL (8.4-10.2); Carbon Dioxide 22 mmol/L (22-30); Chloride 106 mmol/L (98-107); Glucose 149 mg/dL (74-99); Non-African American GFR(CKD) 53 (>60 ml/min/1.73 sqM); Potassium 4.5 mmol/L (3.5-5.1); Sodium 136 mmol/L (137-145)
[2024-06-30 11:28] LABS: Glucose,Whole Blood 269 mg/dL (70-110)
--- NOTE | 2024-06-30 13:08 | P.PN ---
Subjective HISTORY OF PRESENT ILLNESS: This is a 73 year old male with a past medical history significant for coronary artery disease, hypertension, HLD, and diabetes. Patient follows in the office with Dr. Aguilar but has not been seen since February 2022. We have been asked to see the patient in consultation for elevated troponins. Patient examined at the bedside in the ER. Patient states yesterday he developed chest pain. The pain was in the middle of the chest. He denied any radiation of the pain. Pain was not worsened with exertion or food. Patient was found to have elevated troponins and was started on IV heparin. He denies having any chest pain at the time of examination. He states he does not take a baby aspirin a day. He states he has not followed with a rocket motor tester recently due to "laziness". Patient was also found to have elevated blood sugars in the 500s. Patient states he has not been following a diabetic diet and has been eating a significant amount of cookies lately. DIAGNOSTICS: - EKG reveals sinus mechanism with nonspecific ST-T wave changes - Chest xray low lung volumes. Bilateral bronchial wall and perihilar increased interstitial thickening - Laboratory data: WBC 6.5. Hemoglobin 11.6. Platelet count 276. D-dimer 0.84. Sodium 129. Potassium 4.5. BUN 21. Creatinine 1.36. Glucose 502. Troponin 0.012. 0.627. 2.370. - Current home cardiac medications include Lipitor 20 mg daily, losartan 25 mg daily, atenolol 25 mg daily - Most recent echocardiogram obtained in February 2022 revealing ejection fraction 55 to 60%, moderate right ventricular dilation, trace MR, mild TR - Cardiac catheterization history: March 2016 with stenting to the mid RCA. Patient also had previous PCI to the mid LAD in September 2003 06/30/2024 Patient examined this morning the bedside. Patient underwent cardiac catheterization yesterday with Dr. Ayoub revealing diffuse coronary calcifications, 100% in-stent stenosis of proximal RCA stent, 50% in-stent stenosis of mid LAD stent, 70% mid LAD stenosis distal to prior stent, moderate diffuse calcific disease in the left circumflex, mildly elevated left filling pressures. Patient was started on Ranexa, Plavix, metoprolol succinate, Aldactone. Patient states he has had no further episodes of chest pain or pressure. He denies shortness of breath. He is extremely eager to be discharged home today. PHYSICAL EXAM: VITAL SIGNS: Reviewed. GENERAL: Well-developed in no acute distress. HEENT: Head is normocephalic. Pupils are equal, round. Sclerae anicteric. Mucous membranes of the mouth are moist. Neck supple. No JVD or thyromegaly LUNGS: Respirations even and unlabored. Lungs essentially clear to auscultation bilaterally. HEART: Regular rate and rhythm. S1 and S2 heard. ABDOMEN: Soft. Nondistended. Nontender. EXTREMITIES: Normal range of motion. No clubbing or cyanosis. Peripheral pulses intact. No lower extremity edema NEUROLOGIC: Awake and alert. Oriented x 3. ASSESSMENT: Non-STEMI Coronary artery disease with previous stenting of the RCA 2015 and LAD 2003 Hyperglycemia, blood sugar 500s on admission Hypertension Hyperlipidemia Diabetes Obesity: BMI 31.1 Medical noncompliance PLAN: Continue current cardiac medications Increase activity as tolerated Await results of 2D echo Possible discharge home this afternoon pending echo results Nurse practitioner note has been reviewed by physician. Signing provider agrees with the documented findings, assessment, and plan of care documented by LOOPING MACHINE OPERATOR as a scribe. Objective - Vital Signs Vital signs: Vital Signs Temp 98.2 F 06/30/24 04:00 Pulse 70 06/30/24 08:00 Resp 18 06/30/24 08:00 BP 107/60 06/30/24 08:00 Pulse Ox 98 06/30/24 08:00 FiO2 Intake & Output 06/29/24 06/30/24 06/30/24 18:59 06:59 18:59 Intake Total 115.002 240 Output Total 800 Balance 115.002 -800 240 Weight 81.6 kg Intake: IV 100 Intake, IV Titration 15.002 Amount Heparin Sod,Pork in 0.45% 15.002 NaCl 25,000 unit In 0.45 % NaCl 1 250ml.bag @ 18 UNITS/KG/HR 13.88 mls/hr IV .Q18H1M [facility] Rx#: [id number] Oral 240 Output: Urine 800 Other: Voiding Method Toilet Toilet Urinal Urinal # Voids 1 - Labs CBC & Chem 7: 06/30/24 08:34 06/30/24 08:34 Labs: Abnormal Lab Results - Last 24 Hours (Table) 06/28/24 06/29/24 06/29/24 Range/Units 22:58 17:52 20:07 RBC (4.30-5.90) m/uL Hgb (13.0-17.5) gm/dL Hct (39.0-53.0) % Sodium (137-145) mmol/L BUN (9-20) mg/dL Creatinine (0.66-1.25) mg/dL Glucose (74-99) mg/dL POC Glucose (mg/dL) 228 H 256 H (70-110) mg/dL Hemoglobin A1c 11.7 H (<=6.0) % 06/30/24 06/30/24 06/30/24 Range/Units 06:17 08:34 08:34 RBC 3.41 L (4.30-5.90) m/uL Hgb 10.3 L (13.0-17.5) gm/dL Hct 31.3 L (39.0-53.0) % Sodium 136 L (137-145) mmol/L BUN 26 H (9-20) mg/dL Creatinine 1.31 H (0.66-1.25) mg/dL Glucose 149 H (74-99) mg/dL POC Glucose (mg/dL) 224 H (70-110) mg/dL Hemoglobin A1c (<=6.0) % 06/30/24 Range/Units 11:27 RBC (4.30-5.90) m/uL Hgb (13.0-17.5) gm/dL Hct (39.0-53.0) % Sodium (137-145) mmol/L BUN (9-20) mg/dL Creatinine (0.66-1.25) mg/dL Glucose (74-99) mg/dL POC Glucose (mg/dL) 269 H (70-110) mg/dL Hemoglobin A1c (<=6.0) %
[2024-06-30 13:53] VITALS: BMI 32.8
--- NOTE | 2024-06-30 15:10 | CA ---
Transthoracic Echo Report Name: Trace Hilliard Age: 73 Gender: M : 1950 Exam Date: 06/30/2024 10:55 Exam Location: [facility] Echo Ht (in): 62 Wt (lb): 170 Ordering Physician: Stefan Jimenez MD Attending/Referring Phys: [id number], Barbara Vascular Neurologist Ximena Carrillo, AUBREE Procedure CPT: Indications: Chest Pain Cardiac Hx: Technical Quality: Technically difficult study Contrast 1: Definity Total Dose (mL): 2 Contrast 2: Total Dose (mL): MEASUREMENTS (Male / Female) Normal Values 2D ECHO LV Diastolic Diameter PLAX 4.8 cm 4.2 - 5.9 / 3.9 - 5.3 cm LV Systolic Diameter PLAX 2.9 cm IVS Diastolic Thickness 1.3 cm 0.6 - 1.0 / 0.6 - 0.9 cm LVPW Diastolic Thickness 1.2 cm 0.6 - 1.0 / 0.6 - 0.9 cm LV Relative Wall Thickness 0.5 RV Internal Dim ED PLAX 3.3 cm LA Systolic Diameter LX 3.2 cm 3.0 - 4.0 / 2.7 - 3.8 cm LA Volume 55.1 cm??? 18 - 58 / 22 - 52 cm??? LA Volume Index 29.5 cm???/m??? 16 - 28 cm???/m??? M-MODE Aortic Root Diameter MM 3.0 cm AV Cusp Separation MM 2.2 cm DOPPLER AV Peak Velocity 130.0 cm/s AV Peak Gradient 6.8 mmHg MV Area PHT 2.6 cm??? Mitral E Point Velocity 74.6 cm/s Mitral A Point Velocity 93.5 cm/s Mitral E to A Ratio 0.8 MV Deceleration Time 295.6 ms TR Peak Velocity 216.2 cm/s TR Peak Gradient 18.7 mmHg Right Ventricular Systolic Press 23.2 mmHg FINDINGS Left Ventricle Left ventricular ejection fraction is estimated at 45-50 %. Left ventricular cavity size normal. Mildly increased septal wall thickness. Apical inferior hypokinesis, mid inferior hypokinesis Right Ventricle Mild right ventricular dilatation. Right ventricular systolic pressure within normal limits. Right Atrium Normal right atrial size. No right atrial thrombus or mass seen. Left Atrium Mildly increased left atrial volume. No left atrial thrombus or mass present. Mitral Valve Structurally normal mitral valve. No mitral stenosis, regurgitation or prolapse. Aortic Valve Trileaflet aortic valve. No aortic valve stenosis or regurgitation. Tricuspid Valve Structurally normal tricuspid valve. Mild tricuspid regurgitation. Pulmonic Valve Pulmonic valve not well visualized. No pulmonic regurgitation. Pericardium No pericardial or pleural effusion. Aorta Normal size aortic root and proximal ascending aorta. CONCLUSIONS Mild LV dysfunction with an ejection fraction of 45-50% with inferior wall hypokinesis Previewed by: Dr. George Thorpe MD (Electronically Signed) Final Date: 30 June 2024 15:09
[2024-06-30 15:34] VITALS: BP 99/54; PULSE 75
--- NOTE | 2024-06-30 15:48 | P.DS ---
Providers Date of admission: 06/29/24 02:19 Expected date of discharge: 06/30/24 Attending physician: Gabby Nguyễn Consults: 06/29/24 02:17 Consult Physician Routine Consulting Provider: Stephen Ayoub Consult Reason/Comments: chest pain Do you want consulting provider notified?: Yes Primary care physician: Shannon Honeycutt Hospital Course: Discharge diagnoses: NSTEMI Coronary artery disease with previous stenting of RCA in 2016 and LAD in 2004 Hyperglycemia Hypertension Hyperlipidemia Diabetes mellitus Obesity with BMI 31.1 Medical noncompliance Presented with chest pain, was found to have elevated troponin. EKG showed sinus rhythm with nonspecific ST-T wave changes, chest x-ray showed low lung volumes Cardiology consultedunderwent cardiac catheterization revealing diffuse coronary calcifications, 100% in-stent stenosis of proximal RCA stent, 50% in- stent stenosis of mid LAD stent, 70% mid LAD stenosis distal to prior stent, moderate diffuse calcific disease in the left circumflex, mildly elevated left filling pressures. Cardiology recommended to continue aspirin, Plavix, Ranexa, metoprolol, Aldactone, losartan. Echocardiogram was done which showed EF 45 to 50% with inferior wall hypokinesis. Patient condition vital stable at discharge. Patient asymptomatic. Hospital course: This is a pleasant 73 years old male with past medical history of multiple me dical problems including diabetes mellitus, type II and oral medication, remote history of coronary artery disease s/p stent, he used to follow-up with Dr. Aguilar but not recently. Currently he is not on aspirin at home. Also he has history of pulmonary embolism, he was on Eliquis blood thinner but that was stopped couple years ago by his doctor. Presents because of chest pain which started last night about 9-10/10 in severity, in the lower chest radiating to the back felt like dull with no obvious precipitated or relieving factors other than pain medication which helped bring in his chest pain down to 1-2/10 currently No overt dyspnea or coughing. He has history of stent about 10 years ago and used to follow-up with Dr. Aguilar but not recently He denies any GI/ symptoms, no headache dizziness weakness He denies smoking alcohol or illicit drugs Patient afebrile, blood pressure is stable Hemoglobin 11.6, rest of CBC is unremarkable Creatinine mildly elevated at 1.3 with sodium slightly low and 129 Rest of BMP and LFT were unremarkable Troponin went up from 0.012 up to 0.629 Hemoglobin A1c was before controlled at 5, Hemoglobin A1c level is requested Acetone is negative D-dimer is elevated 0.8 CTA was negative for PE but showing pulmonary hypertension Chest x-ray showing no acute process EKG showing sinus rhythm with mild ST segment elevation in the inferior lead less than 1 mm, second EKG showing T wave inversion in the inferior leads Patient was given aspirin and heparin drip, 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 Patient continued on aspirin, Plavix, Ranexa, metoprolol, Aldactone, losartan at discharge. Echocardiogram done which showed EF 45 to 50% with inferior wall hypokinesis. Patient condition vital stable at discharge. Please refer to medical assessment for further details. Follow-up with PCP in 1 week Follow with cardiology as outpatient. PHYSICAL EXAMINATION: GENERAL: The patient is A&O x3, NAD HEENT: EOMI, Sclerae anicteric, Moist Mucous membranes Neck: Supple, Non tender, No JVD PULMONARY: Equal breath souds B/L, No wheezing, No crackles. CARDIOVASCULAR: S1, S2 present. No murmurs, rubs, or gallops. ABDOMEN: Soft, nontender, nondistended, normoactive bowel sounds. No guarding or rebound tenderness. MUSCULOSKELETAL: No edema, No cyanosis. No clubbing. Normal ROM. Intact peripheral pulses. NEUROLOGICAL: CN 2-12 grossly intact. No FND SKIN: No rashes. Dictation was produced using [employer] dictation software. please excuse any gram matical, word or spelling errors. Plan - Discharge Summary Discharge Rx Participant: No New Discharge Prescriptions: New Tamsulosin [Flomax] 0.4 mg PO HS #30 cap Clopidogrel [Plavix] 75 mg PO DAILY #30 tab Ranolazine [Ranexa] 500 mg PO Q12HR #60 tab Spironolactone [Aldactone] 12.5 mg PO DAILY #30 tab Aspirin 81 mg PO DAILY #30 tab Dapagliflozin Propanediol [Farxiga] 10 mg PO DAILY #30 tab Atorvastatin [Lipitor] 80 mg PO HS #30 tab Metoprolol Succinate (ER) [Toprol XL] 25 mg PO DAILY #30 tab Continue Levocetirizine Dihydrochloride [Xyzal] 5 mg PO DAILY Megestrol Acetate 20 mg PO BID Zolpidem Tartrate [Ambien] 5 mg PO HS HYDROcodone/APAP 7.5-325MG [Pomeroy 7.5-325] 1 tab PO TID PRN PRN Reason: Pain Lidocaine 5% Patch [Lidoderm 5% Patch] 1 patch TOPICAL DAILY PRN #30 patch PRN Reason: Pain Cyclobenzaprine [Flexeril] 5 mg PO TID 5 Days #15 tablet metFORMIN HCL [Glucophage] 1,000 mg PO BID Omeprazole 40 mg PO DAILY Losartan [Cozaar] 25 mg PO DAILY Discontinued Naproxen [Naprosyn] 500 mg PO TID atenoloL [Tenormin] 25 mg PO DAILY Atorvastatin [Lipitor] 20 mg PO DAILY Discharge Medication List Levocetirizine Dihydrochloride [Xyzal] 5 mg PO DAILY 04/14/15 [History] Megestrol Acetate 20 mg PO BID 03/29/16 [History] HYDROcodone/APAP 7.5-325MG [[place]oy 7.5-325] 1 tab PO TID PRN 02/02/22 [History] Zolpidem Tartrate [Ambien] 5 mg PO HS 02/02/22 [History] Lidocaine 5% Patch [Lidoderm 5% Patch] 1 patch TOPICAL DAILY PRN #30 patch 12/08/23 [Rx] Cyclobenzaprine [Flexeril] 5 mg PO TID 5 Days #15 tablet 06/02/24 [Rx] Losartan [Cozaar] 25 mg PO DAILY 06/29/24 [History] Omeprazole 40 mg PO DAILY 06/29/24 [History] metFORMIN HCL [Glucophage] 1,000 mg PO BID 06/29/24 [History] Aspirin 81 mg PO DAILY #30 tab 06/30/24 [Rx] Atorvastatin [Lipitor] 80 mg PO HS #30 tab 06/30/24 [Rx] Clopidogrel [Plavix] 75 mg PO DAILY #30 tab 06/30/24 [Rx] Dapagliflozin Propanediol [Farxiga] 10 mg PO DAILY #30 tab 06/30/24 [Rx] Metoprolol Succinate (ER) [Toprol XL] 25 mg PO DAILY #30 tab 06/30/24 [Rx] Ranolazine [Ranexa] 500 mg PO Q12HR #60 tab 06/30/24 [Rx] Spironolactone [Aldactone] 12.5 mg PO DAILY #30 tab 06/30/24 [Rx] Tamsulosin [Flomax] 0.4 mg PO HS #30 cap 06/30/24 [Rx] Follow up Appointment(s)/Referral(s): Shannon Honeycutt MD [Primary Care Provider] - 1-2 days Discharge Disposition: HOME SELF-CARE
[2024-06-30 16:21] LABS: Glucose,Whole Blood 329 mg/dL (70-110)
[2024-06-30 22:57] LABS: Chol/HDL Ratio 4.19 Ratio; LDL Cholesterol,Calculated 56.4 mg/dL (0.0-131.0)
[2024-07-01] MEDS ORDERED: PANTOPRAZOLE 40 MG TABLET PO SCH (07:30)
== END 2024-06-30 16:49 | disposition home or self-care (01) | DRG 281 ==
LOC: EC 22:52 → 6NMEDSUR 06-29 02:19 → OBSVTOIN 06-29 02:19 → 3SCARD 06-29 06:33
PROVIDERS: ADMIT Hospitalist; ATTEND Hospitalist
PROC: 4A023N7 Measurement of Cardiac Sampling and Pressure, Left Heart, Percutaneous Approach (ICD-10-PCS; principal; 2024-06-29 19:45)
PROC: B2111ZZ Fluoroscopy of Multiple Coronary Arteries using Low Osmolar Contrast (ICD-10-PCS; 2024-06-29 19:45)
DX: T82.855A Stenosis of coronary artery stent, initial encounter (principal); E87.1 Hypo-osmolality and hyponatremia; I21.4 Non-ST elevation (NSTEMI) myocardial infarction; I27.20 Pulmonary hypertension, unspecified; E11.65 Type 2 diabetes mellitus with hyperglycemia; E86.1 Hypovolemia; E66.9 Obesity, unspecified; E78.5 Hyperlipidemia, unspecified; I10 Essential (primary) hypertension; I25.10 Atherosclerotic heart disease of native coronary artery without angina pectoris; K21.9 Gastro-esophageal reflux disease without esophagitis; Y71.2 Prosthetic and other implants, materials and accessory cardiovascular devices associated with adverse incidents; I25.2 Old myocardial infarction; Z68.31 Body mass index [BMI] 31.0-31.9, adult; Z79.84 Long term (current) use of oral hypoglycemic drugs; Z79.890 Hormone replacement therapy; Z79.899 Other long term (current) drug therapy; Z86.711 Personal history of pulmonary embolism; Z87.891 Personal history of nicotine dependence; Z91.199 Patient's noncompliance with other medical treatment and regimen due to unspecified reason; Z92.3 Personal history of irradiation; Z85.46 Personal history of malignant neoplasm of prostate; Z82.49 Family history of ischemic heart disease and other diseases of the circulatory system
CPT/HCPCS: 36415; 71045; 71275; 76937; 80048; 80053; 80061; 82009; 82150; 83036; 83690; 83735; 83880; 84443; 84484; 85025; 85379; 85610; 85730; 93005; 93306; 93458; 96361; 96365; 96366; 96375; 99285

== ENCOUNTER 2024-09-02 17:12 | Emergency (ER) | payer MEDICARE, OTHER ==
--- NOTE | 2024-09-02 17:25 | ED ---
Fall HPI - General Chief Complaint: Fall Stated Complaint: fell low back pain L knee injury Time Seen by Provider: 09/02/24 17:14 Source: patient, RN notes reviewed, old records reviewed Mode of arrival: ambulatory Limitations: no limitations - History of Present Illness Initial Comments: This is a 73-year-old male to the ER for evaluation of back pain left hip pain left knee pain left elbow pain. This occurred after a fall 2 days ago. Patient does take pain medications at home Mikana 10, these pain medications are not currently helping. His ambulation and getting around has been worsened. Pain is not controlled by his normal pain medications. History of back surgery, no recent surgery. Patient has been on pain medications for years. Denies loss of bowel or bladder denies neurological complaints chest pain MD Complaint: fall, other (Back pain hip pain knee pain left elbow pain) -: days(s) (2) Fall From: standing When Fall Occurred: # days [employer] Fall Witnessed: yes, by family Place Fall Occurred: home Loss of Consciousness: none Prolonged Down Time?: no Symptoms Prior to Fall: none Location: back, pelvis Location - Extremities: Left: Elbow, Knee Severity: severe Severity scale (1-10): 10 Quality: sharp Context: tripped/slipped Associated Symptoms: denies - Related Data Home Medications Medication Instructions Recorded Confirmed Levocetirizine Dihydrochloride 5 mg PO DAILY 04/14/15 06/29/24 [Xyzal] Megestrol Acetate 20 mg PO BID 03/29/16 06/29/24 Zolpidem Tartrate [Ambien] 5 mg PO HS 02/02/22 06/29/24 Losartan [Cozaar] 25 mg PO DAILY 06/29/24 06/29/24 Omeprazole 40 mg PO DAILY 06/29/24 06/29/24 metFORMIN HCL [Glucophage] 1,000 mg PO BID 06/29/24 06/29/24 Previous Rx's Medication Instructions Recorded Lidocaine 5% Patch [Lidoderm 5% 1 patch TOPICAL DAILY PRN #30 patch 12/08/23 Patch] Cyclobenzaprine [Flexeril] 5 mg PO TID 5 Days #15 tablet 06/02/24 Aspirin 81 mg PO DAILY #30 tab 06/30/24 Atorvastatin [Lipitor] 80 mg PO HS #30 tab 06/30/24 Clopidogrel [Plavix] 75 mg PO DAILY #30 tab 06/30/24 Dapagliflozin Propanediol [Farxiga] 10 mg PO DAILY #30 tab 06/30/24 Metoprolol Succinate (ER) [Toprol 25 mg PO DAILY #30 tab 06/30/24 XL] Ranolazine [Ranexa] 500 mg PO Q12HR #60 tab 06/30/24 Spironolactone [Aldactone] 12.5 mg PO DAILY #30 tab 06/30/24 Tamsulosin [Flomax] 0.4 mg PO HS #30 cap 06/30/24 HYDROcodone/APAP 10-325MG [Mikana 1 tab PO Q6HR PRN 30 Days #120 tab 08/23/24 10-325] HYDROcodone/APAP 10-325MG [Mikana 1 tab PO QID PRN 30 Days #120 tab 08/23/24 10-325] Allergies Allergy/AdvReac Type Severity Reaction Status Date / Time No Known Allergies Allergy Verified 09/02/24 17:17 Review of Systems ROS Statement: Those systems with pertinent positive or pertinent negative responses have been documented in the HPI. ROS Other: All systems not noted in ROS Statement are negative. Past Medical History Past Medical History: Coronary Artery Disease (CAD), Cancer, Chest Pain / Angina, Diabetes Mellitus, GERD/Reflux, Hyperlipidemia, Hypertension, Myocardial Infarction (MS) Additional Past Medical History / Comment(s): PROSTATE CANCER RADIATION/SEED IMPLANTS, STATES HE HAD HX OF RADIATION WHICH BURNED HIS COLON. Last Myocardial Infarction Date:: 2017 History of Any Multi-Drug Resistant Organisms: None Reported Past Surgical History: Heart Catheterization With Stent, Orthopedic Surgery Additional Past Surgical History / Comment(s): HEART CATH WITH STENT multiple times he believes he has 4 stents with last one in 2018, COLONOSCOPY, back surgery Past Anesthesia/Blood Transfusion Reactions: No Reported Reaction Date of Last Stent Placement:: 2017 Past Psychological History: No Psychological Hx Reported Smoking Status: Former smoker Past Alcohol Use History: None Reported Past Drug Use History: None Reported - Past Family History Brother(s) Family Medical History: Coronary Artery Disease (CAD), Diabetes Mellitus, Myocardial Infarction (MS) Father Family Medical History: Myocardial Infarction (MS) Additional Family Medical History / Comment(s): Father of MS at 99 years old Mother Family Medical History: Cancer Additional Family Medical History / Comment(s): Mother of breast cancer at 68 years old General Exam Limitations: no limitations General appearance: alert, in no apparent distress Head exam: Present: atraumatic, normocephalic, normal inspection Eye exam: Present: normal appearance, PERRL, EOMI. Absent: scleral icterus, conjunctival injection, periorbital swelling ENT exam: Present: normal exam, mucous membranes moist Neck exam: Present: normal inspection. Absent: tenderness, meningismus, lymphadenopathy Respiratory exam: Present: normal lung sounds bilaterally. Absent: respiratory distress, wheezes, rales, rhonchi, stridor Cardiovascular Exam: Present: regular rate, normal rhythm, normal heart sounds. Absent: systolic murmur, diastolic murmur, rubs, gallop, clicks GI/Abdominal exam: Present: soft, normal bowel sounds. Absent: distended, tenderness, guarding, rebound, rigid Extremities exam: Present: normal inspection, full ROM, normal capillary refill. Absent: tenderness, pedal edema, joint swelling, calf tenderness Back exam: Present: normal inspection Neurological exam: Present: alert, oriented X3, CN II-XII intact Psychiatric exam: Present: normal affect, normal mood Skin exam: Present: warm, dry, intact, normal color. Absent: rash Course Vital Signs 09/02/24 09/02/24 17:13 19:34 Temperature 978 F H 97.9 F Pulse Rate 81 67 Respiratory 20 18 Rate Blood Pressure 117/68 148/80 O2 Sat by Pulse 99 96 Oximetry - Reevaluation(s) Reevaluation #1: 09/02/24 17:32 Medical records reviewed Reevaluation #2: 09/02/24 18:33 Patient pain is controlled here in the ER is able to ambulate Reevaluation #3: 09/02/24 18:33 Patient informed of results questions answered Reevaluation #4: Was pt. sent in by a medical professional or institution (, PA, PREVENTIVE MEDICINE PHYSICIAN, urgent care, hospital, or care home...) When possible be specific @ -no Did you speak to anyone other than the patient for history (EMS, parent, family, police, friend...)? What history was obtained from this source @ -no Did you review nursing and triage notes (agree or disagree)? Why? @ -agree Are old charts reviewed (outside hosp., previous admission, EMS record, old EKG, old radiological studies, urgent care reports/EKG's, care home records)? Report findings @ -yes Differential Diagnosis (chest pain, altered mental status, abdominal pain women, abdominal pain men, vaginal bleeding, weakness, fever, dyspnea, syncope, heada ty, dizziness, GI bleed, back pain, seizure, CVA, palpatations, mental health, musculoskeletal)? @ -prior EKG interpreted by me (3pts min.). @ -no X-rays interpreted by me (1pt min.). @ -yes negative for acute disease CT interpreted by me (1pt min.). @ -no U/S interpreted by me (1pt. min.). @ -no What testing was considered but not performed or refused? (CT, X-rays, U/S, labs)? Why? @ -none What meds were considered but not given or refused? Why? @ -none Did you discuss the management of the patient with other professionals (professionals i.e. , PA, PREVENTIVE MEDICINE PHYSICIAN, lab, RT, psych nurse, social work professor, wood boat builder supervisor, teacher, adult parole officer, employment case manager)? Give summary @ -no Was smoking cessation discussed for >3mins.? @ -no Was critical care preformed (if so, how long)? @ -no Were there social determinants of health that impacted care today? How? (Homelessness, low income, unemployed, alcoholism, drug addiction, transportation, low edu. Level, literacy, decrease access to med. care, custodial, rehab)? @ -none Was there de-escalation of care discussed even if they declined (Discuss DNR or withdrawal of care, Hospice)? DNR status @ -no What co-morbidities impacted this encounter? (DM, HTN, Smoking, COPD, CAD, Cancer, CVA, ARF, Chemo, Hep., AIDS, mental health diagnosis, sleep apnea, morbid obesity)? @ -none Was patient admitted / discharged? Hospital course, mention meds given and rout e, prescriptions, significant lab abnormalities, going to OR and other pertinent info. @ - 73 male with acute on chronic back pain. Patient also has recent fall including increased pain in the left knee hip and elbow. Patient has no acute fractures noted patient can be discharged home Discharge Undiagnosed new problem with uncertain prognosis? @ -no Drug Therapy requiring intensive monitoring for toxicity (Heparin, Nitro, Insulin, Cardizem)? @ -no Were any procedures done? @ -no Diagnosis/symptom? @ -Acute on chronic back pain with fall Acute, or Chronic, or Acute on Chronic? @ -Acute Uncomplicated (without systemic symptoms) or Complicated (systemic symptoms)? @ -Complicated Side effects of treatment? @ -no Exacerbation, Progression, or Severe Exacerbation? @ -exacerbation Poses a threat to life or bodily function? How? (Chest pain, USA, MS, pneumonia, PE, COPD, DKA, ARF, appy, cholecystitis, CVA, Diverticulitis, Homicidal, Suicidal, threat to staff... and all critical care pts) @ -no Reevaluation #5: Differential Back Pain: Strain, zoster, cauda equina syndrome, epidural abscess, vertebral osteomyelitis, discitis, fracture, subluxation, disc herniation, DJD, spinal stenosis, dissection, AAA, pancreatitis, peptic ulcer disease, pyelonephritis, kidney stone, this is not meant to be an all-inclusive list. Medical Decision Making - Medical Decision Making 73 male with acute on chronic back pain. Patient also has recent fall including increased pain in the left knee hip and elbow. Patient has no acute fractures noted patient can be discharged home - Radiology Data Radiology results: report reviewed (X-ray back left hip left knee left elbow negative for traumatic injury), image reviewed Disposition Clinical Impression: Fall, Back pain Disposition: HOME SELF-CARE Condition: Good Instructions (If sedation given, give patient instructions): Fall Prevention for Older Adults (ED), Chronic Back Pain (DC), Back Pain (ED) Is patient prescribed a controlled substance at d/c from ED?: No Referrals: Shannon Honeycutt MD [Primary Care Provider] - 1-2 days Time of Disposition: 18:30
[2024-09-02] MEDS: HYDROmorphone 1 MG/ML 1 ML SYRINGE IM STA (17:38)
[2024-09-02] MEDS: ACETAMINOPHEN TAB 500 MG TAB PO STA (17:42)
[2024-09-02] MEDS: IBUPROFEN 800 MG TAB PO STA (17:42)
--- NOTE | 2024-09-02 18:08 | XR ---
EXAMINATION TYPE: XR Hip LT and AP Pelvis DATE OF EXAM: 09/02/2024 6:00 PM COMPARISON: None. CLINICAL INDICATION: Male, 73 years old with history of fall; PHH, pain TECHNIQUE: XR Hip LT and AP Pelvis; hip was examined in the frontal and lateral projections and a AP pelvis. FINDINGS: No acute fracture or dislocation. No unexpected opaque foreign body. Prostate gland radiati on therapy seeds noted. Lumbosacral spine fusion hardware. IMPRESSION: No acute fracture or dislocation of the left hip. [facility], , 09/02/2024 6:06 PM
--- NOTE | 2024-09-02 18:09 | XR ---
EXAMINATION TYPE: XR lumbar spine 2 or 3V DATE OF EXAM: 09/02/2024 5:59 PM COMPARISON: Previous radiograph 03/14/2024. CLINICAL INDICATION: Male, 73 years old with history of fall; PHH, pain TECHNIQUE: XR lumbar spine 2 or 3V - Frontal, lateral and coned in L5-S1 lateral views of the spine. FINDINGS: 5 lumbar type vertebral bodies are present for the purposes of this examination. Osseous st ructures are demineralized. Posterior fusion hardware visualized measuring L4-L5, similar to prior st udy. L4-L5 intervertebral disc spacer device also noted. No acute fracture or traumatic dislocation. Multilevel vertebral disc space loss and evidence of facet arthropathy. IMPRESSION: No acute fracture or traumatic subluxation. [facility], , 09/02/2024 6:07 PM
--- NOTE | 2024-09-02 18:11 | XR ---
EXAMINATION TYPE: XR knee complete LT DATE OF EXAM: 09/02/2024 5:59 PM COMPARISON: Previous radiograph 10/10/2017. CLINICAL INDICATION: Male, 73 years old with history of fall; PHH, pain TECHNIQUE: XR knee complete LT views submitted. FINDINGS: No acute fracture or dislocation. Moderate tricompartment the left knee degenerative osteoa rthritis. Contour calcinosis in the medial and lateral compartments. Limited evaluation for joint effusion due to patient positioning. Osseous structures demineralized. Vascular calcifications. IMPRESSION: 1. No acute fracture or dislocation in the left knee. 2. Chondrocalcinosis in the medial and lateral compartments of the left knee in addition to tricompa rtmental degenerative arthritis. [facility], , 09/02/2024 6:09 PM
--- NOTE | 2024-09-02 18:12 | XR ---
EXAMINATION TYPE: XR elbow complete LT DATE OF EXAM: 09/02/2024 5:59 PM COMPARISON: Prior radiograph 08/06/2014. CLINICAL INDICATION: Male, 73 years old with history of fall; PHH, pain TECHNIQUE: XR elbow complete LT; elbow was examined in AP, lateral, and oblique projections. FINDINGS: No evidence of any acute osseous pathology, joint dislocation, or soft tissue swelling is n oted. No evidence of joint effusion is present. Osseous structures demineralized. Mild/moderate dege nerative changes of the left elbow. IMPRESSION: No acute osseous abnormality in the left elbow. [facility], , 09/02/2024 6:10 PM
[2024-09-02] MEDS: dexAMETHasone 2 MG TAB PO STA (18:51)
[2024-09-02] MEDS: traMADol 50 MG STARTER PACK 3 TAB BTL PO STA (18:53)
[2024-09-02] MEDS: KETOROLAC 15 MG/ML 1 ML VIAL IM STA (18:53)
[2024-09-02] MEDS: IBUPROFEN 600 MG STARTER PACK 4 TAB BTL PO STA (18:54)
[2024-09-02] MEDS: diphenhydrAMINE 50 MG CAP PO STA (18:56)
[2024-09-02] MEDS: ONDANSETRON 4 MG ODT STARTER PACK 2 TAB BTL PO STA (19:27)
[2024-09-02] MEDS: ONDANSETRON ODT 4 MG TAB PO STA (19:27)
[2024-09-02 19:36] VITALS: BP 148/80; PULSE 67; RESP 18; TEMP 97.9
== END 2024-09-02 19:35 | disposition home or self-care (01) ==
LOC: EC 17:12
DX: G89.29 Other chronic pain (principal); M54.50 Low back pain, unspecified; M25.562 Pain in left knee; M25.522 Pain in left elbow; Z87.891 Personal history of nicotine dependence; M25.552 Pain in left hip; W18.30XA Fall on same level, unspecified, initial encounter; Y92.009 Unspecified place in unspecified non-institutional (private) residence as the place of occurrence of the external cause
CPT/HCPCS: 72100; 73502; 73080; 73562; 99283; 96372 ×2; J1171; J8540; J1885; S0119

== ENCOUNTER 2024-10-13 16:51 | Emergency (ER) | payer MEDICARE, OTHER ==
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
[2024-10-13] MEDS: SODIUM CHLORIDE 0.9% 1,000 ML IV STA (17:36)
[2024-10-13 17:42] LABS: Basophils # (A) 0.05 10*3/uL (0.00-0.10); Basophils % (A) 0.7 %; Eosinophils # (A) 0.09 10*3/uL (0.04-0.35); Eosinophils % (A) 1.3 %; HCT 36.5 % (39.6-50.0); HGB 12.2 g/dL (13.0-17.0); Lymphocytes # (A) 1.48 10*3/uL (0.90-5.00); Lymphocytes % (A) 21.3 %; MCH 30.6 pg (27.0-32.0); MCHC 33.4 g/dL (32.0-37.0); MCV 91.5 fL (80.0-97.0); Mean Platelet Volume 9.4 fL (9.5-12.2); Monocytes # (A) 0.49 10*3/uL (0.20-1.00); Neutrophils # (A) 4.83 10*3/uL (1.80-7.70); Neutrophils % (A) 69.4 %; Platelet Count 330 10*3/uL (140-440); RBC 3.99 10*6/uL (4.40-5.60); RDW 13.2 % (11.5-14.5); WBC 6.96 10*3/uL (4.50-10.00)
[2024-10-13] MEDS: ONDANSETRON 4 MG/2 ML VIAL IVP STA (17:44)
[2024-10-13] MEDS: FAMOTIDINE 20 MG/2 ML VIAL IV STA (17:45)
[2024-10-13 17:53] LABS: ALT 25 U/L (4-49); AST 22 U/L (17-59); African American GFR (CKD) 59 (>60 ml/min/1.73 sqM); Albumin 4.5 g/dL (3.5-5.0); Alkaline Phosphatase 53 U/L (38-126); Amylase 76 U/L (30-110); Anion Gap 6 mmol/L; Blood Urea Nitrogen 23 mg/dL (9-20); Calcium 9.8 mg/dL (8.4-10.2); Carbon Dioxide 29 mmol/L (22-30); Chloride 97 mmol/L (98-107); Glucose 108 mg/dL (74-99); Lipase 38 U/L (23-300); Non-African American GFR(CKD) 51 (>60 ml/min/1.73 sqM); Phosphorus 4.6 mg/dL (2.5-4.5); Potassium 5.2 mmol/L (3.5-5.1); Sodium 132 mmol/L (137-145); Total Bilirubin 0.5 mg/dL (0.2-1.3); Total Protein 7.8 g/dL (6.3-8.2)
[2024-10-13 17:55] LABS: Appearance,Urine Clear (Clear); Bilirubin,Urine Negative (Negative); Blood,Urine Negative (Negative); Color,Urine Light Yellow; Glucose,Urine (UA) 4+ (Negative); Ketones,Urine Negative (Negative); Leukocyte Esterase,Urine Negative (Negative); Nitrite,Urine Negative (Negative); PH, Urine 7.5 (5.0-8.0); Protein,Urine Negative (Negative); Specific Gravity,Urine 1.016 (1.001-1.035); Urobilinogen,Urine <2.0 mg/dL (<2.0)
[2024-10-13 18:59] LABS: Influenza A Not Detected (Not Detectd); Influenza B Not Detected (Not Detectd); RSV Not Detected (Not Detectd)
[2024-10-13 19:21] VITALS: BP 127/69; PULSE 79; RESP 18; TEMP 98.3
[2024-10-13] MEDS: ONDANSETRON 4 MG ODT STARTER PACK 2 TAB BTL PO STA (19:28)
== END 2024-10-13 19:29 | disposition home or self-care (01) ==
LOC: EC 16:51
DX: R11.2 Nausea with vomiting, unspecified (principal); E78.5 Hyperlipidemia, unspecified; E11.9 Type 2 diabetes mellitus without complications; I25.10 Atherosclerotic heart disease of native coronary artery without angina pectoris; Z87.891 Personal history of nicotine dependence
CPT/HCPCS: 36415; 80053; 82150; 83605; 83690; 83735; 84100; 85025; 81003; 87636; 99284; 96374; 96375; 96361; J2405; S0119

== ENCOUNTER → 2024-10-18 | Outpatient (CLI) | payer MEDICARE, OTHER ==
[2024-10-18 12:30] VITALS: BP 134/81; PULSE 67; RESP 16
--- NOTE | 2024-10-18 15:25 | P.PAINPG ---
PQRS Measure Charge Sheet Comment: HISTORY OF PRESENT ILLNESS: A 73 yr old male w at side presents today w severe and chronic LBP > 3 yrs secondary to L4-L5 Discectomy w Fixation for medication refills. Pt states pain level is provoked at 9 /10 in intensity, intermittent, localized in the lower lumbar spine, predominantly axial, sharp in character w occasional shooting pain towards the LLE. Pain is provoked by sitting/ walking for periods > 15 min. Pain is alleviated by medications, heat, ice, manual massage, repositioning and rest . Interventional procedures include L4-5 Disectomy w Fixation (2016) Medications include l [place] 10/325mg #120, Flexeril, Lidocaine REVIEW OF ORGAN SYSTEMS: CONSTITUTIONAL: No fevers or chills. No recent weight loss. NEUROLOGICAL: + numbness and tingling along the distal extremities. No seizure disorders or headaches. MUSCULOSKELETAL: + pain PSYCHIATRIC: Denies current depression or suicidal thoughts. Physical Examinations : Constitutional : Cooperative , not in acute distress . Neurologic : Cranial nerve II to XII intact. No focal neurological deficits. Psychiatric : alert & oriented x 3. Matching mood & appropriate affect. Judgment & insight intact. Musculoskeletal : Cervical Spine Motor strength in the deltoid and biceps: Normal right side. Normal Left side Motor strength biceps and the wrist extensors: Normal right side . Normal left side Motor strength in the triceps muscle: Normal right side. Normal left side Deep tendon reflexes: Normal at the biceps. Normal at Brachioradialis. Normal at triceps Vertebral body tenderness to deep palpation over Cervical facet loading test: positive bilaterally Spurling test: positive bilaterally Neck distraction test: positive bilaterally Bg sign: positive bilaterally Lumbar spine +Incisional scar intact Motor strength lower extremities ,thigh and legs 5/5 Right side , 5/5 Left side Deep tendon reflexes : Normal Knee Jerk. Normal Ankle Jerk Vertebral body tenderness over [place] Test positive Lumbar facet Loading Test: positive Right / positive Left Range of motion of the lumbar spine Flexion 30 degrees, extension 10 degrees Straight Leg Raise test: Left/ Right positive at degrees Annmarie test: positive right / positive left. Severe tenderness over the Sacroiliac joint on the Right / Left sides Gaenslen test: positive bilaterally Seated flexion test: positive bilaterally. Sacral spine : Severe tenderness over the Sacroiliac joint: right side / left side Range of motion: Flexion of the lumbar spine <60 degrees Range of motion: Extension of the lumbar spine <20 degrees Gaenslen's Test positive Annmarie test: positive right side / left side Thigh Thrust Test Sacral Thrust Test Imaging: CT non contrast lumbar spine from 06/02/24 reviewed Assessment/ Plan : L4-L5 Discectomy w Fixation Recommendation of medication management and HEP. UDS collected 10/18/24. [place] 10/325 mg #120 with 1 RF. Use, side effects, adverse reactions, safe storage discussed. Opiate/narcotic agreement signed 08/23/2024. All questions answered. I have spent greater than 30 minutes on patient care today. Dr De Leon was available by phone for the evaluation of this patient. The time was used to review the medical records including relevant urine studies and Prescription history (MAPs), review of the available imaging, evaluation and examination of the patient, coordination of care with the medical staff and if applicable referring physicians, as well as creation of the medical record - Pain Location Bilateral Lower Back Non-Pharmacological Interventions: Heat, Ice, Inactivity, Position/Reposition, Sitting Pharmacological Interventions: Scheduled Medication, Topical Medication PQRS Narrative: Smoking Status Former smoker Home Medications: Ambulatory Orders Levocetirizine Dihydrochloride [Xyzal] 5 mg PO DAILY 04/14/15 Megestrol Acetate 20 mg PO BID 03/29/16 Zolpidem Tartrate [Ambien] 5 mg PO HS 02/02/22 Lidocaine 5% Patch [Lidoderm 5% Patch] 1 patch TOPICAL DAILY PRN #30 patch 12/08/23 Cyclobenzaprine [Flexeril] 5 mg PO TID 5 Days #15 tablet 06/02/24 Losartan [Cozaar] 25 mg PO DAILY 06/29/24 Omeprazole 40 mg PO DAILY 06/29/24 metFORMIN HCL [Glucophage] 1,000 mg PO BID 06/29/24 Aspirin 81 mg PO DAILY #30 tab 06/30/24 Atorvastatin [Lipitor] 80 mg PO HS #30 tab 06/30/24 Clopidogrel [Plavix] 75 mg PO DAILY #30 tab 06/30/24 Dapagliflozin Propanediol [Farxiga] 10 mg PO DAILY #30 tab 06/30/24 Metoprolol Succinate (ER) [Toprol XL] 25 mg PO DAILY #30 tab 06/30/24 Ranolazine [Ranexa] 500 mg PO Q12HR #60 tab 06/30/24 Spironolactone [Aldactone] 12.5 mg PO DAILY #30 tab 06/30/24 Tamsulosin [Flomax] 0.4 mg PO HS #30 cap 06/30/24 Ondansetron Odt [Zofran Odt] 4 mg PO Q8HR PRN #20 tab 10/13/24 HYDROcodone/APAP 10-325MG [[place] 10-325] 1 tab PO Q6HR PRN 30 Days #120 tab 10/18/24 HYDROcodone/APAP 10-325MG [[place] 10-325] 1 tab PO QID PRN 30 Days #120 tab 10/18/24 Controlled Substance Measures - Controlled Substance Measures Is patient prescribed a controlled substance at discharge?: Yes When asked, does pt state using other controlled substances?: Yes If prescribed controlled substance>3 days was MAPS reviewed?: Yes
== END ==
LOC: PNWHC3 11:48
PROVIDERS: ATTEND Anesthesiology
DX: M43.26 Fusion of spine, lumbar region (principal); Z87.891 Personal history of nicotine dependence
CPT/HCPCS: 80307; 99212

== ENCOUNTER 2024-11-06 17:58 | Emergency (ER) | payer MEDICARE, OTHER ==
[2024-11-06 18:05] VITALS: RESP 18
[2024-11-06] MEDS: KETOROLAC 15 MG/ML 1 ML VIAL IM STA (18:51)
[2024-11-06] MEDS: HYDROmorphone 0.5 MG/0.5 ML SYRINGE IM STA (18:52)
--- NOTE | 2024-11-06 19:13 | ED ---
General Adult HPI - General Chief complaint: Extremity Injury, Lower Stated complaint: R hip pain Time Seen by Provider: 11/06/24 18:10 Source: patient, RN notes reviewed, old records reviewed Mode of arrival: wheelchair Limitations: no limitations - History of Present Illness Initial comments: This is a 74-year-old male who presents to the emergency department stating that for a week now he has had pain in the area of the iliac crest on the right. Patient denies any injury. Patient states has been consistent. Previously pushing it increases the pain. Patient denies any radiation down the leg. Patient states she has had previous back surgery years ago. - Related Data Home Medications Medication Instructions Recorded Confirmed Levocetirizine Dihydrochloride 5 mg PO DAILY 04/14/15 06/29/24 [Xyzal] Megestrol Acetate 20 mg PO BID 03/29/16 06/29/24 Zolpidem Tartrate [Ambien] 5 mg PO HS 02/02/22 06/29/24 Losartan [Cozaar] 25 mg PO DAILY 06/29/24 06/29/24 Omeprazole 40 mg PO DAILY 06/29/24 06/29/24 metFORMIN HCL [Glucophage] 1,000 mg PO BID 06/29/24 06/29/24 Previous Rx's Medication Instructions Recorded Lidocaine 5% Patch [Lidoderm 5% 1 patch TOPICAL DAILY PRN #30 patch 12/08/23 Patch] Cyclobenzaprine [Flexeril] 5 mg PO TID 5 Days #15 tablet 06/02/24 Aspirin 81 mg PO DAILY #30 tab 06/30/24 Atorvastatin [Lipitor] 80 mg PO HS #30 tab 06/30/24 Clopidogrel [Plavix] 75 mg PO DAILY #30 tab 06/30/24 Dapagliflozin Propanediol [Farxiga] 10 mg PO DAILY #30 tab 06/30/24 Metoprolol Succinate (ER) [Toprol 25 mg PO DAILY #30 tab 06/30/24 XL] Ranolazine [Ranexa] 500 mg PO Q12HR #60 tab 06/30/24 Spironolactone [Aldactone] 12.5 mg PO DAILY #30 tab 06/30/24 Tamsulosin [Flomax] 0.4 mg PO HS #30 cap 06/30/24 Ondansetron Odt [Zofran Odt] 4 mg PO Q8HR PRN #20 tab 10/13/24 HYDROcodone/APAP 10-325MG [[place] 1 tab PO Q6HR PRN 30 Days #120 tab 10/18/24 10-325] HYDROcodone/APAP 10-325MG [[place] 1 tab PO QID PRN 30 Days #120 tab 10/18/24 10-325] Ketorolac [Toradol] 10 mg PO Q8HR #15 tab 11/06/24 Allergies Allergy/AdvReac Type Severity Reaction Status Date / Time No Known Allergies Allergy Verified 11/06/24 18:05 Review of Systems ROS Statement: Those systems with pertinent positive or pertinent negative responses have been documented in the HPI. ROS Other: All systems not noted in ROS Statement are negative. Past Medical History Past Medical History: Coronary Artery Disease (CAD), Cancer, Chest Pain / Angina, Diabetes Mellitus, GERD/Reflux, Hyperlipidemia, Hypertension, Myocardial Infarction ([place]) Additional Past Medical History / Comment(s): PROSTATE CANCER RADIATION/SEED IMPLANTS, STATES HE HAD HX OF RADIATION WHICH BURNED HIS COLON. Last Myocardial Infarction Date:: 2017 History of Any Multi-Drug Resistant Organisms: None Reported Past Surgical History: Heart Catheterization With Stent, Orthopedic Surgery Additional Past Surgical History / Comment(s): HEART CATH WITH STENT multiple times he believes he has 4 stents with last one in 2018, COLONOSCOPY, back surgery Past Anesthesia/Blood Transfusion Reactions: No Reported Reaction Date of Last Stent Placement:: 2017 Past Psychological History: No Psychological Hx Reported Smoking Status: Former smoker - Past Family History Brother(s) Family Medical History: Coronary Artery Disease (CAD), Diabetes Mellitus, Myocardial Infarction ([place]) Father Family Medical History: Myocardial Infarction ([place]) Additional Family Medical History / Comment(s): Father of [place] at 99 years old Mother Family Medical History: Cancer Additional Family Medical History / Comment(s): Mother of breast cancer at 68 years old General Exam - General Exam Comments Initial Comments: GENERAL Patient is well-developed and well-nourished. Patient is in mild distress. EYES Patient's pupils are equal and round. Extraocular motion is intact SKIN Unremarkable NEURO The patient is alert and oriented A&Ox3 PYSCH Patient has normal interpersonal interactions. MUSCULOSKELETAL Patient has pain over the iliac crest on the right there is no swelling no redness and he has no radiation of the pain. Patient straight leg test is normal Limitations: no limitations Course Vital Signs 11/06/24 18:02 Temperature 97.9 F Pulse Rate 66 Respiratory 18 Rate Blood Pressure 115/72 O2 Sat by Pulse 98 Oximetry Medical Decision Making - Medical Decision Making Was pt. sent in by a medical professional or institution (YARELY Pennington, CONTRACT DESIGNER, urgent care, hospital, or group home...) When possible be specific @ -No Did you speak to anyone other than the patient for history (EMS, parent, family, police, friend...)? What history was obtained from this source @ -No Did you review nursing and triage notes (agree or disagree)? Why? @ -I reviewed and agree with nursing and triage notes Were old charts reviewed (outside hosp., previous admission, EMS record, old EKG, old radiological studies, urgent care reports/EKG's, group home records)? Report findings @ -No old charts were reviewed Differential Diagnosis? @ -Differential musculoskeletal EKG interpreted by me (3pts min.). @ -As above X-rays interpreted by me (1pt min.). @ -Pelvis x-ray shows no acute dramality CT interpreted by me (1pt min.). @ -None done U/S interpreted by me (1pt. min.). @ -None done What testing was considered but not performed or refused? (CT, X-rays, U/S, labs)? Why? @ -None What meds were considered but not given or refused? Why? @ -None Did you discuss the management of the patient with other professionals (professionals i.e. YARELY Pennington, CONTRACT DESIGNER, lab, RT, psych nurse, marriage and family social worker, water resources project manager, teacher, house officer, outpatient case manager)? Give summary @ -No Was smoking cessation discussed for >3mins.? @ -No Was critical care preformed (if so, how long)? @ -No Were there social determinants of health that impacted care today? How? (Homelessness, low income, unemployed, alcoholism, drug addiction, transportation, low edu. Level, literacy, decrease access to med. care, usp, rehab)? @ -No Was there de-escalation of care discussed even if they declined (Discuss DNR or withdrawal of care, Hospice)? DNR status @ -No What co-morbidities impacted this encounter? (DM, HTN, Smoking, COPD, CAD, Cancer, CVA, ARF, Chemo, Hep., AIDS, mental health diagnosis, sleep apnea, morbid obesity)? @ -None Was patient admitted / discharged? Hospital course, mention meds given and route, prescriptions, significant lab abnormalities, going to OR and other pertinent info. @ -Patient received a shot of Toradol and Dilaudid 0.5 mg and he was feeling considerably better his x-ray showed no acute dramality patient be discharged home with Toradol Undiagnosed new problem with uncertain prognosis? @ -No Drug Therapy requiring intensive monitoring for toxicity (Heparin, Nitro, Insulin, Cardizem)? @ -No Were any procedures done? @ -No Diagnosis/symptom? @ -Musculoskeletal back pain Acute, or Chronic, or Acute on Chronic? @ -Acute Uncomplicated (without systemic symptoms) or Complicated (systemic symptoms)? @ -Complicated Side effects of treatment? @ -No Exacerbation, Progression, or Severe Exacerbation? @ -No Poses a threat to life or bodily function? How? (Chest pain, [place], [place], pneumonia, PE, COPD, DKA, ARF, appy, cholecystitis, CVA, Diverticulitis, Homicidal, Suicidal, threat to staff... and all critical care pts) @ -No Disposition Clinical Impression: Musculoskeletal back pain Disposition: HOME SELF-CARE Condition: Good Instructions (If sedation given, give patient instructions): Low Back Strain (ED) Prescriptions: Ketorolac [Toradol] 10 mg PO Q8HR #15 tab Is patient prescribed a controlled substance at d/c from ED?: No Referrals: Shannon Honeycutt MD [Primary Care Provider] - 1-2 days Time of Disposition: 20:00
--- NOTE | 2024-11-06 19:37 | XR ---
EXAMINATION TYPE: XR pelvis AP view DATE OF EXAM: 11/06/2024 6:45 PM COMPARISON: None. CLINICAL INDICATION: Male, 74 years old with history of Pelvis pain, pain TECHNIQUE: AP view(s) obtained. FINDINGS: Femoral heads articulate with the acetabulum. Joint spaces are mildly narrowed. Symphysis pubis and s acroiliac joints are normal. No acute fractures are evident. Multiple brachytherapy seeds are present . Postsurgical changes are in the lower lumbar spine. Bowel gas is present. IMPRESSION: 1. No acute osseous abnormality AP pelvis [facility] Obrien, Workstation: [facility], 11/06/2024 7:35 PM
[2024-11-06 20:10] VITALS: BP 133/67; PULSE 60; TEMP 98.1
== END 2024-11-06 20:10 | disposition home or self-care (01) ==
LOC: EC 17:58
DX: M54.9 Dorsalgia, unspecified (principal); Z87.891 Personal history of nicotine dependence
CPT/HCPCS: 72170; 99283; 96372 ×2; J1885; J1171

== ENCOUNTER 2024-12-19 09:00 | Day surgery (SDC) | payer MEDICARE, OTHER ==
[2024-12-18 09:18] VITALS: BMI 28.3
[2024-12-19] MEDS: IV FLUID CONTINUATION 1,000 ML IV ONE (09:23)
[2024-12-19 09:31] VITALS: TEMP 96.9
[2024-12-19] MEDS: LACTATED RINGERS 1,000 ML IV SCH (09:34)
[2024-12-19 09:45] LABS: Glucose,Whole Blood 120 mg/dL (70-110)
[2024-12-19] MEDS ORDERED: PROPOFOL 10 MG/ML 20 ML VIAL IV ONE (10:06)
--- NOTE | 2024-12-19 10:29 | P.PCN ---
Date of Procedure: 12/19/24 Procedure(s) Performed: Brief history: Patient is a pleasant 74-year-old white male scheduled for an elective upper endoscopy as well as colonoscopy as a part of evaluation of abdominal pain, intermittent nausea vomiting and progressive weight loss of 100 pounds in the last 1 year duration. He does have nocturnal symptoms. Almost 20 years. He is on omeprazole 20 mg daily for history of GERD. He also has some change in bowel habits. Procedure performed: Esophagogastroduodenoscopy with biopsy Colonoscopy Preoperative diagnosis: Chronic intermittent nausea vomiting and weight loss of 100 pounds Change in bowel habits Anesthesia: MAC Procedure: After informed consent was obtained from the patient was brought into the endoscopy unit and IV sedation was administered by anesthesia under continuous monitoring. Initially upper endoscopy was done. The Olympus GF 160 video endoscope was inserted inserted into the mouth and esophagus intubated without any difficulty and was gradually advanced into the stomach and duodenum and carefully examined. The bulb and second part of the duodenum had mild duodenitis biopsies were done from this area. The scope was then withdrawn into the stomach adequately insufflated with air and upon careful examination the antrum and body, mild patchy areas of erythema consistent with gastritis and biopsies were done in this area. Rest of the cardia and fundus appeared normal. The scope was then withdrawn into the esophagus. The GE junction was located at 40 cm to the incisors. It appeared regular with no erythema erosions or ulcerations. Rest of the esophagus appeared normal. Patient tolerated the procedure well. At this time the patient continued to remain sedation. Initial digital rectal examination was normal. Olympus CF 160 video colonoscope was then inserted into the rectum and gradually advanced to the cecum without any difficulty. Careful examination was performed as the scope was gradually being withdrawn. The prep was excellent. The cecum, ascending colon, transverse colon, descending colon, sigmoid colon and rectum appeared normal. Retroflexion was performed in the rectum and small internal hemorrhoids. Were noted. Patient tolerated the procedure well. Impression: 1. Upper endoscopy revealed mild antral gastritis and mild duodenitis but no evidence of peptic ulcer disease. 2. Colonoscopy revealed small internal hemorrhoids but no evidence of colitis or colorectal neoplasia Recommendations: Findings of this examination were discussed with the patient as well as his family. He was advised to follow-up with the biopsy results. Continue with omeprazole 20 mg daily and antiemetics as needed. Follow-up in the office in 2 to 3 weeks.
[2024-12-19 10:53] VITALS: BP 129/69; PULSE 69; RESP 18
== END 2024-12-19 11:13 | disposition home or self-care (01) ==
LOC: ORWHC2ENDO 09:00
PROVIDERS: ATTEND Internal Medicine Gastroenterology
DX: K29.50 Unspecified chronic gastritis without bleeding (principal); K29.80 Duodenitis without bleeding; K64.8 Other hemorrhoids; I25.2 Old myocardial infarction; I10 Essential (primary) hypertension; E78.5 Hyperlipidemia, unspecified; I25.10 Atherosclerotic heart disease of native coronary artery without angina pectoris; K21.9 Gastro-esophageal reflux disease without esophagitis; E11.9 Type 2 diabetes mellitus without complications; Z85.46 Personal history of malignant neoplasm of prostate; Z79.899 Other long term (current) drug therapy; Z95.5 Presence of coronary angioplasty implant and graft; Z79.02 Long term (current) use of antithrombotics/antiplatelets; Z79.84 Long term (current) use of oral hypoglycemic drugs
CPT/HCPCS: 88305; 88342; 45378; 43239; J2704